=== PATIENT | female | born 1980 | race Two or more races ===

== ENCOUNTER 2020-07-24 13:30 | Outpatient (REF) | payer OTHER, SELFPAY ==
--- NOTE | 2020-07-24 | MM_ITS ---
EXAMINATION: MM DIAGNOSTIC DIGITAL BREAST TOMOSYNTHESIS, BILATERAL CLINICAL INFORMATION: Due for yearly exam. Probable benign calcifications mid upper outer left breast and mid 9:00 right breast, initially noted at baseline screening. The lifetime risk of breast cancer based on the Tyrer-Cuzick Model is 8%. COMPARISON: Mammography: 06/22/2019, 12/29/2018, 06/30/2018, 06/16/2018 (BI-RADS 0, baseline); targeted bilateral breast ultrasound 06/30/2018 and 12/29/2018. TECHNIQUE: Digital breast tomosynthesis is performed in both the craniocaudal and mediolateral oblique views along with computer-aided detection (CAD). Synthesized 2D images are generated from the tomosynthesis. FINDINGS: There are scattered areas of fibroglandular density (ACR BI-RADS breast composition Category b). Parenchymal pattern is similar to prior studies. There is no developing density or interval mass or architectural abnormality. Circumscribed benign-appearing nodules medial left breast on CC view are stable. Heavily calcified degenerating fibroadenoma mid 3:00 left breast again seen. There are scattered bilateral benign round and coarse calcifications. Calcifications for follow-up left breast mid upper outer quadrant and right breast mid 9:00 position show no suspicious changes since initial diagnostic mammography 2018 and are now considered benign, likely additional areas of degenerating fibroadenoma. Results are provided to the patient at time of visit by the technologist. MM/MM tomosynthesis diagnostic BI IMPRESSION: No significant changes from prior exams. The bilateral outer quadrant calcifications for follow-up are now considered benign. ASSESSMENT: BI-RADS 2: Benign RECOMMENDATION: Routine annual mammography screening. This patient's information was entered into a reminder system with a target due date for their next mammogram.
== END 2020-07-24 13:31 | disposition home or self-care (01) ==
LOC: HO.MAMMO 13:30
PROVIDERS: Visit Provider Internal Medicine
DX: R92.1 Mammographic calcification found on diagnostic imaging of breast (principal)
CPT/HCPCS: 77062; 77066

== ENCOUNTER → 2020-09-25 10:18 | Outpatient (BNVA) | payer OTHER, SELFPAY | PROVIDERS: PCP Internal Medicine; Visit Provider Nurse Practitioner | DX: K52.9 Noninfective gastroenteritis and colitis, unspecified (principal); K21.9 Gastro-esophageal reflux disease without esophagitis; K55.9 Vascular disorder of intestine, unspecified | CPT/HCPCS: Q3014 ==

== ENCOUNTER → 2020-10-17 10:19 | Outpatient (BNVA) | payer OTHER, SELFPAY | PROVIDERS: PCP Internal Medicine; Visit Provider Nurse Practitioner | CPT/HCPCS: Q3014 ==

== ENCOUNTER 2020-10-19 13:15 | Outpatient (REF) | payer OTHER, SELFPAY ==
[2020-10-19 14:14] LABS: Basophils Percent Auto 0.2 % (0-2); Eosinophils Absolute Auto 0.2 X10*3/uL (0.0-0.4); Eosinophils Percent Auto 1.2 % (0-4); Hematocrit 34.3 % (37-47); Hemoglobin 11.8 g/dl (12.0-16.0); Imm Gran Abs Auto 0.12 X10*3/uL (0.00-0.03); Imm Gran Pct Auto 0.7 % (0.0-0.4); Lymphocytes Absolute Auto 5.8 X10*3/uL (1.2-4.9); Lymphocytes Percent Auto 33.8 % (20-40); MANUAL DIFF FLAG SCAN; Mean Corpuscular HGB Conc 34.4 g/dl (31.0-35.0); Mean Corpuscular Hemoglobin 29.2 pg (27.0-33.0); Mean Corpuscular Volume 84.9 fL (80-98); Mean Platelet Volume 10.1 fL (9.4-12.3); Monocytes Absolute Auto 1.3 X10*3/uL (0.1-1.2); Monocytes Percent Auto 7.7 % (2-11); Neutrophils Absolute Auto 9.7 X10*3/uL (2.0-8.3); Neutrophils Percent Auto 56.4 % (45-73); Platelet Count 308 X10*3/uL (160-400); Red Blood Count 4.04 X10*6/uL (4.20-5.50); SCAN SMEAR FLAG 1; White Blood Count 17.2 X10*3/uL (4.8-10.8)
[2020-10-19 14:34] LABS: SLIDE REVIEW VERIFIED
[2020-10-19 14:54] LABS: Alanine Aminotransferase 19 U/L (0-31); Albumin Level 4.3 g/dL (3.5-5.0); Alkaline Phosphatase 68 U/L (39-117); Amylase 49 U/L (28-100); Anion Gap 13 (12-20); Aspartate Amino Transferase 9 U/L (5-31); Bilirubin Total 0.3 mg/dL (0.0-1.0); Blood Urea Nitrogen 12 mg/dL (9-16); C Reactive Protein 0.39 mg/dL (< or = 0.50); Calcium 8.5 mg/dL (8.4-10.2); Carbon Dioxide 22 mmol/L (22-29); Chloride 111 mmol/L (96-108); Estimated Glomerular Filt Rate > 60; Glucose Random 97 mg/dL (60-115); Lipase 25 U/L (8-78); Potassium 3.6 mmol/L (3.3-5.1); Sodium 142 mmol/L (135-145); Total Protein 6.9 g/dL (6.5-8.0)
[2020-10-19 15:19] LABS: TSH reflex Free T4 1.22 uIU/mL (0.32-4.0)
[2020-10-23 00:13] LABS: Gliadin Deamidated IgA Ab 2 Units; Gliadin Deamidated IgG Ab 1 Units; Transglutaminase Ab IgG 1 U/mL; Transglutaminase IgA 1 U/mL
== END 2020-10-19 13:16 | disposition home or self-care (01) ==
LOC: HO.LAB 13:15
PROVIDERS: PCP Internal Medicine; Visit Provider Nurse Practitioner
DX: K52.9 Noninfective gastroenteritis and colitis, unspecified (principal); K55.9 Vascular disorder of intestine, unspecified; K21.9 Gastro-esophageal reflux disease without esophagitis
CPT/HCPCS: 36415; 80053; 82150; 83516; 83690; 84443; 85025; 86140

== ENCOUNTER 2020-10-20 18:48 | Outpatient (REF) | payer OTHER, SELFPAY | END 2020-10-20 18:49 | disposition home or self-care (01) | LOC: HO.LNP 18:48 | PROVIDERS: Visit Provider Nurse Practitioner | DX: K52.9 Noninfective gastroenteritis and colitis, unspecified (principal) | CPT/HCPCS: 87045; 87046; 87338 ==

== ENCOUNTER 2020-10-22 12:04 | Outpatient (REF) | payer OTHER, SELFPAY | END 2020-10-22 12:05 | disposition home or self-care (01) | LOC: HO.LNP 12:04 | PROVIDERS: Visit Provider Nurse Practitioner | DX: K52.9 Noninfective gastroenteritis and colitis, unspecified (principal); K21.9 Gastro-esophageal reflux disease without esophagitis; K55.9 Vascular disorder of intestine, unspecified | CPT/HCPCS: 87046 ==

== ENCOUNTER → 2020-11-08 09:57 | Outpatient (BNVA) | payer OTHER, SELFPAY | PROVIDERS: PCP Internal Medicine; Visit Provider Nurse Practitioner | DX: Z13.89 Encounter for screening for other disorder (principal) | CPT/HCPCS: Q3014 ==

== ENCOUNTER → 2020-11-20 10:36 | Outpatient (BNVA) | payer OTHER, SELFPAY | PROVIDERS: PCP Internal Medicine; Visit Provider Urology | DX: N32.81 Overactive bladder (principal); N39.0 Urinary tract infection, site not specified | CPT/HCPCS: 51798; 81002; 99202 ==

== ENCOUNTER 2021-01-15 13:51 | Outpatient (REF) | payer OTHER, SELFPAY ==
--- NOTE | ~2021-01-15 | XR_ITS ---
EXAMINATION: XR BILATERAL HIPS WITH AP PELVIS CLINICAL INFORMATION: Osteonecrosis bilateral femur COMPARISON: Lumbar radiographs 04/08/2019 TECHNIQUE: AP view pelvis is performed. Each hip is imaged in AP and frog-lateral projections. There are a total of 5 views. FINDINGS: The bony pelvis is normal in density and shows no fracture or destructive process. The SI joints and pubis are unremarkable. There are scattered calcified phleboliths again seen left and right pelvis. Bowel gas unremarkable. Right hip shows no fracture or dislocation or destructive process. There is borderline narrowing superior medial hip joint without erosive change or chondrocalcinosis. Subtle increased attenuation is present subchondral superior medial femoral head. The trochanters and soft tissue planes are unremarkable. Left hip shows no fracture or dislocation or destructive process. No definite joint narrowing and no erosive change or chondrocalcinosis. Subtle increased attenuation is present subchondral superomedial femoral head. The trochanters and soft tissue planes are unremarkable. There is biopsy granuloma overlying the left greater trochanter on AP view and not associated with the hip on the frog lateral projection. XR/XR hip BI w PEL1V IMPRESSION: 1. Bilateral subchondral sclerosis superior medial femoral heads. Recommend bilateral hip MRI for further assessment for avascular necrosis. 2. Borderline narrowing right superior medial hip joint. No erosive change or chondrocalcinosis.
== END 2021-01-15 13:52 | disposition home or self-care (01) ==
LOC: HO.CT 13:51
PROVIDERS: Absent Provider Physical Medicine & Rehabilitation; PCP Internal Medicine; Visit Provider Nurse Practitioner
DX: M87.852 Other osteonecrosis, left femur (principal); M87.851 Other osteonecrosis, right femur; R10.32 Left lower quadrant pain
CPT/HCPCS: 73521

== ENCOUNTER 2021-03-27 14:01 | Outpatient (REF) | payer OTHER, SELFPAY ==
--- NOTE | ~2021-03-27 | CT_ITS ---
EXAMINATION: CT ABDOMEN AND PELVIS WITH CONTRAST CLINICAL INFORMATION: Left lower quadrant pain COMPARISON: None TECHNIQUE: Multidetector volumetric images were obtained from the superior aspect of the liver through the pubic symphysis following administration 85 mL of Omnipaque 350 intravenous contrast. Sagittal and coronal reformatted images were obtained on the technologist's workstation. Oral contrast: Yes This CT examination was performed using dose optimization techniques as appropriate, variously including the following: *Automated exposure control *Adjustment of mA and/or kV according to patient size (this includes techniques or standardized protocols for targeted exams where dose is matched to indication/reason for exam; i.e. extremities or head) *Use of iterative reconstruction technique DLP: 854 mGy-cm FINDINGS: LUNG BASES: The visualized lung bases are unremarkable. LIVER, GALLBLADDER, AND BILIARY TREE: The liver is slightly low in attenuation suggestive of mild fatty infiltration. The liver is slightly enlarged, right lobe measuring 20 cm in length. The liver is normal in contour. No focal liver lesion is seen. The gallbladder is normal. There is no biliary duct dilatation. PANCREAS: Unremarkable. SPLEEN: Unremarkable. ADRENAL GLANDS: Unremarkable. KIDNEYS AND URETERS: There is a 1 cm cyst in the lower pole of the right kidney. The kidneys are otherwise unremarkable. BLADDER: Unremarkable. GASTROINTESTINAL TRACT: There is mild diverticulosis of the colon. No evidence of diverticulitis is seen. There is stool throughout the colon questionable for constipation. Small and large bowel is otherwise unremarkable. The appendix is unremarkable. There is a small esophageal hernia. ABDOMINAL WALL: There is a small umbilical hernia containing fat.. LYMPH NODES: Normal. VASCULAR: Unremarkable. PELVIC VISCERA: Uterus appears to have been removed. No pelvic mass is seen. OSSEOUS STRUCTURES: There is increased subchondral sclerosis in both femoral heads questionable for early AVN. CT/CT abdomen pelvis w con IMPRESSION: Mild diverticulosis of the colon. No evidence of diverticulitis. Mild constipation. Esophageal hernia. Enlarged fatty liver. Small right renal cyst. 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
[2021-03-27] MEDS: Barium Sulfate Oral (Vanilla) 450 ML ORAL.SUSP 900 ML PO (16:26)
[2021-03-27] MEDS: iohexoL 350 MG/ML 100 ML INFUS..BTL IV (16:27)
== END 2021-03-27 14:02 | disposition home or self-care (01) ==
LOC: HO.CT 14:01
PROVIDERS: PCP Internal Medicine; Visit Provider Nurse Practitioner
DX: R10.32 Left lower quadrant pain (principal)
CPT/HCPCS: 74177; Q9967

== ENCOUNTER → 2021-04-05 15:26 | Outpatient (BNVA) | payer OTHER, SELFPAY | PROVIDERS: PCP Internal Medicine; Visit Provider Nurse Practitioner | DX: K22.10 Ulcer of esophagus without bleeding (principal); K21.9 Gastro-esophageal reflux disease without esophagitis; K52.9 Noninfective gastroenteritis and colitis, unspecified; R10.32 Left lower quadrant pain; R10.9 Unspecified abdominal pain | CPT/HCPCS: Q3014 ==

== ENCOUNTER → 2021-05-16 16:20 | Outpatient (BNVA) | payer OTHER, SELFPAY | PROVIDERS: PCP Internal Medicine; Visit Provider Nurse Practitioner | CPT/HCPCS: Q3014 ==

== ENCOUNTER 2021-10-01 15:09 | Outpatient (REF) | payer OTHER, SELFPAY ==
--- NOTE | ~2021-10-01 | MM_ITS ---
EXAMINATION: MM SCREENING DIGITAL BREAST TOMOSYNTHESIS, BILATERAL CLINICAL INFORMATION: Screening. Asymptomatic. The lifetime risk of breast cancer based on the Tyrer-Cuzick Model is 6%. COMPARISON: Mammography: 07/24/2020, 06/22/2019, 01/08/2019, 06/30/2018, 06/16/2018 (baseline) TECHNIQUE: Digital breast tomosynthesis is performed in both the craniocaudal and mediolateral oblique views along with computer-aided detection (CAD). Synthesized 2D images are generated from the tomosynthesis. FINDINGS: There are scattered areas of fibroglandular density (ACR BI-RADS breast composition Category b). There are no significant masses, abnormal calcifications, or other abnormalities. Parenchymal pattern is similar to prior studies. There is no developing density or architectural abnormality. There are scattered bilateral coarse calcifications again seen including heavily calcified nodules bilateral outer breasts. The axilla and skin contours are unremarkable. No significant changes. MM/MM tomosynthesis screening BI IMPRESSION: No mammographic evidence of malignancy. ASSESSMENT: BI-RADS 2: Benign RECOMMENDATION: Routine annual mammography screening. This patient's information was entered into a reminder system with a target due date for their next mammogram.
== END 2021-10-01 15:10 | disposition home or self-care (01) ==
LOC: HO.MAMMO 15:09
PROVIDERS: Visit Provider Internal Medicine
DX: Z12.31 Encounter for screening mammogram for malignant neoplasm of breast (principal)
CPT/HCPCS: 77063; 77067

== ENCOUNTER → 2021-10-08 09:59 | Outpatient (BNVA) | payer OTHER, SELFPAY | PROVIDERS: PCP Internal Medicine; Referring Provider Internal Medicine; Visit Provider Nurse Practitioner | DX: K58.2 Mixed irritable bowel syndrome (principal); K22.10 Ulcer of esophagus without bleeding; K21.9 Gastro-esophageal reflux disease without esophagitis; Z79.899 Other long term (current) drug therapy | CPT/HCPCS: 99212 ==

== ENCOUNTER 2023-03-25 15:09 | Outpatient (REF) | payer OTHER, SELFPAY | END 2023-03-25 15:10 | disposition home or self-care (01) | LOC: HO.LAB 15:09 | PROVIDERS: PCP Internal Medicine; Visit Provider Nurse Practitioner Family | DX: J45.909 Unspecified asthma, uncomplicated (principal); Z91.09 Other allergy status, other than to drugs and biological substances | CPT/HCPCS: 36415; 82785; 86003; 99202 ==

== ENCOUNTER 2023-03-25 15:09 | Outpatient (AMB) | payer OTHER, SELFPAY ==
--- NOTE | 2023-03-25 15:12 | MHC.OFFVIS ---
Intake Vital Signs 03/25/23 15:15 Height 5 ft 5 in BP 112/68 Blood Pressure Location Lt brachial Position Sitting Pulse 73 Pulse Source Pulse Oximeter Pulse Oximetry (%) 100 Intake Visit Reasons: Asthma Door To Door Lead Generation Required: No Tax Collector: Tax Collector offered & declined Accompanied by: Self / Same As Patient Allergies No Known Allergies [No Known Allergies*] Allergy (Verified 03/25/23 15:19) Medication List - Last Reconciled 03/25/23 by Bessie Power LPN albuterol sulfate 90 mcg/actuation (Ventolin HFA) 2 puffs inhalation QID alosetron (Lotronex) 0.5 mg PO DAILY 30 days aikimrrbgi-bxagwweitq-bay-cod 01-037-23-30 mg 1 cap PO ONCE PRN fluoxetine 20 mg PO DAILY fluticasone propion-salmeterol 250-50 mcg/dose 1 ea inhalation BID fluticasone propionate 50 mcg/actuation (Flonase Allergy Relief) 1 spray intranasal DAILY hydroxyzine pamoate 0 mg PO zukgil-ncysgmed-kkgvlqd 24,000-76,000 -120,000 unit (Creon) 1 cap PO TID losartan 100 mg PO DAILY neomycin-polymyxin B-dexameth 3.5 mg/g-10,000 unit/g-0.1 % ophthalmic (eye) olanzapine 10 mg PO BEDTIME olanzapine 7.5 mg PO BEDTIME ondansetron HCl (Zofran) 4 mg PO Q8H PRN oxybutynin chloride ER 10 mg PO DAILY pantoprazole 40 mg PO BID riboflavin (vitamin B2) 0 mg PO sennosides (senna) 17.2 mg (2 x 8.6 mg) PO BEDTIME 30 days sucralfate 1 g PO QIDACHS topiramate 200 mg PO BID topiramate 200 mg PO BID tramadol 50 mg PO Q6H PRN valsartan 160 mg PO DAILY HPI Asthma HPI Details Veronica is a very pleasant 42 year old female, former smoker, with underlying history of asthma. She was referred by her PCP for pulmonary evaluation. She reports previously being under the care of [facility] pulmonary for asthma but would like to transfer care here. She has been using Wixela and albuterol nebulizer PRN with suboptimal control. She has been having increased cough and nasal congestion. She was seen at [facility] ED in January and treated for an asthma exacerbation with resolution of symptoms after prednisone. Today she reports increased productive cough with green sputum and feeling feverish with chills since Thursday. She has been using her nebulizer q 6- 8 hours with good relief. She denies any family history of lung conditions other than an aunt with asthma. She denies any childhood asthma, reports symptoms started about 6 years ago. She denies any recent spirometry. She also reports allergic symptoms and has not had recent allergy testing. [facility] Medical History Chronic diarrhea Surgical History History of esophagogastroduodenoscopy (EGD) Hx of adenoidectomy Hx of section Hx of colonoscopy Hx of hysterectomy Hx of laparoscopy Hx of tonsillectomy Family History Mother HTN (hypertension) Diabetes Family history of cancer Father HTN (hypertension) Diabetes Family history of cancer Prostate cancer Social History (Updated 03/25/23 @ 15:27 by Bessie Power LPN) Household Members: Family and Children Alcohol intake: never Patient Tobacco Use Status: Former Tobacco user Tobacco use type: Cigarette Cigarettes Per Day: 1 Years Smoked: quit 3 yrs ago Current occupational status: disabled Review of Systems Const Reports chills, Denies excessive sweating, Denies fever(s), Denies headache(s) and Denies night sweats Eyes Denies dry eyes and Denies irritation ENT Reports Normal hearing present, Denies headache(s), Reports nasal congestion, Denies nasal discharge, Denies post nasal drip and Denies sore throat Card Denies chest pain, Denies chest pain at rest, Denies chest pain with activity, Denies claudication, Denies leg edema, Reports dyspnea on exertion, Denies orthopnea and Denies paroxysmal nocturnal dyspnea Resp Reports change in phlegm color, Reports chest congestion, Reports cough, Denies hemoptysis, Denies excessive phlegm production, Denies pain on inspiration, Denies pain with cough, Reports dyspnea on exertion, Denies stridor and Denies wheezing Musc Denies myalgias Neuro Reports Normal hearing present and Denies headache(s) Endo Denies excessive sweating Ash/Lymph Denies lymphadenopathy Aller/Immun Denies seasonal rhinorrhea and Denies wheezing Physical Exam Vital Signs: Last Vital Signs Pulse 73 03/25/23 15:15 BP 112/68 03/25/23 15:15 Pulse Ox 100 03/25/23 15:15 Const General: cooperative, healthy appearing, comfortable, no acute distress, well developed and alert Nutritional Appearance: obese Orientation/consciousness: patient oriented x3 Limitations: no limitations HEENT Head: Yes normal to inspection, Yes normocephalic and Yes atraumatic Ears: hearing grossly normal bilaterally and external ears normal Eyes General: appearance normal, both eyes and all related structures Eyelids: Yes eyelids normal Sclerae: sclerae normal EOM: EOMs intact bilaterally Neck Neck: Yes normal visual inspection and Yes no lymphadenopathy Lymphatic: no lymphadenopathy noted Chest Chest palpation & inspection: normal inspection of the chest Resp Effort & Inspection: normal respiratory effort, able to speak in complete sentences, no audible wheezes, no stridor, not tachypneic, no tripod positioning and no use of accessory muscles Auscultation: no crackles, no rhonchi, no wheezes and diminished lung sounds Cardio Jugular venous distension: no JVD Rate: regular rate Rhythm: regular rhythm Skin Other: warm, dry General skin exam: no rashes or lesions noted Neuro General: patient oriented x3 Cranial nerves: Yes Normal hearing present Cognition (Neuro): normal cognition Gait exam (Neuro): Normal gait present Extrem General: Yes normal to inspection, Yes capillary refill normal, Yes no clubbing, cyanosis or edema and Yes no pedal edema Psych Appearance: grossly normal and well kempt Speech and movement: Normal speech and movement present and Clear speech present Affect: normal affect Attitude: cooperative Thought process: Normal thought process present Thought content: Normal thought content present Insight: Good insight present (Psych) Judgement: Good judgement present (Psych) Assessment & Plan Assessment & Plan (1) Asthma: Code(s): J45.909 - Unspecified asthma, uncomplicated (2) Environmental allergies: Code(s): Z91.09 - Other allergy status, other than to drugs and biological substances (3) Bronchitis: Code(s): J40 - Bronchitis, not specified as acute or chronic Plan Veronica presents for pulmonary evaluation of asthma with likely underlying allergic component. Will send for PFT and lab work. She currently has bronchitic symptoms, will treat with zpak. She report suboptimal use with Wixela 250 mcg, will increase to 500 mcg and trial ipratropium nasal spray. All questions were answered and patient is in agreement of plan. Will follow up to review results or sooner if no improvement with antibiotics. Orders: Orders Rast Allergen 03/25/23 Z91.09 - Other allergy status, other than to drugs and biological substances Complete Blood Count Auto Diff 03/25/23 J40 - Bronchitis, not specified as acute or chronic Immunoglobulin E 03/25/23 Z91.09 - Other allergy status, other than to drugs and biological substances PFT pulmonary function test 03/25/23 J45.909 - Unspecified asthma, uncomplicated Medications: New azithromycin For 250 mg dose pack: take 500 mg today (day 1), then 250 mg for 4 days (days 2-5) PO 6 tabs 0RF ipratropium bromide administer into each nostril 2 sprays intranasal BID 30 mL 3RF fluticasone propion-salmeterol 500-50 mcg/dose (Wixela Inhub) 1 inh inhalation Q12H 60 ea 2RF Coding Level of Care Code New Pt Level 4 (55905) Diagnoses Asthma J45.909 Environmental allergies Z91.09 Bronchitis J40
[2023-03-25 15:15] VITALS: BP 112/68; PULSE 73; O2SAT 100
== END 2023-03-25 15:51 | disposition home or self-care (01) ==
PROVIDERS: PCP Internal Medicine; Referring Provider Internal Medicine; Visit Provider Nurse Practitioner Family
DX: J45.909 Unspecified asthma, uncomplicated (principal); Z91.09 Other allergy status, other than to drugs and biological substances
CPT/HCPCS: 99204

== ENCOUNTER 2023-04-21 09:11 | Outpatient (REF) | payer OTHER, SELFPAY ==
--- NOTE | 2023-04-21 09:55 | PFT_ITS ---
FLOWS: 1. FEV1 79% of predicted at 2.39 L. 2. FVC 69% of predicted at 2.62 L. 3. FEV1 to FVC ratio of 0.91. 4. No bronchodilator response except in wsozi-ed-xanlxu airways. LUNG VOLUMES: 1. Total lung capacity 68% of predicted at 3.56 L. 2. Residual volume 52% of predicted at 0.90 L. 3. Slow vital capacity 76% of predicted at 2.66 L. 4. Expiratory reserve volume 5% of predicted at 0.06 L. 5. Diffusion capacity is normal. IMPRESSION: Moderate restrictive ventilatory defect with no bronchodilator response except in vjrxt-ku-dxrizv airways. Decreased expiratory reserve volume suggests extrathoracic restriction, likely secondary to abdominal obesity. Tank Wilburn MD AP/MODL / [id number]
== END 2023-04-21 09:12 | disposition home or self-care (01) ==
LOC: HO.RESP 09:11
PROVIDERS: PCP Internal Medicine; Visit Provider Nurse Practitioner Family
DX: J45.909 Unspecified asthma, uncomplicated (principal)
CPT/HCPCS: 94010; 94727; 94729

== ENCOUNTER → 2023-04-21 09:55 | Outpatient (BNV) | payer OTHER, SELFPAY | PROVIDERS: PCP Internal Medicine; Visit Provider Internal Medicine Pulmonary Disease | DX: J45.909 Unspecified asthma, uncomplicated (principal) | CPT/HCPCS: 94060; 94727; 94729 ==

== ENCOUNTER 2023-05-15 | Outpatient (REF) | payer OTHER, SELFPAY | END 2023-05-15 00:01 | disposition home or self-care (01) | LOC: CF | PROVIDERS: Visit Provider Nurse Practitioner Family | DX: J40 Bronchitis, not specified as acute or chronic (principal); J01.90 Acute sinusitis, unspecified; Z91.09 Other allergy status, other than to drugs and biological substances | CPT/HCPCS: 94640; 99212 ==

== ENCOUNTER 2023-05-15 10:35 | Outpatient (AMB) | payer OTHER, SELFPAY ==
[2023-05-15 10:40] VITALS: BP 110/68; PULSE 91; O2SAT 100; BMI 40.1
--- NOTE | 2023-05-15 10:40 | A.OFFVIS_ITS ---
Intake Vital Signs 3 05/15/23 10:40 Height 5 ft 5 in Weight 241 lb BMI 40.1 BP 110/68 Blood Pressure Location Rt brachial Position Sitting Pulse 91 Pulse Source Pulse Oximeter Pulse Oximetry (%) 100 Oxygen Delivery Method Room Air Intake Visit Reasons: asthma Director Corporate Sales Required: Yes Director Corporate Sales Name: [employer] #[id number] Commercial Credit Officer: Commercial Credit Officer offered & declined Accompanied by: Self / Same As Patient Allergies No Known Allergies [No Known Allergies*] Allergy (Verified 05/15/23 10:53) Medication List - Last Reconciled 05/15/23 by Bessie Power LPN albuterol sulfate 90 mcg/actuation (Ventolin HFA) 2 puffs inhalation QID alosetron (Lotronex) 0.5 mg PO DAILY 30 days azithromycin For 250 mg dose pack: take 500 mg today (day 1), then 250 mg for 4 days (days 2-5) PO rtaoltexpk-gbyknkysgr-rew-cod [id number] mg 1 cap PO ONCE PRN fluoxetine 20 mg PO DAILY fluticasone propion-salmeterol 250-50 mcg/dose 1 ea inhalation BID fluticasone propion-salmeterol 500-50 mcg/dose (Wixela Inhub) 1 inh inhalation Q12H fluticasone propionate 50 mcg/actuation (Flonase Allergy Relief) 1 spray intranasal DAILY hydroxyzine pamoate 0 mg PO ipratropium bromide 2 sprays intranasal BID hnqaqf-dwyucjry-ucluger 24,000-76,000 -120,000 unit (Creon) 1 cap PO TID losartan 100 mg PO DAILY neomycin-polymyxin B-dexameth 3.5 mg/g-10,000 unit/g-0.1 % ophthalmic (eye) olanzapine 10 mg PO BEDTIME olanzapine 7.5 mg PO BEDTIME ondansetron HCl (Zofran) 4 mg PO Q8H PRN oxybutynin chloride ER 10 mg PO DAILY pantoprazole 40 mg PO BID riboflavin (vitamin B2) 0 mg PO sennosides (senna) 17.2 mg (2 x 8.6 mg) PO BEDTIME 30 days sucralfate 1 g PO QIDACHS topiramate 200 mg PO BID topiramate 200 mg PO BID tramadol 50 mg PO Q6H PRN valsartan 160 mg PO DAILY HPI asthma 2 HPI0 Details Veronica is a very pleasant 42 year old female, former smoker, with underlying history of asthma. She has been using Wixela and albuterol nebulizer PRN with suboptimal control. At the last visit, she was prescribed an increased dose of Wixela but unfortunately when she went to the pharmacy they refilled her prior dose of Wixela. She did start using ipratropium nasal spray with good effect. She continues to report increased cough and over the last three weeks has had worsening sinus pain with tenacious mucus along with congestion and inability to take a deep breath. COVID negative. She also presents to review PFT results. Of note, she is under the care of [facility] for [facility] and has been compliant with CPAP therapy. [facility] Medical History Chronic diarrhea Surgical History History of esophagogastroduodenoscopy (EGD) Hx of adenoidectomy Hx of section Hx of colonoscopy Hx of hysterectomy Hx of laparoscopy Hx of tonsillectomy Family History Mother HTN (hypertension) Diabetes Family history of cancer Father HTN (hypertension) Diabetes Family history of cancer Prostate cancer Social History (Updated 05/15/23 @ 10:51 by Bessie Power LPN) Household Members: Family and Children Alcohol intake: never Patient Tobacco Use Status: Former Tobacco user Tobacco use type: Cigarette Cigarettes Per Day: 1 Years Smoked: quit 3 yrs ago Current occupational status: disabled Review of Systems Const Reports chills, Denies excessive sweating, Denies fever(s), Denies headache(s) and Denies night sweats Eyes Denies dry eyes and Denies irritation ENT Reports Normal hearing present, Denies headache(s), Reports nasal congestion, Denies nasal discharge, Denies post nasal drip and Denies sore throat Card Denies chest pain, Denies chest pain at rest, Denies chest pain with activity, Denies claudication, Denies leg edema, Reports dyspnea on exertion, Denies orthopnea and Denies paroxysmal nocturnal dyspnea Resp Reports change in phlegm color, Reports chest congestion, Reports cough, Denies hemoptysis, Denies excessive phlegm production, Denies pain on inspiration, Denies pain with cough, Reports dyspnea on exertion, Denies stridor and Denies wheezing Musc Denies myalgias Neuro Reports Normal hearing present and Denies headache(s) Endo Denies excessive sweating Ash/Lymph Denies lymphadenopathy Aller/Immun Denies seasonal rhinorrhea and Denies wheezing Physical Exam Vital Signs: Last Vital Signs Pulse 91 05/15/23 10:40 BP 110/68 05/15/23 10:40 Pulse Ox 100 05/15/23 10:40 Oxygen Delivery Method Room Air 05/15/23 10:40 BMI result Body Mass Index 40.1 Const General: cooperative, healthy appearing, comfortable, no acute distress, well developed and alert Nutritional Appearance: obese Orientation/consciousness: patient oriented x3 Limitations: no limitations HEENT Head: Yes normal to inspection, Yes normocephalic and Yes atraumatic Ears: hearing grossly normal bilaterally and external ears normal Eyes General: appearance normal, both eyes and all related structures Eyelids: Yes eyelids normal Sclerae: sclerae normal EOM: EOMs intact bilaterally Neck Neck: Yes normal visual inspection and Yes no lymphadenopathy Lymphatic: no lymphadenopathy noted Chest Chest palpation & inspection: normal inspection of the chest Resp Other: diminished lung sounds, improved after duoneb Effort & Inspection: normal respiratory effort, able to speak in complete sentences, no audible wheezes, no stridor, not tachypneic, no tripod positioning and no use of accessory muscles Auscultation: no crackles, no rhonchi, no wheezes and diminished lung sounds Cardio Jugular venous distension: no JVD Rate: regular rate Rhythm: regular rhythm Skin Other: warm, dry General skin exam: no rashes or lesions noted Neuro General: patient oriented x3 Cranial nerves: Yes Normal hearing present Cognition (Neuro): normal cognition Gait exam (Neuro): Normal gait present Extrem General: Yes normal to inspection, Yes capillary refill normal, Yes no clubbing, cyanosis or edema and Yes no pedal edema Psych Appearance: grossly normal and well kempt Speech and movement: Normal speech and movement present and Clear speech present Affect: normal affect Attitude: cooperative Thought process: Normal thought process present Thought content: Normal thought content present Insight: Good insight present (Psych) Judgement: Good judgement present (Psych) Office Procedures Nebulizer Treatment Nebulizer Treatment [id number]/MDI RX initial, or Nebulizer Subsequent Treatment Office Meds ipratropium 0.5 mg-albuterol 3 mg (2.5 mg base)/3 mL nebulization kike Performing Provider: Marina Melo NP [place] [facility] [place] [facility] Administered by: Bessie Power LPN on 05/15/23 11:32 2 Dose Route Admin Location Dispensed Lot Number Expiration Date [facility] Hardness Tester 3 mL inhalation 3 mL [id number] 10/21/24 9098-6688-66 [employer] Results Reviewed Results Reviewed: Assessment & Plan Assessment & Plan (1) Sinusitis: Code(s): J32.9 - Chronic sinusitis, unspecified Qualifiers: Sinusitis location: unspecified location Chronicity: acute Recurrence: not specified as recurrent Qualified Code(s): J01.90 - Acute sinusitis, unspecified (2) Asthma: Code(s): J45.909 - Unspecified asthma, uncomplicated (3) Environmental allergies: Code(s): Z91.09 - Other allergy status, other than to drugs and biological substances Plan Reviewed PFT results which revealed moderate restrictive ventilatory defect with no bronchodilator response except in jswnm-[id number] airways. Decreased expiratory reserve volume suggests extrathoracic restriction, likely secondary to abdominal obesity. DLCO within normal limits. Veronica's symptoms for the past three weeks are consistent with sinusitis. Will treat with augmentin. Encouraged her to obtain the increased dose of Wixela and will prescribe duoneb for nebulizer. All questions were answered and patient is in agreement of plan. Will follow up to review results or sooner if no improvement with antibiotics. Orders: Orders 2 AMB Nebulizer Treatment 05/15/23 J40 - Bronchitis, not specified as acute or chronic, J45.909 - Unspecified asthma, uncomplicated Medications: New 2 albuterol sulfate 90 mcg/actuation (Ventolin HFA) 2 puffs inhalation QID 1 ea 3RF amoxicillin-pot clavulanate 875-125 mg 1 tab PO Q12H 14 tabs 0RF albuterol sulfate 2.5 mg (3 mL) inhalation Q4-6H PRN 90 mL 3RF shortness of breath or wheezing Refilled 2 fluticasone propion-salmeterol 500-50 mcg/dose (Wixela Inhub) 1 inh inhalation Q12H 60 ea 2RF Coding Level of Care Code Est Pt Level 4 (74619) Diagnoses Acute sinusitis, recurrence not specified, unspecified location J01.90 Sinusitis location: unspecified location Chronicity: acute Recurrence: not specified as recurrent Asthma J45.909 Environmental allergies Z91.09 CPT Codes Nebulizer Treatment - Nebulizer Treatment, initial or subsequent: 83200- Nebulizer/MDI RX initial, or Nebulizer Subsequent Treatment ([id number])
== END 2023-05-15 11:28 | disposition home or self-care (01) ==
LOC: HO.HPSW 10:35
PROVIDERS: PCP Internal Medicine; Visit Provider Nurse Practitioner Family
DX: J45.909 Unspecified asthma, uncomplicated (principal)
CPT/HCPCS: 99212; 99214

== ENCOUNTER 2023-09-22 11:25 | Outpatient (REF) | payer OTHER, SELFPAY ==
[2023-09-22 13:28] LABS: MANUAL DIFF FLAG NO
[2023-09-22 13:36] LABS: Basophils Percent Auto 0.3 % (0-2); Eosinophils Absolute Auto 0.1 X10*3/uL (0.0-0.4); Eosinophils Percent Auto 0.7 % (0-4); Hematocrit 33.6 % (37.0-47.0); Hemoglobin 11.3 g/dl (12.0-16.0); Imm Gran Abs Auto 0.07 X10*3/uL (0.00-0.03); Imm Gran Pct Auto 0.6 % (0.0-0.4); Lymphocytes Absolute Auto 2.4 X10*3/uL (1.2-4.9); Lymphocytes Percent Auto 22.1 % (20-40); Mean Corpuscular HGB Conc 33.6 g/dl (31.0-35.0); Mean Corpuscular Volume 83.4 fL (80.0-98.0); Mean Platelet Volume 9.5 fL (9.4-12.3); Monocytes Absolute Auto 0.7 X10*3/uL (0.1-1.2); Monocytes Percent Auto 6.7 % (2-11); Neutrophils Absolute Auto 7.7 x10*3/uL (2.0-8.3); Neutrophils Percent Auto 69.6 % (45-73); Platelet Count 306 X10*3/uL (160-400); Red Blood Count 4.03 X10*6/uL (4.20-5.50); Red Cell Distribution Width 13.7 % (11.0-16.0); White Blood Count 11.1 X10*3/uL (4.8-10.8)
[2023-09-22 13:49] LABS: Estimated Average Glucose 131 mg/dL; Hemoglobin A1c % 6.2 % (<6.0)
[2023-09-22 13:50] LABS: Alanine Aminotransferase 24 U/L (0-31); Albumin Level 4.3 g/dL (3.5-5.0); Alkaline Phosphatase 78 U/L (39-117); Anion Gap 15 (12-20); Aspartate Amino Transferase 14 U/L (5-31); Bilirubin Direct 0.1 mg/dL (0.0-0.5); Bilirubin Total 0.4 mg/dL (0.0-1.0); Blood Urea Nitrogen 8 mg/dL (9-16); Calcium 9.5 mg/dL (8.4-10.2); Carbon Dioxide 22 mmol/L (22-29); Chloride 109 mmol/L (96-108); Cholesterol 236 mg/dL (<200); Estimated Glomerular Filt Rate > 60; Glucose Random 189 mg/dL (60-115); HDL Cholesterol 50 mg/dL (>40); LDL Cholesterol Calculated 157 mg/dL (<100); Potassium 3.5 mmol/L (3.3-5.1); Sodium 142 mmol/L (135-145); Total Protein 7.4 g/dL (6.5-8.0); Triglycerides 148 mg/dL (<150)
== END 2023-09-22 11:26 | disposition home or self-care (01) ==
LOC: HO.HHCL 11:25
PROVIDERS: Visit Provider Internal Medicine
DX: I10 Essential (primary) hypertension (principal); R73.03 Prediabetes
CPT/HCPCS: 36415; 80048; 80061; 80076; 83036; 85025

== ENCOUNTER 2023-12-08 13:28 | Outpatient (REF) | payer OTHER, SELFPAY ==
--- NOTE | ~2023-12-08 | MM_ITS ---
EXAMINATION: MM SCREENING DIGITAL BREAST TOMOSYNTHESIS, BILATERAL CLINICAL INFORMATION: Screening. Asymptomatic. COMPARISON: Mammography: This study is compared with prior exams dating back to 2018. TECHNIQUE: Digital breast tomosynthesis is performed in both the craniocaudal and mediolateral oblique views along with computer-aided detection (CAD). Synthesized 2D images are generated from the tomosynthesis. FINDINGS: There are scattered areas of fibroglandular density (ACR BI-RADS breast composition Category b). There are no significant masses, abnormal calcifications, or other abnormalities. There are bilateral benign calcifications in each breast. MM/MM tomosynthesis screening BI IMPRESSION: No mammographic evidence of malignancy. ASSESSMENT: BI-RADS BI-RADS 2 - Benign Findings RECOMMENDATION: Routine annual mammography screening. 1 year F/U This examination should not preclude the clinical evaluation of a suspicious palpable abnormality. This patient's information was entered into a reminder system with a target due date for their next mammogram.
== END 2023-12-08 13:29 | disposition home or self-care (01) ==
LOC: HO.MAMMO 13:28
PROVIDERS: PCP Internal Medicine; Visit Provider Internal Medicine
DX: Z12.31 Encounter for screening mammogram for malignant neoplasm of breast (principal)
CPT/HCPCS: 77063; 77067

== ENCOUNTER → 2023-12-08 13:30 | Outpatient (BNV) | payer OTHER, SELFPAY | PROVIDERS: PCP Internal Medicine; Visit Provider Radiology Diagnostic Radiology | DX: Z12.31 Encounter for screening mammogram for malignant neoplasm of breast (principal) | CPT/HCPCS: 77063; 77067 ==

== ENCOUNTER 2024-01-13 13:54 | Outpatient (AMB) | payer OTHER, SELFPAY ==
--- NOTE | 2024-01-13 13:59 | A.OFFVIS_ITS ---
Vital Signs 3 01/13/24 14:00 Height 5 ft 5 in Weight 247 lb 5.738 oz BMI 41.2 BP 103/59 L Blood Pressure Location Rt brachial Position Sitting Pulse 96 Intake Visit Reasons: Colonoscopy Screeniing Intake Note: Patient in office for colonoscopy screening s/p positive cologuard. CC: Patient states that she can constipated for weeks and then she starts having diarrhea. She also c/o abdominal bloating, and abdominal pain. Patient states that her PCP ordered a cologuard test that came back positive. 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 She is still constipated despite stopping the carafate and the Lotronex. She continues on the Creon. She tried Lactulose she had at home, and it worked but she has a LOT of gas and bloating. I explain this is an expected s/e of this medicine which is why I don't use it often. She continues with the Creon, and I will add senna. I explain she may need to buy it OTC. We also discuss fiber therapy as she is now presenting with mixed IBS. I recommend citrucel or benefiber bid. I educate her that the Creon helps her with the gas and bloating which is quite a problem for her but also getting the bowels moving is important because she likely has gas trapping secondary to poor motility right now. She really wants to stop the swings and be normal. I sympathize with her but I tell her that this usually is a very individual process and it will involve compliance with fiber therapy even though it is not pay for by insurance. Return office visit in 3 weeks to evaluate her response to therapy. (2) Erosive esophagitis: Code(s): K22.10 - Ulcer of esophagus without bleeding Plan: She continues on her pantoprazole 40 mg twice a day with good response. (3) GERD (gastroesophageal reflux disease): Code(s): K21.9 - Gastro-esophageal reflux disease without esophagitis Medications: New sennosides (senna) 17.2 mg (2 x 8.6 mg) PO BEDTIME 30 days 60 caps 3RF constipation K58.2 - Mixed irritable bowel syndrome Discontinued metronidazole (Flagyl) Discontinued Reason: Patient Completed Course 500 mg PO TID 10 days 30 tabs 0RF K63.89 - Other specified diseases of intestine On Hold alosetron (Lotronex) Hold Comment: Doctor's Order 0.5 mg PO DAILY 30 days 30 tabs 3RF Patient Instructions: Ya que est? oscilando entre el estre?imiento y la diarrea, quiero que empiece a hebert un suplemento de fibra. Utilice Benefiber o Citrucel (un gen?rico est? perfectamente fawad para ahorrar dinero) y t?mauro dos veces al d?a. [place] trata tanto el estre?imiento navin la diarrea. Adem?s, comience a hebert de 1 a 2 tabletas de sen a la hora de acostarse para hacer que giacomo intestinos se muevan. Envi? dudley receta para esto a silver farmacia, yasmine es posible que no est? cubierto por el seguro y es posible que deba comprarlo sin receta. La fibra no est? cubierta por el seguro. Quiero verlo en 3 semanas para continuar ajustando silver terapia Laboratory Tests 09/22/23 11:28 WBC 11.1 H Hgb 11.3 L Hct 33.6 L MCV 83.4 MCH 28.0 Plt Count 306 Estimated GFR > 60 Total Bilirubin 0.4 Direct Bilirubin 0.1 AST 14 ALT 24 Alkaline Phosphatase 78 TODAY'S VISIT Citizen Of [place] #Aracelis Live She has been lost to follow up since 11/2021, she tells me that her PCP did a cologuard and it was positive. She has been away in [place] caring for her father who had prostate cancer. IT APPEARS SHE IS ALSO DUE FOR HER 1ST SCREENING COLONOSCOPY. She has a history of pulmonary embolism, asthma, RODERICK, and a seizure disorder Her asthma and RODERICK are controlled as is her seizure disorder, and she denies cardiac problems. She has severe CIC not moving her bowels for 2-3 weeks, then 2 days of diarrhea, then back to CIC. She is taking senna but it is not helping much, she has also failed miralax, bisacodyl, colace, fiber and lactulose. I will start her on LInzess 145 mcg in case the diarrhea is reactive and titrate. There are no prior problems with anesthesia or sedation. NO ID problems. Her father had colon polyps and she has an extensive fhx of colon problems including torsion and TICS in mother. We will start her on the Linzess as above and see her in 4 weeks to titrate to affect her side effect. [facility] Medical History Seizure disorder History of pulmonary embolism Hypertension Asthma Bronchitis Environmental allergies RODERICK on CPAP GERD (gastroesophageal reflux disease) Irritable bowel syndrome with both constipation and diarrhea Overactive bladder Surgical History History of lung surgery History of tonsillectomy and adenoidectomy History of 2 sections History of hysterectomy History of laparoscopy History of colonoscopy History of esophagogastroduodenoscopy (EGD) Family History Mother HTN (hypertension) Diabetes Family history of cancer Father HTN (hypertension) Diabetes Family history of cancer Prostate cancer Social History Household Members: Family and Children Alcohol intake: never Patient Tobacco Use Status: Former Tobacco user Tobacco use type: Cigarette Cigarettes Per Day: 1 Years Smoked: quit 3 yrs ago Current occupational status: disabled Review of Systems Const Denies fatigue, Denies fever(s), Denies night sweats, Denies poor appetite and Denies weight loss ENT Reports Normal hearing present, Denies dysphagia, Denies odynophagia, Denies throat swelling and Denies tongue swelling Card Reports no additional complaints Resp Reports no additional complaints GI Details: Denies abdominal pain, Denies melena, Denies bloating, Denies hematochezia, Reports constipation, Denies GI cramping, Denies dysphagia, Denies excessive flatus, Denies early satiety, Reports heartburn, Reports diarrhea, Denies nausea, Denies odynophagia, Denies vomiting and Denies hematemesis Skin/Breast Denies pruritus, Denies lesions, Denies rash and Denies jaundice Neuro Reports Normal hearing present and Denies Abnormal speech present Endo Denies fatigue Aller/Immun Denies throat swelling and Denies tongue swelling Physical Exam Vital Signs: Last Vital Signs Pulse 96 01/13/24 14:00 BP 103/59 L 01/13/24 14:00 BMI result Body Mass Index 41.2 Const General: cooperative, no acute distress, well developed and well groomed Nutritional Appearance: well nourished and obese centrally obese Orientation/consciousness: oriented to person, oriented to place and oriented to time Limitations: No language barrier HEENT Head: Yes normocephalic and Yes atraumatic Eyes General: appearance normal, both eyes and all related structures Pupils: Equal, round and reactive pupils present Neck Neck: Yes normal visual inspection and Yes no lymphadenopathy Thyroid: Thyroid normal Resp Effort & Inspection: normal respiratory effort and able to speak in complete sentences Auscultation: wheezes inspiratory wheezes and scattered wheezes Cardio Rate: regular rate Rhythm: regular rhythm Heart sounds: Normal, physiologic split S2 sound present Peripheral pulses: radial pulses present and posterior tibial pulses present GI Inspection: No distended, Yes Abdominal panniculus present and Yes obesity Palpation (GI): Soft to palpation, nontender, no guarding, not rigid and No hepatosplenomegaly present Percussion: Yes normal to percussion Auscultation: normal bowel sounds Rectal Exam - Female: deferred Abdomen image: 2 1. Surgical scar Skin General skin exam: no rashes or lesions noted, turgor normal, skin not dry, no jaundice, No spider nevi and no striae Rashes: no rashes Nails: normal Neuro General: oriented to person, oriented to place and oriented to time Cranial nerves: Yes Equal, round and reactive pupils present and Yes Normal hearing present Speech: No Abnormal speech present Extrem General: Yes normal to inspection, No clubbing, No cyanosis and No edema Psych Appearance: grossly normal and well kempt Mental Status: mental status grossly normal Speech and movement: Normal speech and movement present Affect: normal affect Attitude: cooperative Thought process: Normal thought process present and not confabulating Thought content: Normal thought content present Insight: Limited insight present (Psych) Judgement: Limited judgement present (Psych) Assessment & Plan Assessment & Plan (1) Chronic idiopathic constipation: Code(s): K59.04 - Chronic idiopathic constipation Category: Medical (2) Pre-op examination: Code(s): Z01.818 - Encounter for other preprocedural examination Category: Medical (3) Positive colorectal cancer screening using Cologuard test: Code(s): R19.5 - Other fecal abnormalities Category: Medical Plan Citizen Of [place] #Aracelis Quezada She has been lost to follow up since 11/2021, she tells me that her PCP did a cologuard and it was positive. She has been away in [place] caring for her father who had prostate cancer. IT APPEARS SHE IS ALSO DUE FOR HER 1ST SCREENING COLONOSCOPY. She has a history of pulmonary embolism, asthma, RODERICK, and a seizure disorder Her asthma and RODERICK are controlled as is her seizure disorder, and she denies cardiac problems. She has severe CIC not moving her bowels for 2-3 weeks, then 2 days of diarrhea, then back to CIC. She is taking senna but it is not helping much, she has also failed miralax, bisacodyl, colace, fiber and lactulose. I will start her on LInzess 145 mcg in case the diarrhea is reactive and titrate. She continues on her Creon and her pantoprazole. There are no prior problems with anesthesia or sedation. NO ID problems. Her father had colon polyps and she has an extensive fhx of colon problems including torsion and TICS in mother. We will start her on the Linzess as above and see her in 4 weeks to titrate to affect or side effect. Orders: Orders 2 Colonoscopy - GI Use Only Today TSH reflex Free T4 Today K59.04 - Chronic idiopathic constipation Medications: New 2 linaclotide (Linzess) Take first thing in the morning with a full glass of water. 145 mcg PO QAM 30 caps 3RF K58.1 - Irritable bowel syndrome with constipation peg 3350-electrolytes 236-22.74-6.74 -5.86 gram (Golytely) until fecal effluent is clear; do not exceed a total volume of 2,000 mL 240 mL PO Q10M 1 day 4,000 mL 0RF Z12.11 - Encounter for screening for malignant neoplasm of colon bisacodyl (Dulcolax (bisacodyl)) 10 mg (2 x 5 mg) PO BEDTIME 2 days 4 tabs 0RF Refilled 2 boptap-pldrixmz-kebnxkn 24,000-76,000 -120,000 unit (Creon) 1 cap PO TID 90 caps 6RF K58.9 - Irritable bowel syndrome without diarrhea pantoprazole 40 mg PO BID 180 tabs 2RF K21.9 - Gastro-esophageal reflux disease without esophagitis Discontinued 2 alosetron (Lotronex) Discontinued Reason: Doctor's Order 0.5 mg PO DAILY 30 days 30 tabs 3RF Coding Level of Care Code Est Pt Level 4 (56386) Diagnoses Chronic idiopathic constipation K59.04 Pre-op examination Z01.818 Positive colorectal cancer screening using Cologuard test R19.5
[2024-01-13 14:00] VITALS: BP 103/59; PULSE 96; BMI 41.2
== END 2024-01-13 14:51 | disposition home or self-care (01) ==
LOC: HO.HGI 13:54
PROVIDERS: PCP Internal Medicine; Visit Provider Nurse Practitioner
DX: K59.04 Chronic idiopathic constipation (principal); Z01.818 Encounter for other preprocedural examination; R19.5 Other fecal abnormalities
CPT/HCPCS: 99214

== ENCOUNTER → 2024-01-13 13:54 | Outpatient (BNVA) | payer OTHER, SELFPAY | LOC: CF 14:57 | PROVIDERS: PCP Internal Medicine; Visit Provider Nurse Practitioner | DX: Z01.818 Encounter for other preprocedural examination (principal); K59.04 Chronic idiopathic constipation; R19.5 Other fecal abnormalities | CPT/HCPCS: 99212 ==

== ENCOUNTER 2024-01-13 14:58 | Outpatient (REF) | payer OTHER, SELFPAY ==
[2024-01-13 19:21] LABS: TSH reflex Free T4 1.16 uIU/mL (0.32-4.0)
== END 2024-01-13 14:59 | disposition home or self-care (01) ==
LOC: HO.LAB 14:58
PROVIDERS: PCP Internal Medicine; Visit Provider Nurse Practitioner
DX: K59.04 Chronic idiopathic constipation (principal)
CPT/HCPCS: 36415; 84443

== ENCOUNTER 2024-02-19 15:43 | Outpatient (AMB) | payer OTHER, SELFPAY ==
--- NOTE | 2024-02-19 15:46 | A.OFFVIS_ITS ---
Vital Signs 02/19/24 16:00 Height 5 ft 5 in Weight 247 lb 5.738 oz BMI 41.2 BP 92/66 Blood Pressure Location Rt brachial Position Sitting Pulse 94 Pulse Source Pulse Oximeter Pulse Oximetry (%) 95 Oxygen Delivery Method Room Air Intake Visit Reasons: 4 weeks CIC Intake Note: Veronica presents in office today for a scheduled 1 mos FUV. CC; Pt reports that they had been doing well on the medication up until the last 3-4 days when they began experiencing previous sx again. Pt reports that she has been experiencing GERD, N/V, abdominal pain B/L UQ. Pt has been taking pepto bismol, eunice seltzer, and omeprazole to attempt to remedy these issues and they have seen slight improvement. Pt reports that she is still taking the other medications as instructed, with the exception of the pantoprazole; pt has not been able to take this medication as they ran out and require a refill. 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 Plant Operator Offered & Declined Information Interpreted: non-clinical & clinical Accompanied by: Family/Other Allergies No Known Allergies [No Known Allergies*] Allergy (Verified 02/19/24 15:47) HPI HPI 4 weeks CIC: Details: Assessment & Plan (1) Chronic idiopathic constipation: Code(s): K59.04 - Chronic idiopathic constipation Category: Medical (2) Pre-op examination: Code(s): Z01.818 - Encounter for other preprocedural examination Category: Medical (3) Positive colorectal cancer screening using Cologuard test: Code(s): R19.5 - Other fecal abnormalities Category: Medical Plan [place] #Aracelis Live She has been lost to follow up since 11/2021, she tells me that her PCP did a cologuard and it was positive. She has been away in [place] caring for her father who had prostate cancer. IT APPEARS SHE IS ALSO DUE FOR HER 1ST SCREENING COLONOSCOPY. She has a history of pulmonary embolism, asthma, RODERICK, and a seizure disorder Her asthma and RODERICK are controlled as is her seizure disorder, and she denies cardiac problems. She has severe CIC not moving her bowels for 2-3 weeks, then 2 days of diarrhea, then back to CIC. She is taking senna but it is not helping much, she has also failed miralax, bisacodyl, colace, fiber and lactulose. I will start her on LInzess 145 mcg in case the diarrhea is reactive and titrate. She continues on her Creon and her pantoprazole. There are no prior problems with anesthesia or sedation. NO ID problems. Her father had colon polyps and she has an extensive fhx of colon problems including torsion and TICS in mother. We will start her on the Linzess as above and see her in 4 weeks to titrate to affect or side effect. Orders: Orders Colonoscopy - GI Use Only Today TSH reflex Free T4 Today K59.04 - Chronic idiopathic constipation Medications: New linaclotide (Linzess) Take first thing in the morning with a full glass of water. 145 mcg PO QAM 30 caps 3RF K58.1 - Irritable bowel syndrome with constipation peg 3350-electrolytes 236-22.74-6.74 -5.86 gram (Golytely) until fecal effluent is clear; do not exceed a total volume of 2,000 mL 240 mL PO Q10M 1 day 4,000 mL 0RF Z12.11 - Encounter for screening for malignant neoplasm of colon bisacodyl (Dulcolax (bisacodyl)) 10 mg (2 x 5 mg) PO BEDTIME 2 days 4 tabs 0RF Refilled undocy-clxosmhs-kakcbsz 24,000-76,000 -120,000 unit (Creon) 1 cap PO TID 90 caps 6RF K58.9 - Irritable bowel syndrome without diarrhea pantoprazole 40 mg PO BID 180 tabs 2RF K21.9 - Gastro-esophageal reflux disease without esophagitis Discontinued alosetron (Lotronex) Discontinued Reason: Doctor's Order 0.5 mg PO DAILY 30 days 30 tabs 3RF LABS: Laboratory Tests 01/13/24 15:06 TSH 1.16 COLONOSCOPY BIOPSY TODAY'S VISIT [place] # daughter translates per patient request She is now having trouble swallowing so we will add an EGD to her colonoscopy. She continues on her pantoprazole twice a day. She is still not moving her bowels well so will increase the Linzess to 290 micro g and she can continue her senna is this is not enough at bedtime. We review her thyroid this does not appear to be a contributing factor to her severe constipation. Return office visit in 6 weeks. [facility] Medical History (Updated 02/19/24 @ 16:08 by DARIA Jacobson) Esophageal hernia Irritable bowel syndrome with both constipation and diarrhea Seizure disorder History of pulmonary embolism Hypertension Asthma Bronchitis Environmental allergies RODERICK on CPAP GERD (gastroesophageal reflux disease) Overactive bladder Surgical History History of lung surgery History of tonsillectomy and adenoidectomy History of 2 sections History of hysterectomy History of laparoscopy History of colonoscopy History of esophagogastroduodenoscopy (EGD) Family History Mother HTN (hypertension) Diabetes Family history of cancer Father HTN (hypertension) Diabetes Family history of cancer Prostate cancer Social History Household Members: Family and Children Alcohol intake: never Patient Tobacco Use Status: Former Tobacco user Tobacco use type: Cigarette Cigarettes Per Day: 1 Years Smoked: quit 3 yrs ago Current occupational status: disabled Review of Systems Const Denies fatigue, Denies fever(s), Denies night sweats, Denies poor appetite and Denies weight loss ENT Reports Normal hearing present, Denies dental pain, Reports dysphagia, Denies hearing loss, Denies mouth pain, Denies odynophagia, Denies throat swelling, Denies tongue swelling and Reports other (Dentition adequate) Card Reports no additional complaints Resp Reports no additional complaints GI Details: Denies abdominal pain, Denies melena, Reports bloating, Denies hematochezia, Reports constipation, Denies GI cramping, Reports dysphagia, Denies excessive flatus, Denies early satiety, Reports heartburn, Denies diarrhea, Denies nausea, Denies odynophagia, Denies vomiting and Denies hematemesis Skin/Breast Denies pruritus, Denies lesions, Denies rash and Denies jaundice Neuro Reports Normal hearing present and Denies Abnormal speech present Endo Denies fatigue Aller/Immun Denies throat swelling and Denies tongue swelling Physical Exam Vital Signs: Last Vital Signs Pulse 94 02/19/24 16:00 BP 92/66 02/19/24 16:00 Pulse Ox 95 02/19/24 16:00 Oxygen Delivery Method Room Air 02/19/24 16:00 BMI result Body Mass Index 41.2 Const General: cooperative, no acute distress, well developed and well groomed Nutritional Appearance: well nourished and obese Orientation/consciousness: oriented to person, oriented to place and oriented to time Limitations: language barrier HEENT Head: Yes normocephalic and Yes atraumatic Eyes General: appearance normal, both eyes and all related structures Pupils: Equal, round and reactive pupils present Neck Neck: Yes normal visual inspection and Yes no lymphadenopathy Thyroid: Thyroid normal Resp Effort & Inspection: normal respiratory effort and able to speak in complete sentences Auscultation: clear to auscultation bilaterally Cardio Rate: regular rate Rhythm: regular rhythm Heart sounds: Normal, physiologic split S2 sound present Peripheral pulses: radial pulses present and posterior tibial pulses present GI Inspection: No distended, No Abdominal panniculus present and Yes obesity Palpation (GI): Soft to palpation, nontender, no guarding, not rigid and No hepatosplenomegaly present Percussion: Yes normal to percussion Auscultation: normal bowel sounds Rectal Exam - Female: deferred Skin General skin exam: no rashes or lesions noted, turgor normal, skin not dry, no jaundice, No spider nevi and no striae Rashes: no rashes Nails: normal Neuro General: oriented to person, oriented to place and oriented to time Cranial nerves: Yes Equal, round and reactive pupils present and Yes Normal hearing present Speech: No Abnormal speech present Extrem General: Yes normal to inspection, No clubbing, No cyanosis and No edema Psych Appearance: grossly normal and well kempt Mental Status: mental status grossly normal Speech and movement: Normal speech and movement present Affect: normal affect Attitude: cooperative Thought process: Normal thought process present and not confabulating Thought content: Normal thought content present Insight: Limited insight present (Psych) Judgement: Limited judgement present (Psych) Assessment & Plan Assessment & Plan (1) Chronic idiopathic constipation: Code(s): K59.04 - Chronic idiopathic constipation Category: Medical (2) GERD (gastroesophageal reflux disease): Code(s): K21.9 - Gastro-esophageal reflux disease without esophagitis Category: Medical (3) LLQ abdominal pain: Code(s): R10.32 - Left lower quadrant pain Category: Medical (4) Erosive esophagitis: Code(s): K22.10 - Ulcer of esophagus without bleeding Category: Medical (5) Ischemic colitis: Code(s): K55.9 - Vascular disorder of intestine, unspecified Category: Medical Plan [place] # daughter translates per patient request She is now having trouble swallowing so we will add an EGD to her colonoscopy. She continues on her pantoprazole twice a day. She is still not moving her bowels well so will increase the Linzess to 290 micro g and she can continue her senna is this is not enough at bedtime. She also continues on her Creon. We review her thyroid this does not appear to be a contributing factor to her severe constipation. Return office visit in 6 weeks. EGD/COLONOSCOPY BIOPSY Orders: Orders [place] barium swallow 02/19/24 K21.9 - Gastro-esophageal reflux disease without esophagitis, K22.10 - Ulcer of esophagus without bleeding EGD/Superior Combo - GI Use Only 02/19/24 K21.9 - Gastro-esophageal reflux disease without esophagitis, K22.10 - Ulcer of esophagus without bleeding Medications: New linaclotide (Linzess) 290 mcg PO QAM 30 caps 6RF 30 days K59.04 - Chronic idiopathic constipation Refilled pantoprazole 40 mg PO BID 180 tabs 2RF K21.9 - Gastro-esophageal reflux disease without esophagitis sennosides (senna) 17.2 mg (2 x 8.6 mg) PO BEDTIME 60 caps 3RF constipation 30 days K58.2 - Mixed irritable bowel syndrome Coding Level of Care Code Est Pt Level 3 (42661) Diagnoses Chronic idiopathic constipation K59.04 GERD (gastroesophageal reflux disease) K21.9 LLQ abdominal pain R10.32 Erosive esophagitis K22.10 Ischemic colitis K55.9
[2024-02-19 16:00] VITALS: BP 92/66; PULSE 94; O2SAT 95; BMI 41.2
== END 2024-02-19 16:28 | disposition home or self-care (01) ==
PROVIDERS: PCP Internal Medicine; Visit Provider Nurse Practitioner
DX: K59.04 Chronic idiopathic constipation (principal); K21.9 Gastro-esophageal reflux disease without esophagitis; R10.32 Left lower quadrant pain; K22.10 Ulcer of esophagus without bleeding; K55.9 Vascular disorder of intestine, unspecified
CPT/HCPCS: 99213

== ENCOUNTER → 2024-02-19 15:43 | Outpatient (BNVA) | payer OTHER, SELFPAY | PROVIDERS: PCP Internal Medicine; Visit Provider Nurse Practitioner | DX: K59.04 Chronic idiopathic constipation (principal); K21.9 Gastro-esophageal reflux disease without esophagitis; K22.10 Ulcer of esophagus without bleeding; K55.9 Vascular disorder of intestine, unspecified; R10.32 Left lower quadrant pain | CPT/HCPCS: 99212 ==

== ENCOUNTER 2024-05-19 09:53 | Day surgery (SDC) | payer OTHER, SELFPAY ==
[2024-05-17 15:12] VITALS: BMI 41.1
--- NOTE | 2024-05-18 11:45 | HO.ANESPROP2 ---
Documented by User: Shelly West NP 05/18/24 11:46 HPI - Anesthesia Eval Consult details Narrative: 43yo F for Upper Endoscopy and Colonoscopy Anesthesia Pre-Procedure Meds Is the patient on any of the following meds?: SGLT2 Inhib PMFSH Active Problems Active Problems: All Active Problems Positive colorectal cancer screening using Cologuard test (Acute) Pre-op examination (Acute) Chronic idiopathic constipation (Acute) Seizure disorder (Acute) Hypertension (Acute) RODERICK on CPAP (Acute) Asthma (Acute) Bronchitis (Acute) Sinusitis (Acute) Environmental allergies (Acute) Overactive bladder (Acute) Recurrent UTI (urinary tract infection) (Acute) GERD (gastroesophageal reflux disease) (Acute) Small intestinal bacterial overgrowth (Acute) LLQ abdominal pain (Acute) Abdominal cramping (Acute) Nausea and vomiting (Acute) Erosive esophagitis (Acute) Ischemic colitis (Acute) Past Medical History Medical History Esophageal hernia Irritable bowel syndrome with both constipation and diarrhea Seizure disorder History of pulmonary embolism Hypertension Asthma Bronchitis Environmental allergies RODERICK on CPAP GERD (gastroesophageal reflux disease) Overactive bladder Family History Family History Mother HTN (hypertension) Diabetes Family history of cancer Father HTN (hypertension) Diabetes Family history of cancer Prostate cancer Surgical History Surgical History History of lung surgery History of tonsillectomy and adenoidectomy History of 2 sections History of hysterectomy History of laparoscopy History of colonoscopy History of esophagogastroduodenoscopy (EGD) Social History Social History Household Members: Family and Children Alcohol intake: never Patient Tobacco Use Status: Former Tobacco user Tobacco use type: Cigarette Cigarettes Per Day: 1 Years Smoked: quit 3 yrs ago Advance Directives: No Advance Directives Information Provided: Yes Current occupational status: disabled Meds Allergies Allergy/AdvReac Type Severity Reaction Status Date / Time No Known Allergies Allergy Verified 02/19/24 15:47 [No Known Allergies*] Home Medications ?Medication ?Instructions ?Recorded ?Confirmed ?Last Taken ?Type ondansetron HCl 4 mg tablet 4 mg PO Q8H PRN Nausea 10/17/20 05/17/24 Unknown History (Zofran) topiramate 200 mg tablet 200 mg PO BID 03/25/23 05/17/24 Unknown History tramadol 50 mg tablet 50 mg PO Q6H PRN Pain 03/25/23 05/17/24 Unknown History amlodipine 10 mg tablet 10 mg PO DAILY 01/13/24 05/17/24 Unknown History escitalopram oxalate 20 mg tablet 20 mg PO DAILY 01/13/24 05/17/24 Unknown History fluticasone propionate 50 1 spray intranasal DAILY PRN sinus 01/13/24 05/17/24 Unknown History mcg/actuation nasal congestion spray,suspension (Flonase Allergy Relief) hydrochlorothiazide 25 mg tablet 25 mg PO DAILY 01/13/24 05/17/24 Unknown History hydroxyzine pamoate 50 mg capsule 50 mg PO TID PRN Anxiety 01/13/24 05/17/24 Unknown History ipratropium bromide 21 mcg (0.03 2 spray intranasal BID PRN 01/13/24 05/17/24 Unknown History %) nasal spray Shortness Of Breath melatonin 3 mg tablet 3 mg PO BEDTIME 01/13/24 05/17/24 Unknown History prazosin 1 mg capsule 1 mg PO BEDTIME 01/13/24 05/17/24 Unknown History topiramate 50 mg capsule,extended 50 mg PO DAILY 01/13/24 05/17/24 Unknown History release 24 hr valsartan 320 mg tablet 320 mg PO DAILY 01/13/24 05/17/24 Unknown History zolpidem 5 mg tablet 5 mg PO BEDTIME PRN Insomnia 01/13/24 05/17/24 Unknown History cyclobenzaprine 10 mg tablet 10 mg PO DAILY 02/19/24 05/17/24 Unknown History doxepin 10 mg capsule 10 mg PO BEDTIME 02/19/24 05/17/24 Unknown History empagliflozin 10 mg tablet 10 mg PO DAILY 02/19/24 05/17/24 Unknown History (Jardiance) metformin 500 mg tablet,extended 500 mg PO DAILY 02/19/24 05/17/24 Unknown History release 24 hr olanzapine 15 mg tablet 15 mg PO BEDTIME 02/19/24 05/17/24 Unknown History Exam Height,Weight and Vital Signs: Height 5 ft 5 in Weight 112.037 kg Pertinent Lab Results Pertinent Lab Results: Laboratory Tests 09/22/23 11:28 WBC 11.1 H Hgb 11.3 L Hct 33.6 L Plt Count 306 Sodium 142 Potassium 3.5 Chloride 109 H Carbon Dioxide 22 BUN 8 L Creatinine 0.84 Assessment and Plan Assessment Anesthesia Assessment: Chart Reviewed Documented by User: Kristin Chaparro MD 05/19/24 10:14 [facility] Past Medical History Medical History Esophageal hernia Irritable bowel syndrome with both constipation and diarrhea Seizure disorder History of pulmonary embolism Hypertension Asthma Bronchitis Environmental allergies RODERICK on CPAP GERD (gastroesophageal reflux disease) Overactive bladder Family History Family History Mother HTN (hypertension) Diabetes Family history of cancer Father HTN (hypertension) Diabetes Family history of cancer Prostate cancer Family history of problems with anesthesia: No Surgical History Surgical History History of lung surgery History of tonsillectomy and adenoidectomy History of 2 sections History of hysterectomy History of laparoscopy History of colonoscopy History of esophagogastroduodenoscopy (EGD) History of Problems with Anesthesia: No Social History Social History Household Members: Family and Children Alcohol intake: never Patient Tobacco Use Status: Former Tobacco user Tobacco use type: Cigarette Cigarettes Per Day: 1 Years Smoked: quit 3 yrs ago Advance Directives: No Advance Directives Information Provided: Yes Current occupational status: disabled Meds Allergies Allergy/AdvReac Type Severity Reaction Status Date / Time No Known Allergies Allergy Verified 02/19/24 15:47 [No Known Allergies*] Home Medications ?Medication ?Instructions ?Recorded ?Confirmed ?Last Taken ?Type ondansetron HCl 4 mg tablet 4 mg PO Q8H PRN Nausea 02/24/21 09/24/24 Unknown History (Zofran) topiramate 200 mg tablet 200 mg PO BID 03/25/23 05/17/24 Unknown History tramadol 50 mg tablet 50 mg PO Q6H PRN Pain 03/25/23 05/17/24 Unknown History amlodipine 10 mg tablet 10 mg PO DAILY 01/13/24 05/17/24 Unknown History escitalopram oxalate 20 mg tablet 20 mg PO DAILY 01/13/24 05/17/24 Unknown History fluticasone propionate 50 1 spray intranasal DAILY PRN sinus 01/13/24 05/17/24 Unknown History mcg/actuation nasal congestion spray,suspension (Flonase Allergy Relief) hydrochlorothiazide 25 mg tablet 25 mg PO DAILY 01/13/24 05/17/24 Unknown History hydroxyzine pamoate 50 mg capsule 50 mg PO TID PRN Anxiety 01/13/24 05/17/24 Unknown History ipratropium bromide 21 mcg (0.03 2 spray intranasal BID PRN 01/13/24 05/17/24 Unknown History %) nasal spray Shortness Of Breath melatonin 3 mg tablet 3 mg PO BEDTIME 01/13/24 05/17/24 Unknown History prazosin 1 mg capsule 1 mg PO BEDTIME 01/13/24 05/17/24 Unknown History topiramate 50 mg capsule,extended 50 mg PO DAILY 01/13/24 05/17/24 Unknown History release 24 hr valsartan 320 mg tablet 320 mg PO DAILY 01/13/24 05/17/24 Unknown History zolpidem 5 mg tablet 5 mg PO BEDTIME PRN Insomnia 01/13/24 05/17/24 Unknown History cyclobenzaprine 10 mg tablet 10 mg PO DAILY 02/19/24 05/17/24 Unknown History doxepin 10 mg capsule 10 mg PO BEDTIME 02/19/24 05/17/24 Unknown History empagliflozin 10 mg tablet 10 mg PO DAILY 02/19/24 05/17/24 Unknown History (Jardiance) metformin 500 mg tablet,extended 500 mg PO DAILY 02/19/24 05/17/24 Unknown History release 24 hr olanzapine 15 mg tablet 15 mg PO BEDTIME 02/19/24 05/17/24 Unknown History Exam Airway Mallampati Class: II TM Dist: >3cm Neck ROM: Full Heart: rrr Lungs: cta Assessment and Plan Assessment Anesthesia Assessment: Anesthesia Plan Discussed Final Anesthetic Review Family History of Problems with Anesthesia: No History of Problems with Anesthesia: No NPO: Yes ASA Class: III Final Preanesthetic Review: No Changes in Pt Med Stat, Meds/Allgs Chart Reviewed, Consent Obtained/Reviewed and Anes Risks/Benef Reviewed Patient Risk: Intermediate Procedure Risk: Low Anesthetic Plan Anesthetic Plan: MAC: Disposition: Standard PACU
[2024-05-19 10:09] VITALS: BP 138/82; PULSE 68; RESP 18; TEMP 36.6; O2SAT 98; BMI 41.9
[2024-05-19] MEDS: Lactated Ringers 1,000 ML 100 ML IVCONT (10:23)
[2024-05-19 10:27] LABS: Glucose, Whole Blood 137 mg/dL (60-115)
--- NOTE | 2024-05-19 11:17 | MHC.SHP ---
Pre-Procedural Eval Section A - 24 Hr Update-Section A only Date of Service: 05/19/24 Section B - Complete if H&P > 30 days Chief Complaint: altered bowel habit and abdominal pain Relevant Family History (Specify if Yes): No Relevant Social History: None Present Medications: see Short Stay Collaborative assessment Medical History: Significant History (Esophageal hernia Irritable bowel syndrome with both constipation and diarrhea Seizure disorder History of pulmonary embolism Hypertension Asthma Bronchitis Environmental allergies RODERICK on CPAP GERD (gastroesophageal reflux disease) Overactive bladder) History of Previous Operations: Relevant previous surgery/procedure and date(s) (History of lung surgery History of tonsillectomy and adenoidectomy History of 2 sections History of hysterectomy History of laparoscopy History of colonoscopy History of esophagogastroduodenoscopy (EGD)) Allergies: Allergies Allergy/AdvReac Type Severity Reaction Status Date / Time No Known Allergies Allergy Verified 02/19/24 15:47 [No Known Allergies*] Review of Systems Sugical H&P ROS: Negative: Constitution, Cardiovascular, Respiratory, Neurological, Psychiatric, Hem-Onc, Allergic/Immunologic, Gastrointestinal, Genitourinary, Musculoskeletal, Integumentary, Endocrine and Eyes/Ears/Nose/Throat Exam Surgical H&P Exam: Normal: HEENT, Normal: Heart, Normal: Lungs, Normal: Extremities, Normal: Abdomen, Normal: Skin and Normal: Neurological Plan Diagnosis/Plan: Unchanged I have reviewed the history and physical and performed a pertinent physical examination on my patient. No changes have occurred unless specified. Time Spent With Patient Time: Total time managing care of this patient today ____ minutes.
--- NOTE | 2024-05-19 11:35 | HO.OPN-COLON ---
Colonoscopy Operative Note Operative Note Date of Service: 05/19/24 Narrative: Operative Information Procedure Description: EGD, Colonoscopy Indication: abdominal pain and altered bowel habits Anesthesia: MAC FLEXIBLE TRANSORAL UPPER GASTROINTESTINAL ENDOSCOPY AND COLONOSCOPY PROCEDURE NOTE UPPER ENDOSCOPY Consent: Indications for the procedure and potential complications of bleeding, perforation, reaction to medications and missed diagnosis were discussed with the patient and informed consent was obtained. Instrument: Olympus GIF H 190 J mid size upper endoscope Monitoring: Vital signs and clinical assessment, continuous EKG monitoring, Pulse oximetry, Carbon Dioxide monitoring and blood pressure monitoring were done throughout the procedure. Procedure: The patient was placed in the left lateral decubitis position and pre-procedure medications were administered and a bite block was placed. The endoscope was inserted into the mouth and advanced under direct vision to the third part of duodenum. A careful inspection was made as the upper endoscope was withdrawn including a retroflexed examination of the proximal stomach; Findings and interventions are described below. Findings: Larynx:normal Esophagus: GE junction at 35 cm, diaphragm hiatus at 37 cm, consistent with 2 cm sliding hiatal hernia, mild esophagitis noted, bx taken from GEJ, and distal esophagus, schatzki ring noted Stomach: Patchy erythema. Biopsies were obtained. Grade 2 flap valve on retroflexed examination of the cardia. Duodenum: Normal bulb and descending duodenum, bx taken Intervention: Biopsies as noted above, COLONOSCOPY Instrument: Olympus variable stiffness pediatric scope 190L Colonoscopy Monitoring: Vital signs and clinical assessment, continuous EKG monitoring, Pulse oximetry, Carbon Dioxide monitoring and blood pressure monitoring were done throughout the procedure. Colon withdrawal time was 8 minutes. Procedure: The patient was placed in the left lateral decubitis position and pre-procedure medications were administered. After a digital rectal examination of the ano-rectum, the video colonoscope was inserted into the rectum and advanced through the colon to the cecum/TI. The colonoscope was slowly withdrawn in a retrograde panoramic fashion and the colon mucosa was carefully examined including a retroflexed view of the rectum. Findings and interventions are described below. Procedure Difficulty:moderate Findings: Terminal Ileum-normal, bx taken There appeared to be reduced colonic motility Random colon bx taken Cecum:normal Ascending Colon: normal Transverse Colon -normal Descending Colon:normal Sigmoid Colon: mild diverticulosis Rectum: Retroflexion with small internal hemorrhoids, grade I Anorectum - normal Colon preparation: [place] Bowel Preparation Scale Right colon; 1-2 Transverse colon: 2 Left colon; 2 (0 = Unprepared colon segment with mucosa not seen due to solid stool that cannot be cleared. 1 = Portion of mucosa of the colon segment seen, but other areas of the colon segment not well seen due to staining, residual stool and/or opaque liquid. 2 = Minor amount of residual staining, small fragments of stool and/or opaque liquid, but mucosa of colon segment seen well. 3 = Entire mucosa of colon segment seen well with no residual staining, small fragments of stool or opaque liquid) Impression and Post Procedure Diagnosis: Endoscopy Findings: schatzki ring hiatal hernia gastritis Colonoscopy Findings: diverticulosis internal hemorrhoids possible colonic dysmotility Plan: Await Pathology results Repeat Colonoscopy in 5 years due to some areas of fair prep or earlier if clinically indicated High fiber diet leaflet avoid straining at stool, epsom salts and sitz bath, anusol supps or cream cont with PPI and make sure taking stool samples also sent consider sitz marker study Above findings were reviewed with the patient and relevant handouts were provided if indicated.
[2024-05-19 12:01] VITALS: BP 104/62; PULSE 59; RESP 16; TEMP 36.1; O2SAT 99
[2024-05-19 12:20] VITALS: BP 125/86; PULSE 61; RESP 18; TEMP 36.1; O2SAT 100
[2024-05-19 13:12] LABS: CDiff Gene PCR NEGATIVE (Negative)
[2024-05-19 15:26] LABS: Adenovirus F 40/41 Not Detected (Not Detect.); Astrovirus Not Detected (Not Detect.); Campylobacter Not Detected (Not Detect.); Cryptosporidium Not Detected (Not Detect.); Cyclospora cayetanensis Not Detected (Not Detect.); E. coli EAEC Not Detected (Not Detect.); E. coli EPEC Not Detected (Not Detect.); E. coli ETEC Not Detected (Not Detect.); E. coli STEC Not Detected (Not Detect.); Entamoeba histolytica Not Detected (Not Detect.); Giardia lamblia Not Detected (Not Detect.); Norovirus GI/GII Not Detected (Not Detect.); Plesiomonas shigelloides Not Detected (Not Detect.); Rotavirus A Not Detected (Not Detect.); Salmonella Not Detected (Not Detect.); Sapovirus Not Detected (Not Detect.); Shigella sp./EIEC Not Detected (Not Detect.); Vibrio Not Detected (Not Detect.); Vibrio Cholerae Not Detected (Not Detect.); Yersinia enterocolitica Not Detected (Not Detect.)
[2024-05-25 14:23] LABS: Lactoferrin, Fecal, Quant. <6.25 mcg/mL (<7.25)
== END 2024-05-19 12:49 | disposition home or self-care (01) ==
PROVIDERS: PCP Internal Medicine; Visit Provider Internal Medicine Gastroenterology
PROC: (CPT 43239; principal; 2024-05-19 12:50)
DX: K22.2 Esophageal obstruction (principal); K29.60 Other gastritis without bleeding; K22.10 Ulcer of esophagus without bleeding; K44.9 Diaphragmatic hernia without obstruction or gangrene; K55.9 Vascular disorder of intestine, unspecified; K21.9 Gastro-esophageal reflux disease without esophagitis; R19.5 Other fecal abnormalities; K57.30 Diverticulosis of large intestine without perforation or abscess without bleeding; K64.0 First degree hemorrhoids; Z83.719 Family history of colon polyps, unspecified; K59.04 Chronic idiopathic constipation; R73.9 Hyperglycemia, unspecified; I10 Essential (primary) hypertension; J45.909 Unspecified asthma, uncomplicated; G40.909 Epilepsy, unspecified, not intractable, without status epilepticus; G47.33 Obstructive sleep apnea (adult) (pediatric); Z99.89 Dependence on other enabling machines and devices; Z87.891 Personal history of nicotine dependence
CPT/HCPCS: 43239; 45380; 82947; 83631; 87493; 87507; 88305; 88313; 88342; J1100; J1596; J2250; J2704

== ENCOUNTER → 2024-05-19 09:53 | Outpatient (BNV) | payer OTHER, SELFPAY | PROVIDERS: PCP Internal Medicine; Visit Provider Internal Medicine Gastroenterology | DX: K21.9 Gastro-esophageal reflux disease without esophagitis (principal); K22.2 Esophageal obstruction; K29.70 Gastritis, unspecified, without bleeding; R19.4 Change in bowel habit; K57.90 Diverticulosis of intestine, part unspecified, without perforation or abscess without bleeding; K64.0 First degree hemorrhoids | CPT/HCPCS: 43239; 45380 ==

== ENCOUNTER 2024-06-02 09:52 | Outpatient (AMB) | payer OTHER, SELFPAY ==
--- NOTE | 2024-06-02 09:56 | A.OFFVIS_ITS ---
Vital Signs 06/02/24 10:09 Height 5 ft 5 in Weight 235 lb BMI 39.1 BP 95/50 L Blood Pressure Location Rt brachial Position Sitting Pulse 85 Intake Visit Reasons: s/p egd/colon Intake Note: Veronica presents to in office follow up s/p EGD and colonoscopy. CC: Patient c/o LLQ abdominal pain after eating, nausea, and diarrhea sometimes. Denies other GI symptoms today. Information Systems Supervisor Required: Yes Allergies No Known Allergies [No Known Allergies*] Allergy (Verified 06/02/24 10:11) HPI HPI s/p egd/colon: Details: Assessment & Plan (1) Chronic idiopathic constipation: Code(s): K59.04 - Chronic idiopathic constipation Category: Medical (2) GERD (gastroesophageal reflux disease): Code(s): K21.9 - Gastro-esophageal reflux disease without esophagitis Category: Medical (3) LLQ abdominal pain: Code(s): R10.32 - Left lower quadrant pain Category: Medical (4) Erosive esophagitis: Code(s): K22.10 - Ulcer of esophagus without bleeding Category: Medical (5) Ischemic colitis: Code(s): K55.9 - Vascular disorder of intestine, unspecified Category: Medical Plan [place] Island[place] # daughter translates per patient request She is now having trouble swallowing so we will add an EGD to her colonoscopy. She continues on her pantoprazole twice a day. She is still not moving her bowels well so will increase the Linzess to 290 micro g and she can continue her senna is this is not enough at bedtime. She also continues on her Creon. We review her thyroid this does not appear to be a contributing factor to her severe constipation. Return office visit in 6 weeks. Orders: Orders [place] barium swallow 02/19/24 K21.9 - Gastro-esophageal reflux disease without esophagitis, K22.10 - Ulcer of esophagus without bleeding EGD/[place] [facility] - GI Use Only 02/19/24 K21.9 - Gastro-esophageal reflux disease without esophagitis, K22.10 - Ulcer of esophagus without bleeding Medications: New linaclotide (Linzess) 290 mcg PO QAM 30 caps 6RF 30 days K59.04 - Chronic idiopathic constipation Refilled pantoprazole 40 mg PO BID 180 tabs 2RF K21.9 - Gastro-esophageal reflux disease without esophagitis sennosides (senna) 17.2 mg (2 x 8.6 mg) PO BEDTIME 60 caps 3RF constipation 30 days K58.2 - Mixed irritable bowel syndrome BARIUM SWALLOW 07/11/2024 Laboratory Tests 05/19/24 11:42 Stool Lactoferrin <6.25 05/19/24-[address]: Michelle Young MD ORDERED: GI Panel Test Result Flag Reference Campylobacter Not Detected Not Detect. P. shigelloides Not Detected Not Detect. Salmonella Not Detected Not Detect. Vibrio Not Detected Not Detect. Vibrio Cholerae Not Detected Not Detect. Y. enterocolit. Not Detected Not Detect. E. coli EAEC Not Detected Not Detect. E. coli EPEC Not Detected Not Detect. E. coli ETEC Not Detected Not Detect. E. coli STEC Not Detected Not Detect. E. coli O157 Not applicable Not Detect. COLONOSCOPY 05/19/24 Findings: Larynx:normal Esophagus: GE junction at 35 cm, diaphragm hiatus at 37 cm, consistent with 2 cm sliding hiatal hernia, mild esophagitis noted, bx taken from GEJ, and distal esophagus, schatzki ring noted Stomach: Patchy erythema. Biopsies were obtained. Grade 2 flap valve on retroflexed examination of the cardia. Duodenum: Normal bulb and descending duodenum, bx taken4 Findings: Terminal Ileum-normal, bx taken There appeared to be reduced colonic motility Random colon bx taken Cecum:normal Ascending Colon: normal Transverse Colon -normal Descending Colon:normal Sigmoid Colon: mild diverticulosis Rectum: Retroflexion with small internal hemorrhoids, grade I Anorectum - normal Impression and Post Procedure Diagnosis: Endoscopy Findings: schatzki ring hiatal hernia gastritis Colonoscopy Findings: diverticulosis internal hemorrhoids possible colonic dysmotility Plan: Await Pathology results Repeat Colonoscopy in 5 years due to some areas of fair prep or earlier if clinically indicated High fiber diet leaflet avoid straining at stool, epsom salts and sitz bath, anusol supps or cream cont with PPI and make sure taking stool samples also sent consider sitz marker study BIOPSY Received: 05/19/24 Diagnosis A. Duodenum, biopsy: Duodenal mucosa within normal limits. B. Stomach, biopsy: Antral-type and oxyntic mucosa with mild chronic inactive inflammation; no Helicobacter organisms seen. C. EG junction, biopsy: - Cardiofundic-type mucosa with mild chronic inactive inflammation; no intestinal metaplasia seen. - Active esophagitis (neutrophils and eosinophils). D. Esophagus, distal, biopsy: Squamous epithelium within normal limits; no inflammation seen. E. Terminal ileum, biopsy: Terminal ileal mucosa within normal limits. F. Colon, random, biopsy: Colonic mucosa within normal limits TODAY'S VISIT [place] #Valerie Quezada The esophageal dilation improved her swallowing ! She is happy with this. She does have intermittent nausea but not as often as prior to our tx. She knows that she has a barium swallow coming up and I would like keep this study to better evaluate the extent of her sliding hiatal hernia in case the dysphagia comes back and becomes problematic. Also on a rule out any other contributing peristalsis contributions. She is agreeable to the 5 year repeat given the fact that she was not completely clear and she had a positive Cologuard. The procedure was well tolerated. The results were explained and the patient is agreeable to the follow-up interval as stated. The bowel pattern has returned to normal. Education was provided to tell any 1st degree relatives about their findings to be sure that they are screened by age 45. Educated that they will be put on a recall list when it is time for their repeat scope but should they move out of state or away from the hospital they will need to remember along with their primary to repeat the procedure in a timely fashion to avoid any adverse complications. She is doing well on the Linzess 290 micro g and she does not feel we need any further adjustment of the dosage. She also continues on her pantoprazole 40 mg twice a day. Return office visit after the barium swallow. [facility] Medical History (Updated 06/02/24 @ 16:38 by DARIA Jacobson) Bronchitis Sinusitis Small intestinal bacterial overgrowth Abdominal cramping Nausea and vomiting Pre-op examination Positive colorectal cancer screening using Cologuard test Esophageal hernia Irritable bowel syndrome with both constipation and diarrhea Seizure disorder History of pulmonary embolism Hypertension Asthma Environmental allergies RODERICK on CPAP GERD (gastroesophageal reflux disease) Overactive bladder Surgical History History of lung surgery History of tonsillectomy and adenoidectomy History of 2 sections History of hysterectomy History of laparoscopy History of colonoscopy History of esophagogastroduodenoscopy (EGD) Family History Mother HTN (hypertension) Diabetes Family history of cancer Father HTN (hypertension) Diabetes Family history of cancer Prostate cancer Social History Household Members: Family and Children Alcohol intake: never Patient Tobacco Use Status: Former Tobacco user Tobacco use type: Cigarette Cigarettes Per Day: 1 Years Smoked: quit 3 yrs ago Current occupational status: disabled Review of Systems Const Denies fatigue, Denies fever(s), Denies night sweats, Denies poor appetite and Denies weight loss ENT Reports Normal hearing present, Denies dental pain, Denies dysphagia, Denies hearing loss, Denies mouth pain, Denies odynophagia, Denies throat swelling, Denies tongue swelling and Reports other (Dentition adequate) Card Reports no additional complaints Resp Reports no additional complaints GI Details: Denies abdominal pain, Denies melena, Denies bloating, Denies hematochezia, Reports constipation, Denies GI cramping, Denies dysphagia, Denies excessive flatus, Denies early satiety, Reports heartburn, Denies diarrhea, Reports nausea, Denies odynophagia, Denies vomiting and Denies hematemesis Skin/Breast Denies pruritus, Denies lesions, Denies rash and Denies jaundice Neuro Reports Normal hearing present and Denies Abnormal speech present Endo Denies fatigue Aller/Immun Denies throat swelling and Denies tongue swelling Physical Exam Vital Signs: Last Vital Signs Pulse 85 06/02/24 10:09 BP 95/50 L 06/02/24 10:09 BMI result Body Mass Index 39.1 Const General: cooperative, no acute distress, well developed and well groomed Nutritional Appearance: well nourished and obese Orientation/consciousness: oriented to person, oriented to place and oriented to time Limitations: language barrier HEENT Head: Yes normocephalic and Yes atraumatic Eyes General: appearance normal, both eyes and all related structures Pupils: Equal, round and reactive pupils present Neck Neck: Yes normal visual inspection and Yes no lymphadenopathy Thyroid: Thyroid normal Resp Effort & Inspection: normal respiratory effort and able to speak in complete sentences Auscultation: clear to auscultation bilaterally Cardio Rate: regular rate Rhythm: regular rhythm Heart sounds: Normal, physiologic split S2 sound present Peripheral pulses: radial pulses present and posterior tibial pulses present GI Inspection: No distended, Yes Abdominal panniculus present and Yes obesity Palpation (GI): Soft to palpation, nontender, no guarding, not rigid and No hepatosplenomegaly present Percussion: Yes normal to percussion Auscultation: normal bowel sounds Rectal Exam - Female: deferred Skin General skin exam: no rashes or lesions noted, turgor normal, skin not dry, no jaundice, No spider nevi and no striae Rashes: no rashes Nails: normal Neuro General: oriented to person, oriented to place and oriented to time Cranial nerves: Yes Equal, round and reactive pupils present and Yes Normal hearing present Speech: No Abnormal speech present Extrem General: Yes normal to inspection, No clubbing, No cyanosis and No edema Psych Appearance: grossly normal and well kempt Mental Status: mental status grossly normal Speech and movement: Normal speech and movement present Affect: normal affect Attitude: cooperative Thought process: Normal thought process present and not confabulating Thought content: Normal thought content present Insight: Limited insight present (Psych) Judgement: Limited judgement present (Psych) Results Reviewed Results Reviewed: Laboratory Tests 05/19/24 11:42 Stool Lactoferrin <6.25 05/19/24-[address]: Michelle Young MD ORDERED: GI Panel Test Result Flag Reference Campylobacter Not Detected Not Detect. P. shigelloides Not Detected Not Detect. Salmonella Not Detected Not Detect. Vibrio Not Detected Not Detect. Vibrio Cholerae Not Detected Not Detect. Y. enterocolit. Not Detected Not Detect. E. coli EAEC Not Detected Not Detect. E. coli EPEC Not Detected Not Detect. E. coli ETEC Not Detected Not Detect. E. coli STEC Not Detected Not Detect. E. coli O157 Not applicable Not Detect. COLONOSCOPY 05/19/24 Findings: Larynx:normal Esophagus: GE junction at 35 cm, diaphragm hiatus at 37 cm, consistent with 2 cm sliding hiatal hernia, mild esophagitis noted, bx taken from GEJ, and distal esophagus, schatzki ring noted Stomach: Patchy erythema. Biopsies were obtained. Grade 2 flap valve on retroflexed examination of the cardia. Duodenum: Normal bulb and descending duodenum, bx taken4 Findings: Terminal Ileum-normal, bx taken There appeared to be reduced colonic motility Random colon bx taken Cecum:normal Ascending Colon: normal Transverse Colon -normal Descending Colon:normal Sigmoid Colon: mild diverticulosis Rectum: Retroflexion with small internal hemorrhoids, grade I Anorectum - normal Impression and Post Procedure Diagnosis: Endoscopy Findings: schatzki ring hiatal hernia gastritis Colonoscopy Findings: diverticulosis internal hemorrhoids possible colonic dysmotility Plan: Await Pathology results Repeat Colonoscopy in 5 years due to some areas of fair prep or earlier if clinically indicated High fiber diet leaflet avoid straining at stool, epsom salts and sitz bath, anusol supps or cream cont with PPI and make sure taking stool samples also sent consider sitz marker study BIOPSY Received: 05/19/24 Diagnosis A. Duodenum, biopsy: Duodenal mucosa within normal limits. B. Stomach, biopsy: Antral-type and oxyntic mucosa with mild chronic inactive inflammation; no Helicobacter organisms seen. C. EG junction, biopsy: - Cardiofundic-type mucosa with mild chronic inactive inflammation; no intestinal metaplasia seen. - Active esophagitis (neutrophils and eosinophils). D. Esophagus, distal, biopsy: Squamous epithelium within normal limits; no inflammation seen. E. Terminal ileum, biopsy: Terminal ileal mucosa within normal limits. F. Colon, random, biopsy: Colonic mucosa within normal limits Assessment & Plan Assessment & Plan (1) Chronic idiopathic constipation: Code(s): K59.04 - Chronic idiopathic constipation Category: Medical (2) Positive colorectal cancer screening using Cologuard test: Code(s): R19.5 - Other fecal abnormalities Category: Medical (3) GERD (gastroesophageal reflux disease): Code(s): K21.9 - Gastro-esophageal reflux disease without esophagitis Category: Medical (4) Erosive esophagitis: Code(s): K22.10 - Ulcer of esophagus without bleeding Category: Medical (5) Dysphagia: Code(s): R13.10 - Dysphagia, unspecified Category: Medical Plan [place] #Valerie Live The esophageal dilation improved her swallowing ! She is happy with this. She does have intermittent nausea but not as often as prior to our tx. She knows that she has a barium swallow coming up and I would like keep this study to better evaluate the extent of her sliding hiatal hernia in case the dysphagia comes back and becomes problematic. Also on a rule out any other contributing peristalsis contributions. She is agreeable to the 5 year repeat given the fact that she was not completely clear and she had a positive Cologuard. The procedure was well tolerated. The results were explained and the patient is agreeable to the follow-up interval as stated. The bowel pattern has returned to normal. Education was provided to tell any 1st degree relatives about their findings to be sure that they are screened by age 45. Educated that they will be put on a recall list when it is time for their repeat scope but should they move out of state or away from the hospital they will need to remember along with their primary to repeat the procedure in a timely fashion to avoid any adverse complications. She is doing well on the Linzess 290 micro g and she does not feel we need any f urther adjustment of the dosage. She also continues on her pantoprazole 40 mg twice a day. Return office visit after the barium swallow. Coding Level of Care Code Est Pt Level 3 (37926) Diagnoses Chronic idiopathic constipation K59.04 Positive colorectal cancer screening using Cologuard test R19.5 GERD (gastroesophageal reflux disease) K21.9 Erosive esophagitis K22.10 Dysphagia R13.10
[2024-06-02 10:09] VITALS: BP 95/50; PULSE 85; BMI 39.1
== END 2024-06-02 10:56 | disposition home or self-care (01) ==
PROVIDERS: PCP Internal Medicine; Visit Provider Nurse Practitioner
DX: K59.04 Chronic idiopathic constipation (principal); R19.5 Other fecal abnormalities; K21.9 Gastro-esophageal reflux disease without esophagitis; K22.10 Ulcer of esophagus without bleeding; R13.10 Dysphagia, unspecified
CPT/HCPCS: 99213

== ENCOUNTER → 2024-06-02 09:52 | Outpatient (BNVA) | payer OTHER, SELFPAY | PROVIDERS: PCP Internal Medicine; Visit Provider Nurse Practitioner | DX: K58.2 Mixed irritable bowel syndrome (principal); K59.04 Chronic idiopathic constipation; K21.9 Gastro-esophageal reflux disease without esophagitis; K22.10 Ulcer of esophagus without bleeding; K44.9 Diaphragmatic hernia without obstruction or gangrene; K22.2 Esophageal obstruction; K29.70 Gastritis, unspecified, without bleeding; R13.10 Dysphagia, unspecified; R19.5 Other fecal abnormalities; R10.32 Left lower quadrant pain | CPT/HCPCS: 99212 ==

== ENCOUNTER 2024-07-19 07:44 | Outpatient (REF) | payer OTHER, SELFPAY ==
--- NOTE | ~2024-07-19 | FL_ITS ---
EXAMINATION: XR FLUOROSCOPY UPPER GI WITH AIR CLINICAL INFORMATION: Reflux. COMPARISON: None TECHNIQUE: Fluoroscopic air contrast upper GI examination was performed utilizing standard techniques with thin and thick barium and effervescent granules. Numerous spot images were obtained. FINDINGS: Lateral cine images of the oropharynx and hypopharynx demonstrate normal swallow mechanism with normal epiglottic inversion and soft palate elevation. No tracheal penetration, glottic or subglottic aspiration identified. No nasopharyngeal reflux present. Hypopharyngeal structures appear normal without evidence of mass or diverticulum. There was no significant cricopharyngeal achalasia. Dual and single contrast images of the esophagus demonstrate a patulous esophagus with a normal contour, and mucosal pattern. No masses or ulcerations are seen. A nonobstructing Schatzki's ring is present. Esophageal peristalsis was normal. A small to moderate-sized type I hiatal hernia is present. No significant gastroesophageal reflux was seen during the course of the examination and on reflux views. Dual contrast and single contrast images of the stomach demonstrated a normal contour. The gastric rugal folds have a thickened appearance, suggestive of gastritis. No masses or ulcerations are seen. Contrast freely passed into the gastric antrum and duodenal bulb without delay. Single and air-contrast images of the duodenal bulb demonstrate no abnormality. The duodenal sweep has a normal appearance, course, and mucosal fold appearance. The imaged proximal jejunum has a normal fold pattern and caliber. FLUOROSCOPY TIME: 4 minutes 10 seconds Number of Spot Images: 10 Number of Cine: 12 DOSE AREA PRODUCT: [id number] uGy-m2 (microgray-meter squared) FL/FL barium swallow IMPRESSION: 1. Small to moderate-sized type I hiatal hernia. 2. Nonobstructing Schatzki's ring. 3. Thickened appearance the gastric rugal folds, suggestive of gastritis. This procedure was performed by Car Hinojosa PA-C, and supervised by Dr. Fields Electronically signed by: Timoteo Fields MD 07/19/2024 04:39 PM [facility]
== END 2024-07-19 07:45 | disposition home or self-care (01) ==
LOC: HO.XRAY 07:44
PROVIDERS: PCP Internal Medicine; Visit Provider Nurse Practitioner
DX: K21.9 Gastro-esophageal reflux disease without esophagitis (principal); K22.10 Ulcer of esophagus without bleeding
CPT/HCPCS: 74220

== ENCOUNTER → 2024-07-19 07:46 | Outpatient (BNV) | payer OTHER, SELFPAY | PROVIDERS: PCP Internal Medicine; Visit Provider Physician Assistant Surgical | DX: K21.9 Gastro-esophageal reflux disease without esophagitis (principal) | CPT/HCPCS: 74246 ==

== ENCOUNTER 2024-08-09 12:40 | Outpatient (REF) | payer OTHER, SELFPAY ==
[2024-08-09 13:54] LABS: TSH reflex Free T4 1.58 uIU/mL (0.32-4.0)
== END 2024-08-09 12:41 | disposition home or self-care (01) ==
LOC: HO.HHCL 12:40
PROVIDERS: Visit Provider Internal Medicine
DX: E11.65 Type 2 diabetes mellitus with hyperglycemia (principal)
CPT/HCPCS: 36415; 84443

== ENCOUNTER 2024-10-04 12:05 | Outpatient (REF) | payer OTHER, SELFPAY ==
--- OUTSIDE RECORDS SUMMARY | 2024-10-04 13:26 | XMS_ITS | Encounter Summary ---
Author Organization [email or web address] Address [address] [facility] [address] [place] [address] Care Team Providers Care River Guide Name Role Phone Michelle Young MD Primary Care Provide r Reason for Visit * Reason Onset Date Comments Med Refill 02/02/2024 Encounter Details Date Type Department Care Team (Late st Contact Info) Description 02/02/2024 Telephone [facility] [address] [place], [place] [phone] Michelle Young MD [address] [place], [place] [phone] Med Refill Social History Tobacco Use Types Packs/Day Years Used Date Smoking Tobacco: Never Passive Smoke Exposure: Never Smokeless Tobacco: Never Depression Answer Date Recorded Patient Health Questionnaire-9 Score 0 02/23/2023 Housing Stability Answer Date Recorded What is your housing situation today? I have pascale jain 06/09/[address] you li ve. Do you have problems with any of the following? None of the above 06/09/2023 Food Insecurity Answer Date Recorded Within the past 12 months, y ou worried that your food would run out before you got money to buy more: Never True 06/09/2023 Within the past 12 months,th e food you bought just didn't last and you didn't have enough money to get more: Never True Transportation Answer Date Recorded In the past 12 months, has l ack of transportation kept you from medical appts, meetings, work or from getting things needed for daily living? No 06/09/2023 Utilities Answer Date Recorded In the past 12 months, has t he electric, gas, oil or water company threatened to shut off services in your home? No 06/09/2023 Depression Answer Date Recorded Patient Health Questionnaire-2 Score 0 02/23/2023 Comments Unknown Sex and Gender Information Value Date Recorded Sex Assigned at Female 06/23/2022 10:34 AM EDT Legal Sex Female 10:34 AM EDT Gender Identity Female 06/23/2022 10:34 AM EDT Sexual Orientation Straight 06/23/2022 10 :34 AM EDT documented as of this encounter Miscellaneous Notes * Telephone Encounter - Libby Cruz LPN - 02/02/2024 10:24 AM EDT Medication pended to PCP. * Telephone Encounter - Autumn Palmer - 02/02/2024 10:16 AM EDT TC from pt requesting medication refill. Medications needing refill : zolpidem (Ambien) 5 MG tablet To be sent to: [id number] - [address] documented in this encounter Plan of Treatment Not on file documented as of this encounter Visit Diagnoses Not on filedocumented in this encounter Additional Health Concerns Assessment Noted Time PHQ-9 Depression Total Score: 0 02/24/20 23 11:15 AM EDT documented as of this encounter Care Teams River Guide Relationship Specialty Start Date End Date Michelle Young MD [address] [place] [address] PCP - General Family Medicine 06/03/18 documented as of this encounter
--- OUTSIDE RECORDS SUMMARY | 2024-10-04 13:27 | XMS_ITS | Encounter Summary ---
Author Organization [employer] Address [address] [place] [address] [address] [place] [address] Care Team Providers Care Crematorium Operator Name Role Phone Michelle Young MD Primary Care Provide r Reason for Visit * Reason Comments Med Refill Encounter Details Date Type Department Care Team (Late st Contact Info) Description 02/18/2023 Refill [facility] [address] [place], [place] [phone] Libby Ramirez DO [address] [place], [place] [phone] Hypertension, unspecified type Social History Tobacco Use Types Packs/Day Years Used Date Smoking Tobacco: Never Passive Smoke Exposure: Never Smokeless Tobacco: Never Comments Unknown Sex and Gender Information Value Date Recorded Sex Assigned at Female 06/23/2022 10:34 AM EDT Legal Sex Female 10:34 AM EDT Gender Identity Female 06/23/2022 10:34 AM EDT Sexual Orientation Straight 06/23/2022 10 :34 AM EDT documented as of this encounter Plan of Treatment Not on file documented as of this encounter Visit Diagnoses Diagnosis Hypertension, unspecified type documented in this encounter Care Teams Crematorium Operator Relationship Specialty Start Date End Date Michelle Young MD [address] [place], [place] [phone] PCP - General Family Medicine 06/03/18 documented as of this encounter
--- OUTSIDE RECORDS SUMMARY | 2024-10-04 13:27 | XMS_ITS | Encounter Summary ---
Author Organization [employer] Address [address] [facility] [address] [place] [address] Care Team Providers Care Oil Pipeline Dispatcher Name Role Phone Michelle Young MD Primary Care Provide r Reason for Visit * Reason Comments Med Refill Encounter Details Date Type Department Care Team ([facility] st Contact Info) Description 09/23/2023 Refill [facility] [address] [place], [place] [phone] Michelle Young MD [address] [place], [place] [phone] Primary insomnia Social History Tobacco Use Types Packs/Day Years Used Date Smoking Tobacco: Never Passive Smoke Exposure: Never Smokeless Tobacco: Never Depression Answer Date Recorded Patient Health Questionnaire-9 Score 0 02/23/2023 Housing Stability Answer Date Recorded What is your housing situation today? I have pascaledafne jain 06/09/[address] you [...] as of this encounter Visit Diagnoses Diagnosis Primary insomnia Persistent disorder of initiating or maintaining sleep documented in this encounter Additional Health Concerns Assessment Noted Time PHQ-9 Depression Total Score: 0 02/24/20 23 11:15 AM EDT documented as of this encounter Care Teams Oil Pipeline Dispatcher Relationship Specialty Start Date End Date Michelle Young MD [address] [place] [id number] PCP - General Family Medicine 06/03/18 documented as of this encounter
--- OUTSIDE RECORDS SUMMARY | 2024-10-04 13:27 | XMS_ITS | Encounter Summary ---
Author Organization [employer] Address [address] [place] [address] [address] [place] [address] Care Team Providers Care Open Hearth Stockyard Supervisor Name Role Phone Michelle Young MD Primary Care Provide r Reason for Visit * Reason Onset Date Comments Med Refill 04/20/2023 Encounter Details Date Type Department Care Team (Late st Contact Info) Description 04/20/2023 Telephone [facility] MEDICINE [address] [place], [place] [phone] Michelle Young MD [address] [place], [place] [phone] Med Refill Social History Tobacco Use Types Packs/Day Years Used Date Smoking Tobacco: Never Passive Smoke Exposure: Never Smokeless Tobacco: Never Depression Answer Date Recorded Patient Health Questionnaire-9 Score 0 02/23/2023 Depression Answer Date Recorded Patient Health Questionnaire-2 Score 0 02/23/2023 Comments Unknown Sex and Gender Information Value Date Recorded Sex Assigned at Female 06/23/2022 10:34 AM EDT Legal Sex Female 10:34 AM EDT Gender Identity Female 06/23/2022 10:34 AM EDT Sexual Orientation Straight 06/23/2022 10 :34 AM EDT documented as of this encounter Miscellaneous Notes * Telephone Encounter - Cheryl Mcclelland - 04/20/2023 1:11 PM EDT Tc from pt requesting med refill for medication tramadol . documented in this encounter Plan of Treatment Not on file documented as of this encounter Visit Diagnoses Not on filedocumented in this encounter Additional Health Concerns Assessment Noted Time PHQ-9 Depression Total Score: 0 02/24/20 23 11:15 AM EDT documented as of this encounter Care Teams Open Hearth Stockyard Supervisor Relationship Specialty Start Date End Date Michelle Young MD [address] [place] [address] PCP - General Family Medicine 06/03/18 documented as of this encounter
--- OUTSIDE RECORDS SUMMARY | 2024-10-04 13:27 | XMS_ITS | Encounter Summary ---
Author Organization [employer] Address [address]t [place] [address] Care Team Providers Care Production Specialist Name Role Phone Michelle Young MD Primary Care Provide r Reason for Visit * Reason Onset Date Comments Med Change Request Durable Medical Equipment 01/04/2024 Blood Pressure Monitor Encounter Details Date Type Department Care Team (Late st Contact Info) Description 01/04/2024 Refill [facility] MEDICINE [address] [place], [place] [phone] Michelle Young MD [address] [place], [place] [phone] Primary hypertension Social History Tobacco Use Types Packs/Day Years [...] t he electric, gas, oil or water [employer] threatened to shut off services in your [...] encounter Miscellaneous Notes * Telephone Encounter - Chela Bearden - 01/05/2024 4:43 PM EDT DME order for BP Monitor was placed on PCP desk for signature. Once signed will fax to [facility] and scaninto chart under media. documented in this encounter Plan of Treatment Not on file documented as of this encounter Visit Diagnoses Diagnosis Primary hypertension Unspecified essential hypertension documented in this encounter Additional Health Concerns Assessment Noted Time PHQ-9 Depression Total Score: 0 02/24/20 23 11:15 AM EDT documented as of this encounter Care Teams Production Specialist Relationship Specialty Start Date End Date Michelle Young MD [address] [place] [id number] PCP - General Family Medicine 06/03/18 documented as of this encounter
--- OUTSIDE RECORDS SUMMARY | 2024-10-04 13:27 | XMS_ITS | Clinical Summary ---
Author Organization [facility] Address [address] [place] [address] Phone Care Team Providers Care Weave Room Supervisor Name Role Phone Michelle Young MD Primary Care Provide r Allergies No known active allergies Medications amLODIPine (NORVASC) 10 mg tablet Take 1 tablet (10 mg total) by mouth 1 (one) time each day. Active Surgical History Surgery Date Site/Laterality Comments SECTION PROCEDURE: [place] DELIVERY ONLY HYSTERECTOMY PROCEDURE: HISTORICAL HYSTERECTOMY TONSILLECTOMY ADENOIDECTOMY, BILATERAL MYRINGOTOMY AND TUBES PROCEDURE: [place] TONSILLECTOMY & ADENOIDECTOMY <AGE 10 Medical History Medical History Date Comments Essential hypertension DX:Essent ial hypertension Anxiety state DX:Anxiety state Depressive disorder DX:Depressiv e disorder Asthma DX:Asthma Hyperlipidemia 03/24/2022 DX:Hyperlipidemi a Social History Tobacco Use Types Packs/Day Years Used Date Smoking Tobacco: Never Smokeless Tobacco: Never Alcohol Use Standard Drinks/Week Comments Never 0 (1 standard drink = 0.6 oz pur e alcohol) Comments Unknown Sex and Gender Information Value Date Recorded Sex Assigned at Not on file Legal Sex Female 5:40 PM EST Gender Identity Not on file Sexual Orientation Not on file Obstetrics History Last Filed Vital Signs Vital Sign Reading Time Taken Comments Blood Pressure 127/86 06/26/2024 10:43 AM EST Pulse 77 06/26/2024 10:43 AM EST Temperature 36.5 ??C (97.7 ??F) 06/26/2024 10:[address] Respiratory Rate 18 06/26/2024 10:43 AM EST Oxygen Saturation 100% 06/26/2024 10:43 AM EST Inhaled Oxygen Concentration - - Weight 108 kg (239 lb) 06/26/2024 7:57 AM EST Height 165.1 cm (5' 5 ) 06/26/2024 7:57 AM EST Body Mass Index 39.77 06/26/2024 7:57 AM EST Plan of Treatment Health Maintenance Due Date Last Done Comments Breast Cancer Screening 1978 Diabetes: Annual Foot Exam 1988 Diabetes: Annual Retina Eye Exam 1988 Hepatitis B Vaccines (1 of 3 - 19+ 3-dose series) 1997 Cervical Cancer Screening: Pap Smear 1999 Pneumococcal Vaccine: Pediatrics (0 to 5 Years) and At-Risk Patients (6 to 64 Years) (2 of 2 - PCV) 12/20/2013 12/20/2012 DTaP,Tdap,and Td Vaccines (3 - Td or Tdap) 01/05/2019 07/08/2018, 04/20/2013 HIV Screening 08/02/2022 Hepatitis C Screening 08/02/2022 Social Influencers of Health Screening 08/02/2022 Depression Screening 02/24/2024 02/23/2023 COVID-19 Vaccine ( season) 2024 06/07/2023, 02/13/2022 Influenza Vaccine (#1) 2024 , 05/22/2022, 07/18/2019, Additional history exists Diabetes: Annual Urine Albumin-Creatinine Ratio (uACR) 06/26/2024 Diabetes: Blood Sugar Control Test (HGBA1C) 07/22/2024 01/20/2024 Diabetes: Annual GFR (Glomerular Filtration Rate) 06/26/2025 06/26/2024 Hypertension/CHF/CAD Annual BMP Blood Test 06/26/2025 06/26/2024 Colorectal Cancer Screening: FIT-DNA (Cologuard) 09/28/2026 09/28/2023 Cholesterol Screening (Lipid Panel) 09/22/2028 09/22/2023 HIB Vaccines Aged Out No longer eligi ble based on patient's age to complete this topic HPV Vaccines Aged Out No longer eligi ble based on patient's age to complete this topic Hepatitis A Vaccines Aged Out No long er eligible based on patient's age to complete this topic IPV Vaccines Aged Out No longer eligi ble based on patient's age to complete this topic MMR Vaccines Aged Out No longer eligi ble based on patient's age to complete this topic Meningococcal ACWY Vaccine Aged Out N o longer eligible based on patient's age to complete this topic Meningococcal B Vacine Aged Out No lo nger eligible based on patient's age to complete this topic RSV Immunization Patients Under 20 months Aged Out No longer eligible based on patient's age to complete this topic Varicella Vaccines Aged Out No longer eligible based on patient's age to complete this topic Procedures Procedure Name Priority Date/Time Associated Diagnosis Comments COMPREHENSIVE METABOLIC PANEL STAT 06/26/2024 7:26 AM EST from Last 3 Months or Most Recently Relevant to Health Maintenance Results * (ABNORMAL) Comprehensive metabolic panel (06/26/2024 7:26 AM EST) Sodium 140 133 - 145 mmol/L LAB CHEMISTRY METHOD 06/26/2024 8:11 AM [facility] Potassium 3.8 3.5 - 5.5 mmol/L LAB CHEMISTRY METHOD 06/26/2024 8:11 AM [facility] Chloride 109 96 - 110 mmol/L LAB CHEMISTRY METHOD 06/26/2024 8:11 AM [facility] CO2 23 21 - 32 mmol/L LAB CHEMISTRY METHOD 06/26/2024 8:11 AM [facility] Anion Gap 8 3 - 11 LAB CHEMISTRY METHOD 06/26/2024 8:11 AM [facility] Glucose 133(H) 70 - 100 mg/dL LAB CHEMISTRY METHOD 06/26/2024 8:11 AM [facility] BUN 8 5 - 25 mg/dL LAB CHEMISTRY METHOD 06/26/2024 8:11 AM [facility] Creatinine 1.06 0.50 - 1.10 mg/dL LAB CHEMISTRY METHOD 06/26/2024 8:11 AM [facility] eGFR 66 >=60 mL/min/1. 73m2 LAB CHEMISTRY METHOD 06/26/2024 8:11 AM [facility] Comment:Calculation based on the??Chronic Kidney Disease Epidemiology Collaboration (CKD-EPI) equation refit??without adjustment for race. BUN/Creatinine Ratio 7.5 LAB CHEMISTRY METHOD 06/26/2024 8:11 AM [facility] Calcium 9.6 8.5 - 10.5 mg/dL LAB CHEMISTRY METHOD 06/26/2024 8:11 AM [facility] AST (SGOT) 18 10 - 42 unit/L LAB CHEMISTRY METHOD 06/26/2024 8:11 AM [facility] ALT (SGPT) 39 10 - 60 unit/L LAB CHEMISTRY METHOD 06/26/2024 8:11 AM [facility] Alkaline Phosphatase 79 42 - 121 unit/L LAB CHEMISTRY METHOD 06/26/2024 8:11 AM [facility] Total Protein 7.2 6.0 - 8.0 g/dL LAB CHEMISTRY METHOD 06/26/2024 8:11 AM [facility] Albumin 4.2 3.2 - 5.0 g/dL LAB CHEMISTRY METHOD 06/26/2024 8:11 AM [facility] Total Bilirubin 0.4 0.0 - 1.4 mg/dL LAB CHEMISTRY METHOD 06/26/2024 8:11 AM [facility] Blood Venous blood specimen / Unknown Venipuncture / Unknown 06/26/2024 7:26 AM EST 06/26/2024 7:27 AM EST us Toby Reynoso MD LAB BLOOD ORDERABLES Final Resu lt [facility] [address] [place] [address], [place] [phone] from Last 3 Months or Most Recently Relevant to Health Maintenance Insurance MEDICAID - [facility] Member Subscriber Plan / Payer (Ef fective 2024-Present) Name:Veronica Wilcox Relation to Subscriber:Self Name:Veronica Wilcox Payer ID:[id number] Group ID:Not on file Type:Not on file Address: [address] [place] [id number] Care Teams Weave Room Supervisor Relationship Specialty Start Date End Date Michelle Young MD [address] [phone] PCP - General Internal Medicine 09/06/19
--- OUTSIDE RECORDS SUMMARY | 2024-10-04 13:27 | XMS_ITS | Encounter Summary ---
Author Organization [employer] Address [address] [facility] 7t [place] [address] Care Team Providers Care Celery Wrapper Name Role Phone Michelle Young MD Primary Care Provide r Reason for Visit * Reason Onset Date Comments Med Refill 02/06/2023 Encounter Details Date Type Department Care Team (Late st Contact Info) Description 02/06/2023 Telephone [facility] MEDICINE [address] [place], [place] [phone] Michelle Young MD [address] [place], [place] [phone] Med Refill Social History Tobacco Use Types [...] Orientation Straight 06/23/2022 10 :34 AM EDT COVID-19 Exposure Response Date Recorded In the last 10 days, have yo u been in contact with someone who was confirmed or suspected to have Coronavirus/COVID-19? No / Unsure 02/23/2023 10:46 AM EDT documented as of this encounter Miscellaneous Notes * Telephone Encounter - Margoth Porter - 02/06/2023 1:31 PM EDT Tc from pt requesting a med refill for tramadol 50 mg documented in this encounter Plan of Treatment Not on file documented as of this encounter Visit Diagnoses Not on filedocumented in this encounter Care Teams Celery Wrapper Relationship Specialty Start Date End Date Michelle Young MD [address] [place] [id number] PCP - General Family Medicine 06/03/18 documented as of this encounter
--- OUTSIDE RECORDS SUMMARY | 2024-10-04 13:27 | XMS_ITS | Encounter Summary ---
Author Organization [employer] Address [address] [facility] 7t [place] [address] Care Team Providers Care Groundskeeping Maintenance Name Role Phone Michelle Young MD Primary Care Provide r Encounter Details Date Type Department Care Team (Latest Contact Info) Description 09/06/2024 Travel Social History Tobacco Use Types Packs/Day Years [...] documented as of this encounter Care Teams Groundskeeping Maintenance Relationship Specialty Start Date End Date Michelle Young MD [address] [place] [id number] PCP - General Family Medicine 06/03/18 documented as of this encounter
--- OUTSIDE RECORDS SUMMARY | 2024-10-04 13:27 | XMS_ITS | Encounter Summary ---
Author Organization [employer] Address [address] [facility] 7t [place] [address] Care Team Providers Care Supervisor Fitting Name Role Phone Michelle Young MD Primary Care Provide r Reason for Visit * Reason Onset Date Comments Med Refill 07/24/2023 Encounter Details Date Type Department Care Team (Late st Contact Info) Description 07/24/2023 Telephone [facility] MEDICINE [address] [place], [place] [phone] Michelle Young MD [address] [place], [place] [phone] Med Refill Social History Tobacco Use Types [...] Telephone Encounter - Libby Cruz LPN - 07/24/2023 2:47 PM EST Medications not pended as they should both have refills. Protonix was sent on 02/23/23 with 11 refills and Fioricet was sent on 06/11/23 with 3 refills. * Telephone Encounter - Jose Rojas - 07/24/2023 2:43 PM EST Tc from patient requesting a medication refill for [id number]-qozslcekqgplb-pkbfrpex (Fioricet) 50-300-40 MG capsule and pantoprazole (Protonix) 40 MG EC tablet. documented in this encounter Plan of Treatment Not on file documented as of this encounter Visit Diagnoses Not on filedocumented in this encounter Additional Health Concerns Assessment Noted Time PHQ-9 Depression Total Score: 0 02/24/20 23 11:15 AM EDT documented as of this encounter Care Teams Supervisor Fitting Relationship Specialty Start Date End Date Michelle Young MD [address] [place] [address] PCP - General Family Medicine 06/03/18 documented as of this encounter
--- OUTSIDE RECORDS SUMMARY | 2024-10-04 13:27 | XMS_ITS | Encounter Summary ---
Author Organization [employer] Address [address] [facility] 7t [place] [address] Care Team Providers Care Sampling Expert Name Role Phone Michelle Young MD Primary Care Provide r Encounter Details Date Type Department Care Team ([facility] Contact Info) Description 09/06/2024 Telephone [facility] [address] [place], [place] [phone] Sandra Diaz, RN [address] [place], [place] [phone] Social History Tobacco Use Types Packs/Day Years [...] encounter Miscellaneous Notes * Telephone Encounter - Sandra Diaz RN - 09/06/2024 1:27 PM EST F/u. Pt here for chronic pain group. Tramadol 50mg pill count not as expected, expected 19, pt has 14 pills remaining. Pt states sometime takes med tid when pain is severe. F/u with you 09/08/24. documented in this encounter Plan of Treatment Not on file documented as of this encounter Visit Diagnoses Not on filedocumented in this encounter Additional Health Concerns Assessment Noted Time PHQ-9 Depression Total Score: 0 02/24/20 23 11:15 AM EDT documented as of this encounter Care Teams Sampling Expert Relationship Specialty Start Date End Date Michelle Young MD [address] [place] [id number] PCP - General Family Medicine 06/03/18 documented as of this encounter
--- OUTSIDE RECORDS SUMMARY | 2024-10-04 13:27 | XMS_ITS | Encounter Summary ---
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 No 06/09/2023 Depression Answer Date Recorded Patient Health Questionnaire-2 Score 0 02/23/2023 Comments Unknown Sex and Gender Information Value Date Recorded Sex Assigned at Female 06/23/2022 10:34 AM EDT Legal Sex Female 10:34 AM EDT Gender Identity Female 06/23/2022 10:34 AM EDT Sexual Orientation Straight 06/23/2022 10 :34 AM EDT documented as of this encounter Progress Notes * Kajal Arora, VESSEL ENGINEER - 09/06/2024 11:00 AM EST Subjective: Veronica Akers is a 44 y.o. female w/ PMH seizure disorder, RODERICK, hypertension, IBS, hip pain, T2DM, migraines, and chronic low back pain, who presents to the office for - Chronic Pain [facility] Group visits. Initial Group visit: 09/06/24 Group Visit Number: 1 Last PCP visit: 10/20/23, Dr. Love Group Confidentiality last signed: 09/06/24 Group Topic: Functional Goal Setting -Lives with her 2 children. Most of her family lives in [place]. She was sick over the holidays, but currently back to baseline. Primary concern is low back pain. She is currently prescribed tramadol 50 mg twice daily, but reports that she has been sometimes taking it 3 times daily. Reviewed only to take medication as prescribed and to follow-up with provider regarding pain control. 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 Related Specialists: Following with [facility]. She is S/P bilateral L4-L5 facet steroid injections on 04/27/2024. Spondylosis without myelopathy or radiculopathy, lumbar region Review of Systems Constitutional: Negative for chills and fever. Respiratory: Negative for wheezing. Cardiovascular: Negative for chest pain and palpitations. Gastrointestinal: Negative for diarrhea and vomiting. Musculoskeletal: Positive for arthralgias and back pain. Physical Exam Constitutional: Appearance: Normal appearance. Pulmonary: Effort: Pulmonary effort is normal. Neurological: Mental Status: She is alert and oriented to person, place, and time. Psychiatric: Mood and Affect: Mood normal. Behavior: Behavior normal. Problem List Items Addressed This Visit Musculoskeletal Spondylosis without myelopathy or radiculopathy - Primary Overview Following with [facility] S/p bilateral L4-L5 facet steroid injections on 04/27/2024 Current Assessment & Plan - Reports acute on chronic pain. Advised of importance of only taking medications as prescribed. Should schedule appointment when pain worsens for further eval and management. Encouraged to further discuss with PCP during upcoming appt on 09/08/2024 -Good engagement and participation with Group Medical Visit model, today was first visit. -Encouraged multifactorial approach to pain control including pharm and non- pharm modalities -Utox as expected, pill count less than expected Other Long-term current use of opiate analgesic Overview Medication: Tramadol 50mg BID Indication: lumbar spondylosis w/o myelopathy or radiculopathy Last TONG SETTER Agreement: 10/29/23, Dr. Love Tier: II (TONG SETTER visits every 3 months) Current Assessment & Plan Timeline: 09/06/24: Group visit - UTOX wnl, pill count 5 off Relevant Orders POCT JOCY-14 Urine Drug Screen (Completed) Follow up: per TONG SETTER recall. Follow up as scheduled with PCP, sooner as needed. * Sandra Diaz RN - 09/06/2024 11:00 AM EST .TONG SETTER security specialist: PDMP reviewed today. Last fill date: 08/19/25 (Tramadol 50mg bid) count was (14), anticipated (19) to be remaining.count NOT as expected. Pt stated sometimes takes med tid when pain is very severe. PCP notified. .UTOX completed. Positive for (TCA, THC), Negative for AMP, BAR, BUP, BZO, DIALLO, FTY, MDMA, MET, MOP, MTD, OXY, PCP. UTOX as expected. documented in this encounter Miscellaneous Notes * Assessment & Plan Note - DONNIE Hillman - 09/06/2024 1:25 PM ESTAssociated Problem(s): Long-term current use of opiate analgesic Timeline: 09/06/24: Group visit - UTOX wnl, pill count 5 off * Assessment & Plan Note - DONNIE Hillman - 09/06/2024 1:19 PM ESTAssociated Problem(s): Spondylosis without myelopathy or radiculopathy - Reports acute on chronic pain. Advised of importance of only taking medications as prescribed. Should schedule appointment when pain worsens for further eval and management. Encouraged to further discuss with PCP during upcoming appt on 09/08/2024 -Good engagement and participation with Group Medical Visit model, today was first visit. -Encouraged multifactorial approach to pain control including pharm and non- pharm modalities -Utox as expected, pill count less than expected documented in this encounter Plan of Treatment Not on file documented as of this encounter Procedures Procedure Name Priority Date/Time Associated Diagnosis Comments POCT JOCY-14 URINE DRUG SCREEN Routine 09/06/2024 1:32 PM EST Long-term current use of opiate analgesic documented in this encounter Results * POCT JOCY-14 Urine Drug Screen (09/06/2024 1:32 PM EST) THC Positive TCA, Urine Positive Urine Urine specimen obtained by clean catch procedure / Unknown 09/06/2024 1:32 PM EST Narrative Sandra Diaz RN - 09/06/2024 1:32 PM EST .UTOX cup Lot#[id number] Exp. 05/18/26 Internal Pass Control Kajal Arora VESSEL ENGINEER POINT OF CARE TEST ENTER/EDIT ORDERABLES Final Result documented in this encounter Visit Diagnoses Diagnosis Spondylosis without myelopathy or radiculopathy- Primary Long-term current use of opiate analgesic Encounter for long-term (current) use of other medications documented in this encounter Additional Health Concerns Assessment Noted Time PHQ-9 Depression Total Score: 0 02/24/20 23 11:15 AM EDT documented as of this encounter Care Teams Slime Plant Operator Relationship Specialty Start Date End Date Michelle Young MD [address] [place] [address] PCP - General Family Medicine 06/03/18 documented as of this encounter
--- OUTSIDE RECORDS SUMMARY | 2024-10-04 13:27 | XMS_ITS | Encounter Summary ---
Author Organization [employer] Address [address] [facility] 7t [place] [address] Care Team Providers Care Indian Blanket Weaver Name Role Phone Michelle Young MD Primary Care Provide r Reason for Visit * Reason Comments Pre-visit Planning SDOH screening negat marta and tobacco screening negative Encounter Details Date Type Department Care Team ([facility] st Contact Info) Description 09/21/2024 Patient Outreach [facility] [address] [place], [place] [phone] Michelle Young MD 230 [place], [place] [phone] Pre-visit Planning (SDOH screening negative and tobacco screening negative) Social History Tobacco Use Types Packs/Day Years Used Date Smoking Tobacco: Never Passive Smoke Exposure: Never Smokeless Tobacco: Never Alcohol Use Standard Drinks/Week Comments Never 0 (1 standard drink = 0.6 oz pur e alcohol) Depression Answer Date Recorded Patient Health Questionnaire-9 [...] Recorded Patient Health Questionnaire-2 Score 0 02/23/2023 Internet Access Answer Date Recorded Internet Access Q1 Yes 09/21/2024 Internet Access Q2 Not on file 09/21/2024 Comments Unknown Sex and Gender Information Value Date Recorded Sex Assigned at Female 06/23/2022 10:34 AM EDT Legal Sex Female 10:34 AM EDT Gender Identity Female 06/23/2022 10:34 AM EDT Sexual Orientation Straight 06/23/2022 10 :34 AM EDT documented as of this encounter Progress Notes * Marline Krystin - 09/21/2024 12:42 PM EST CC Marline placed successful outbound call to patient for pre-visit planning. Patient name and confirmed. Patient confirms appt date and time, and has transportation. Biggest concern for appointment at this time is none Patient advised to bring to appointment a photo id and insurance card. Appropriate screenings completed in anticipation of appointment. documented in this encounter Plan of Treatment Not on file documented as of this encounter Visit Diagnoses Not on filedocumented in this encounter Additional Health Concerns Assessment Noted Time PHQ-9 Depression Total Score: 0 02/24/20 23 11:15 AM EDT documented as of this encounter Care Teams Indian Blanket Weaver Relationship Specialty Start Date End Date Michelle Young MD [address] [place] [id number] PCP - General Family Medicine 06/03/18 documented as of this encounter
--- OUTSIDE RECORDS SUMMARY | 2024-10-04 13:27 | XMS_ITS | Encounter Summary ---
Author Organization [employer] Address [address] [facility] 7[address] [place] [address] Care Team Providers Care Prick Stitcher Name Role Phone Michelle Young MD Primary Care Provide r Encounter Details Date Type Department Care Team ([facility] st Contact Info) Description 02/18/2023 Orders Only [facility] [address] [place], [place] [phone] Libby Cruz LPN Social History Tobacco Use Types Packs/Day Years [...] on filedocumented in this encounter Care Teams Prick Stitcher Relationship Specialty Start Date End Date Michelle Young MD [address] [place] [phone] PCP - General Family Medicine 06/03/18 documented as of this encounter
--- OUTSIDE RECORDS SUMMARY | 2024-10-04 13:27 | XMS_ITS | Encounter Summary ---
Author Organization [employer] Address [address] [facility] 7t [place] [address] Care Team Providers Care Geospatial Imagery Intelligence Analyst Name Role Phone Michelle Young MD Primary Care Provide r Reason for Visit * Reason Comments Med Change Request Encounter Details Date Type Department Care Team ([facility] st Contact Info) Description 10/01/2024 Refill [facility] 230 [place], [place] [phone] Michelle Young MD 230 [place], [place] [phone] Seizure disorder (CMS/HCC) Social History Tobacco Use Types Packs/Day Years [...] as of this encounter Visit Diagnoses Diagnosis Seizure disorder (CMS/HCC) Unspecified epilepsy without mention of intractable epilepsy documented in this encounter Additional Health Concerns Assessment Noted Time PHQ-9 Depression Total Score: 0 02/24/20 23 11:15 AM EDT documented as of this encounter Care Teams Geospatial Imagery Intelligence Analyst Relationship Specialty Start Date End Date Michelle Young MD [address] [place] [phone] PCP - General Family Medicine 06/03/18 documented as of this encounter
--- OUTSIDE RECORDS SUMMARY | 2024-10-04 13:27 | XMS_ITS | Encounter Summary ---
Author Organization [employer] Address [address] [facility] 7t [place] [address] Care Team Providers Care Lab Asst Name Role Phone Michelle Young MD Primary Care Provide r Encounter Details Date Type Department Care Team (Latest Contact Info) Description 10/03/2024 Travel Social History Tobacco Use Types Packs/Day [...] documented as of this encounter Care Teams Lab Asst Relationship Specialty Start Date End Date Michelle Young MD [address] [place] [phone] PCP - General Family Medicine 06/03/18 documented as of this encounter
--- OUTSIDE RECORDS SUMMARY | 2024-10-04 13:27 | XMS_ITS | Encounter Summary ---
Author Organization [employer] Address [address] [facility] 7t [place] [address] Care Team Providers Care Site Acquisition Specialist Name Role Phone Michelle Young MD Primary Care Provide r Reason for Visit * Reason Comments Med Refill Encounter Details Date Type Department Care Team ([facility] st Contact Info) Description 06/04/2024 Refill [facility] 230 [place], [place] [phone] Michelle Young MD 230 [place], [place] [phone] Hypertension, unspecified type; Chronic rhinitis; Severe episode of recurrent major depressive disorder, without psychotic features (CMS/HCC) Social History Tobacco Use Types Packs/Day [...] encounter Visit Diagnoses Diagnosis Hypertension, unspecified type Chronic rhinitis Severe episode of recurrent major depressive disorder, without psychotic features (CMS/HCC) documented in this encounter Additional Health Concerns Assessment Noted Time PHQ-9 Depression Total Score: 0 02/24/20 23 11:15 AM EDT documented as of this encounter Care Teams Site Acquisition Specialist Relationship Specialty Start Date End Date Michelle Young MD [address] [place] [phone] PCP - General Family Medicine 06/03/18 documented as of this encounter
--- OUTSIDE RECORDS SUMMARY | 2024-10-04 13:27 | XMS_ITS | Encounter Summary ---
Author Organization [employer] Address [address] [place] [address] 7t [place] [address] Care Team Providers Care Casino Surveillance Officer Name Role Phone Michelle Young MD Primary Care Provide r Reason for Visit * Reason Comments Med Refill Encounter Details Date Type Department Care Team ([facility] st Contact Info) Description 05/08/2023 Refill [facility] 230 [place], [place] [phone] Michelle Young MD 230 [place], [place] [phone] Gastritis, presence of bleeding unspecified, unspecified chronicity, unspecified gastritis type Social History Tobacco Use Types Packs/Day [...] as of this encounter Visit Diagnoses Diagnosis Gastritis, presence of bleeding unspecified, unspecified chronicity, unspecified gastritis type documented in this encounter Additional Health Concerns Assessment Noted Time PHQ-9 Depression Total Score: 0 02/24/20 23 11:15 AM EDT documented as of this encounter Care Teams Casino Surveillance Officer Relationship Specialty Start Date End Date Michelle Young MD 230 [place] [address] PCP - General Family Medicine 06/03/18 documented as of this encounter
--- OUTSIDE RECORDS SUMMARY | 2024-10-04 13:27 | XMS_ITS | Encounter Summary ---
Author Organization [employer] Address [address] [facility] 7t [place] [address] Care Team Providers Care Fixed Income Analyst Name Role Phone Michelle Young MD Primary Care Provide r Reason for Visit * Reason Onset Date Comments Med Refill 09/26/2024 Encounter Details Date Type Department Care Team (Late st Contact Info) Description 09/26/2024 Refill [facility] 230 [place], [place] [phone] Michelle Young MD 230 [place], [place] [phone] Migraine without aura and without status migrainosus, not intractable; Primary insomnia Social History Tobacco Use Types [...] encounter Miscellaneous Notes * Telephone Encounter - Gabriela Torres - 09/26/2024 1:36 PM EST TC from pt requesting medication refill. Medications needing refill : [id number] (Fioricet) 50-300-40 MG capsule zolpidem (Ambien) 5 MG tablet To be sent to: [id number] - [address] documented in this encounter Plan of Treatment Not on file documented as of this encounter Visit Diagnoses Diagnosis Migraine without aura and without status migrainosus, not intractable Primary insomnia Persistent disorder of initiating or maintaining sleep documented in this encounter Additional Health Concerns Assessment Noted Time PHQ-9 Depression Total Score: 0 02/24/20 23 11:15 AM EDT documented as of this encounter Care Teams Fixed Income Analyst Relationship Specialty Start Date End Date Michelle Young MD [address] [place] [phone] PCP - General Family Medicine 06/03/18 documented as of this encounter
--- OUTSIDE RECORDS SUMMARY | 2024-10-04 13:27 | XMS_ITS | Encounter Summary ---
Author Organization [employer] Address [address] [facility] 7t [place] [address] Care Team Providers Care Butadiene Converter Operator Name Role Phone Michelle Young MD Primary Care Provide r Reason for Visit * Reason Onset Date Comments GIULIANA SMITH 09/15/2024 Encounter Details Date Type Department Care Team (Late st Contact Info) Description 09/15/2024 Telephone [facility] 230 [place], [place] [phone] Nimo Rao, SHARLENE [address] [place], [place] [phone] GIULIANA SMITH Social History Tobacco Use Types Packs/Day Years [...] encounter Miscellaneous Notes * Telephone Encounter - Nimo Rao RN - 09/22/2024 3:52 PM EST CGM PA approved. Patient will receive teaching at 09/30/24 appointment with Carter (RN confirmed withCarter). * Telephone Encounter - Nimo Rao RN - 09/15/2024 11:22 AM EST Continuous Glucose Monitor Prior Authorization Documentation: CGM PA initiated for: Freestyle Sonny 2 reader, sensor and eliane test strips Insurance: CCA PA form completed and faxed to [phone]. Patient's preferred pharmacy: [id number] - [place], [place] - [address] [place] [id number] CGM PA should be approved by: 09/29/2024 Veronica Akers will be scheduled with red team nurses for CGM placement/teaching once PA is approved. documented in this encounter Plan of Treatment Not on file documented as of this encounter Visit Diagnoses Diagnosis Type 2 diabetes mellitus with hyperglycemia, without long-term current use of insulin ([facility]) documented in this encounter Additional Health Concerns Assessment Noted Time PHQ-9 Depression Total Score: 0 02/24/20 23 11:15 AM EDT documented as of this encounter Care Teams Butadiene Converter Operator Relationship Specialty Start Date End Date Michelle Young MD [address] [place] [address] PCP - General Family Medicine 06/03/18 documented as of this encounter
--- OUTSIDE RECORDS SUMMARY | 2024-10-04 13:27 | XMS_ITS | Encounter Summary ---
Author Organization [employer] Address [address] [facility] 7t [place] [address] Care Team Providers Care Waste Water Operator Name Role Phone Michelle Young MD Primary Care Provide r Reason for Visit * Reason Onset Date Comments Med Refill 09/26/2024 Encounter Details Date Type Department Care Team (Late st Contact Info) Description 09/26/2024 Refill [facility] 230 [place], [place] [phone] Michelle Young MD [address] [place], [place] [phone] Chronic bilateral low back pain, unspecified whether sciatica present Social History Tobacco Use Types Packs/Day Years [...] Telephone Encounter - Gabriela Torres - 09/26/2024 1:37 PM EST TC from pt requesting medication refill. Medications needing refill : traMADol (Ultram) 50 MG tablet [facility] to: [id number] - [address] documented in this encounter Plan of Treatment Not on file documented as of this encounter Visit Diagnoses Diagnosis Chronic bilateral low back pain, unspecified whether sciatica present documented in this encounter Additional Health Concerns Assessment Noted Time PHQ-9 Depression Total Score: 0 02/24/20 23 11:15 AM EDT documented as of this encounter Care Teams Waste Water Operator Relationship Specialty Start Date End Date Michelle Young MD [address] [place] [address] PCP - General Family Medicine 06/03/18 documented as of this encounter
--- OUTSIDE RECORDS SUMMARY | 2024-10-04 13:27 | XMS_ITS | Encounter Summary ---
Author Organization [employer] Address [address] [place] [address] Care Team Providers Care Elementary Math Tutor Name Role Phone Michelle Young MD Primary Care Provide r Encounter Details Date Type Department Care Team (Late st Contact Info) Description 10/03/2024 9:45 AM EST Office Visit [facility] [address] [place], [place] [phone] Michelle Young MD [address] [place], [place] [phone] Moderate persistent asthma, unspecified whether complicated (Primary Dx); Type 2 diabetes mellitus with hyperglycemia, without long-term current use of insulin (CMS/HCC); Chronic maxillary sinusitis; Bipolar affective disorder, current episode depressed, current episode severity unspecified (CMS/HCC); Vaginal itching Social History Tobacco Use Types Packs/Day Years [...] AM EDT documented as of this encounter Last Filed Vital Signs Vital Sign Reading Time Taken Comments Blood Pressure 126/85 10/03/2024 10:08 AM EST Pulse 100 10/03/2024 9:58 AM EST Temperature 36 ??C (96.8 ??F) 10/03/2024 9:58 AM EST Respiratory Rate 18 10/03/2024 9:58 AM EST Oxygen Saturation - - Inhaled Oxygen Concentration - - Weight 112 kg (247 lb 12.8 oz) 10/03/2024 9:58 A M EST Height 165.1 cm (5' 5 ) 10/03/2024 9:58 AM EST Body Mass Index 41.24 10/03/2024 9:58 AM EST documented in this encounter Progress Notes * Michelle Neumann MD - 10/03/2024 9:45 AM EST SUBJECTIVE: Veronica Akers is a 44 y.o. year old female who presents for Chronic Disease Management . Acute Concerns: Patient reports she has been having high glucose readings every day at home, she explains to me shedamaged accidentally her Trulicity pen 2 times she has only received 2 doses in total, she continues to use her insulin as prescribed as well as her other diabetes medications Patient also complains about her asthma not being completely under control, reports albuterol does help when she she does have cough or shortness of breath Patient also complains about chronic sinusitis symptoms congestion mainly Patient also complains of vaginal itching Social History Social History Narrative Not on file Patient Active Problem List Diagnosis Obstructive sleep apnea Asthma Spondylosis without myelopathy or radiculopathy Herniation of intervertebral disc Hypertension Migraine without aura Colitis Carpal tunnel syndrome Hip pain Mood disorder (CMS/HCC) Seizure disorder ([facility]/HCC) Irritable bowel syndrome with both constipation and diarrhea Primary insomnia Colon cancer screening Prediabetes Type 2 diabetes mellitus with hyperglycemia, without long-term current use of insulin ([facility]/HCC) Muscle spasm Long-term current use of opiate analgesic Bipolar affective disorder, current episode depressed, current episode severity unspecified (CMS/HCC) Ischemic colitis (CMS/HCC) Severe obesity ([facility]) Chronic maxillary sinusitis Vaginal itching No family history on file. Review of Systems Constitutional: Negative. HENT: Negative. Respiratory: Positive for cough and shortness of breath. Negative for apnea, choking, chest tightness, wheezing and stridor. Cardiovascular: Negative. Endocrine: Positive for polydipsia, polyphagia and polyuria. Negative for cold intolerance and heatintolerance. Genitourinary: Vaginal itching OBJECTIVE: Vitals: 10/03/24 0958 10/03/24 1008 BP: (!) 139/90 126/85 BP Location: Left arm Left arm Patient Position: Sitting Sitting BP Cuff Size: Large adult Large adult Pulse: 100 Resp: 18 Temp: 96.8 ??F (36 ??C) TempSrc: Oral Weight: 247 lb 12.8 oz (112 kg) Height: 5' 5 (1.651 m) Physical Exam Constitutional: Appearance: Normal appearance. Cardiovascular: Rate and Rhythm: Normal rate and regular rhythm. Pulmonary: Effort: Pulmonary effort is normal. Breath sounds: Normal breath sounds. Abdominal: General: Abdomen is flat. Palpations: Abdomen is soft. Musculoskeletal: Right lower leg: No edema. Left lower leg: No edema. Neurological: Mental Status: She is alert. Follow Up: No follow-ups on file. Current Outpatient Medications on File Prior to Visit Medication Sig Dispense Refill Acetaminophen 500 MG capsule Take one to two tablets as needed for fever or pain every 6 hours 30 capsule 0 albuterol (Ventolin HFA) 108 (90 Base) MCG/ACT inhaler TOME DOS INHALACIONES POR V A ORAL CADA CUATRO A SEIS HORAS CUANDO SEA NECESARIO 18 g 1 Alcohol Swabs 70 % pads Use 1 pad tid as directed 300 each 3 amLODIPine (Norvasc) 10 MG tablet TAKE 1 TABLET BY MOUTH EVERY DAY 90 tablet 1 atorvastatin (Lipitor) 10 MG tablet Take 1 tablet (10 mg) by mouth Once per day. 30 tablet 11 [] Blood Glucose Monitoring Suppl (FreeStyle Lite) w/Device kit 1 each in the morning. 1 kit0 Blood Glucose Monitoring Suppl (PublicVineuch Verio) w/Device kit 1 each 2 times daily. TEST BLOOD SUGARONCE DAILY 1 kit 0 Blood Pressure Monitor kit Use to monitor blood pressure at home 1 kit 0 xogrqohwpc-efoiwosecyiwa-fictvpqx (Fioricet) 50-300-40 MG capsule TAKE 1 CAPSULE FOR MIGRAINE, REPEAT IF NOT IMPROVED IN 4-6 HOURS (MAX 2 PER DAY AND 16 PER MONTH) 16 capsule 3 clonazePAM (KlonoPIN) 0.5 MG tablet TOME 1 TABLETA POR V A ORAL TODOS LOS D CUANDO SEA NECESARIOPARA LA ANSIEDAD Continuous Glucose Protective Signal Operator (FreeStyle Sonny 2 [place]) device Scan sensor every 8 hours 1 each 1 Continuous Glucose Sensor (FreeStyle Sonny 2 Sensor) [facility] Apply 1 sensor every 14 days 2 each 1 cyclobenzaprine (Flexeril) 10 MG tablet Take 1 tablet (10 mg) by mouth if needed in the morning, atnoon, and at bedtime for muscle spasms for up to 27 days. 40 tablet 1 Dulaglutide (Trulicity) 0.75 MG/0.5ML solution auto-injector Inject 0.75 mg under the skin 1 (one) time per week. 2 mL 0 empagliflozin (Jardiance) 10 MG Take 1 tablet (10 mg) by mouth Once per day. 30 tablet 11 fluticasone (Flonase) 50 MCG/ACT nasal spray INSTILL 1 TO 2 SPRAYS INTO EACH NOSTRIL EVERY MORNING 48 mL 0 Fluticasone-Salmeterol (Wixela Inhub) 250-50 MCG/ACT aerosol powder Inhale 1 Inhalation 2 times daily. INHALE 1 INHALATION 2 TIMES DAILY. TAKE 1 INHALATION BY MOUTH EVERY 12 HOURS IN THE MORNING AND NIGHT 60 each 3 [] FreeStyle lancets 1 each by Other route in the morning. 50 each 11 [] FREESTYLE LITE test strip Check fingerstick 1x/d 50 each 11 glucose blood (FreeStyle Precision Jame Test) test strip Use to test blood sugar 3 times daily 100 each 12 [] glucose blood (OneTouch Verio) test strip TEST BLOOD SUGAR ONCE DAILY 100 each 11 hydroCHLOROthiazide (HYDRODiuril) 25 MG tablet Take 1 tablet (25 mg) by mouth Once per day. 30 tablet 11 insulin lispro (HumaLOG KWIKPEN) 100 UNIT/ML injection Use tid ac meals according to sliding scale:150-200= 2u/ 201-250= 4U/ 251-300=6u/ 301-350=8u/ 351-400= 10u/ Above 400= 12u and call PCP 1 each 3 insulin pen needle (BD ULTRA-FINE PEN NEEDLES) 29G x 12.7mm misc Use 1 pen needle three times a daywith Humalog administration 100 each 12 ipratropium (Atrovent) 0.03 % nasal spray USE 2 SPRAYS INTRANASALLY 2 TIMES A DAY Lancets ([employer] Delica Plus [id number]) misc TEST BLOOD SUGAR ONCE DAILY 100 each 11 Linzess 290 MCG capsule Take by mouth in the morning. lurasidone (Latuda) 20 MG tablet TAKE 1 TABLET BY MOUTH EVERY EVENING CON COMIDA lurasidone (Latuda) 40 MG tablet TAKE 1 TABLET BY MOUTH EVERY EVENING CON COMIDA metFORMIN XR (Glucophage-XR) 500 MG 24 hr tablet TAKE 1 TABLET BY MOUTH WITH EVENING MEAL. DO NOT CRUSH, CHEW, OR SPLIT 90 tablet 1 naloxone (Narcan) 4 mg/0.1 mL nasal spray Administer 1 spray (4 mg) into affected nostril(s) if needed for opioid reversal. May repeat every 2-3 minutes if needed, alternating nostrils, until medicalassistance becomes available. 2 each 3 nystatin (Mycostatin) 722303 UNIT/GM powder Apply topically 2 times daily. 240 g 3 pantoprazole (ProtoNix) 40 MG EC tablet TAKE 1 TABLET (40 MG) BY MOUTH BEFORE BREAKFAST. DO NOT CRUSH, CHEW, OR SPLIT. 90 tablet 3 propranolol (Inderal) 20 MG tablet TAKE 1 TABLET BY MOUTH TWICE A DAY NEEDED POR ANSIEDAD QUEtiapine XR (SEROquel XR) 300 MG 24 hr tablet TOME IVY TABLETA POR V A ORAL EVERY NOCHE AL ACOSTARSE FOR INSOMNIA Senna-Time 8.6 MG tablet TOME DOS TABLETAS POR V A ORAL TODOS LOS D AL ACOSTARSE FOR CONSTIPATION sucralfate (Carafate) 1 g tablet TAKE 1 TABLET BY MOUTH BEFORE BREAKFAST, BEFORE LUNCH, BEFORE EVENING MEAL, AND AT BEDTIME. 360 tablet 1 topiramate (Topamax) 200 MG tablet TAKE 1 TABLET (200 MG) BY MOUTH ONCE PER DAY. 90 tablet 0 topiramate 50 MG tablet TAKE 1 TABLET (50 MG) BY MOUTH ONCE PER DAY. 90 tablet 0 traMADol (Ultram) 50 MG tablet Take 1 tablet (50 mg) by mouth every 12 (twelve) hours if needed forsevere pain for up to 28 days. 56 tablet 0 valsartan (Diovan) 320 MG tablet Take 1 tablet (320 mg) by mouth Once per day. 30 tablet 11 zolpidem (Ambien) 5 MG tablet TAKE 1 TABLET BY MOUTH AT BEDTIME NEEDED FOR SLEEP 28 tablet 0 [DISCONTINUED] Dulaglutide (Trulicity) 0.75 MG/0.5ML solution auto-injector Inject 0.75 mg under the skin 1 (one) time per week. 2 mL 0 [DISCONTINUED] escitalopram (Lexapro) 20 MG tablet TOME 1 TABLETA POR V A ORAL TODOS LOS D EN LAMA MARISOL [DISCONTINUED] hydrOXYzine HCl (Atarax) 25 MG tablet TOME DOS TABLETAS POR V A ORAL FITO VECES AL DA [DISCONTINUED] hydrOXYzine pamoate (Vistaril) 50 MG capsule take 1 capsule by oral route every 6 hours as needed for anxiety or sleep [DISCONTINUED] Linzess 145 MCG capsule TOME 1 C PSULA POR V A ORAL CADA MA MARISOL . TAKE FIRST THING IN THE MORNING WITH A FULL GLASS OF WATER [DISCONTINUED] mirtazapine (Remeron) 15 MG tablet TOME 1 TABLETA POR V A ORAL TODOS LOS D AL ACOSTARSE [DISCONTINUED] OLANZapine (ZyPREXA) 15 MG tablet TAKE 1 TABLET BY MOUTH AT BEDTIME 90 tablet 1 [DISCONTINUED] prazosin (Minipress) 1 MG capsule TAKE 1 CAPSULE BY MOUTH THREE TIMES A DAY NEEDED FOR SLEEP/ANXIETY [DISCONTINUED] topiramate (Topamax) 200 MG tablet Take 1 tablet (200 mg) by mouth Once per day. 30 tablet 1 [DISCONTINUED] topiramate (Topamax) 50 MG tablet Take 1 tablet (50 mg) by mouth Once per day. 30 tablet 1 No current facility-administered medications on file prior to visit. Problem List Items Addressed This Visit Type 2 diabetes mellitus with hyperglycemia, without long-term current use of insulin (CMS/HCC) No changes on her meds were done today, I advised to package pick up her Trulicity and inject as prescribedonce a week Continue with her insulin as prescribed Continue with metformin Follow-up with [facility] pharmacy Relevant Orders POCT Glucose (Completed) Lipid Panel, Standard Hemoglobin A1c Asthma - Primary Extensive counseling about avoiding triggers done today Continue with albuterol as needed continue with Wixela twice a day I will start her on montelukast 10 mg daily Relevant Medications montelukast (Singulair) 10 MG tablet Chronic maxillary sinusitis Relevant Medications fluticasone (Flonase) 50 MCG/ACT nasal spray Bipolar affective disorder, current episode depressed, current episode severity unspecified (CMS/HCC) Continue to follow-up with specialist Vaginal itching Relevant Medications fluconazole (Diflucan) 150 MG tablet documented in this encounter Miscellaneous Notes * Assessment & Plan Note - Michelle Neumann MD - 10/03/2024 4:23 PM EST Associated Problem(s): Bipolar affective disorder, current episode depressed, current episode severity unspecified ([facility]/HCC) Continue to follow-up with specialist * Assessment & Plan Note - Michelle Neumann MD - 10/03/2024 4:23 PM EST Associated Problem(s): Type 2 diabetes mellitus with hyperglycemia, without long-term current use of insulin (CMS/HCC) No changes on her meds were done today, I advised to package pick up her Trulicity and inject as prescribedonce a week Continue with her insulin as prescribed Continue with metformin Follow-up with [facility] pharmacy * Assessment & Plan Note - Michelle Neumann MD - 10/03/2024 4:21 PM EST Associated Problem(s): Asthma Extensive counseling about avoiding triggers done today Continue with albuterol as needed continue with Wixela twice a day I will start her on montelukast 10 mg daily documented in this encounter Plan of Treatment Scheduled Orders Name Type Priority Associated Diagnoses Orde r Schedule Lipid Panel, Standard Lab Routine Type 2 diabetes mellitus with hyperglycemia, without long-term current use of insulin ([facility]) Expected: 10/03/2024 (Approximate), Expires: 10/03/2025 Hemoglobin A1c Lab Routine Type 2 diabetes mellitus with hyperglycemia, without long-term current use of insulin ([facility]) Expected: 10/03/2024 (Approximate), Expires: 10/03/2025 documented as of this encounter Procedures Procedure Name Priority Date/Time Associated Diagnosis Comments POCT GLUCOSE Routine 10/03/2024 9:59 AM EST Type 2 diabetes mellitus with hyperglycemia, without long-term current use of insulin ([facility]) documented in this encounter Results * (ABNORMAL) POCT Glucose (10/03/2024 9:59 AM EST) [facility] Glucose Blood, POC 256(A) 60 - 200 mg/dL QC Media Lot # [id number] Lot# Expiration Date Blood Capillary blood specimen / Unknown 10/03/2024 9:59 AM EST us Michelle Neumann MD POINT OF CARE TEST EN TER/EDIT ORDERABLES Final Result documented in this encounter Visit Diagnoses Diagnosis Moderate persistent asthma, unspecified whether complicated- Primary Type 2 diabetes mellitus with hyperglycemia, without long-term current use of insulin ([facility]) Chronic maxillary sinusitis Bipolar affective disorder, current episode depressed, current episode severity unspecified ([facility]) Vaginal itching Pruritus of genital organs documented in this encounter Additional Health Concerns Assessment Noted Time PHQ-9 Depression Total Score: 0 02/24/20 23 11:15 AM EDT documented as of this encounter Care Teams Elementary Math Tutor Relationship Specialty Start Date End Date Michelle Young MD [address] [place] [address] PCP - General Family Medicine 06/03/18 documented as of this encounter
--- OUTSIDE RECORDS SUMMARY | 2024-10-04 13:27 | XMS_ITS | Encounter Summary ---
Author Organization [employer] Address [address] [place] [address] Care Team Providers Care Veneer Jointer Offbearer Name Role Phone Michelle Young MD Primary Care Provide r Reason for Visit * Reason Comments Med Refill Encounter Details Date Type Department Care Team ([facility] st Contact Info) Description 10/27/2023 Refill [facility] [address] [place], [place] [phone] Michelle Young MD [address] [place], [place] [phone] Social History Tobacco Use Types Packs/Day Years [...] documented as of this encounter Care Teams Veneer Jointer Offbearer Relationship Specialty Start Date End Date Michelle Young MD [address] [place] [address] PCP - General Family Medicine 06/03/18 documented as of this encounter
--- OUTSIDE RECORDS SUMMARY | 2024-10-04 13:27 | XMS_ITS | Encounter Summary ---
Author Organization [employer] Address [address] [facility] 7t [place] [address] Care Team Providers Care Automotive Fuel Systems Converter Name Role Phone Michelle Young MD Primary Care Provide r Reason for Referral * Consultation (Routine) - Authorized Specialty Diagnoses / Procedures Referred By Tung ravi Referred To Contact Pharmacy Diagnoses Type 2 diabetes mellitus with hyperglycemia, without long-term current use of insulin (CMS/HCC) Michelle Young MD [address] [place] [phone] Phone: tel: fax: Referral ID Status Reason Start Date Expiration Date Visits Requested Visits Authorized [id number] Authorized Consult and Treat 09/08/2024 09/08/2025 6 6 Encounter Details Date Type Department Care Team (Late st Contact Info) Description 09/08/2024 11:15 AM EST Office Visit [facility] [address] [place] [address] [phone] Michelle Young MD [address] [place] [address] [phone] Primary hypertension (Primary Dx); Type 2 diabetes mellitus with hyperglycemia, without long-term current use of insulin (CMS/HCC); Spondylosis without myelopathy or radiculopathy; Bipolar affective disorder, current episode depressed, current episode severity unspecified (CMS/HCC); Severe obesity (CMS/HCC); Mood disorder (CMS/HCC); Seizure disorder (CMS/HCC) Social History Tobacco Use [...] Sign Reading Time Taken Comments Blood Pressure 140/90 09/08/2024 11:24 AM EST Pulse 93 09/08/2024 11:24 AM EST Temperature 35.6 ??C (96.1 ??F) 09/08/2024 11:[address] Respiratory Rate 18 09/08/2024 11:24 AM EST Oxygen Saturation - - Inhaled Oxygen Concentration - - Weight 116 kg (255 lb) 09/08/2024 11:24 AM EST Height 165.1 cm (5' 5 ) 09/08/2024 11:24 AM EST Body Mass Index 42.43 09/08/2024 11:24 AM EST documented in this encounter Progress Notes * Michelle Neumann MD - 09/08/2024 11:15 AM EST SUBJECTIVE: Veronica Akers is a 44 y.o. year old female who presents for Follow up . Acute Concerns: Patient reports she continues to have episodes of hyperglycemia, she is currently using insulin to control it, reports when her glucose is high she has headaches Patient reports her pain has being really bad, she reports she sometimes take tramadol 3 times a day instead of Q 12 hrs, medication does help her a lot, she also has an appointment for discussion about spinal stimulator for her chronic pain Social History Social History Narrative Not on file Patient Active Problem List Diagnosis Obstructive sleep apnea Asthma Spondylosis without myelopathy or radiculopathy Herniation of intervertebral disc Hypertension Migraine without aura Colitis Carpal tunnel syndrome Hip pain Mood disorder (CMS/HCC) Seizure disorder (CMS/HCC) Irritable bowel syndrome with both constipation and diarrhea Primary insomnia Colon cancer screening Prediabetes Type 2 diabetes mellitus with hyperglycemia, without long-term current use of insulin (CMS/HCC) Muscle spasm Long-term current use of opiate analgesic Bipolar affective disorder, current episode depressed, current episode severity unspecified (CMS/HCC) Ischemic colitis (CMS/HCC) Severe obesity (CMS/HCC) No family history on file. Review of Systems Constitutional: Negative. HENT: Negative. Respiratory: Negative. Cardiovascular: Negative. Musculoskeletal: Positive for arthralgias, back pain and myalgias. OBJECTIVE: Vitals: 09/08/24 1124 BP: 140/90 BP Location: Left arm Patient Position: Sitting BP Cuff Size: Large adult Pulse: 93 Resp: 18 Temp: 96.1 ??F (35.6 ??C) TempSrc: Oral Weight: 255 lb (116 kg) Height: 5' 5 (1.651 m) Physical Exam Constitutional: Appearance: Normal appearance. Cardiovascular: Rate and Rhythm: Normal rate and regular rhythm. Pulmonary: Effort: Pulmonary effort is normal. Breath sounds: Normal breath sounds. Abdominal: General: Abdomen is flat. Palpations: Abdomen is soft. Musculoskeletal: General: Tenderness present. Right lower leg: No edema. Left lower leg: No edema. Neurological: Mental Status: She is alert. Follow Up: Follow up in about 3 months (around 12/07/2024) for chronic conditions . Current Outpatient Medications on File Prior to [...] mouth Once per day. 30 tablet 11 Blood Glucose Monitoring Suppl (FreeStyle Lite) w/Device kit 1 each in the morning. 1 kit 0 Blood Glucose Monitoring Suppl (OneTouch Verio) w/Device kit 1 each 2 times daily. TEST BLOOD SUGARONCE DAILY 1 kit 0 Blood Pressure Monitor kit Use to monitor blood pressure at home 1 kit 0 seutskordm-eqjsdwsgghlry-njpoyzdd (Fioricet) 50-300-40 MG capsule TAKE 1 CAPSULE FOR MIGRAINE, REPEAT IF NOT IMPROVED IN 4-6 HOURS (MAX 2 PER DAY AND 16 PER MONTH) 16 capsule 3 cyclobenzaprine (Flexeril) 10 MG tablet Take 1 tablet (10 mg) by mouth if needed in the morning, atnoon, and at bedtime for muscle spasms for up to 27 days. 40 tablet 1 empagliflozin (Jardiance) 10 MG Take 1 tablet (10 mg) by mouth Once per day. 30 tablet 11 escitalopram (Lexapro) 20 MG tablet TOME 1 TABLETA POR V A ORAL TODOS LOS D EN LA MA MARISOL fluticasone (Flonase) 50 MCG/ACT nasal spray INSTILL 1 TO 2 SPRAYS INTO EACH NOSTRIL EVERY MORNING 48 mL 0 Fluticasone-Salmeterol (Wixela Inhub) 250-50 MCG/ACT aerosol powder Inhale 1 Inhalation 2 times daily. INHALE 1 INHALATION 2 TIMES DAILY. TAKE 1 INHALATION BY MOUTH EVERY 12 HOURS IN THE MORNING AND NIGHT 60 each 3 FreeStyle lancets 1 each by Other route in the morning. 50 each 11 FREESTYLE LITE test strip Check fingerstick 1x/d 50 each 11 glucose blood (OneTouch Verio) test strip TEST BLOOD SUGAR ONCE DAILY 100 each 11 hydroCHLOROthiazide (HYDRODiuril) 25 MG tablet Take 1 tablet (25 mg) by mouth Once per day. 30 tablet 11 hydrOXYzine HCl (Atarax) 25 MG tablet TOME DOS TABLETAS POR V A ORAL FITO VECES AL D A hydrOXYzine pamoate (Vistaril) 50 MG capsule take 1 capsule by oral route every 6 hours as needed for anxiety or sleep insulin lispro (HumaLOG KWIKPEN) 100 UNIT/ML injection Use tid ac meals according to sliding scale:150-200= 2u/ 201-250= 4U/ 251-300=6u/ 301-350=8u/ 351-400= 10u/ Above 400= 12u and call PCP 1 each 3 insulin pen needle (BD ULTRA-FINE PEN NEEDLES) 29G x 12.7mm misc Use 1 pen needle three times a daywith Humalog administration 100 each 12 Lancets (CardiocoreTouch Delica Plus [id number]) misc TEST BLOOD SUGAR ONCE DAILY 100 each 11 Linzess 145 MCG capsule TOME 1 C PSULA POR V A ORAL CADA MA MARISOL . TAKE FIRST THING IN THE MORNING WITH A FULL GLASS OF WATER metFORMIN XR (Glucophage-XR) 500 MG 24 hr tablet TAKE 1 TABLET BY MOUTH WITH EVENING MEAL. DO NOT CRUSH, CHEW, OR SPLIT 90 tablet 1 mirtazapine (Remeron) 15 MG tablet TOME 1 TABLETA POR V A ORAL TODOS LOS D AL ACOSTARSE naloxone (Narcan) 4 mg/0.1 mL nasal spray Administer 1 spray (4 mg) into affected nostril(s) if needed for opioid reversal. May repeat every 2-3 minutes if needed, alternating nostrils, until medicalassistance becomes available. 2 each 3 nystatin (Mycostatin) 999884 UNIT/GM powder Apply topically 2 times daily. 240 g 3 OLANZapine (ZyPREXA) 15 MG tablet TAKE 1 TABLET BY MOUTH AT BEDTIME 90 tablet 1 pantoprazole (ProtoNix) 40 MG EC tablet TAKE 1 TABLET (40 MG) BY MOUTH BEFORE BREAKFAST. DO NOT CRUSH, CHEW, OR SPLIT. 90 tablet 3 prazosin (Minipress) 1 MG capsule TAKE 1 CAPSULE BY MOUTH THREE TIMES A DAY NEEDED FOR SLEEP/ANXIETY sucralfate (Carafate) 1 g tablet TAKE 1 TABLET BY MOUTH BEFORE BREAKFAST, BEFORE LUNCH, BEFORE EVENING MEAL, AND AT BEDTIME. 360 tablet 1 traMADol (Ultram) 50 MG tablet Take 1 tablet (50 mg) by mouth every 12 (twelve) hours if needed forsevere pain for up to 28 days. Do not start before August 22, 2024. 56 tablet 0 valsartan (Diovan) 320 MG tablet Take 1 tablet (320 mg) by mouth Once per day. 30 tablet 11 zolpidem (Ambien) 5 MG tablet TAKE 1 TABLET BY MOUTH AT BEDTIME NEEDED FOR SLEEP 28 tablet 0 No current facility-administered medications on file prior to visit. Problem List Items Addressed This Visit Type 2 diabetes mellitus with hyperglycemia, without long-term current use of insulin ([facility]) - Lab Results Component Value Date HGBA1C 6.9 (A) 08/08/2024 HGBA1C 7.1 (A) 01/20/2024 HGBA1C 6.2 (H) 09/22/2023 - Lab Results Component Value Date CREATININE 0.84 09/22/2023 -Changes: I will start patient on trulicity, in light of erratic glucose levels I will prescribe also CGM for her and refer her to CDTM - Diabetic eye exam:pending - Diabetic foot exam:pending - Continue lifestyle modifications - Follow up: 3 months Relevant Medications Dulaglutide (Trulicity) 0.75 MG/0.5ML solution auto-injector Continuous Glucose Medicaid Nurse (FreeStyle Sonny 2 [place]) device Continuous Glucose Sensor (FreeStyle Sonny 2 Sensor) misc glucose blood (FreeStyle Precision Jame Test) test strip Other Relevant Orders POCT Glucose (Completed) Referral to Pharmacy CDTM Hypertension - Primary I advised: - Aerobic exercise to reduce BP. Initial goal of 30 min walk 3-5x/week. Increase as tolerated. - low-sodium diet (goal: <2g/day) and heart healthy diet such as DASH to reduce BP and prevent ASCVD. - Home BP monitoring 1-2 x day with goal of <140/90. - Seek immediate medical attention for chest pain, palpitations, SOB, syncope, or sudden changes inmental status. - Do not change or discontinue current prescriptions without first consulting health care provider Spondylosis without myelopathy or radiculopathy Tramadol will be increase to 50mg Q 8hrs instead of Q 12hrs F/u with pain specialist Bipolar affective disorder, current episode depressed, current episode severity unspecified ([facility]/HCC) Continue to follow with psychiatrist and therapist Severe obesity ([facility]) Today extensive discussion was done about life style modifications I advise healthy diet (low calorie) and cardiovascular exercise Mood disorder ([facility]/HCC) F/u with specialist Seizure disorder ([facility]) Has not had a seizure in 5-6 months, reports she run out of her medication and has not f/u with neurology, I will refill her medications, she will call for f/u appointment Relevant Medications topiramate (Topamax) 200 MG tablet topiramate (Topamax) 50 MG tablet documented in this encounter Miscellaneous Notes * Assessment & Plan Note - Michelle Neumann MD - 09/08/2024 1:21 PM EST Associated Problem(s): Mood disorder ([facility]) F/u with specialist * Assessment & Plan Note - Michelle Neumann MD - 09/08/2024 1:21 PM EST Associated Problem(s): Bipolar affective disorder, current episode depressed, current episode severity unspecified ([facility]/HCC) Continue to follow with psychiatrist and therapist * Assessment & Plan Note - Michelle Neumann MD - 09/08/2024 1:20 PM EST Associated Problem(s): Type 2 diabetes mellitus with hyperglycemia, without long-term current use of insulin ([facility]) - Lab Results Component Value Date HGBA1C 6.9 (A) 08/08/2024 HGBA1C 7.1 (A) 01/20/2024 HGBA1C 6.2 (H) 09/22/2023 - Lab Results Component Value Date CREATININE 0.84 09/22/2023 -Changes: I will start patient on trulicity, in light of erratic glucose levels I will prescribe also CGM for her and refer her to [facility] - Diabetic eye exam:pending - Diabetic foot exam:pending - Continue lifestyle modifications - Follow up: 3 months * Assessment & Plan Note - Michelle Neumann MD - 09/08/2024 1:18 PM EST Associated Problem(s): Severe obesity (CMS/HCC) Today extensive discussion was done about life style modifications I advise healthy diet (low calorie) and cardiovascular exercise * Assessment & Plan Note - Michelle Neumann MD - 09/08/2024 1:18 PM EST Associated Problem(s): Spondylosis without myelopathy or radiculopathy Tramadol will be increase to 50mg Q 8hrs instead of Q 12hrs F/u with pain specialist * Assessment & Plan Note - Michelle Neumann MD - 09/08/2024 1:17 PM EST Associated Problem(s): Hypertension I advised: - Aerobic exercise to reduce BP. Initial goal of 30 min walk 3-5x/week. Increase as tolerated. - low-sodium diet (goal: <2g/day) and heart healthy diet such as DASH to reduce BP and prevent ASCVD. - Home BP monitoring 1-2 x day with goal of <140/90. - Seek immediate medical attention for chest pain, palpitations, SOB, syncope, or sudden changes inmental status. - Do not change or discontinue current prescriptions without first consulting health care provider * Assessment & Plan Note - Michelle Neumann MD - 09/08/2024 1:16 PM EST Associated Problem(s): Seizure disorder (CMS/HCC) Has not had a seizure in 5-6 months, reports she run out of her medication and has not f/u with neurology, I will refill her medications, she will call for f/u appointment documented in this encounter Plan of Treatment Scheduled Referrals Name Type Priority Associated Diagnoses Orde r Schedule Referral to Pharmacy CD Outpatient Referral Routine Type 2 diabetes mellitus with hyperglycemia, without long-term current use of insulin (CMS/HCC) Ordered: 09/08/2024 documented as of this encounter Procedures Procedure Name Priority Date/Time Associated Diagnosis Comments POCT GLUCOSE Routine 09/08/2024 11:25 AM EST Type 2 diabetes mellitus with hyperglycemia, without long-term current use of insulin (CMS/[facility]) documented in this encounter Results * POCT Glucose (09/08/2024 11:25 AM EST) [facility] Signature Glucose Blood, POC 195 60 - 200 mg/dL QC Media Lot # [id number] Lot# Expiration Date Blood Capillary blood specimen / Unknown 09/08/2024 11:25 AM EST us Michelle Neumann MD POINT OF CARE TEST EN TER/EDIT ORDERABLES Final Result documented in this encounter Visit Diagnoses Diagnosis Primary hypertension- Primary Unspecified essential hypertension Type 2 diabetes mellitus with hyperglycemia, without long-term current use of insulin (CMS/[facility]) Spondylosis without myelopathy or radiculopathy Bipolar affective disorder, current episode depressed, current episode severity unspecified (CMS/HCC) Severe obesity (CMS/HCC) Morbid obesity Mood disorder (CMS/HCC) Unspecified episodic mood disorder Seizure disorder (CMS/HCC) Unspecified epilepsy without mention of intractable epilepsy documented in this encounter Additional Health Concerns Assessment Noted Time PHQ-9 Depression Total Score: 0 02/24/20 23 11:15 AM EDT documented as of this encounter Care Teams Automotive Fuel Systems Converter Relationship Specialty Start Date End Date Michelle Young MD [address] [place] [address] [phone] PCP - General Family Medicine 06/03/18 documented as of this encounter
--- OUTSIDE RECORDS SUMMARY | 2024-10-04 13:27 | XMS_ITS | Encounter Summary ---
Author Organization [employer] Address [address] [facility] 7t [place] [address] Care Team Providers Care School Health Assistant Name Role Phone Michelle Young MD Primary Care Provide r Reason for Visit * Reason Comments Med Refill Encounter Details Date Type Department Care Team ([facility] st Contact Info) Description 09/10/2024 Refill [facility] [address] [place], [place] [phone] Michelle Young MD [address] [place], [place] [phone] Type 2 diabetes mellitus with hyperglycemia, without long-term current use of insulin ([facility]) Social History Tobacco Use Types Packs/Day Years [...] hyperglycemia, without long-term current use of insulin ([facility]) documented in this encounter Additional Health Concerns Assessment Noted Time PHQ-9 Depression Total Score: 0 02/24/20 23 11:15 AM EDT documented as of this encounter Care Teams School Health Assistant Relationship Specialty Start Date End Date Michelle Young MD [address] [place] [phone] PCP - General Family Medicine 06/03/18 documented as of this encounter
--- OUTSIDE RECORDS SUMMARY | 2024-10-04 13:27 | XMS_ITS | Encounter Summary ---
Author Organization [employer] Address [address] [facility] [address]t [place] [address] Care Team Providers Care Mechanical Assembly Technician Name Role Phone Michelle Young MD Primary Care Provide r Reason for Visit * Reason Onset Date Comments Med Refill 09/22/2024 Encounter Details Date Type Department Care Team (Late st Contact Info) Description 09/22/2024 Telephone [facility] [address] [place], [place] [phone] Michelle Young MD [address] [place], [place] [phone] Med Refill Social History Tobacco Use Types [...] Encounter - Nimo Rao RN - 09/22/2024 3:48 PM EST TC placed to patient [phone] in regards to below message. Patient advised unfortunately she cannot receive an early refill on the Trulicity medication or replacements for the 2 wasted injections. Patient confirms she still has 2 injections at home. RN advised patient to bring Trulicity to the 09/30/24 appointment with Carter and he will teach the patient how to administer. Patient verbalized understanding. RN also notified patient her CGM PA was approved and patient should also p/u CGM supplies at [facility] pharmacy on 09/30/24 before her appointment as Carter will complete CGM teaching at appointment as well. Patient verbalized understanding. TC placed to [facility] pharmacy to inform them of CGM teaching appointment on 09/30/24 for CGM supplies to be ready for p/u. RN did confirm with Carter that Trulicity and CGM teaching can be completed at appointment. * Telephone Encounter - Gabriela Torres - 09/22/2024 3:21 PM EST TC from pt requesting medication refill. Medications needing refill : Dulaglutide (Trulicity) 0.75 MG/0.5ML solution auto-injector To be sent to: [facility] pharmacy Tc from pt stating pharmacy didn't explain how to use medication as pt was trying to use medicationand when heard the first click took it out and medication was everywhere. Pt then try for second time and had issues as didn't inject the correct way. Pt will like med refill and will like someone toassist her on how to use it documented in this encounter Plan of Treatment Not on file documented as of this encounter Visit Diagnoses Not on filedocumented in this encounter Additional Health Concerns Assessment Noted Time PHQ-9 Depression Total Score: 0 02/24/20 23 11:15 AM EDT documented as of this encounter Care Teams Mechanical Assembly Technician Relationship Specialty Start Date End Date Michelle Young MD [address] [place] [phone] PCP - General Family Medicine 06/03/18 documented as of this encounter
--- OUTSIDE RECORDS SUMMARY | 2024-10-04 13:27 | XMS_ITS | Encounter Summary ---
Author Organization [employer] Address [address] [facility] [address]t [place] [address] Care Team Providers Care Adjunct Lecturer Name Role Phone Michelle Young MD Primary Care Provide r Encounter Details Date Type Department Care Team (Latest Contact Info) Description 09/08/2024 Travel Social History Tobacco Use Types Packs/Day [...] documented as of this encounter Care Teams Adjunct Lecturer Relationship Specialty Start Date End Date Michelle Young MD [address] [place] [phone] PCP - General Family Medicine 06/03/18 documented as of this encounter
--- OUTSIDE RECORDS SUMMARY | 2024-10-04 13:27 | XMS_ITS | Encounter Summary ---
Author Organization [employer] Address [address] [place] [address] [address] [place] [address] Care Team Providers Care Conservation Science Officer Name Role Phone Michelle Young MD Primary Care Provide r Encounter Details Date Type Department Care Team (Late st Contact Info) Description 02/10/2023 Orders Only [facility] [address] [place] [address] Diandra Siddiqui LPN Social History Tobacco Use Types Packs/Day [...] on filedocumented in this encounter Care Teams Conservation Science Officer Relationship Specialty Start Date End Date Michelle Young MD [address] [place] [address] PCP - General Family Medicine 06/03/18 documented as of this encounter
--- OUTSIDE RECORDS SUMMARY | 2024-10-04 13:27 | XMS_ITS | Encounter Summary ---
Author Organization [employer] Address [address] [facility] [address]t [place] [address] Care Team Providers Care Internal Controls Analyst Name Role Phone Michelle Young MD Primary Care Provide r Encounter Details Date Type Department Care Team (Latest Contact Info) Description 10/04/2024 Travel Social History Tobacco Use Types Packs/Day [...] documented as of this encounter Care Teams Internal Controls Analyst Relationship Specialty Start Date End Date Michelle Young MD [address] [place] [phone] PCP - General Family Medicine 06/03/18 documented as of this encounter
--- OUTSIDE RECORDS SUMMARY | 2024-10-04 13:27 | XMS_ITS | Encounter Summary ---
Author Organization [employer] Address [address] [facility] [address]t [place] [address] Care Team Providers Care Vice President Lending Name Role Phone Michelle Young MD Primary Care Provide r Encounter Details Date Type Department Care Team (Latest Contact Info) Description 09/30/2024 Travel Social History Tobacco Use Types Packs/Day [...] documented as of this encounter Care Teams Vice President Lending Relationship Specialty Start Date End Date Michelle Young MD [address] [place] [phone] PCP - General Family Medicine 06/03/18 documented as of this encounter
--- OUTSIDE RECORDS SUMMARY | 2024-10-04 13:27 | XMS_ITS | Continuity of Care Document ---
Author Organization [facility] Address [address] [place] [address] Phone Care Team Providers Care Network Security Administrator Name Role Phone Papito REYES, JAY, JAE, Fish Unavailable U navailable Allergies, [...] E&M Established 15 Mins- [place] & [place] [facility], [address] [place] [address] Dr Allen 1000[address]Jayme [place], [id number], [place] tel:[phone] CVR - [place] Venous insufficiency (chronic) (peripheral)Es sential (primary) hypertension 4 Papito REYES RVT, RPVI Robert. [address] [place] [address], [place], [place], [id number], [place]. tel:[phone] Referring Provider: Michelle Harris, [address] [place] [address], [address]. tel:[phone] [place] [facility], [address] [place] [address] Dr Allen [address]Jayme [place], [id number], [place] tel:[phone] CV - [facility] Varicose veins of bilateral lower extremities with pain 4 Papito REYES RVT, JAE Whitten. [address] [place] [address], [place], [place], [id number], [place]. tel:[phone] Referring Provider: Michelle Harris, [address] [place] [address], [address]. tel:[phone] [place] [facility], [address] [place] [address] Dr Allen 1000[address] 1000Jayme [place], [id number], [place] tel:[phone] CVR - [place] Encounter for follow-up examination after completed treatment for conditions other than malignant neChronic venous hypertension (idiopathic) with other complications of left lower extremity 4 Papito REYES RVT, RPVI Robert. [address] [place] [address], [place] [address], [place], [place], [id number], [place]. tel:[phone] Referring Provider: Fish Cobos MD, RVT, JAE, [address] [place] [address] [address], [place], [address] . tel:[phone] [facility], [address] [place] [address] [address]Suite Jayme Banegas [place], [id number], [place] tel:[phone] CVR - [place] Chronic venous hypertension (idiopathic) with inflammation of left lower extremity Oct- 4 Carol Mahmood. [address] [place] [address], [address], [place], [id number], [place]. tel:[phone] Referring Provider: Timoteo SMITH, [address] [place] [address] Suite [facility], [place], [address] . tel:[phone] [facility], [address] [place] [address] Dr Allen 1000Suite Jayme Banegas [place], [id number], [place] tel:[phone] CVR - [facility] Encounter for follow-up examination after completed treatment for conditions other than malignant ne Oct- 4 Papito REYES RVT, JAE Whitten. [facility], [place] [address], [place], [id number], [place]. tel:[phone] Referring Provider: Michelle Neumann MD A, [address] [place] [address], [address]. tel:[phone] [facility], [address] [place] [address] [address]Suite Jayme Banegas [place], [id number], [place] tel:[phone] [facility] Varicose veins of left lower extremity with other complications Oct- 0 4 Papito REYES RVT, JAE Whitten. [address] [place] [address], [address], [place], [id number], [place]. tel:[phone] [facility], [address] [place] [address] Dr Allen 1000Suite Jayme Banegas [place], [id number], [place] tel:[phone] CVR - [facility] Chronic venous hypertension (idiopathic) with inflammation of left lower extremity 4 Papito REYES RVT, JAE Whitten. [address] [place] [address], [place], [id number], [place]. tel:[phone] Referring Provider: Michelle Harris, [address] [place], [address]. tel:[phone] [facility], [address] [place] [address] [address] 1000Jayme [place], [id number], [place] tel:[phone] CVR - [place] Encounter for follow-up examination after completed treatment for conditions other than malignant neChronic venous hypertension (idiopathic) with other complications of right lower extremity Oct-0 4 Papito REYES RVT, JAE Whitten. [address] [place] [address], [place], [id number], [place]. tel:[phone] Referring Provider: Fish Cobos MD, RVT, JAE, [address] [place] [address], [place], [address] . tel:[phone] [facility], [address] [place] [address] [address] 1000Jayme [place], [id number], [place] tel:[phone] CVR [place] Varicose veins of right lower extremity with other complications 4 Carol Mahmood. [address] [place] [address], [address], [place], [id number], [place]. tel:[phone] Referring Provider: Timoteo SMITH, [address] [place] [address] 302, [place], [address] . tel:[phone] [facility], [address] [place] [address] [facility] 1000Suite 1000Jayme [place], [id number], [place] tel:[phone] CVR - [place] Encounter for follow-up examination after completed treatment for conditions other than malignant neVaricose veins of right lower extremity with pain Sep- 4 Papito REYES RVT, JAE Whitten. [address] [place] [address], [place], [id number], [place]. tel:[phone] Referring Provider: Fish Cobos MD, RVT, JAE, [address] [place] [address] Suite [facility], [place], [address] . tel:[phone] [facility] [place], [address] [place] [address] Dr Allen 1000SuJayme mckeon MD, [id number], [place] tel:[phone] CVR - [place] Chronic venous hypertension (idiopathic) with inflammation of right lower extremity 4 Papito REYES RVT, RPVI Robert. [address] [place] [address], [place] [address], [place], [id number], [place]. tel:[phone] [place] [facility], [address] [place] [address] Dr Allen 1000[facility] Jayme Banegas [place], [id number], [place] tel:[phone] [place] Varicose veins of right lower extremity with other complications 4 Papito REYES RVT, RPVI Robert. [address] [place] [address], [place], [id number], [place]. tel:[phone] Referring Provider: Fish Cobos MD, RVT, JAE, [address] [place] [address], [place], [address] . tel:[phone] Office/Outpt E&M Established 25 Mins [facility], [address] [place] [address] Dr Allen 1000Suite Jayme Banegas MD, [id number], [place] tel:[phone] [place] - [place] Cramp and spasmChronic venous hypertension (idiopathic) with other complications of bilateral lower extremityLocal ized edemaPain in right legPain in left legRestless legs syndromeEssent ial (primary) hypertensionVe nous insufficiency (chronic) (peripheral) 4 Papito REYES RVT, RPVI Robert. [address] [place] [address], [address], [place], [id number], [place]. tel:[phone] [facility] [place], [address] [place] [address] Dr Allen 1000Suite Jayme Banegas MD, [id number], [place] tel:[phone] CVR - [place] Chronic venous hypertension (idiopathic) with other complications of bilateral lower extremity 4 Papito REYES, RVT, RPVI Fish. [address] [place] [address], [place], [place], [id number], [place]. tel:[phone] Office/Outpt E&M Established 15 Mins [facility] MD [place], [address] [place] [address] [facility] 1000[facility] 1000Jayme [place], [id number], [place] tel:[phone] CVR [place] Chronic venous hypertension w/o comp of bilateral low extrm May-2 1 Jovanna La. [address] [place] [address], [id number], . tel:[phone] Referring Provider: Bessie Nugent, [address] [place] [address], [address] . tel:[phone] [facility], [address] [place] [address] [facility] [address] [address], [place], [id number], [place] tel:[phone] CVR - [facility] Chronic venous htn w oth comp of bilateral low extrm May- 1 Jovanna La. [address] [place] [address], [id number], [place]. tel:[phone] Referring Provider: Bessie Nugent, [address] [place] [address], [place], [address] . tel:[phone] [facility], [address] [place] [address] [facility] [address] [address] [place], [id number], [place] tel:[phone] CVR - [place] Chronic venous hypertension w oth comp of l low extrem 1 Jovanna La. [address] [place] [address], [id number], [place]. tel:[phone] Referring Provider: Bessie Nugent, [address] [place] [address], [place], [address] . tel:[phone] [facility] MD [place], [address] [place] [address] Dr Allen 1000[facility] Jayme Banegas MD, [id number], [place] tel:[phone] CVR - [place] Varicose veins of left lower extremities w oth complications 1 Jovanna La. [address] [place] [address], [address], [id number], . tel:[phone] Referring Provider: Bessie Nugent, [address] [place] [address], [address] . tel:[phone] [facility] [place], [address] [place] [address] Dr Allen 1000[facility] Jayme Banegas MD, [id number], [place] tel:[phone] CVR - [place] Chronic venous hypertension w oth comp of r low extrem 1 Jovanna La. [address] [place] [address], [id number], . tel:[phone] Referring Provider: Bessie Nugent, [address] [place] [address], [place], [address] . tel:[phone] [facility] MD [place], [address] [place] [address] Dr Allen 1000[facility] Jayme Banegas MD, [id number], tel:[phone] CVR - [place] Varicose veins of right low extrm w oth complications 1 Jovanna La. [address] [place] [address], [id number], [place]. tel:[phone] Referring Provider: Bessie Nugent, [address] [place] [address], [place], [address] . tel:[phone] [facility] MD [place], [address] [place] [address] Dr Allen 1000[facility] Jayme Banegas MD, [id number], [place] tel:[phone] CVR - [place] Chronic venous hypertension w oth comp of l low extrem 1 Jovanna La. [address] [place] [address], [id number], [place]. tel:[phone] Referring Provider: Bessie Nugent, [address] [place] [address], [address] . tel:[phone] [facility] [place], [address] [place] [address] Dr Allen [address] [address]Jay[address] [place], [id number], tel:[phone] CVR - [place] Varicose veins of left lower extremities w oth complications Jan- 1 Jovanna La. [address] [place] [address], [id number], [place]. tel:[phone] Referring Provider: Bessie Nugent, [address] [place] [address], [address] . tel:[phone] Office/Oupt E&M New Pt 45 Mins [facility] [place], [address] [place] [address] Dr Allen 1000[place] [address] [place], [id number], tel:[phone] CVR - [place] Body mass index (BMI) 36.0-36.9, adultChronic venous htn w oth comp of bilateral low extrm 1 Jovnana La. [address] [place] [address], [id number], . tel:[phone] Referring Provider: Bessie Nugent, [address] [place] [address], [address] . tel:[phone] [facility] [place], [address] [place] [address] [facility] [address] [address] [place], [id number], [place] tel:[phone] CVR - [place] Chronic venous htn w oth comp of bilateral low extrm 1 Jovanna La. [address] [place] [address], [id number], . tel:[phone] Referring Provider: Bessie Nugent, [address] [place] [address], [place], [address] . tel:[phone] Family History Family Member Type Diagnosis Age At Onset No Information Payers Payer name Insurance type Covered alliance party ID Shayla mccormick(s) [facility] [id number] Medical Assistance [facility] [id number] Social History Type Description Quantity Date Captured [...]
--- OUTSIDE RECORDS SUMMARY | 2024-10-04 13:27 | XMS_ITS | Continuity of Care Document ---
Author Organization [email or web address] [facility] Address [address] [place] [address] Phone Care Team Providers Care Regular Senior Care Provider Name Role Phone Mahnaz Larios APN Unavailable [...] Diagnoses Date Provider Office/outpa tient visit,est, mod [facility], [address] [place] [address], [address], tel:[phone] [facility] Old left arm pain for a few weeks (chief complaint) Carpal tunnel syndrome on leftBody mass index (BMI) 36.0-36.9, adult Ambrocio-201 8 Ric Joya. [address] [place] [address]. tel:[phone] [facility], [address] [place], [place], [facility], tel:[phone] [facility] No Information 8 [facility]. [address] [place], [place], [facility], . tel:[phone] [facility], [address] [place], [place], [facility], tel:[phone] [facility] discharge (chief complaint) Other pulmonary embolism without acute cor pulmonale, unspecified chronicityEsophagitisEssen tial (primary) hypertensionOverweightIntr actable migraine without status migrainosus, unspecified migraine typeCoughMultiple joint painBody mass index (BMI) 34.0-34.9, adult 8 [facility]. [address] [place], [place], [facility], . tel:[phone] Family History Family Member Type Diagnosis Age [...] mellitus Payers Payer name Insurance type Covered alliance party ID Authoriza tikathleen(s) Medicare [place] [id number] [id number] Social History Type Description Quantity Date Captured [...] Treatment Date Type Action Status Referral Ordered: [facility] -Orthopedic Surgery (related to Carpal tunnel syndrome on left) ordered Referral Ordered: [facility] -Occupational Therapy (related to Carpal tunnel syndrome on left) ordered Referral Referred To: [facility] [address] [place], [phone] Ordered: Referrals: Orthopedic Surgery. [facility] Appointment date/timeframe: 6 Months ordered Referral Referred To: [facility] [address] [place], [address] [phone] Ordered: Referrals: Occupational Therapy. [facility] Appointment date/timeframe: 6 Months ordered Referral Ordered: [facility] -Physical Medicine and Rehabilitation (related to Multiple joint pain) ordered Referral Ordered: [facility] Leodan Johnson MD -Gastroenterology (related to Esophagitis) ordered Referral Ordered: Chandrakant Crews MD -Neurology (related to Intractable migraine without status migrainosus, unspecified migraine type) ordered Referral Referred To: [facility] Ordered: Referrals: Physical Medicine and Rehabilitation. [facility]. Evaluate and treat Appointment date/timeframe: 6 Months ordered Referral Referred To: [facility] Leodan Johnson MD [address] [place], [phone] Ordered: Referrals: Gastroenterology. [facility] Leodan Johnson MD. Evaluate and treat Appointment date/timeframe: 6 Months ordered Referral Referred To: Chandrakant Crews MD [address], [phone] Ordered: Referrals: Neurology. Chandrakant Crews MD. Evaluate [...] Mental Status Date Cognitive Assessment Orientation - Everett ed to time, place, person, situation.
--- OUTSIDE RECORDS SUMMARY | 2024-10-04 13:27 | XMS_ITS | Encounter Summary ---
Author Organization [employer] Address [address] [facility] [address] [place] [address] Care Team Providers Care Hose Handler Name Role Phone Michelle Young MD Primary Care Provide r Reason for Visit * Reason Onset Date Comments Chart Prep 09/28/2024 Encounter Details Date Type Department Care Team (Late st Contact Info) Description 09/28/2024 Telephone [facility] [address] [place], [place] [phone] Chris Cerda MA Chart Prep Social History Tobacco Use Types Packs/Day Years [...] encounter Miscellaneous Notes * Telephone Encounter - Chris Cerda MA - 09/28/2024 3:53 PM EST Chart Prep Labs: done Images: done Vaccines due: yes Referrals: [facility] ask patient if Screenings: pap smear , Foot Exam Overdue care gaps: Glucose, Sbirt, PHQ-9, JEROMY-7 documented in this encounter Plan of Treatment Not on file documented as of this encounter Visit Diagnoses Not on filedocumented in this encounter Additional Health Concerns Assessment Noted Time PHQ-9 Depression Total Score: 0 02/24/20 23 11:15 AM EDT documented as of this encounter Care Teams Hose Handler Relationship Specialty Start Date End Date Michelle Young MD [address] [place] [address] PCP - General Family Medicine 06/03/18 documented as of this encounter
--- OUTSIDE RECORDS SUMMARY | 2024-10-04 13:27 | XMS_ITS | Clinical Summary ---
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 Acetaminophen 500 MG capsule Take one to two tablets as needed for fever or pain every 6 hours 30 capsule 023 Active albuterol (Ventolin HFA) 108 (90 Base) MCG/ACT inhaler TOME DOS INHALACIONES POR V A ORAL CADA CUATRO A SEIS HORAS CUANDO SEA NECESARIO 18 g 1 023 Active Blood Glucose Monitoring Suppl ([employer]) w/Device kit 1 each 2 times daily. TEST BLOOD SUGAR ONCE DAILY 1 kit 024 Active sucralfate (Carafate) 1 g tabletIndicatio ns:Gastritis, presence of bleeding unspecified, unspecified chronicity, unspecified gastritis type TAKE 1 TABLET BY MOUTH BEFORE BREAKFAST, BEFORE LUNCH, BEFORE EVENING MEAL, AND AT BEDTIME. 360 tablet 1 024 Active naloxone (Narcan) 4 mg/0.1 mL nasal sprayIndication s:Chronic bilateral low back pain, unspecified whether sciatica present Administer 1 spray (4 mg) into affected nostril(s) if needed for opioid reversal. May repeat every 2-3 minutes if needed, alternating nostrils, until medical assistance becomes available. 2 each 3 024 2024 Active Lancets (PixateTouch Delica Plus [id number]) [facility] TEST BLOOD SUGAR ONCE DAILY 100 each 11 04/16/2 024 Active pantoprazole (ProtoNix) 40 MG EC tabletIndicatio ns:Irritable bowel syndrome with both constipation and diarrhea TAKE 1 TABLET (40 MG) BY MOUTH BEFORE BREAKFAST. DO NOT CRUSH, CHEW, OR SPLIT. 90 tablet 2024 Active hydroCHLOROthia zide (HYDRODiuril) 25 MG tabletIndicatio ns:Hypertension , unspecified type Take 1 tablet (25 mg) by mouth Once per day. 30 tablet 024 2024 Active valsartan (Diovan) 320 MG tabletIndicatio ns:Hypertension , unspecified type Take 1 tablet (320 mg) by mouth Once per day. 30 tablet 2024 Active Blood Pressure Monitor kitIndications: Primary hypertension Use to monitor blood pressure at home 1 kit Active empagliflozin (Jardiance) 10 MGIndications:T ype 2 diabetes mellitus with hyperglycemia, without long-term current use of insulin (CMS/[facility]) Take 1 tablet (10 mg) by mouth Once per day. 30 tablet 2024 Active nystatin (Mycostatin) 688619 UNIT/GM powder Apply topically 2 times daily. 240 g 2024 Active atorvastatin (Lipitor) 10 MG tabletIndicatio ns:Type 2 diabetes mellitus with hyperglycemia, without long-term current use of insulin (CMS/HCC) Take 1 tablet (10 mg) by mouth Once per day. 30 tablet 024 2024 Active fluticasone (Flonase) 50 MCG/ACT nasal sprayIndication s:Chronic rhinitis INSTILL 1 TO 2 SPRAYS INTO EACH NOSTRIL EVERY MORNING 48 mL Active Fluticasone-Jason meterol (Wixela Inhub) 250-50 MCG/ACT aerosol powderIndicatio ns:Uncomplicate d asthma, unspecified asthma severity, unspecified whether persistent Inhale 1 Inhalation 2 times daily. INHALE 1 INHALATION 2 TIMES DAILY. TAKE 1 INHALATION BY MOUTH EVERY 12 HOURS IN THE MORNING AND NIGHT 60 each 3 Active cyclobenzaprine (Flexeril) 10 MG tabletIndicatio ns:Muscle spasm Take 1 tablet (10 mg) by mouth if needed in the morning, at noon, and at bedtime for muscle spasms for up to 27 days. 40 tablet 1 024 Active amLODIPine (Norvasc) 10 MG tabletIndicatio ns:Hypertension , unspecified type TAKE 1 TABLET BY MOUTH EVERY DAY 90 tablet 1 024 Active insulin lispro (HumaLOG KWIKPEN) 100 UNIT/ML injection Use tid ac meals according to sliding scale: 150-200= 2u/ 201-250= 4U/ 251-300=6u/ 301-350=8u/ 351-400= 10u/ Above 400= 12u and call PCP 1 each 3 024 Active Alcohol Swabs 70 % pads Use 1 pad tid as directed 300 each 3 024 Active insulin pen needle (BD ULTRA-FINE PEN NEEDLES) 29G x 12.7mm misc Use 1 pen needle three times a day with Humalog administration 100 each 12 024 2024 Active metFORMIN XR (Glucophage-XR) 500 MG 24 hr tabletIndicatio ns:Type 2 diabetes mellitus with hyperglycemia, without long-term current use of insulin (CMS/HCC) TAKE 1 TABLET BY MOUTH WITH EVENING MEAL. DO NOT CRUSH, CHEW, OR SPLIT 90 tablet 1 025 Active Continuous Glucose Electronic Publications Specialist (FreeStyle Sonny 2 [place]) deviceIndicatio ns:Type 2 diabetes mellitus with hyperglycemia, without long-term current use of insulin (CMS/HCC) Scan sensor every 8 hours 1 each 025 Active Continuous Glucose Sensor (FreeStyle Sonny 2 Sensor) miscIndications :Type 2 diabetes mellitus with hyperglycemia, without long-term current use of insulin (CMS/HCC) Apply 1 sensor every 14 days 2 each 025 Active glucose blood (FreeStyle Precision Jame Test) test stripIndication s:Type 2 diabetes mellitus with hyperglycemia, without long-term current use of insulin (CMS/HCC) Use to test blood sugar 3 times daily 100 each 12 025 2025 Active butalbital-acet aminophen-caffe ine (Fioricet) 50-300-40 MG capsuleIndicati ons:Migraine without aura and without status migrainosus, not intractable TAKE 1 CAPSULE FOR MIGRAINE, REPEAT IF NOT IMPROVED IN 4-6 HOURS (MAX 2 PER DAY AND 16 PER MONTH) 16 capsule 3 025 Active zolpidem (Ambien) 5 MG tabletIndicatio ns:Primary insomnia TAKE 1 TABLET BY MOUTH AT BEDTIME NEEDED FOR SLEEP 28 tablet 025 Active traMADol (Ultram) 50 MG tabletIndicatio ns:Chronic bilateral low back pain, unspecified whether sciatica present Take 1 tablet (50 mg) by mouth every 12 (twelve) hours if needed for severe pain for up to 28 days. 56 tablet 025 2024 Active lurasidone (Latuda) 20 MG tablet TAKE 1 TABLET BY MOUTH EVERY EVENING CON COMIDA 025 Active lurasidone (Latuda) 40 MG tablet TAKE 1 TABLET BY MOUTH EVERY EVENING CON COMIDA 025 Active QUEtiapine XR (SEROquel XR) 300 MG 24 hr tablet TOME IVY TABLETA POR V A ORAL EVERY NOCHE AL ACOSTARSE FOR INSOMNIA 024 Active clonazePAM (KlonoPIN) 0.5 MG tablet TOME 1 TABLETA POR V A ORAL TODOS LOS D CUANDO SEA NECESARIO PARA LA ANSIEDAD 025 Active Linzess 290 MCG capsule Take by mouth in the morning. 024 Active ipratropium (Atrovent) 0.03 % nasal spray USE 2 SPRAYS INTRANASALLY 2 TIMES A DAY 024 Active Senna-Time 8.6 MG tablet TOME DOS TABLETAS POR V A ORAL TODOS LOS D AL ACOSTARSE FOR CONSTIPATION 025 Active propranolol (Inderal) 20 MG tablet TAKE 1 TABLET BY MOUTH TWICE A DAY NEEDED POR ANSIEDAD 024 Active Dulaglutide (Trulicity) 0.75 MG/0.5ML solution auto-injectorIn dications:Type 2 diabetes mellitus with hyperglycemia, without long-term current use of insulin (CMS/HCC) Inject 0.75 mg under the skin 1 (one) time per week. 2 mL 025 Active topiramate (Topamax) 200 MG tabletIndicatio ns:Seizure disorder (CMS/HCC) TAKE 1 TABLET (200 MG) BY MOUTH ONCE PER DAY. 90 tablet 025 2025 Active topiramate 50 MG tabletIndicatio ns:Seizure disorder (CMS/HCC) TAKE 1 TABLET (50 MG) BY MOUTH ONCE PER DAY. 90 tablet Active montelukast (Singulair) 10 MG tabletIndicatio ns:Moderate persistent asthma, unspecified whether complicated Take 1 tablet (10 mg) by mouth Once per day. 30 tablet 11 025 2025 Active fluticasone (Flonase) 50 MCG/ACT nasal sprayIndication s:Chronic maxillary sinusitis Administer 1-2 sprays into each nostril Once per day. Shake gently. Before first use, prime pump. After use, clean tip and replace cap. 16 g 2 025 2025 Active fluconazole (Diflucan) 150 MG tabletIndicatio ns:Vaginal itching Take one tablet then after 72 hours take another tablet 2 tablet Active hydrOXYzine pamoate (Vistaril) 50 MG capsule take 1 capsule by oral route every 6 hours as needed for anxiety or sleep 021 2024 Discontinued(M ed list cleanup (will not trigger notification to Pharmacy)) Blood Glucose Monitoring Suppl (FreeStyle Lite) w/Device kitIndications: Type 2 diabetes mellitus with hyperglycemia, without long-term current use of insulin ([facility]) 1 each in the morning. 1 kit 024 2024 FREESTYLE LITE test stripIndication s:Type 2 diabetes mellitus with hyperglycemia, without long-term current use of insulin ([facility]) Check fingerstick 1x/d 50 each 11 024 2024 FreeStyle lancetsIndicati ons:Type 2 diabetes mellitus with hyperglycemia, without long-term current use of insulin ([facility]) 1 each by Other route in the morning. 50 each 11 024 2024 glucose blood (OneTouch Verio) test strip TEST BLOOD SUGAR ONCE DAILY 100 each 024 02/08/ 2025 OLANZapine (ZyPREXA) 15 MG tabletIndicatio ns:Severe episode of recurrent major depressive disorder, without psychotic features (CMS/HCC) TAKE 1 TABLET BY MOUTH AT BEDTIME 90 tablet 1 024 2024 Discontinued(M ed list cleanup (will not trigger notification to Pharmacy)) butalbital-acet aminophen-caffe ine (Fioricet) 50-300-40 MG capsuleIndicati ons:Migraine without aura and without status migrainosus, not intractable TAKE 1 CAPSULE FOR MIGRAINE, REPEAT IF NOT IMPROVED IN 4-6 HOURS (MAX 2 PER DAY AND 16 PER MONTH) 16 capsule 3 024 2024 Discontinued(R eorder (will not trigger notification to Pharmacy)) metFORMIN XR (Glucophage-XR) 500 MG 24 hr tabletIndicatio ns:Type 2 diabetes mellitus with hyperglycemia, without long-term current use of insulin (CMS/HCC) TAKE 1 TABLET BY MOUTH WITH EVENING MEAL. DO NOT CRUSH, CHEW, OR SPLIT 90 tablet 1 024 2024 Discontinued escitalopram (Lexapro) 20 MG tablet TOME 1 TABLETA POR V A ORAL TODOS LOS D EN LA MA MARISOL 2024 Discontinued(M ed list cleanup (will not trigger notification to Pharmacy)) hydrOXYzine HCl (Atarax) 25 MG tablet TOME DOS TABLETAS POR V A ORAL FITO VECES AL D A 024 2024 Discontinued(M ed list cleanup (will not trigger notification to Pharmacy)) Linzess 145 MCG capsule TOME 1 C PSULA POR V A ORAL CADA MA MARISOL . TAKE FIRST THING IN THE MORNING WITH A FULL GLASS OF WATER 2024 Discontinued(M ed list cleanup (will not trigger notification to Pharmacy)) mirtazapine (Remeron) 15 MG tablet TOME 1 TABLETA POR V A ORAL TODOS LOS D AL ACOSTARSE 024 2024 Discontinued(M ed list cleanup (will not trigger notification to Pharmacy)) prazosin (Minipress) 1 MG capsule TAKE 1 CAPSULE BY MOUTH THREE TIMES A DAY NEEDED FOR SLEEP/ANXIETY 024 2024 Discontinued(M ed list cleanup (will not trigger notification to Pharmacy)) zolpidem (Ambien) 5 MG tabletIndicatio ns:Primary insomnia TAKE 1 TABLET BY MOUTH AT BEDTIME NEEDED FOR SLEEP 28 tablet 024 2024 Discontinued(R eorder (will not trigger notification to Pharmacy)) traMADol (Ultram) 50 MG tabletIndicatio ns:Chronic bilateral low back pain, unspecified whether sciatica present Take 1 tablet (50 mg) by mouth every 12 (twelve) hours if needed for severe pain for up to 28 days. Do not start before August 22, 2024. 56 tablet 024 2024 Discontinued(R eorder (will not trigger notification to Pharmacy)) Dulaglutide (Trulicity) 0.75 MG/0.5ML solution auto-injectorIn dications:Type 2 diabetes mellitus with hyperglycemia, without long-term current use of insulin ([facility]) Inject 0.75 mg under the skin 1 (one) time per week. 2 mL 025 2024 Discontinued(R eorder (will not trigger notification to Pharmacy)) Continuous Glucose Electronic Publications Specialist (FreeStyle Sonny 2 [place]) deviceIndicatio ns:Type 2 diabetes mellitus with hyperglycemia, without long-term current use of insulin ([facility]) Scan sensor every 8 hours 1 each 1 025 2024 Discontinued(R eorder (will not trigger notification to Pharmacy)) Continuous Glucose Sensor (FreeStyle Sonny 2 Sensor) miscIndications :Type 2 diabetes mellitus with hyperglycemia, without long-term current use of insulin ([facility]) Apply 1 sensor every 14 days 2 each 1 025 2024 Discontinued(R eorder (will not trigger notification to Pharmacy)) glucose blood (FreeStyle Precision Jame Test) test stripIndication s:Type 2 diabetes mellitus with hyperglycemia, without long-term current use of insulin ([facility]) Use to test blood sugar 3 times daily 100 each 12 025 2024 Discontinued(R eorder (will not trigger notification to Pharmacy)) topiramate (Topamax) 200 MG tabletIndicatio ns:Seizure disorder (CMS/HCC) Take 1 tablet (200 mg) by mouth Once per day. 30 tablet 1 025 2024 Discontinued topiramate (Topamax) 50 MG tabletIndicatio ns:Seizure disorder (CMS/HCC) Take 1 tablet (50 mg) by mouth Once per day. 30 tablet 1 025 2024 Discontinued Active Problems Problem Noted Date Diagnosed Date Chronic maxillary sinusitis 10/03/2024 Vaginal itching 10/03/2024 Bipolar affective disorder, current episode depressed, current episode severity unspecified 09/08/2024 Assessment & Plan (10/03/2024 4:23 PM EST): Continue to follow-up with specialist Assessment & Plan (09/08/2024 1:21 PM EST): Continue to follow with psychiatrist and therapist Ischemic colitis 09/08/2024 Severe obesity 09/08/2024 Assessment & Plan (09/08/2024 1:18 PM EST): Today extensive discussion was done about life style modifications I advise healthy diet (low calorie) and cardiovascular exercise Long-term current use of opiate analgesic 2024 Overview (09/06/2024): Medication: Tramadol 50mg BID Indication: 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 Love Tier: II (INSURANCE PREMIUM AUDITOR visits every 3 months) Assessment & Plan (09/06/2024 6:26 PM EST): Timeline: 09/06/24: Group visit - UTOX wnl, pill count 5 off Muscle spasm 01/20/2024 Type 2 diabetes mellitus wit h hyperglycemia, without long-term current use of insulin 09/29/2023 Assessment & Plan (10/03/2024 4:23 PM EST): No changes on her meds were done today, I advised to cotton picker operator her Trulicity and inject as prescribed once a week Continue with her insulin as prescribed Continue with metformin Follow-up with [facility] pharmacy Assessment & Plan (09/08/2024 1:20 PM EST): - Lab Results Component Value Date HGBA1C 6.9 (A) 08/08/2024 HGBA1C 7.1 (A) 01/20/2024 HGBA1C 6.2 (H) 09/22/2023 - Lab Results Component Value Date CREATININE 0.84 09/22/2023 -Changes: I will start patient on trulicity, in light of erratic glucose levels I will prescribe also CGM for her and refer her to [facility] - Diabetic eye exam:pending - Diabetic foot exam:pending - Continue lifestyle modifications - Follow up: 3 months Assessment & Plan (08/08/2024 7:50 PM EST): Controlled. A1c is at goal. However she's having hyperglycemia x 2w likely related to increased dose of Abilify, Seroquel and recent steroid injection, all of which was previously tolerated. Also, patient has gained some weight. Continue on metformin + Jardiance same dose. I'll add Humalog ac meals for short term solution, hopefully It is a temporary problem. She will fu with PCP to decide if she needs med adjustment. Counseled re more frequent low calorie/carb meals, increase water intake Check fgstk 2x daily Encouraged physical activity as tolerated. Assessment & Plan (01/20/2024 4:39 PM EDT): Diabetes is: almost at goal - Lab Results Component Value Date HGBA1C 7.1 (A) 01/20/2024 HGBA1C 6.2 (H) 09/22/2023 HGBA1C 5.9 (H) 02/23/2023 - Lab Results Component Value Date CREATININE 0.84 09/22/2023 -Changes: in light glucose is going up I started her on jardiance today - Follow up: 3 months Assessment & Plan (10/20/2023 11:00 AM EST): Diabetes is: controlled - Lab Results Component Value Date HGBA1C 6.2 (H) 09/22/2023 HGBA1C 5.9 (H) 02/23/2023 - Lab Results Component Value Date CREATININE 0.84 09/22/2023 -Changes: none - Diabetic eye exam:referral done - Diabetic foot exam:pending -Microalbumin ordered - Continue lifestyle modifications - Continue current medications - Follow up: 3 months Assessment & Plan (09/29/2023 4:54 PM EST): Controlled according to last A1c level. Given her recent BS Levels >200s and that patient is symptomatic, I will start Metformin XR 500mg/d. I d/w her re potential side effects including diarrhea, abd bloating, decreased appetite and need to monitor labs and close fu w PCP Referred to Aircraft Avionics Technician and I gave her info re DM diet. Counseled re more frequent low calorie/carb meals. Check fgstk 1x daily Encouraged physical activity as tolerated. FU w PCP as scheduled. Primary insomnia 09/22/2023 Assessment & Plan (10/20/2023 10:59 AM EST): Patient reports zolpidem is helping her I will continue prescription of 5mg at bed time Assessment & Plan (09/23/2023 10:26 AM EST): Patient educated about sleep hygiene (avoid caffeine beverages, avoid screen time before bed, avoid eating to late and to heavy at night, avoid to much of fluids at bed time) I will start her on zolpidem 5mg at bed time Colon cancer screening 09/22/2023 Prediabetes 09/22/2023 Assessment & Plan (09/29/2023 4:52 PM EST): Given recent BS levels above 200s at all times, she most likely moved on to T2DM. Assessment & Plan (09/23/2023 10:27 AM EST): Today extensive discussion was done about life style modifications I advise healthy diet (low calorie) and cardiovascular exercise A1c will be order today Carpal tunnel syndrome 02/23/2023 Hip pain 02/23/2023 Mood disorder 02/23/2023 Assessment & Plan (09/08/2024 1:21 PM EST): F/u with specialist Assessment & Plan (10/20/2023 11:01 AM EST): Continue to follow with psychiatrist and therapist Assessment & Plan (09/23/2023 10:28 AM EST): C/w therapist For now continue same medications until she has new psych provider Irritable bowel syndrome wit h both constipation and diarrhea 02/23/2023 Colitis 01/02/2023 Assessment & Plan (01/02/2023 3:55 PM EDT): Drink plenty of fluids, Pedialyte and rest Stool studies ordered Antibiotics orders zofran for nausea and imodium for diarrhea Ifs ymptoms persist or worse seek immediate medical attention Asthma 12/17/2022 Assessment & Plan (10/03/2024 4:21 PM EST): Extensive counseling about avoiding triggers done today Continue with albuterol as needed continue with Wixela twice a day I will start her on montelukast 10 mg daily Assessment & Plan (02/23/2023 12:37 PM EDT): I will prescribe for patient a nebulizer machine, she will benefit to avoid ED visits Continue with current medications Patient will be refer to dental office assistant Spondylosis without myelopathy or radiculopathy 12/17/2022 Overview (09/06/2024): Following with [facility] S/p bilateral L4-L5 facet steroid injections on 04/27/2024 Assessment & Plan (09/08/2024 1:18 PM EST): Tramadol will be increase to 50mg Q 8hrs instead of Q 12hrs F/u with pain specialist Assessment & Plan (09/06/2024 1:22 PM EST): - Reports acute on chronic pain. Advised [...] as expected, pill count less than expected Herniation of intervertebral disc 12/17/2022 Hypertension 12/17/2022 Assessment & Plan (09/08/2024 1:17 PM EST): I advised: - Aerobic exercise to reduce BP. Initial goal of 30 min walk 3-5x/week. Increase as tolerated. - low-sodium diet (goal: <2g/day) and heart healthy diet such as DASH to reduce BP and prevent ASCVD. - Home BP monitoring 1-2 x day with goal of <140/90. - Seek immediate medical attention for chest pain, palpitations, SOB, syncope, or sudden changes in mental status. - Do not change or discontinue current prescriptions without first consulting health care provider Assessment & Plan (01/20/2024 3:12 PM EDT): - Aerobic exercise to reduce BP. Initial goal of 30 min walk 3-5x/week. Increase as tolerated. - low-sodium diet (goal: <2g/day) and heart healthy diet such as DASH to reduce BP and prevent ASCVD. - Home BP monitoring 1-2 x day with goal of <140/90. - Seek immediate medical attention for chest pain, palpitations, SOB, syncope, or sudden changes in mental status. - Do not change or discontinue current prescriptions without first consulting health care provider Assessment & Plan (09/29/2023 4:58 PM EST): Continue Valsartan, hydrochlorothiazide and amlodipine Stressed the improtance of DM control in order to improve HTN Counseled re low salt diet/increase moderate physical activity. Check home BP BIW and prn CP/WHITTAKER/CHARLES Non smoking patient. FU w PCP Assessment & Plan (09/23/2023 10:27 AM EST): -I advise to take her medication every day without missing any dose - Aerobic exercise to reduce BP. Initial goal of 30 min walk 3-5x/week. Increase as tolerated. - low-sodium diet (goal: <2g/day) and heart healthy diet such as DASH to reduce BP and prevent ASCVD. - Home BP monitoring 1-2 x day with goal of <140/90. - Seek immediate medical attention for chest pain, palpitations, SOB, syncope, or sudden changes in mental status. - Do not change or discontinue current prescriptions without first consulting health care provider Obstructive sleep apnea 08/13/2022 Migraine without aura 06/07/2018 Assessment & Plan (10/20/2023 11:00 AM EST): I advise to avoid migraine triggers like red wine, chocolate, cheese, strong perfumes Seizure disorder 06/07/2018 Assessment & Plan (09/08/2024 1:16 PM EST): Has not had a seizure in 5-6 months, reports she run out of her medication and has not f/u with neurology, I will refill her medications, she will call for f/u appointment Encounters Date Type Department Care Team Description 10/04/2024 Travel 10/03/2024 9:45 AM EST Office Visit [facility] [address] [place] [address] Michelle Young MD Moderate persistent asthma, unspecified whether complicated (Primary Dx); Type 2 diabetes mellitus with hyperglycemia, without long-term current use of insulin ([facility]); Chronic maxillary sinusitis; Bipolar affective disorder, current episode depressed, current episode severity unspecified ([facility]); Vaginal itching 10/03/2024 Travel 10/01/2024 Refill [facility] [address] [place] [address] Michelle Young MD Seizure disorder ([facility]/HCC) 09/30/2024 Travel 09/28/2024 Telephone [facility] [address] [place], [place] [phone] Chris Cerda MA Chart Prep 09/26/2024 Refill [facility] [address] [place] [address] Michelle Young MD Chronic bilateral low back pain, unspecified whether sciatica present 09/26/2024 Refill [facility] [address] [place] [address] Michelle Young MD Migraine without aura and without status migrainosus, not intractable; Primary insomnia 09/22/[address] [address] Michelle Young MD Med Refill 09/21/2024 Patient Outreach [address] [address] Michelle Young MD Pre-visit Planning (SDOH screening negative and tobacco screening negative) 09/15/[address] [address] Nimo Rao, SHARLENE CGM PA 09/10/2024 Refill [facility] [address] [place] [phone] Michelle Young MD Type 2 diabetes mellitus with hyperglycemia, without long-term current use of insulin (CMS/HCC) 09/08/2024 11:15 AM EST Office Visit [address] [address] Michelle Young MD Primary hypertension (Primary Dx); Type 2 diabetes mellitus with hyperglycemia, without long-term current use of insulin (CMS/HCC); Spondylosis without myelopathy or radiculopathy; Bipolar affective disorder, current episode depressed, current episode severity unspecified (CMS/HCC); Severe obesity (CMS/HCC); Mood disorder (CMS/HCC); Seizure disorder (CMS/HCC) 09/08/2024 Travel 09/06/2024 11:00 AM EST Office Visit [address] [address] Kajal Arora FNP Spondylosis without myelopathy or radiculopathy (Primary Dx); Long-term current use of opiate analgesic 09/06/2024 Telephone [facility] [address] [place] [address] Sandra Diaz RN 09/06/2024 Travel 08/31/2024 2:00 PM EST Clinical Support [address] [phone] Deena Araujo, rn lpn cna bilateral low back pain, unspecified whether sciatica present (Primary Dx) 08/31/2024 Travel 08/31/2024 Telephone [facility] [address] [place] [address] Deena Araujo, RN Recommend INSURANCE PREMIUM AUDITOR Tier 2 08/15/2024 [facility]ill [facility] [facility] [address] [place] [address] Michelle Young MD Chronic bilateral low back pain, unspecified whether sciatica present 08/15/2024 Refill [facility] [address] [place] [address] Michelle Young MD Primary insomnia 08/09/2024 Telephone [facility] [address] [place] [address] Michelle Young MD callback requested 08/09/2024 Refill [facility] [address] [place] [address] Nimo Rao RN 08/08/2024 5:40 PM EST Office Visit [facility] [address] [place] [address] Marisol Rizo MD Type 2 diabetes mellitus with hyperglycemia, without long-term current use of insulin ([facility]) 08/08/2024 Refill [facility] [address] [place] [address] Marisol Rizo MD 08/08/2024 Travel 07/31/2024 Refill [facility] [address] [place] [address] Michelle Young MD Hypertension, unspecified type 07/25/2024 Refill [facility] [address] [place] [address] Michelle Young MD Muscle spasm 07/20/2024 Refill [facility] [address] [place] [address] Michelle Young MD Chronic bilateral low back pain, unspecified whether sciatica present; Primary insomnia 07/19/2024 Orders Only [facility] External Provider, [facility] 07/17/2024 Refill [facility] [address] [place] [address] Michelle Young MD Uncomplicated asthma, unspecified asthma severity, unspecified whether persistent from Last 3 Months Immunizations Name Administration Dates Next Due Influenza injectable quadriv alent preservative free 06/07/2023,05/22/2022,07/18/2019,10/07 Influenza, IIV3, injectable 08/25/2014 Pneumococcal Polysaccharide PPSV23 12/20/2012 Tdap 07/08/2018,04/20/2013 Social History Tobacco Use Types Packs/Day Years Used Date Smoking Tobacco: Never Passive Smoke Exposure: Never Smokeless Tobacco: Never Tobacco Cessation:Counseling Given: Not Answered Alcohol Use Standard Drinks/Week Comments Never 0 [...] Orientation Straight 06/23/2022 10 :34 AM EDT Last Filed Vital Signs Vital Sign Reading Time Taken Comments Blood Pressure 126/85 10/03/2024 10:08 AM EST Pulse 100 10/03/2024 9:58 AM EST Temperature 36 ??C (96.8 ??F) 10/03/2024 9:58 AM EST Respiratory Rate 18 10/03/2024 9:58 AM EST Oxygen Saturation 99% 08/08/2024 5:07 PM EST Inhaled Oxygen Concentration - - Weight 112 kg (247 lb 12.8 oz) 10/03/2024 9:58 A M EST Height 165.1 cm (5' 5 ) 10/03/2024 9:58 AM EST Body Mass Index 41.24 10/03/2024 9:58 AM EST Plan of Treatment Health Maintenance Due Date Last Done Comments CT Colonography 1978 FIT 1978 FOBT 1978 HIV Screening 1978 Sigmoidoscopy 1978 Diabetes: Foot Exam 1988 Eye Exam 1988 Alcohol/Substance Use Screening 1990 Family Planning (PISQ) 1993 Hepatitis C Screening 1996 Diabetes: Urine Protein Screening 1997 Hepatitis B Vaccines (1 of 3 - 19+ 3-dose series) 1997 Pap Smear 1999 Cervical Cancer Screening 2008 HPV/Cotest 2008 Pneumococcal Vaccine: Pediatrics (0 to 5 Years) and At-Risk Patients (6 to 49) Years) (2 of 2 - PCV) 12/20/2013 12/20/2012 Depression Screening 02/24/2024 02/23/2023, 02/24/20 COVID-19 Vaccine (3 - 2023- season) 2024 06/07/2023, 02/13/2022 Influenza Vaccine (#1) 2024 , 05/22/2022, 07/18/2019, Additional history exists Lipid Panel 09/22/2024 09/22/2023, 02/23/2023 Mammogram 12/07/2024 12/08/2023, 02/0 03/2022, 07/24/2020, Additional history exists Diabetes: Hemoglobin A1C 02/06/2025 024, 01/20/2024, 09/22/2023, Additional history exists SDOH Screening 09/21/2025 09/21/2024 Tobacco Screening 10/03/2025 10/03/2024 FIT DNA/Cologuard 09/28/2026 09/28/2023 Zoster Vaccines (1 of 2) 2028 DTaP/Tdap/Td Vaccines (3 - Td or Tdap) 07/08/2028 07/08/2018, 04/20/2013 Colonoscopy 05/19/2029 05/19/2024 Colorectal Cancer Screening 05/19/2029 RSV Patients and Patients Aged 60 years or older (1 - 1-dose 75+ series) 2053 HIB Vaccines Aged Out No longer eligi [...] patient's age to complete this topic Meningococcal Vaccine Aged Out No norman bradford eligible based on patient's age to complete this topic RSV under 20 months Aged Out No longe r eligible based on patient's age to complete this topic Rotavirus Vaccines Aged Out No longer eligible based on patient's age to complete this topic Procedures Procedure Name Priority Date/Time Associated Diagnosis Comments POCT GLUCOSE Routine 10/03/2024 9:59 AM EST Type 2 diabetes mellitus with hyperglycemia, without long-term current use of insulin ([facility]) POCT GLUCOSE Routine 09/08/2024 11:25 AM EST Type 2 diabetes mellitus with hyperglycemia, without long-term current use of insulin ([facility]) POCT JOCY-14 URINE DRUG SCREEN Routine 09/06/2024 1:32 PM EST Long-term current use of opiate analgesic POCT JOCY-14 URINE DRUG SCREEN Routine 08/31/2024 2:09 PM EST Chronic bilateral low back pain, unspecified whether sciatica present TSH W/REFLEX TO FT4 Routine 08/09/2024 1 2:42 PM EST Type 2 diabetes mellitus with hyperglycemia, without long-term current use of insulin ([facility]) POCT URINALYSIS DIPSTICK Routine 08/08/2024 5:56 PM EST Type 2 diabetes mellitus with hyperglycemia, without long-term current use of insulin ([facility]) POCT GLYCOSYLATED HEMOGLOBIN (HGB A1C) Routine 08/08/2024 5:14 PM EST Type 2 diabetes mellitus with hyperglycemia, without long-term current use of insulin ([facility]) POCT GLUCOSE Routine 08/08/2024 5:14 PM EST Type 2 diabetes mellitus with hyperglycemia, without long-term current use of insulin ([facility]) FL ESOPHAGUS BARIUM SWALLOW Routine 07/19/2024 7:50 AM EST HM COLONOSCOPY Routine 05/19/2024 BI MAMMOGRAM SCREENING TOMOSYNTHESIS BILATERAL Routine 12/08/2023 1:50 PM EDT LAB COLOGUARD?? COLON CANCER SCREEN Routine 09/28/2023 11:20 AM EST Colon cancer screening LIPID PANEL, STANDARD Routine 09/22/2023 11:28 AM EST Primary hypertension from Last 3 Months or Most Recently Relevant to Health Maintenance Results * (ABNORMAL) POCT Glucose (10/03/2024 9:59 AM EST) Only the most recent of3 resultswithin the time period is included. Glucose Blood, POC 256(A) 60 - 200 mg/dL QC Media Lot # [id number] Lot# Expiration Date 295 Blood Capillary blood specimen / Unknown 10/03/2024 9:59 AM EST us Michelle Neumann MD POINT OF CARE TEST EN TER/EDIT ORDERABLES Final Result * POCT JOCY-14 Urine Drug Screen (09/06/2024 1:32 PM EST) Only the most recent of2 resultswithin the time period is included. THC Positive TCA, Urine Positive Urine Urine specimen obtained by clean catch procedure / Unknown 09/06/2024 1:32 PM EST Narrative Sandra Diaz RN - 09/06/2024 1:32 PM EST .UTOX cup Lot#[id number] Exp. 05/18/26 Internal Pass Control Kajal FIELDS POINT OF CARE TEST ENTER/EDIT ORDERABLES Final Result * TSH with Reflex to Free T4 (08/09/2024 12:42 PM EST) TSH reflex Free T4 1.58 0.32 - 4.0 uIU/mL [facility] Blood 08/09/2024 12:4 2 PM EST 08/09/2024 1:00 PM EST Marisol Rizo MD LAB BLOOD ORDERABLES [facility] al Result [facility] [address] [place] [phone] * POCT urinalysis dipstick manually resulted (08/08/2024 5:56 PM EST) Color, UA Brown Clarity, UA Clear Glucose, UA 3+ 500+++ Bilirubin, UA Negative Ketones, UA Negative Spec Grav, UA 1.015 Blood, UA Negative Negative, None Detected pH, UA 6.0 Protein, UA Negative Urobilinogen, UA 0.2 Leukocytes, UA Negative Negative, Rare, Trace Nitrite, UA Negative Negative, None Detected Appearance, UA clear QC Media Lot # [id number] Lot# Expiration Date Urine 08/08/2024 5:56 PM EST us Marisol Rizo MD POINT OF CARE TEST ENTER /EDIT ORDERABLES Final Result * (ABNORMAL) POCT glycosylated hemoglobin (Hgb A1c) (08/08/2024 5:14 PM EST) Hemoglobin A1C 6.9(A) 4.0 - 6.0 % QC Media Lot # [id number] Lot# Expiration Date Blood Capillary blood specimen / Unknown 08/08/2024 5:14 PM EST Marisol Rizo MD POINT OF CARE TEST ENTER /EDIT ORDERABLES Final Result * FL Esophagus Barium Swallow (07/19/2024 7:50 AM EST) Anatomical Region Laterality Modality Head, Neck Radiographic Kaila ging 07/19/2024 7:50 AM EST Narrative 07/19/2024 4:42 PM EST ? [facility] ?[address] ?[place] [address] ? Fluoroscopy Report ? Signed ? Patient: Veronica Wilcox ?MR#: M ?? [id number] ? : 1980 ?Acct:[id number] ? Age/Sex: 44 / F ?ADM Date: 07/19/24 ? Loc: HO.XRAY ? Attending Dr: Erica MACIAS-Abby ? Ordering Physician: Erica Morrow ?? Date of Service: 07/19/24 ?? Procedure(s): FL barium swallow ?? Accession Number(s): [id number] ? cc: Michelle Young MD; Erica Morrow-C ? EXAMINATION: ?? XR FLUOROSCOPY UPPER GI WITH AIR ? CLINICAL INFORMATION: ?? Reflux. ? COMPARISON: ?? None ? TECHNIQUE: ?? Fluoroscopic air contrast upper GI examination was performed utilizing ?? standard techniques with thin and thick barium and effervescent ?? granules. Numerous spot images were obtained. ? FINDINGS: ?? Lateral cine images of the oropharynx and hypopharynx demonstrate ?? normal swallow mechanism with normal epiglottic inversion and soft ?? palate elevation. No tracheal penetration, glottic or subglottic ?? aspiration identified. No nasopharyngeal reflux present. Hypopharyngeal ?? structures appear normal without evidence of mass or diverticulum. ?? There was no significant cricopharyngeal achalasia. ? Dual and single contrast images of the esophagus demonstrate a patulous ?? esophagus with a normal contour, and mucosal pattern. No masses or ?? ulcerations are seen. A nonobstructing Schatzki's ring is present. ?? Esophageal peristalsis was normal. ? A small to moderate-sized type I hiatal hernia is present. No ?? significant gastroesophageal reflux was seen during the course of the ?? examination and on reflux views. ? Dual contrast and single contrast images of the stomach demonstrated a ?? normal contour. The gastric rugal folds have a thickened appearance, ?? suggestive of gastritis. No masses or ulcerations are seen. Contrast ?? freely passed into the gastric antrum and duodenal bulb without delay. ? Single and air-contrast images of the duodenal bulb demonstrate no ?? abnormality. The duodenal sweep has a normal appearance, course, and ?? mucosal fold appearance. The imaged proximal jejunum has a normal fold ?? pattern and caliber. ? FLUOROSCOPY TIME: ?? 4 minutes 10 seconds ? Number of Spot Images: 10 ?? Number of Cine: 12 ? DOSE AREA PRODUCT: ?? 3441 uGy-m2 (microgray-meter squared) ? FL/FL barium swallow ?? IMPRESSION: ?? 1. Small to moderate-sized type I hiatal hernia. ?? 2. Nonobstructing Schatzki's ring. ?? 3. Thickened appearance the gastric rugal folds, suggestive of ?? gastritis. ? This procedure was performed by Car Hinojosa PA-C, and supervised by ?? Dr. Fields ? Electronically signed by: ??Timoteo Fields MD ??07/19/2024 04:39 PM EST RP ? Dictated By: ?Car Hinojosa ? Signed By: ?<Electronically signed by Car Hinojosa in OV> ? 07/19/24 1639 ?<Electronically signed by Timoteo Fields MD in OV> ? 07/19/24 1642 ? DD/ 0750 ? TD/TT: 07/19/24 0815 ? Glass Blower Helper: ? Procedure Note Donotuseinterpreter, Image - 07/19/[address] [address] Fluoroscopy Report Signed Patient: Veronica Wilcox#: M [id number] : 1980Acct:[id number] Age/Sex: 44 / FADM Date: 07/19/24 Loc: HO.XRAY Attending Dr: Erica HUFF Ordering Physician: Erica Morrow Date of Service: 07/19/24 Procedure(s): FL barium swallow Accession Number(s): [id number] cc: Michelle Young MD; Erica Morrow EXAMINATION: XR FLUOROSCOPY UPPER GI WITH AIR CLINICAL INFORMATION: Reflux. COMPARISON: None TECHNIQUE: Fluoroscopic air contrast upper GI examination was performed utilizing standard techniques with thin and thick barium and effervescent granules. Numerous spot images were obtained. FINDINGS: Lateral cine images of the oropharynx and hypopharynx demonstrate normal swallow mechanism with normal epiglottic inversion and soft palate elevation. No tracheal penetration, glottic or subglottic aspiration identified. No nasopharyngeal reflux present. Hypopharyngeal structures appear normal without evidence of mass or diverticulum. There was no significant cricopharyngeal achalasia. Dual and single contrast images of the esophagus demonstrate a patulous esophagus with a normal contour, and mucosal pattern. No masses or ulcerations are seen. A nonobstructing Schatzki's ring is present. Esophageal peristalsis was normal. A small to moderate-sized type I hiatal hernia is present. No significant gastroesophageal reflux was seen during the course of the examination and on reflux views. Dual contrast and single contrast images of the stomach demonstrated a normal contour. The gastric rugal folds have a thickened appearance, suggestive of gastritis. No masses or ulcerations are seen. Contrast freely passed into the gastric antrum and duodenal bulb without delay. Single and air-contrast images of the duodenal bulb demonstrate no abnormality. The duodenal sweep has a normal appearance, course, and mucosal fold appearance. The imaged proximal jejunum has a normal fold pattern and caliber. FLUOROSCOPY TIME: 4 minutes 10 seconds Number of Spot Images: 10 Number of Cine: 12 DOSE AREA PRODUCT: 3441 uGy-m2 (microgray-meter squared) FL/FL barium swallow IMPRESSION: 1. Small to moderate-sized type I hiatal hernia. 2. Nonobstructing Schatzki's ring. 3. Thickened appearance the gastric rugal folds, suggestive of gastritis. This procedure was performed by Car Hinojosa PA-C, and supervised by Dr. Fields Electronically signed by: Timoteo Fields MD 07/19/2024 04:39 PM EST Dictated By: Car Hinojosa Signed By: <Electronically signed by Car Hinojosa in OV> 07/19/24 1639 <Electronically signed by Timoteo Fields MD in OV> 07/19/24 1642 DD/ 0750 TD/TT: 07/19/24 0815 Glass Blower Helper: [facility] External Provider IMG FLU OROSCOPY PROCEDURES Final Result * Colonoscopy (05/19/2024) [facility] Colonoscopy Normal Normal Historical Provider HEALTH MAINTENANCE Final Result * BI Mammogram Screening Tomosynthesis Bilateral (12/08/2023 1:50 PM EDT) Anatomical Region Laterality Modality Breast Bilateral Mammography 12/08/2023 1:50 PM EDT Narrative 12/14/2023 8:07 PM EDT ? [facility] [address] ? [address] [facility] ?[place] [address] ? Mammography Report ? Signed ? Patient: Anirudh Akers,Veronica ?MR#: M ?? [id number] ? : 1980 ?Acct:[id number] ? Age/Sex: 43 / F ?ADM Date: 04/16/24 ? Loc: HO.MAMMO ? Attending : Michelle Neumann MD ? Ordering Physician: Michelle Young MD ?Results: ?? 2Benign Findings ? Date of Service: 12/08/23 ?Follow Up: 1 Year From Orig ?? inal Mammogram ? Procedure(s): MM tomosynthesis screening BI ?? Accession Number(s): [id number] ? cc: Michelle Young MD ? EXAMINATION: ?? MM SCREENING DIGITAL BREAST TOMOSYNTHESIS, BILATERAL ? CLINICAL INFORMATION: ? Screening. Asymptomatic. ? COMPARISON: ?? Mammography: This study is compared with prior exams dating back to ?? 2017. ? TECHNIQUE: ?? Digital breast tomosynthesis is performed in both the craniocaudal and ?? mediolateral oblique views along with computer-aided detection (CAD). ?? Synthesized 2D images are generated from the tomosynthesis. ? FINDINGS: ?? There are scattered areas of fibroglandular density (ACR BI-RADS breast ?? composition Category b). ? There are no significant masses, abnormal calcifications, or other ?? abnormalities. ? There are bilateral benign calcifications in each breast. ? MM/MM tomosynthesis screening BI ?? IMPRESSION: ?? No mammographic evidence of malignancy. ? ASSESSMENT: ? BI-RADS BI-RADS 2 - Benign Findings ? RECOMMENDATION: ?? Routine annual mammography screening. ? 1 year F/U ? This examination should not preclude the clinical evaluation of a ?? suspicious palpable abnormality. ? This patient's information was entered into a reminder system with a ?? target due date for their next mammogram. ? Dictated By: ?Maxine Conteh MD ? Signed By: ?<Electronically signed by Maxine Conteh MD in OV> ? 12/14/232002 ? DD/ ? TD/TT: ? Glass Blower Helper: ? Procedure Note Donotuseinterpreter, Image - 12/14/2023 [place] [facility] [address] [place] [address] Mammography Report Signed Patient: Veronica WilcoxMR#: M [id number] : 1980Acct:[id number] Age/Sex: 43 / FADM Date: 12/08/23 Loc: HO.MAMMO Attending Dr: Michelle Neumann MD Ordering Physician: Michelle Young MDResults: 2Benign Findings Date of Service: 12/08/23Follow Up: 1 Year From Orig inal Mammogram Procedure(s): MM tomosynthesis screening BI Accession Number(s): [id number] cc: Michelle Young MD EXAMINATION: MM SCREENING DIGITAL BREAST TOMOSYNTHESIS, BILATERAL CLINICAL INFORMATION: Screening. Asymptomatic. COMPARISON: Mammography: This study is compared with prior exams dating back to 2018. TECHNIQUE: Digital breast tomosynthesis is performed in both the craniocaudal and mediolateral oblique views along with computer-aided detection (CAD). Synthesized 2D images are generated from the tomosynthesis. FINDINGS: There are scattered areas of fibroglandular density (ACR BI-RADS breast composition Category b). There are no significant masses, abnormal calcifications, or other abnormalities. There are bilateral benign calcifications in each breast. MM/MM tomosynthesis screening BI IMPRESSION: No mammographic evidence of malignancy. ASSESSMENT: BI-RADS BI-RADS 2 - Benign Findings RECOMMENDATION: Routine annual mammography screening. 1 year F/U This examination should not preclude the clinical evaluation of a suspicious palpable abnormality. This patient's information was entered into a reminder system with a target due date for their next mammogram. Dictated By: Maxine Conteh MD Signed By: <Electronically signed by Maxine Conteh MD in OV> 12/14/232002 DD/ 1350 TD/TT: Glass Blower Helper: Sarah Kate Neumann MD IMG BI PROCEDURES Bassem lilliam Result - Final * (ABNORMAL) Cologuard?? colon cancer screening (09/28/2023 11:20 AM EST) Cologuard Result Positive( A) Negative 10/08/2023 1:10 AM EST [facility] (CLIA #:[id number]) Comment: POSITIVE TEST RESULT. A positive Cologuard result should be followed with a colonoscopy or visual examination of the colon. The normal value (reference range) for this assay is negative. TEST DESCRIPTION: Composite algorithmic analysis of stool DNA-biomarkers with hemoglobin immunoassay. ?? Quantitative values of individual biomarkers are not reportable and are not associated with individual biomarker result reference ranges. Cologuard is intended for colorectal cancer screening of adults of either sex, 45 years or older, who are at average-risk for colorectal cancer (CRC). Cologuard has been approved for use by the U.S. FDA. The performance of Cologuard was established in a cross sectional study of average-risk adults aged 50-84. Cologuard performance in patients ages 45 to 49 years was estimated by sub-group analysis of near-age groups. Colonoscopies performed for a positive result may find as the most clinically significant lesion: colorectal cancer [4.0%], advanced adenoma (including sessile serrated polyps greater than or equal to 1cm diameter) [20%] or non- advanced adenoma [31%]; or no colorectal neoplasia [45%]. These estimates are derived from a prospective cross-sectional screening study of 10,000 individuals at average risk for colorectal cancer who were screened with both Cologuard and colonoscopy. (Nino Diego al, N Engl J Med 2014;370(14):8974-7532.) Cologuard may produce a false negative or false positive result (no colorectal cancer or precancerous polyp present at colonoscopy follow up). A negative Cologuard test result does not guarantee the absence of CRC or advanced adenoma (pre-cancer). The current Cologuard screening interval is every 3 years. ([place] [employer] and U.S. Multi-Society Task Force). Cologuard performance data in a 10,000 patient pivotal study using colonoscopy as the reference method can be accessed at the following location: [email or web address]/results. Additional description of the Cologuard test process, warnings and precautions can be found at www.[employer].com. Stool specimen (specimen) 09/28/2023 11:20 AM EST 09/29/2023 10:49 AM EST Michelle Neumann MD LAB MOLECULAR DIAGNOS TICS ORDERABLES Final Result [facility] (CLIA #:[id number]) [place] [address], * (ABNORMAL) Lipid Panel, Standard (09/22/2023 11:28 AM EST) Triglycerides 148 <150 mg/dL [facility] Comment:Desirable Triglyceri de: less than 150 mg/dLBorderline High Triglyceride 150-199 mg/dLHigh Triglyceride: 200-499 mg/dLVery High Triglyceride: greater than or equal to 5OO mg/dL Cholesterol 236(H) <200 mg/dL [facility] Comment:Desirable Cholestero l: less than 200 mg/dLBorderline High Cholesterol: 200-239 mg/dLHigh Cholesterol: greater than 239 mg/dL LDL Cholesterol Calculated 157(H) <100 mg/dL [facility] Comment:Desirable LDL: less than 100 mg/dLNear Optimal/Above Optimal LDL: 110- 129 mg/dLBorderline High LDL: 130-159 mg/dLHigh LDL: 160-189 mg/dLVery High LDL: greater than or equal to 190 mg/dL HDL Cholesterol 50 >40 mg/dL [facility] Comment:Desirable HDL: great er than 40 mg/dL Note: This HDL assay may give artificially low results in patients with liver disease. Blood Venous blood specimen / Unknown 09/22/2023 11:28 AM EST 09/22/2023 1:24 PM EST us Michelle Neumann MD LAB BLOOD ORDERABLES Final Result [facility] [address] [place] [address] [phone] from Last 3 Months or Most Recently Relevant to Health Maintenance [place] [address] [place] [address] - [employer] Care Teams Gear Machine Operator General Relationship Specialty Start Date End Date Michelle Young MD [address] [place] [phone] PCP - General Family Medicine 06/03/18
--- OUTSIDE RECORDS SUMMARY | 2024-10-04 13:27 | XMS_ITS | Encounter Summary ---
Author Organization [employer] Address [address] [facility] [address] [place] [address] Care Team Providers Care Licsw Name Role Phone Michelle Young MD Primary Care Provide r Reason for Visit * Reason Onset Date Comments Med Refill 04/20/2023 Encounter Details Date Type Department Care Team (Late st Contact Info) Description 04/20/2023 Telephone [facility] [address] [place], [place] [phone] Michelle Young MD [address] [place], [place] [phone] Med Refill Social History Tobacco Use Types [...] Telephone Encounter - Libby Cruz LPN - 04/20/2023 1:25 PM EDT Medication was sent to [id number] on 03/19/23 with 3 refills. * Telephone Encounter - Cheryl Mcclelland - 04/20/2023 1:09 PM EDT Tc from pt requesting med refill for medication styzptclmz-quzycepkjbjbi-prkawysb (Fioricet) 50-300-40 MG capsule. documented in this encounter Plan of Treatment Not on file documented as of this encounter Visit Diagnoses Not on filedocumented in this encounter Additional Health Concerns Assessment Noted Time PHQ-9 Depression Total Score: 0 02/24/20 11:15 AM EDT documented as of this encounter Care Teams Licsw Relationship Specialty Start Date End Date Michelle Young MD [address] [place] [address] PCP - General Family Medicine 06/03/18 documented as of this encounter
--- OUTSIDE RECORDS SUMMARY | 2024-10-04 13:27 | XMS_ITS | Encounter Summary ---
Author Organization [employer] Address [address] [facility] [address] [place] [address] Care Team Providers Care Worm Grower Name Role Phone Michelle Young MD Primary Care Provide r Reason for Visit * Reason Onset Date Comments Med Refill 01/01/2023 Encounter Details Date Type Department Care Team (Late st Contact Info) Description 01/01/2023 Telephone [facility] [address] [place], [place] [phone] Michelle Young MD [address] [place], [place] [phone] Med Refill Social History Tobacco Use Types Packs/Day Years Used Date Smoking Tobacco: Never Smokeless Tobacco: Never Comments Unknown Sex [...] suspected to have Coronavirus/COVID-19? No / Unsure 01/02/2023 3:13 PM EDT documented as of this encounter Miscellaneous Notes * Telephone Encounter - Cheryl Mcclelland - 01/01/2023 1:22 PM EDT Tc from pt requesting med refill form medication traMADol (Ultram) 50 MG tablet. documented in this encounter Plan of Treatment Not on file documented as of this encounter Visit Diagnoses Not on filedocumented in this encounter Care Teams Worm Grower Relationship Specialty Start Date End Date Michelle Young MD [address] [place] [address] PCP - General Family Medicine 06/03/18 documented as of this encounter
--- OUTSIDE RECORDS SUMMARY | 2024-10-04 13:28 | XMS_ITS | Data Portability ---
Author Organization [employer] [place] [facility] [employer] Address [address] [place] [phone] Care Team Providers Care Social Insurance Specialist Name Role Phone [facility] Referring Provider Assessment No assessment recorded. Plan of Treatment Reminders Order Date Submit Date Provider Last Modified By Organization Details Last Modified Time Details Appointments None recorded. Lab None recorded. Referral None recorded. Procedures None recorded. Surgeries None recorded. Imaging None recorded. Medication Orders Zithromax Z-Freddie 250 mg tablet 2022 023 [facility][id number], [address] [place], [address], 3 11:31:31 Patient TargetsNo targets recorded. Patient InstructionsNo instructions recorded. Reason for Referral None Reported. Medical Equipment None Reported. Medications Name Sig Start Date Stop Date Status Note LastModified by Organization Details LastModified Time methocarbamo l 500 mg tablet TAKE 1 TABLETS BY MOUTH TWO OR THREE TIMES A DAY NEEDED FOR PAIN AND OR SPASM active Not Available Not Available No t Available loperamide 2 mg capsule PLEASE SEE ATTACHED FOR DETAILED DIRECTIONS active Not Available Not Available N ot Available trazodone 50 mg tablet TAKE 1 TABLET BY MOUTH AT BEDTIME LEIDA IVY TABLETA TODAS LAS NOCHES PARA DORMIR active Not Available Not Available No t Available azithromycin 250 mg tablet TOME 2 TABLETAS POR V A ORAL HOY, [place] TOME 1 TABLETA POR D A CARMELA 4 D active Not Available Not Available No t Available ibuprofen 800 mg tablet TOME IVY TABLETA DOS VECES AL D A DESPU S DE LAS COMIDAS active Not Available Not Available No t Available sucralfate 1 gram tablet TAKE 1 TABLET BY MOUTH BEFORE BREAKFAST, BEFORE LUNCH, BEFORE EVENING MEAL, AND AT BEDTIME. active Not Available Not Available Not Available ondansetron HCl 4 mg tablet PLEASE SEE ATTACHED FOR DETAILED DIRECTIONS active Not Available Not Available N ot Available prednisone 20 mg tablet TAKE 2 TABLETS BY ORAL ROUTE ONCE EVERY DAY active Not Available Not Available No t Available quetiapine 200 mg tablet TAKE 2 TABLET BY MOUTH AT BEDTIME CAN USE ONE ADDITIONAL NEEDED, FOR TOTAL OF 600MG active Not Available Not Available No t Available clonazepam 1 mg tablet TOME IVY TABLETA DOS VECES AL D A CUANDO SEA NECESARIO active Not Available Not Available No t Available hydroxyzine pamoate 50 mg capsule TOME IVY C PSULA FITO VECES AL D A CUANDO SEA NECESARIO active Not Available Not Available No t Available metronidazol e 500 mg tablet TOME IVY TABLETA POR V A ORAL 3 TIMES DAILY FOR 10 DAYS active Not Available Not Available Not Available melatonin 3 mg tablet TOME IVY TABLETA POR V A ORAL AL ACOSTARSE CUANDO SEA NECESARIO FOR SLEEP active Not Available Not Available No t Available ciprofloxaci n 500 mg tablet TOME IVY TABLETA POR V A ORAL 2 TIMES DAILY FOR 7 DAYS active Not Available Not Available N ot Available tramadol 50 mg tablet TOME IVY TABLETA (50 MG) POR V A ORAL CADA SEIS HORAS PARA DOLOR DANIEL CUANDO SEA NECESARIO active Not Available Not Available No t Available acetaminophe n 500 mg tablet TAKE 1 TABLET BY MOUTH 3 TIMES A DAY FOR PAIN active Not Available Not Available No t Available butalbital-a cetaminophen -caffeine 50 mg-325 mg-40 mg tablet TOME IVY TABLETA CADA CUATRO HORAS CUANDO SEA NECESARIO PARA EL DOLOR DE ANNA FOR UP TO 10 DAYS active Not Available Not Available No t Available alprazolam 0.5 mg tablet TAKE ONE TABLET BY MOUTH ONE HOUR BEFORE THE PROCEDURE. active Not Available Not Available N ot Available Mapap (acetaminoph en) 500 mg capsule TAKE ONE TO TWO TABLETS NEEDED FOR FEVER OR PAIN EVERY 6 HOURS active Not Available Not Available No t Available amlodipine 10 mg tablet TOME IVY TABLETA TODOS LOS D active Not Available Not Available No t Available pantoprazole 40 mg tablet,delay ed release TOME IVY TABLETA POR V A ORAL DOS VECES AL D A active Not Available Not Available No t Available mirtazapine 30 mg tablet TOME IVY TABLETA TODOS LOS D AL ACOSTARSE active Not Available Not Available No t Available ibuprofen 400 mg tablet TAKE 1 TABLET BY ORAL ROUTE EVERY 6 HOURS NEEDED NEEDED FOR PAIN AND/OR FEVER active Not Available Not Available No t Available gabapentin 300 mg capsule TAKE ONE CAPSULE BY MOUTH AT BEDTIME FOR 3 DAYS, THEN TWICE A DAY. active Not Available Not Available No t Available olanzapine 15 mg tablet TOME IVY TABLETA TODOS LOS D AL ACOSTARSE active Not Available Not Available No t Available topiramate 200 mg tablet TOME IVY TABLETA DOS VECES AL D A active Not Available Not Available No t Available ibuprofen 600 mg tablet TAKE 1 TABLET BY MOUTH 3 TIMES A DAY WITH MEAL FOR ANTI-INFLAM MATORY MAX 2400 MG/DAY active Not Available Not Available Not Available methylpredni solone 4 mg tablets in a dose pack TOME 6 TABLETAS EL PRIMER D A SEG N LO INDICA EL PAQUETE, Y REDUZCA 1 TABLETA CADA D A POR 6 D active Not Available Not Available N ot Available fluticasone propionate 50 mcg/actuatio n nasal spray,suspen dasia SPRAY 1-2 SPRAYS INTO EACH NOSTRIL IN THE MORNING. active Not Available Not Available No t Available naproxen 500 mg tablet PLEASE SEE ATTACHED FOR DETAILED DIRECTIONS active Not Available Not Available N ot Available amoxicillin 875 mg-potassium clavulanate 125 mg tablet TOME IVY TABLETA DOS VECES AL D A POR 7 D active Not Available Not Available No t Available Ventolin HFA 90 mcg/actuatio n aerosol inhaler TOME DOS INHALACIONE S POR V A ORAL CADA CUATRO A SEIS HORAS CUANDO SEA NECESARIO active Not Available Not Available No t Available oxycodone 5 mg tablet TOME IVY TABLETA CADA SEIS HORAS CUANDO SEA NECESARIO PARA EL DOLOR FOR UP TO 6 DAYS active Not Available Not Available No t Available valsartan 160 mg tablet TOME IVY TABLETA TODOS LOS D active Not Available Not Available No t Available escitalopram 10 mg tablet TOME IVY TABLETA TODOS LOS D EN LA MA MARISOL active Not Available Not Available No t Available topiramate 50 mg tablet TOME IVY TABLETA TODOS LOS D active Not Available Not Available No t Available chlorhexidin e gluconate 0.12 % mouthwash RINSE MOUTH WITH 15MLS DOS VECES AL D A active Not Available Not Available No t Available hydrochlorot hiazide 12.5 mg tablet TOME IVY TABLETA TODOS LOS D active Not Available Not Available No t Available Creon 24,000-76,00 0-120,000 unit capsule,luther yed release TAKE 1 CAPSULE BY MOUTH 3 TIMES A DAY WITH FOOD OR SNACK active Not Available Not Available No t Available blood pressure test kit-large cuff USE DIRECTED EVERY DAY active Not Available Not Available No t Available butalbital-a cetaminophen -caffeine 50 mg-300 mg-40 mg capsule TAKE 1 CAPSULE FOR MIGRAINE, REPEAT IF NOT IMPROVED IN 4-6 HOURS (MAX 2 PER DAY AND 16 PER MONTH) active Not Available Not Available N ot Available Wixela Inhub 250 mcg-50 mcg/dose powder for inhalation PLEASE SEE ATTACHED FOR DETAILED DIRECTIONS active Not Available Not Available N ot Available Flowflex COVID-19 Antigen Home Test kit USE DIRECTED active Not Available Not Available No t Available Vitals Date Recorded Respiratory rate Body weight Oxygen saturation Oxygen saturation in Arterial blood by Pulse oximetry Body temperature Heart rate Systolic blood pressure Diastolic blood pressure Provider Name and Address Organization Details Last Updated DateTime 3 16 /min 80658.4 8 g 96 % 96 % 98 [degF] 98 /min 154 mm[Hg] 99 mm[Hg] Not Available [facility] - production 3 11:25:25 Social History None recorded. Functional Status None recorded. Mental Status None recorded. Family History Nothing Reported. Medical History No medical history recorded. Gynecological HistoryNo gynecological history recorded. Obstetrics History GPAL:G 0 P 0 0 0 0 Past Encounters Encounter ID Performer Location Encounter Start Date Encounter Closed Date Diagnosis/Indication Diagnosis SNOMED-CT Code Diagnosis ICD10 Code Diagnosis Note [id number] Luigi Gill MD [facility] [address] [place] [phone] 01/23/2023 11:25:23 01/23/2023 12:10:26 Acute bronchitis 92868287 J20.9 This 42-year-ol d female has has a productive cough and low grade fever for several days. I suspect she has bronchitis and I ordered a DuoNeb and Z-Freddie. She will follow-up with her PCP. The patient agreed with this plan. Health Concerns Section Related Observation LastModified by Organization Detai ls LastModified Time None Recorded Concern Status LastModified by Organization Details LastModified Time None Recorded Advance Directives Directive None Recorded Payers Encounter Date Sequence Insurance Name Policy Number Policy Aguilera Covered Member ID Aguilera Member ID Guarantor Name 01/23/[address] [facility] - DOS ON OR AFTER 2022 - DUAL ELIGIBLE - SKILLED NURSING OPTIONS AND ONE CARE (MEDICARE REPLACEMENT/ADV ANTAGE - HMO) Veronica Oleary [id number] Veronica Oleary Notes Date Note Type Note Provider Name and Address Organization Details Recorded Time 01/23/2023 text/html HPI: Member calling in with c/o constant non-productive cough, rib pain, low grade fever. States she is worried she could have pneumonia as she has had it in the past. Denies any shortness of breath. [facility] .................. .................. .................. .................. .................. .................. .................. ............... CRC Nursing Assessment: Comments: CRC RN did not require any additional information to process this visit. Luigi Gill MD [address] [facility],[address], [place], [phone], [facility] - [employer] 01/23/2023 11:31:57 OBGyn Episode No OBEpisode recorded.
[2024-10-04 13:37] LABS: Estimated Average Glucose 160 mg/dL; Hemoglobin A1C 174.4132 umol/L; Hemoglobin A1c % 7.2 % (<6.0); Total Hemoglobin (HGBA1C) 3161.0981 umol/L
[2024-10-04 14:14] LABS: Albumin Level 4.6 g/dL (3.5-5.0); Alkaline Phosphatase 71 U/L (39-117); Anion Gap 12 (12-20); Aspartate Amino Transferase 29 U/L (5-31); Bilirubin Direct 0.1 mg/dL (0.0-0.5); Bilirubin Total 0.4 mg/dL (0.0-1.0); Blood Urea Nitrogen 12 mg/dL (9-16); Calcium 9.6 mg/dL (8.4-10.2); Carbon Dioxide 21 mmol/L (22-29); Chloride 109 mmol/L (96-108); Cholesterol 200 mg/dL (<200); Estimated Glomerular Filt Rate 51; Glucose Random 103 mg/dL (60-115); HDL Cholesterol 44 mg/dL (>40); LDL Cholesterol Calculated 107 mg/dL (<100); Potassium 3.2 mmol/L (3.3-5.1); Sodium 139 mmol/L (135-145); Total Protein 8.1 g/dL (6.5-8.0); Triglycerides 249 mg/dL (<150)
[2024-10-04 14:40] LABS: Alanine Aminotransferase 42 U/L (0-31)
== END 2024-10-04 12:06 | disposition home or self-care (01) ==
LOC: HO.HHCL 12:05
PROVIDERS: Visit Provider Internal Medicine
DX: E11.65 Type 2 diabetes mellitus with hyperglycemia (principal); I10 Essential (primary) hypertension
CPT/HCPCS: 36415; 80048; 80061; 80076; 83036

== ENCOUNTER 2024-10-11 19:25 | Emergency (ER) | payer OTHER, SELFPAY ==
--- NOTE | ~2024-10-11 | XR_ITS ---
CLINICAL HISTORY: pain 3 view left foot Comparison: None Findings: No displaced fracture. No dislocation. Variant fusion of the distal interphalangeal joint of the 5th digit. Soft tissue swelling is nonspecific including laterally in forefoot. Mild osteoarthritis including partially imaged midfoot. No radiopaque retained foreign body. IMPRESSION: 1. No acute fracture or dislocation. 2. Mild osteoarthritis. This document has been electronically signed by: Jeremy Mancilla MD on 10/12/2024 00:04:20
[2024-10-11 20:26] VITALS: BP 135/82; PULSE 94; RESP 18; TEMP 36.7; O2SAT 99; BMI 40.2
--- NOTE | 2024-10-11 20:55 | ED_ITS ---
HPI - Extremity Injury (Lower) General Chief Complaint: Extremity Injury, Lower Stated Complaint: L foot pain, not sure if injured Time Seen by Provider: 10/12/24 04:43 Source: patient, family ( daughter) and interpreter translator Mode of arrival: ambulatory Limitations: no limitations History of Present Illness ED Provider: DR. Leonard HPI Narrative: 44-year-old female came in for complaint of right groin pain and left foot pain for 3 days after trying to pull a stuck car in the snow. Patient is able to ambulate, no fall, no head injury, no LOC. Related Data Home Medications ?Medication ?Instructions ?Recorded ?Confirmed topiramate 200 mg tablet 200 mg PO BID 03/25/23 05/17/24 tramadol 50 mg tablet 50 mg PO Q6H PRN Pain 03/25/23 05/17/24 amlodipine 10 mg tablet 10 mg PO DAILY 01/13/24 05/17/24 escitalopram oxalate 20 mg tablet 20 mg PO DAILY 01/13/24 05/17/24 fluticasone propionate 50 1 spray intranasal DAILY PRN sinus 01/13/24 05/17/24 mcg/actuation nasal congestion spray,suspension (Flonase Allergy Relief) hydrochlorothiazide 25 mg tablet 25 mg PO DAILY 01/13/24 05/17/24 hydroxyzine pamoate 50 mg capsule 50 mg PO TID PRN Anxiety 01/13/24 05/17/24 topiramate 50 mg capsule,extended 50 mg PO DAILY 01/13/24 05/17/24 release 24 hr valsartan 320 mg tablet 320 mg PO DAILY 01/13/24 05/17/24 zolpidem 5 mg tablet 5 mg PO BEDTIME PRN Insomnia 01/13/24 05/17/24 empagliflozin 10 mg tablet 10 mg PO DAILY 02/19/24 05/17/24 (Jardiance) metformin 500 mg tablet,extended 500 mg PO DAILY 02/19/24 05/17/24 release 24 hr Previous Rx's ?Medication ?Instructions ?Recorded albuterol sulfate 2.5 mg/3 mL 2.5 mg (3 mL) inhalation Q4-6H PRN 05/15/23 (0.083 %) solution for nebulization shortness of breath or wheezing #90 mL albuterol sulfate 90 mcg/actuation 2 puff inhalation QID #1 ea 05/15/23 aerosol inhaler (Ventolin HFA) fluticasone 500 mcg-salmeterol 50 1 inh inhalation Q12H #60 ea 05/15/23 mcg/dose blistr powdr for inhalation (Wixela Inhub) zkxfep-nilmjvlw-szxlrdm 1 cap PO TID #90 caps 01/13/24 24,000-76,000-120,000 unit capsule,delayed rel (Creon) pantoprazole 40 mg tablet,delayed 40 mg PO BID #180 tabs 02/19/24 release linaclotide 290 mcg capsule 290 mcg PO QAM 30 days #30 caps 02/24/24 (Linzess) ipratropium bromide 21 mcg (0.03 2 spray intranasal BID #30 mL 06/07/24 %) nasal spray sennosides 8.6 mg tablet (senna) 17.2 mg (2 x 8.6 mg) PO BEDTIME 07/19/24 for constipation #60 tabs cyclobenzaprine 10 mg tablet 10 mg PO TID PRN muscle spasm #10 10/12/24 tabs ibuprofen 800 mg tablet 800 mg PO Q8H PRN pain #14 tabs 10/12/24 Allergies Allergy/AdvReac Type Severity Reaction Status Date / Time No Known Allergies Allergy Verified 10/11/24 20:29 [No Known Allergies*] Review of Systems Review of Systems: All other systems are reviewed and are negative Constitutional: Reports as per HPI and Reports no additional constitutional complaints Eyes: Reports as per HPI and Reports no additional eye complaints Reports system reviewed and no additional complaints, except as documented Cardiovascular: Reports as per HPI and Reports no additional cardiovascular complaints Respiratory: Reports as per HPI and Reports no additional respiratory complaints Gastrointestinal: Reports as per HPI and Reports no additional gastrointestinal complaints Genitourinary: Reports no additional female genitourinary complaints Musculoskeletal: Reports no additional musculoskeletal complaints Skin/Breast: Reports system reviewed and no additional complaints, except as doc u Psychiatric: Reports no additional psychiatric complaints Endocrine: Reports no additional endocrine complaints Hematologic/Lymphatic: Reports no additional hematologic/lymphatic complaints Allergic/Immunologic: Reports no additional allergic/immunologic complaints Reports system reviewed and no additional complaints, except as documented and Reports Abnormal speech present [facility] Past Medical History Medical History (Updated 10/12/24 @ 06:10 by Rosi Leonard MD) Bronchitis Sinusitis Small intestinal bacterial overgrowth Abdominal cramping Nausea and vomiting Pre-op examination Positive colorectal cancer screening using Cologuard test Esophageal hernia Irritable bowel syndrome with both constipation and diarrhea Seizure disorder History of pulmonary embolism Hypertension Asthma Environmental allergies RODERICK on CPAP GERD (gastroesophageal reflux disease) Overactive bladder Surgical History History of lung surgery History of tonsillectomy and adenoidectomy History of 2 sections History of hysterectomy History of laparoscopy History of colonoscopy History of esophagogastroduodenoscopy (EGD) Family History Family History Mother HTN (hypertension) Diabetes Family history of cancer Father HTN (hypertension) Diabetes Family history of cancer Prostate cancer Social History Social History Household Members: Family and Children Alcohol intake: never Patient Tobacco Use Status: Former Tobacco user Tobacco use type: Cigarette Cigarettes Per Day: 1 Years Smoked: quit 3 yrs ago Advance Directives: No Advance Directives Information Provided: Yes Current occupational status: disabled Physical Exam Vital Signs: Vital Signs: Last Vital Signs Temp 97.5 F 10/12/24 04:39 Pulse 82 10/12/24 04:39 Resp 16 10/12/24 04:39 BP 107/66 10/12/24 04:39 Pulse Ox 99 10/12/24 04:39 O2 Del Method Room Air 10/12/24 04:39 BMI result Body Mass Index 40.2 Vital signs have been reviewed and appear to be correct. Blood pressure elevated. Heart rate normal. Respiratory rate normal. Temperature normal. Oxygen saturation normal. Appearance: Alert. Oriented X3. No acute distress. Head: Normal external exam. Normocephalic. Atraumatic. No Candelaria signs noted. No raccoon eyes noted Eyes: PERRLA. EOMI. Conjunctiva and sclera normal. Eyelids normal. ENT: TM's Normal. Pharynx normal. Uvula midline. Moist mucous membranes. No trismus noted. No drooling noted. No muffled voice noted. Neck: Normal inspection. Neck supple. FROM. No adenopathy. Thyroid Normal. No meningeal signs. No neck mass noted. CVS: Normal heart rate and rhythm. Heart sound normal. No murmurs noted. Pulses normal throughout. Respiratory: No respiratory distress. Painless inspiration. Breath sounds normal. No wheezes/rales/rhonchi noted. Chest nontender. No accessory muscle usage noted or decreased air movement noted. Abdomen: Soft and nontender. Bowel sounds normal in all 4 quadrants. No distention noted. No organomegaly noted. No visible injury noted. Back: No CVA tenderness. Full range of motion noted. Skin: Skin warm and dry. Normal skin color. Normal skin turgor. No rashes/lesions/lacerations noted. Extremities: right groin area: A strong right femoral pulse, no muscular step- off, no deformity, no hematoma, full range of motion of the right hip area. Left foot exam: Tenderness over the lateral aspect of the left foot in particular over 4th and 5th metatarsal bone, a strong DP/ PT, neuro intact. Neuro: Oriented X 3. Cranial nerve exam: II-XII are grossly intact No motor deficit. No sensory deficit. Reflexes normal. Course Course Course Narrative: This is an RME: Additional HPI, ROS, PE not included below will be deferred to primary provider. RME assessment and note performed by: Mahnaz Lima PA-C This is a 44-year-old female who presents emergency department with complaints of left foot pain while trying to pull a car in the snow. Nontender malleoli. Will obtain x-rays of the left foot. Strong DP pulse. Reevaluation(s) Reevaluation #1: Pulled groin muscle, left foot contusion after trying to pull car in this no. Patient feels better after was given Dilaudid and Toradol in the ED will discharge with muscle relaxant and NSAIDs Time: 06:22 Medications Administered Discontinued Medications Generic Name Dose Route Start Last Admin Trade Name Freq PRN Reason Stop Dose Admin Acetaminophen 650 mg 10/11/24 22:52 10/11/24 23:07 Acetaminophen 325 Mg Tablet PO 10/11/24 22:53 650 mg ONCE STA Administration Hydromorphone HCl 1 mg 10/12/24 04:43 10/12/24 05:02 Hydromorphone Hcl 1 Mg/Ml Syringe IM 10/12/24 04:44 1 mg ONCE ONE Administration Protocol Ketorolac Tromethamine 15 mg 10/12/24 04:43 10/12/24 05:00 Ketorolac Tromethamine 15 Mg/Ml Vial IM 10/12/24 04:44 15 mg ONCE ONE Administration Medical Decision Making Differential Diagnosis Differential Diagnoses: The differential diagnosis associated with the presentation includes ( left foot fracture, left foot contusion, groin muscle sprain.) Admission/Observation Consideration of admission/observation: Escalation of care including admission/observation considered Independent Interpretation I performed an independent interpretation of an: Plain X-Ray ( Left foot x- ray:No displaced fracture. No dislocation. Variant fusion of the distal interphalangeal joint of the 5th digit. Soft tissue swelling is nonspecific including laterally in forefoot. Mild osteoarthritis including partially imaged midfoot. No radiopaque retained foreign body.) Radiology Impression Discussion of test interpretation with radiology: I have reviewed the radiologist's reading. Discharge Plan Discharge Clinical Impression: Sprain of groin, Contusion of foot, left Patient Disposition: Home, Self-Care Instructions: Muscle Strain (ED) Prescriptions: New cyclobenzaprine 10 mg tablet 10 mg PO TID PRN (Reason: muscle spasm) Qty: 10 0RF ibuprofen 800 mg tablet 800 mg PO Q8H PRN (Reason: pain) Qty: 14 0RF No Action Linzess 290 mcg capsule 290 mcg PO QAM 30 Days Qty: 30 6RF ipratropium bromide 21 mcg (0.03 %) spray,non-aerosol 2 spray intranasal BID Qty: 30 1RF sennosides [senna] 8.6 mg tablet 17.2 mg PO BEDTIME Qty: 60 3RF hydroxyzine pamoate 50 mg capsule 50 mg PO TID PRN (Reason: Anxiety) albuterol sulfate [Ventolin HFA] 90 mcg/actuation HFA aerosol inhaler 2 puff inhalation QID Qty: 1 3RF albuterol sulfate 2.5 mg /3 mL (0.083 %) solution for nebulization 2.5 mg inhalation Q4-6H PRN (Reason: shortness of breath or wheezing) Qty: 90 3RF fluticasone propion-salmeterol [Wixela Inhub] 500-50 mcg/dose blister with device 1 inh inhalation Q12H Qty: 60 2RF valsartan 320 mg tablet 320 mg PO DAILY topiramate 50 mg capsule,extended release 24hr 50 mg PO DAILY zolpidem 5 mg tablet 5 mg PO BEDTIME PRN (Reason: Insomnia) hydrochlorothiazide 25 mg tablet 25 mg PO DAILY escitalopram oxalate 20 mg tablet 20 mg PO DAILY amlodipine 10 mg tablet 10 mg PO DAILY Creon 24,000-76,000 -120,000 unit capsule,delayed release(DR/EC) 1 cap PO TID Qty: 90 6RF topiramate 200 mg tablet 200 mg PO BID tramadol 50 mg tablet 50 mg PO Q6H PRN (Reason: Pain) fluticasone propionate [Flonase Allergy Relief] 50 mcg/actuation spray,suspension 1 spray intranasal DAILY PRN (Reason: sinus congestion) Rx Instructions: administer into each nostril Jardiance 10 mg tablet 10 mg PO DAILY metformin 500 mg tablet extended release 24 hr 500 mg PO DAILY pantoprazole 40 mg tablet,delayed release (DR/EC) 40 mg PO BID Qty: 180 2RF Print Language: Malian
[2024-10-11] MEDS: Acetaminophen 325 MG TABLET 650 MG PO (23:07)
[2024-10-12 04:39] VITALS: BP 107/66; PULSE 82; RESP 16; TEMP 36.4; O2SAT 99
--- OUTSIDE RECORDS SUMMARY | 2024-10-12 04:59 | XMS_ITS | Encounter Summary ---
Author Organization [employer] Address [address] [facility] [address] [place] [address] Care Team Providers Care Pump Stitcher Name Role Phone Michelle Young MD [...] as of this encounter Plan of Treatment Upcoming Encounters Date Type Department Care Team (Late st Contact Info) Description 10/24/2024 11:00 AM EST Medication Management [facility] [address] [place] [id number] Carter Wilson, PharmD [address] [place] [address] 11/01/2024 11:00 AM EDT Office Visit [facility] [address] [place] [phone] documented as of this encounter Visit Diagnoses Not on filedocumented in this encounter Additional Health Concerns Assessment Noted Time PHQ-9 Depression Total Score: 0 02/24/20 23 11:15 AM EDT documented as of this encounter Care Teams Pump Stitcher Relationship Specialty Start Date End Date Michelle Young MD [address] [place] [id number] PCP - General Family Medicine 06/03/18 documented as of this encounter
--- OUTSIDE RECORDS SUMMARY | 2024-10-12 04:59 | XMS_ITS | Encounter Summary ---
Author Organization [employer] Address [address] [facility] [address] [place] [address] Care Team Providers Care Cook [employer] Name Role Phone Michelle Young MD Primary Care Provide r Reason for Visit * Reason Onset Date Comments Chart Prep 09/28/2024 Encounter Details Date Type Department Care Team (Late st Contact Info) Description 09/28/2024 Telephone [facility] [address] [place], [place] [phone] Chris Cerda MA Chart Prep Social History [...] done Images: done Vaccines due: yes Referrals: [facility] ask patient if Screenings: pap smear , Foot Exam Overdue care gaps: Glucose, Sbirt, PHQ-9, JEROMY-7 documented in this encounter Plan of Treatment Upcoming Encounters Date Type Department Care Team (Late st Contact Info) Description 10/24/2024 11:00 AM EST Medication Management [address] [address] Carter Wilson, PharmD [address] [place] [phone] 11/01/2024 11:00 AM EDT Office Visit [facility] [address] [place] [phone] documented as of this encounter Visit Diagnoses Not on filedocumented in this encounter Additional Health Concerns Assessment Noted Time PHQ-9 Depression Total Score: 0 02/24/20 23 11:15 AM EDT documented as of this encounter Care Teams Cook [employer] Relationship Specialty Start Date End Date Michelle Young MD [address] [place] [phone] PCP - General Family Medicine 06/03/18 documented as of this encounter
--- OUTSIDE RECORDS SUMMARY | 2024-10-12 04:59 | XMS_ITS | Clinical Summary ---
Author Organization [email or web address] Address [address] [facility] [address] [place] [address] Care Team Providers Care Lead Custodian Name Role Phone Michelle Young MD Primary [...] 1 023 Active Blood Glucose Monitoring Suppl (Zenprise) w/Device kit 1 each 2 times daily. [...] 2 each 3 024 2024 Active Lancets (Metabolic Solutions DevelopmentTouch Delica Plus [id number]) [facility] TEST BLOOD SUGAR ONCE DAILY 100 each 11 04/16/2 024 Active pantoprazole (ProtoNix) 40 MG EC tabletIndicatio ns:Irritable bowel syndrome with both constipation and diarrhea TAKE 1 TABLET (40 MG) BY MOUTH BEFORE BREAKFAST. DO NOT CRUSH, CHEW, OR SPLIT. 90 tablet 3 024 2024 Active valsartan (Diovan) 320 MG tabletIndicatio ns:Hypertension , unspecified type Take 1 tablet (320 mg) by mouth Once per day. 30 tablet 11 024 2024 Active Blood Pressure Monitor kitIndications: Primary hypertension Use to monitor blood pressure at home 1 kit Active empagliflozin (Jardiance) 10 MGIndications:T ype 2 diabetes mellitus with hyperglycemia, without long-term current use of insulin (CMS/[facility]) Take 1 tablet (10 mg) by mouth Once per day. 30 tablet 024 2024 Active nystatin (Mycostatin) 600600 UNIT/GM powder Apply topically 2 times daily. 240 g 024 2024 Active atorvastatin (Lipitor) 10 MG tabletIndicatio ns:Type 2 diabetes mellitus with hyperglycemia, without long-term current use of insulin (CMS/[facility]) Take 1 tablet (10 mg) by mouth Once per day. 30 tablet 11 024 2024 Active fluticasone (Flonase) 50 MCG/ACT [...] up to 27 days. 40 tablet 1 Active amLODIPine (Norvasc) 10 MG tabletIndicatio ns:Hypertension [...] 90 tablet 1 025 Active Continuous Glucose Flanging Machine Operator (FreeStyle Sonny 2 [place]) deviceIndicatio ns:Type 2 diabetes mellitus with hyperglycemia, [...] hours take another tablet 2 tablet Active hydroCHLOROthia zide 12.5 MG tabletIndicatio ns:Primary hypertension Take 1 tablet (12.5 mg) by mouth Once per day. 30 tablet 025 2025 Active hydrOXYzine pamoate (Vistaril) 50 MG capsule take 1 capsule by oral route every 6 hours as needed for anxiety or sleep 021 2024 Discontinued(M ed list cleanup (will not trigger notification to Pharmacy)) Blood Glucose Monitoring Suppl (FreeStyle Lite) w/Device kitIndications: Type 2 diabetes mellitus with hyperglycemia, without long-term current use of insulin ([facility]) 1 each in the morning. 1 kit 024 2024 FREESTYLE LITE test stripIndication s:Type 2 diabetes mellitus with hyperglycemia, without long-term current use of insulin ([facility]) Check fingerstick 1x/d 50 each 11 024 2024 FreeStyle lancetsIndicati ons:Type 2 diabetes mellitus with hyperglycemia, without long-term current use of insulin ([facility]) 1 each by Other route in the morning. 50 each 11 024 2024 glucose blood (OneTouch Verio) test strip TEST BLOOD SUGAR ONCE DAILY 100 each 024 2024 hydroCHLOROthia zide (HYDRODiuril) 25 MG tabletIndicatio ns:Hypertension , unspecified type Take 1 tablet (25 mg) by mouth Once per day. 30 tablet 11 024 2024 Discontinued(T herapy completed) OLANZapine (ZyPREXA) 15 MG tabletIndicatio ns:Severe episode [...] A ORAL TODOS LOS D EN LA JERRY [place] 2024 Discontinued(M ed list cleanup (will not [...] MORNING WITH A FULL GLASS OF WATER 024 2024 Discontinued(M ed list cleanup (will [...] hyperglycemia, without long-term current use of insulin ([facility]) Inject 0.75 mg under the skin 1 (one) time per week. 2 mL 025 2024 Discontinued(R eorder (will not trigger notification to Pharmacy)) Continuous Glucose Flanging Machine Operator (FreeStyle Sonny 2 [place]) deviceIndicatio ns:Type 2 diabetes mellitus with hyperglycemia, without long-term current use of insulin ([facility]) Scan sensor every 8 hours 1 each 1 025 2024 Discontinued(R eorder (will not trigger notification to Pharmacy)) Continuous Glucose Sensor (FreeStyle Sonny 2 Sensor) miscIndications :Type 2 diabetes mellitus with hyperglycemia, without long-term current use of insulin ([facility]) Apply 1 sensor every 14 days 2 each 1 025 2024 Discontinued(R eorder (will not trigger notification to Pharmacy)) glucose blood (FreeStyle Precision Jame Test) test stripIndication s:Type 2 diabetes mellitus with hyperglycemia, without long-term current use of insulin ([facility]) Use to test blood sugar 3 [...] day. 30 tablet 1 025 2024 Discontinued potassium chloride CR (Klor-Con M20) 20 MEQ ER tabletIndicatio ns:Primary hypertension,Hy pokalemia Take 1 tablet (20 mEq) by mouth 2 times daily for 5 days. Do not crush or chew. 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 Love Tier: II (CHEMISTRY RESEARCH ASSISTANT visits every 3 months) Assessment & Plan (10/06/2024 7:42 PM EST): Timeline: 09/06/24: Group visit - UTOX wnl, pill count 5 off 09/08/24 - Tramadol increase from BID to TID 10/04/24: Group visit - Utox/pill count as expected Assessment & Plan (09/06/2024 6:26 PM EST): Timeline: 09/06/24: Group visit - UTOX wnl, pill count 5 off Muscle spasm 01/20/2024 Type 2 diabetes mellitus wit h hyperglycemia, without long-term current use of insulin 09/29/2023 Assessment & Plan (10/03/2024 4:23 PM EST): No changes on her meds were done today, I advised to medicinal plant picker her Trulicity and inject as prescribed once a week Continue with her insulin as prescribed Continue with metformin Follow-up with [facility] pharmacy Assessment & Plan (09/08/2024 1:20 PM EST): - Lab Results Component Value Date HGBA1C 6.9 (A) 08/08/2024 HGBA1C 7.1 (A) 01/20/2024 HGBA1C 6.2 (H) 09/22/2023 - Lab Results Component Value Date CREATININE 0.84 09/22/2023 -Changes: I will start patient on trulicity, in light of erratic glucose levels I will prescribe also CGM for her and refer her to [facility] - Diabetic eye exam:pending - Diabetic foot [...] and close fu w PCP Referred to [facility] and I gave her info re DM [...] current medications Patient will be refer to counselor marriage and family Spondylosis without myelopathy or radiculopathy 12/17/2022 Overview (09/06/2024): Following with [facility] S/p bilateral L4-L5 facet [...] Encounters Date Type Department Care Team Description 10/11/2024 Orders Only [facility] External Provider, [facility] 10/06/2024 Orders Only [facility] MED & PEDS [address] [place] [address] Boyd Mares MD Primary hypertension (Primary Dx); Hypokalemia 10/04/2024 11:00 AM EST Office Visit [facility] MEDICINE [address] [place] [address] Kajal Arora, SHANK BONER Spondylosis without myelopathy or radiculopathy (Primary Dx); Long-term current use of opiate analgesic 10/04/[address] [facility] MEDICINE [address] [place] [address] Deena Araujo RN CHEMISTRY RESEARCH ASSISTANT Agreement signed today 10/04/2024 Orders Only [facility] MEDICINE [address] [place] [address] Michelle Young MD 10/04/2024 Travel 10/03/2024 9:45 AM EST Office Visit [facility] [place] [address] Michelle Young MD Moderate persistent asthma, unspecified whether complicated (Primary Dx); Type 2 diabetes mellitus with hyperglycemia, without long-term current use of insulin ([facility]); Chronic maxillary sinusitis; Bipolar affective disorder, current episode depressed, current episode severity unspecified ([facility]); Vaginal itching 10/03/2024 Travel 10/01/[address] [facility] MEDICINE [address] [place] [address] Michelle Young MD Seizure disorder ([facility]) 09/30/2024 Travel 09/28/[address] [facility] MEDICINE [address] [place] [address] Chris Cerda MA Chart Prep 09/26/[address] [facility] MEDICINE [address] [place] [address] Michelle Young MD Chronic bilateral low back pain, unspecified whether sciatica present 09/26/[address] [facility] MEDICINE [address] [place] [address] Michelle Young MD Migraine without aura and without status migrainosus, not intractable; Primary insomnia 09/22/[address] [facility] MEDICINE [address] [place] [address] Michelle Young MD Med Refill 09/21/2024 Patient Outreach [address] [address] Michelle Young MD Pre-visit Planning (SDOH screening negative and tobacco screening negative) 09/15/[address] [address] Nimo Rao, SHARLENE CGM PA 09/10/[address] [facility] WALK-IN CENTER [address] [place] [phone] Michelle Young MD Type 2 diabetes mellitus with hyperglycemia, without long-term current use of insulin ([facility]/HCC) 09/08/2024 11:15 AM EST Office Visit [address] [address] Michelle Young MD Primary hypertension (Primary Dx); Type 2 diabetes mellitus with hyperglycemia, without long-term current use of insulin ([facility]/HCC); Spondylosis without myelopathy or radiculopathy; Bipolar affective disorder, current episode depressed, current episode severity unspecified (CMS/HCC); Severe obesity ([facility]); Mood disorder ([facility]/HCC); Seizure disorder ([facility]/HCC) 09/08/2024 Travel 09/06/2024 11:00 AM EST Office Visit [address] [address] Kajal Arora FNP Spondylosis without myelopathy or radiculopathy (Primary Dx); Long-term current use of opiate analgesic 09/06/2024 Telephone [facility] MED & PEDS [address] [place], [place] [phone] Sandra Diaz RN 09/06/2024 Travel 08/31/2024 2:00 PM EST Clinical Support [address] [address] Deena Araujo, ramp jockey bilateral low back pain, unspecified whether sciatica present (Primary Dx) 08/31/2024 Travel 08/31/[address] [address] Deena Araujo, SHARLENE Recommend CHEMISTRY RESEARCH ASSISTANT Tier 2 08/15/2024 Refill [address] [place] [address] Michelle Young MD Chronic bilateral low back pain, unspecified whether sciatica present 08/15/[address] [facility] MEDICINE [address] [place] [address] Michelle Young MD Primary insomnia 08/09/[address] [facility] MEDICINE [address] [place] [address] Michelle Young MD callback requested 08/09/[address] [facility] MEDICINE [address] [place] [address] Nimo Rao RN 08/08/2024 5:40 PM EST Office Visit [facility] WALK-IN CENTER [address] [place] [address] Marisol Rizo MD Type 2 diabetes mellitus with hyperglycemia, without long-term current use of insulin ([facility]) 08/08/[address] [facility] WALK-IN CENTER [address] [place] [address] Marisol Rizo MD 08/08/2024 Travel 07/31/[address] [facility] MEDICINE [address] [place] [address] Michelle Young MD Hypertension, unspecified type 07/25/[address] [facility] MEDICINE [address] [place] [address] Michelle Young MD Muscle spasm 07/20/[address] [facility] MEDICINE [address] [place] [address] Michelle Young MD Chronic bilateral low back pain, unspecified whether sciatica present; Primary insomnia 07/19/2024 Orders Only [facility] External Provider, [facility] 07/17/[address] [facility] MEDICINE [address] [place] [address] Michelle Young MD Uncomplicated asthma, unspecified asthma [...] 10/03/2024 9:58 AM EST Plan of Treatment Upcoming Encounters Date Type Department Care Team (Late st Contact Info) Description 10/24/2024 11:00 AM EST Medication Management [facility] MEDICINE [address] [place] [phone] Carter Wilson, PharmD [address] [place] [address] 11/01/2024 11:00 AM EDT Office Visit [facility] MEDICINE [address] [place] [phone] Health Maintenance Due Date Last Done Comments [...] 12/20/2013 12/20/2012 Depression Screening 02/24/2024 02/23/2023, 02/24/20 23 COVID-19 Vaccine (3 - season) 2024 06/07/2023, 02/13/2022 Influenza Vaccine (#1) 2024 , 05/22/2022, 07/18/2019, Additional history exists Mammogram 12/07/2024 12/08/2023, 02/0 03/2022, 07/24/2020, Additional history exists Diabetes: Hemoglobin A1C 01/01/2025 025, 08/08/2024, 01/20/2024, Additional history exists SDOH Screening 09/21/2025 09/21/2024 Tobacco Screening 10/03/2025 10/03/2024 Lipid Panel 10/04/2025 10/04/2024, 08/26, 02/23/2023 FIT DNA/Cologuard 09/28/2026 09/28/2023 Zoster Vaccines (1 [...] Procedure Name Priority Date/Time Associated Diagnosis Comments XR FOOT 3+ VIEWS LEFT Routine 10/12/2024 12:04 AM EST POCT JOCY-14 URINE DRUG SCREEN Routine 10/04/2024 2:16 PM EST Long-term current use of opiate analgesic Spondylosis without myelopathy or radiculopathy HEPATIC FUNCTION PANEL Routine 10/04/2024 12:07 PM EST HEMOGLOBIN A1C Routine 10/04/2024 12:07 PM EST Type 2 diabetes mellitus with hyperglycemia, without long-term current use of insulin (CMS/HCC) LIPID PANEL, STANDARD Routine 10/04/2024 12:07 PM EST Type 2 diabetes mellitus with hyperglycemia, without long-term current use of insulin (CMS/HCC) BASIC METABOLIC PANEL Routine 10/04/2024 12:07 PM EST Hypertension, unspecified type POCT GLUCOSE Routine 10/03/2024 9:59 AM EST Type 2 diabetes mellitus with hyperglycemia, without long-term current use of insulin (CMS/HCC) POCT GLUCOSE Routine 09/08/2024 11:25 AM EST Type 2 diabetes mellitus with hyperglycemia, without long-term current use of insulin (CMS/HCC) POCT JOCY-14 URINE DRUG SCREEN Routine 09/06/2024 1:32 PM EST Long-term current use of opiate analgesic POCT JOCY-14 URINE DRUG SCREEN Routine 08/31/2024 2:09 PM EST Chronic bilateral low back pain, unspecified whether sciatica present TSH W/REFLEX TO FT4 Routine 08/09/2024 1 2:42 PM EST Type 2 diabetes mellitus with hyperglycemia, without long-term current use of insulin (CMS/HCC) POCT URINALYSIS DIPSTICK Routine 08/08/2024 5:56 PM EST Type 2 diabetes mellitus with hyperglycemia, without long-term current use of insulin (CMS/HCC) POCT GLYCOSYLATED HEMOGLOBIN (HGB A1C) Routine 08/08/2024 5:14 PM EST Type 2 diabetes mellitus with hyperglycemia, without long-term current use of insulin (CMS/HCC) POCT GLUCOSE Routine 08/08/2024 5:14 PM EST Type 2 diabetes mellitus with hyperglycemia, without long-term current use of insulin (CMS/HCC) FL ESOPHAGUS BARIUM SWALLOW Routine 07/19/2024 7:50 AM EST HM COLONOSCOPY Routine 05/19/2024 BI MAMMOGRAM SCREENING TOMOSYNTHESIS BILATERAL Routine 12/08/2023 1:50 PM EDT LAB COLOGUARD?? COLON CANCER SCREEN Routine 09/28/2023 11:20 AM EST Colon cancer screening from Last 3 Months or Most Recently Relevant to Health Maintenance Results * XR Foot 3+ Views Left (10/12/2024 12:04 AM EST) Anatomical Region Laterality Modality Lower Extremities, Foot Left Radiogra phic Imaging 10/12/2024 12:0 4 AM EST Narrative 10/12/2024 12:06 AM EST ? [facility] ?[address] ?[place] [address] ?XRay Report ? Signed ? Patient: Veronica Wilcox ?MR#: [id number] ?? [id number] ? : 1980 ?Acct:[id number] ? Age/Sex: 44 / F ?ADM Date: 10/11/24 ? Loc: HO.ED ? Attending Dr: ? Ordering Physician: Mahnaz Lima ?? Date of Service: 10/11/24 ?? Procedure(s): XR foot LT min 3V ?? Accession Number(s): [id number] ? cc: Michelle Young MD; Mahnaz Lima ? CLINICAL HISTORY: pain ? 3 view left foot ? Comparison: None ? Findings: ?? No displaced fracture. No dislocation. Variant fusion of the distal ?? interphalangeal joint of the 5th digit. Soft tissue swelling is ?? nonspecific including laterally in forefoot. Mild osteoarthritis including ?? partially imaged midfoot. ?? No radiopaque retained foreign body. ? IMPRESSION: ?? 1. No acute fracture or dislocation. ? 2. Mild osteoarthritis. ? This document has been electronically signed by: Jeremy Mancilla MD on ?? 10/12/2024 00:04:20 ? Dictated By: ?Jeremy Mancilla MD ? Signed By: ?<Electronically signed by Jeremy Mancilla MD in OV> ? 10/12/24 0005 ? DD/ 0004 ? TD/TT: 10/12/24 0004 ? Last Scourer: ? Procedure Note Donotuseinterpreter, Image - 10/12/[address] [address] XRay Report Signed Patient: Veronica WilcoxMR#: [id number] : 1980Acct:[id number] Age/Sex: 44 / FADM Date: 10/11/24 Loc: HO.ED Attending Dr: Ordering Physician: Mahnaz Lima Date of Service: 10/11/24 Procedure(s): XR foot LT min 3V Accession Number(s): [id number] cc: Michelle Young MD; Mahnaz Lima CLINICAL HISTORY: pain 3 view left foot Comparison: None Findings: No displaced fracture. No dislocation. Variant fusion of the distal interphalangeal joint of the 5th digit. Soft tissue swelling is nonspecific including laterally in forefoot. Mild osteoarthritis including partially imaged midfoot. No radiopaque retained foreign body. IMPRESSION: 1. No acute fracture or dislocation. 2. Mild osteoarthritis. This document has been electronically signed by: Jeremy Mancilla MD on 10/12/2024 00:04:20 Dictated By: Jeremy Mancilla MD Signed By: <Electronically signed by Jeremy Mancilla MD in OV> 10/12/24 0005 DD/ 0004 TD/TT: 10/12/24 0004 Last Scourer: [facility] External Provider IMG XR PROCEDURES Edited Result - Final * POCT JOCY-14 Urine Drug Screen (10/04/2024 2:16 PM EST) Only the most recent of3 resultswithin the time period is included. THC Positive TCA, Urine Positive Urine Urine specimen obtained by clean catch procedure / Unknown 10/04/2024 2:16 PM EST Deena Blackmon RN - 10/04/2024 2:16 PM EST UTOX cup Lot#[id number] Exp. 05/18/26 Internal Pass Control us Kajal Arora SHANK BONER POINT OF CARE TEST ENTER/EDIT ORDERABLES Final Result * (ABNORMAL) Hemoglobin A1c (10/04/2024 12:07 PM EST) Hemoglobin A1c 7.2(H) <6.0 % [facility] Comment:Hemoglobin A1C Refer ence Range Adults: 4.8 - 6.0 % Non diabetic: < 6.0 % Goal: < 7.0 %Additional Action Suggested: > 8.0 %Note: Hemoglobin A1c results are invalid for patients with abnormal amounts of HbF. Blood transfusions may impact the HbA1c concentration in the patient sample. Estimated Average Glucose 160 mg/dL [facility] Comment:eAG = Estimated ave rage glucose which is %A1C expressed asaverage glucose, using the formula of the [id number] Glucose study (ADAG), Diabetes Care, Vol.31,#8,Mar. 2007 Blood Venous blood specimen / Unknown 10/04/2024 12:07 PM EST 10/04/2024 1:12 PM EST us Michelle Neumann MD LAB BLOOD ORDERABLES Final Result Performing Organization Address City/State/[facility] Co de Phone Number [facility] [address] [place] [phone] * (ABNORMAL) Hepatic Function Panel (10/04/2024 12:07 PM EST) Bilirubin, Total 0.4 0.0 - 1.0 mg/dL [facility] Bilirubin, Direct 0.1 0.0 - 0.5 mg/dL [facility] Aspartate Amino Transferase 29 5 - 31 U/L [facility] Alanine Aminotransferase 42(H) 0 - 31 U/L [facility] Total Protein 8.1(H) 6.5 - 8.0 g/dL [facility] Albumin Level 4.6 3.5 - 5.0 g/dL [facility] Alkaline Phosphatase 71 39 - 117 U/L [facility] 10/04/2024 12:0 7 PM EST 10/04/2024 1:12 PM EST us Michelle Neumann MD LAB BLOOD ORDERABLES Final Result Performing Organization Address [facility] Co de Phone Number [facility] [address] [place] [phone] * (ABNORMAL) Lipid Panel, Standard (10/04/2024 12:07 PM EST) Triglycerides 249(H) <150 mg/dL [facility] Comment:Desirable Triglyceri de: less than 150 mg/dLBorderline High Triglyceride 150-199 mg/dLHigh Triglyceride: 200-499 mg/dLVery High Triglyceride: greater than or equal to 5OO mg/dL Cholesterol 200(H) <200 mg/dL [facility] Comment:Desirable Cholestero l: less than 200 mg/dLBorderline High Cholesterol: 200-239 mg/dLHigh Cholesterol: greater than 239 mg/dL LDL Cholesterol Calculated 107(H) <100 mg/dL [facility] Comment:Desirable LDL: less than 100 mg/dLNear Optimal/Above Optimal LDL: 110- 129 mg/dLBorderline High LDL: 130-159 mg/dLHigh LDL: 160-189 mg/dLVery High LDL: greater than or equal to 190 mg/dL HDL Cholesterol 44 >40 mg/dL [facility] Comment:Desirable HDL: great er than 40 mg/dL Note: This HDL assay may give artificially low results in patients with liver disease. Blood Venous blood specimen / Unknown 10/04/2024 12:07 PM EST 10/04/2024 1:12 PM EST us Michelle Neumann MD LAB BLOOD ORDERABLES Final Result Performing Organization Address City/[facility]/ZIP Co de Phone Number [facility] [address] [place] [phone] * (ABNORMAL) Basic Metabolic Panel (10/04/2024 12:07 PM EST) Pathologist [facility] Sodium 139 135 - 145 mmol/L [facility] Potassium 3.2(L) 3.3 - 5.1 mmol/L [facility] Chloride 109(H) 96 - 108 mmol/L [facility] Carbon Dioxide 21(L) 22 - 29 mmol/L [facility] Anion Gap 12 12 - 20 [facility] Urea Nitrogen (BUN) 12 9 - 16 mg/dL [facility] Creatinine, Serum 1.15 0.5 - 1.4 mg/dL [facility] Estimated Glomerular Filt Rate 51 [facility] Comment:Chronic Kidney Disea se: Estimated GFR < 60 mL/min/[id number] Kidney Disease: Estimated GFR < 15 mL/min/1.73m2 Glucose 103 60 - 115 mg/dL [facility] Calcium 9.6 8.4 - 10.2 mg/dL [facility] Blood Venous blood specimen / Unknown 10/04/2024 12:07 PM EST 10/04/2024 1:12 PM EST us Boyd Mares MD LAB BLOOD ORDERABLES Final Result [facility] [address] [place] [phone] * (ABNORMAL) POCT Glucose (10/03/2024 9:59 AM EST) Only the most recent of3 resultswithin the time period is included. Pathologist [facility] Glucose Blood, POC 256(A) 60 - 200 mg/dL QC Media Lot # [id number] Lot# Expiration Date [id number] Blood Capillary blood specimen / Unknown 10/03/2024 9:59 AM EST us Michelle Neumann MD POINT OF CARE TEST EN TER/EDIT ORDERABLES Final Result * TSH with Reflex to Free T4 (08/09/2024 12:42 PM EST) Pathologist [facility] TSH reflex Free T4 1.58 0.32 - 4.0 uIU/mL [facility] Blood 08/09/2024 12:4 2 PM EST 08/09/2024 1:00 PM EST Marisol Rizo MD LAB BLOOD ORDERABLES Fin al Result [facility] [address] [place] [phone] * POCT urinalysis dipstick manually resulted [...] Media Lot # [id number] Lot# Expiration Date [id number] Urine 08/08/2024 5:56 PM EST Marisol Rizo MD POINT OF CARE TEST ENTER /EDIT ORDERABLES Final Result * (ABNORMAL) POCT glycosylated hemoglobin (Hgb A1c) (08/08/2024 5:14 PM EST) Hemoglobin A1C 6.9(A) 4.0 - 6.0 % QC Media Lot # [id number] Lot# Expiration Date 6,28,605 Blood Capillary blood specimen / Unknown 08/08/2024 5:14 PM EST Marisol Rizo MD POINT OF CARE TEST ENTER /EDIT ORDERABLES Final Result * FL Esophagus Barium Swallow (07/19/2024 7:50 AM EST) Anatomical Region Laterality Modality Head, Neck Radiographic Kaila ging 07/19/2024 7:50 AM EST Narrative 07/19/2024 4:42 PM EST ? [facility] ?[address] ?[place] [address] ? Fluoroscopy Report ? Signed ? Patient: Anirudh Akers,Veronica ?MR#: M ?? [id number] ? : 1980 ?Acct:[id number] ? Age/Sex: 44 / F ?ADM Date: 07/19/24 ? Loc: HO.XRAY ? Attending Dr: Erica HUFF ? Ordering Physician: Erica Morrow ?? Date of Service: 07/19/24 ?? Procedure(s): FL barium swallow ?? Accession Number(s): [id number] ? cc: Michelle Young MD; Erica Morrow ? EXAMINATION: ?? XR FLUOROSCOPY UPPER GI [...] Fields MD ??07/19/2024 04:39 PM EST RP ?? Workstation: [id number] ? Dictated By: ?Car Hinojosa ? Signed By: ?<Electronically signed by Car Hinojosa in OV> ? 07/19/24 1639 ?<Electronically signed by Timoteo Fields MD in OV> ? 07/19/24 1642 ? DD/ 0750 ? TD/TT: 07/19/24 0815 ? Last Scourer: ? Procedure Note Amy, Image - 07/19/2024 [place] [address] Fluoroscopy Report Signed Patient: Veronica Wilcox#: M [id number] : 1980Acct:[id number] Age/Sex: 44 / FADM Date: 07/19/24 Loc: HO.XRAY Attending Dr: Erica HUFF Ordering Physician: Erica Morrow Date of Service: 07/19/24 Procedure(s): FL barium swallow Accession Number(s): [id number] cc: Michelle Young MD; Erica Morrow EXAMINATION: [...] by: Timoteo Fields MD 07/19/2024 04:39 PM [facility] Dictated By: Car Hinojosa Signed By: <Electronically signed by Car Hinojosa in OV> 07/19/24 1639 <Electronically signed by Timoteo Fields MD in OV> 07/19/24 1642 DD/ 0750 TD/TT: 07/19/24 0815 Last Scourer: [facility] External Provider IMG FLU OROSCOPY PROCEDURES Final Result * Hm Colonoscopy (05/19/2024) Colonoscopy Normal Normal us Historical Provider MD HEALTH MAINTENANCE Final Result * BI Mammogram Screening Tomosynthesis Bilateral (12/08/2023 1:50 PM EDT) Anatomical Region Laterality Modality Breast Bilateral Mammography 12/08/2023 1:50 PM EDT Narrative 12/14/2023 8:07 PM EDT ? [facility] ? [address] ?[place] [address] ? Mammography Report ? Signed ? Patient: Veronica Wilcox ?MR#: M ?? [id number] ? : 1980 ?Acct:[id number] ? Age/Sex: 43 / F ?ADM Date: 12/08/23 ? Loc: HO.MAMMO ? Attending Dr: Michelle Neumann MD ? Ordering Physician: Michelle Young MD ?Results: ?? 2Benign Findings ? Date of Service: 12/08/23 ?Follow Up: 1 Year From Orig ?? inal Mammogram ? Procedure(s): MM tomosynthesis screening BI ?? Accession Number(s): [id number] ? cc: Michelle Young MD ? EXAMINATION: ?? MM SCREENING DIGITAL BREAST TOMOSYNTHESIS, BILATERAL ? CLINICAL INFORMATION: ? Screening. Asymptomatic. ? COMPARISON: ?? Mammography: This study is compared with prior exams dating back to ?? 2018. ? TECHNIQUE: ?? Digital breast tomosynthesis is [...] by Maxine Conteh MD in OV> ? 12/14/23 2003 ? DD/ 1350 ? TD/TT: ? Last Scourer: ? Procedure Note Amy, Image - 12/14/2023 [facility] [address] [place] [address] Mammography Report Signed Patient: Veronica WilcoxMR#: M [id number] : 1980Acct:[id number] Age/Sex: 43 / FADM Date: 12/08/23 Loc: DEVIN Attending Dr: Michelle Neumann MD Ordering Physician: Michelle Youngesults: 2Benign Findings Date of Service: 12/08/23Follow Up: 1 Year From Orig inal Mammogram Procedure(s): MM tomosynthesis screening BI Accession Number(s): [id number] cc: Michelle Young MD EXAMINATION: MM SCREENING [...] MD in OV> 12/14/232002 DD/ 1350 TD/TT: Last Scourer: Michelle Neumann MD IMG BI PROCEDURES Bassem lilliam Result - Final * (ABNORMAL) Cologuard?? colon cancer screening (09/28/2023 11:20 AM EST) Cologuard Result Positive( A) Negative 10/08/2023 1:10 AM EST [facility] (CLIA #:[id number]) Comment: POSITIVE TEST RESULT. A positive Cologuard [...] screened with both Cologuard and colonoscopy. (Nino Mahoney et al, N Engl J Med 2014;370(14):5174-9698.) Cologuard may produce a false negative or false positive result (no colorectal cancer or precancerous polyp present at colonoscopy follow up). A negative Cologuard test result does not guarantee the absence of CRC or advanced adenoma (pre-cancer). The current Cologuard screening interval is every 3 years. ([place] [employer] and U.S. Multi-Society Task Force). Cologuard performance data in a 10,000 patient pivotal study using colonoscopy as the reference method can be accessed at the following location: www.[employer]ricasana/results. Additional description of the Cologuard test process, warnings and precautions can be found at [email or web address] [email or web address]. Stool specimen (specimen) 09/28/2023 11:20 AM EST 09/29/2023 10:49 AM EST us Michelle Neumann MD LAB MOLECULAR DIAGNOS TICS ORDERABLES Final Result [facility] (CLIA #:[id number]) [address] [place] [address], from Last 3 Months or Most Recently Relevant to Health Maintenance Insurance [facility] Care Teams Lead Custodian Relationship Specialty Start Date End Date Michelle Young MD [address] [place] [address] PCP - General Family Medicine 06/03/18
--- OUTSIDE RECORDS SUMMARY | 2024-10-12 04:59 | XMS_ITS | Encounter Summary ---
Author Organization [employer] Address 75 [facility] 7t [place] [address] Care Team Providers Care Topstitcher Zigzag Name Role Phone Michelle Young MD Primary Care Provide r Encounter Details Date Type Department Care Team (Late st Contact Info) Description 10/11/2024 Orders Only [facility] External Provider, [facility] Social History Tobacco Use Types Packs/Day Years [...] Description 10/24/2024 11:00 AM EST Medication Management [facility] MEDICINE [address] [place] [address] Carter Wilson, PharmD [address] [place] [address] 11/01/2024 11:00 AM EDT Office Visit [facility] 230 [facility] [place] [address] documented as of this encounter Procedures Procedure Name Priority Date/Time Associated Diagnosis Comments XR FOOT 3+ VIEWS LEFT Routine 10/12/2024 12:04 AM EST documented in this encounter Results * XR Foot 3+ Views Left (10/12/2024 12:04 AM EST) Anatomical Region Laterality Modality Lower Extremities, Foot Left Radiogra phic Imaging 10/12/2024 12:0 4 AM EST Narrative 10/12/2024 12:06 AM EST ? [facility] ?[address] ?[place] [address] ?XRay Report ? Signed ? Patient: Anirudh Akers,Veronica ?MR#: M ?? [id number] ? : 1980 ?Acct:[id number] ? Age/Sex: 44 / F ?ADM Date: 02/18/25 ? Loc: HO.ED ? Attending Dr: ? Ordering Physician: Mahnaz Lima ?? Date of Service: 10/11/24 ?? Procedure(s): XR foot LT min 3V ?? Accession Number(s): [id number] ? cc: Michelle Young MD; Mahnaz Lima [...] DD/ 0004 ? TD/TT: 10/12/24 0004 ? Paving Machine Operator: ? Procedure Note Donbenedictoterrenceter, Image - 10/12/2024 [place] [address] XRay Report Signed Patient: Veronica WilcoxMR#: M [id number] : 1980Acct:[id number] Age/Sex: 44 / FADM Date: 10/11/24 Loc: HO.ED Attending Dr: Ordering Physician: Mahnaz Lima Date of Service: 10/11/24 Procedure(s): XR foot LT min 3V Accession Number(s): [id number] cc: Michelle Young MD; Manhaz Lima CLINICAL HISTORY: pain 3 view left [...] 10/12/24 0005 DD/ 0004 TD/TT: 10/12/24 0004 Paving Machine Operator: [facility] External Provider IMG XR PROCEDURES Edited Result - Final documented in this encounter Visit Diagnoses Not on filedocumented in this encounter Additional Health Concerns Assessment Noted Time PHQ-9 Depression Total Score: 0 02/24/20 23 11:15 AM EDT documented as of this encounter Care Teams Topstitcher Zigzag Relationship Specialty Start Date End Date Michelle Young MD [address] [place] [address] PCP - General Family Medicine 06/03/18 documented as of this encounter
--- OUTSIDE RECORDS SUMMARY | 2024-10-12 04:59 | XMS_ITS | Encounter Summary ---
Author Organization [employer] Address 75 [facility] 7t [place] [address] Care Team Providers Care Spectrographic Analyst Name Role Phone Michelle Young MD Primary Care Provide r Reason for Visit * Reason Onset Date Comments AUTO TRAVEL COUNSELOR Agreement signed today 10/04/2024 Encounter Details Date Type Department Care Team (Late st Contact Info) Description 10/04/[address] [facility] [address] [place], [place] [phone] Deena Araujo RN AUTO TRAVEL COUNSELOR Agreement signed today Social History Tobacco Use Types Packs/Day Years [...] encounter Miscellaneous Notes * Telephone Encounter - Deena Araujo RN - 10/04/2024 2:19 PM EST Pt attended chronic pain group today AUTO TRAVEL COUNSELOR Agreement reviewed and signed BPI updated today. Pain severity score of 5.8, activity interference score of 9. Previous BPI completed 06/23/24 with pain severity score of 7, activity interference score of 8.6. Will update PCP with BPI scoring. documented in this encounter Plan of Treatment Upcoming Encounters Date Type Department Care Team (Late st Contact Info) Description 10/24/2024 11:00 AM EST Medication Management [facility] [address] [place] [phone] Carter Wilson, PharmD [address] [place] [address] 11/01/2024 11:00 AM EDT Office Visit [facility] [address] [place] [address] documented as of this encounter Visit Diagnoses Not on filedocumented in this encounter Additional Health Concerns Assessment Noted Time PHQ-9 Depression Total Score: 0 02/24/20 23 11:15 AM EDT documented as of this encounter Care Teams Spectrographic Analyst Relationship Specialty Start Date End Date Michelle Young MD [address] [place] [address] PCP - General Family Medicine 06/03/18 documented as of this encounter
--- OUTSIDE RECORDS SUMMARY | 2024-10-12 04:59 | XMS_ITS | Encounter Summary ---
Author Organization [employer] Address 75 [facility] 7t [place] [address] Care Team Providers Care Lens Molder Name Role Phone Michelle Young MD Primary Care Provide r Reason for Visit * Reason Comments Med Change Request Encounter Details Date Type Department Care Team ([facility] st Contact Info) Description 10/01/2024 Refill [facility] 230 [place], [place] [phone] Michelle Young MD 230 [place], [place] [phone] Seizure disorder (CMS/HCC) Social History Tobacco Use [...] Description 10/24/2024 11:00 AM EST Medication Management [address] [address] Carter Wilson, PharmD [address] [place] [address] 11/01/2024 11:00 AM EDT Office Visit [address] [address] documented as of this encounter Visit Diagnoses Diagnosis Seizure disorder (CMS/[facility]) Unspecified epilepsy without mention of intractable epilepsy documented in this encounter Additional Health Concerns Assessment Noted Time PHQ-9 Depression Total Score: 0 02/24/20 23 11:15 AM EDT documented as of this encounter Care Teams Lens Molder Relationship Specialty Start Date End Date Michelle Young MD [address] [place] [phone] PCP - General Family Medicine 06/03/18 documented as of this encounter
--- OUTSIDE RECORDS SUMMARY | 2024-10-12 04:59 | XMS_ITS | Encounter Summary ---
Author Organization [employer] Address 75 [facility] 7t [place] [address] Care Team Providers Care Hip Hop Performers Name Role Phone Michelle Young MD Primary [...] Description 10/24/2024 11:00 AM EST Medication Management [facility] [address] [place] [phone] Carter Wilson, PharmD [address] [place] [address] 11/01/2024 11:00 AM EDT Office Visit [facility] [address] [place] [address] documented as of this encounter Visit Diagnoses Not on filedocumented in this encounter Additional Health Concerns Assessment Noted Time PHQ-9 Depression Total Score: 0 02/24/20 23 11:15 AM EDT documented as of this encounter Care Teams Hip Hop Performers Relationship Specialty Start Date End Date Michelle Young MD [address] [place] [address] PCP - General Family Medicine 06/03/18 documented as of this encounter
--- OUTSIDE RECORDS SUMMARY | 2024-10-12 04:59 | XMS_ITS | Encounter Summary ---
Author Organization [employer] Address 75 [facility] 7t [place] [address] Care Team Providers Care Corporate Paralegal Name Role Phone Michelle Young MD Primary Care Provide r Reason for Visit * Reason Comments Med Refill Encounter Details Date Type Department Care Team ([facility] st Contact Info) Description 09/10/2024 Refill [facility] 230 [place], [place] [phone] Mihcelle Young MD 230 [place], [place] [phone] Type 2 diabetes mellitus with hyperglycemia, without long-term current use of insulin ([facility]) [...] Description 10/24/2024 11:00 AM EST Medication Management [facility] [address] [place] [address] Carter Wilson, PharmD [address] [place] [address] 11/01/2024 11:00 AM EDT Office Visit [address] [address] documented as of this encounter Visit Diagnoses Diagnosis Type 2 diabetes mellitus with hyperglycemia, without long-term current use of insulin ([facility]) documented in this encounter Additional Health Concerns Assessment Noted Time PHQ-9 Depression Total Score: 0 02/24/20 23 11:15 AM EDT documented as of this encounter Care Teams Corporate Paralegal Relationship Specialty Start Date End Date Michelle Young MD [address] [place] [address] PCP - General Family Medicine 06/03/18 documented as of this encounter
--- OUTSIDE RECORDS SUMMARY | 2024-10-12 04:59 | XMS_ITS | Encounter Summary ---
Author Organization [employer] Address 75 [facility] 7t [place] [address] Care Team Providers Care Pouncer Name Role Phone Michelle Young MD Primary Care Provide r Reason for Visit * Reason Comments Med Refill Encounter Details Date Type Department Care Team ([facility] st Contact Info) Description 06/04/2024 Refill [facility] 230 [place], [place] [phone] Michelle Young MD [address] [place], [place] [phone] Hypertension, unspecified type; Chronic rhinitis; Severe episode [...] Description 10/24/2024 11:00 AM EST Medication Management [facility] [address] [place] [phone] Carter Wilson, PharmD [address] [place] [address] 11/01/2024 11:00 AM EDT Office Visit [facility] [address] [place] [phone] documented as of this encounter Visit Diagnoses Diagnosis Hypertension, unspecified type Chronic rhinitis Severe episode of recurrent major depressive disorder, without psychotic features (CMS/HCC) documented in this encounter Additional Health Concerns Assessment Noted Time PHQ-9 Depression Total Score: 0 02/24/20 23 11:15 AM EDT documented as of this encounter Care Teams Pouncer Relationship Specialty Start Date End Date Michelle Young MD [address] [place] [phone] PCP - General Family Medicine 06/03/18 documented as of this encounter
--- OUTSIDE RECORDS SUMMARY | 2024-10-12 04:59 | XMS_ITS | Encounter Summary ---
Author Organization [employer] Address 75 [facility] 7t [place] [address] Care Team Providers Care Arc Trimmer Name Role Phone Michelle Young MD Primary Care Provide r Reason for Visit * Reason Comments Med Refill Encounter Details Date Type Department Care Team (Late st Contact Info) Description 02/18/2023 Refill [facility] [address] [place], [place] [phone] Libby Ramierz DO [address] [place], [place] [phone] Hypertension, unspecified type Social History Tobacco Use [...] Description 10/24/2024 11:00 AM EST Medication Management [facility] MEDICINE [address] [place] [phone] Carter Wilson, PharmD [address] [place] [address] 11/01/2024 11:00 AM EDT Office Visit [facility] MEDICINE [address] [place] [phone] documented as of this encounter Visit Diagnoses Diagnosis Hypertension, unspecified type documented in this encounter Care Teams Arc Trimmer Relationship Specialty Start Date End Date Michelle Young MD [address] [place] [address] PCP - General Family Medicine 06/03/18 documented as of this encounter
--- OUTSIDE RECORDS SUMMARY | 2024-10-12 04:59 | XMS_ITS | Encounter Summary ---
Author Organization [employer] Address [address] [place] [address] 7t [place] [address] Care Team Providers Care Coach Tour Driver Name Role Phone Michelle Young MD Primary Care Provide r Encounter Details Date Type Department Care Team (Late st Contact Info) Description 02/10/2023 Orders Only [facility] MED[facility]INE [address] [place] [address] Diandra Siddiqui LPN Social History Tobacco Use [...] Description 10/24/2024 11:00 AM EST Medication Management [facility] [address] [place] [address] Carter Wilson, PharmD [address] [place] [address] 11/01/2024 11:00 AM EDT Office Visit [facility] [address] [place] [address] documented as of this encounter Visit Diagnoses Not on filedocumented in this encounter Care Teams Coach Tour Driver Relationship Specialty Start Date End Date Michelle Young MD [address] [place] [address] PCP - General Family Medicine 06/03/18 documented as of this encounter
--- OUTSIDE RECORDS SUMMARY | 2024-10-12 04:59 | XMS_ITS | Encounter Summary ---
Author Organization [employer] Address 75 [facility] 7t [place] [address] Care Team Providers Care Electroencephalograph Technologist Name Role Phone Michelle Young MD Primary Care Provide r Reason for Visit * Reason Onset Date Comments Med Refill 01/01/2023 Encounter Details Date Type Department Care Team (Late st Contact Info) Description 01/01/2023 Telephone [facility]ICINE 230 [place], [place] [phone] Michelle Young MD [address] [place], [place] [phone] Med Refill Social History Tobacco Use Types [...] Description 10/24/2024 11:00 AM EST Medication Management [facility] [address] [place] [phone] Carter Wilson, PharmD [address] [place] [address] 11/01/2024 11:00 AM EDT Office Visit [address] [address] documented as of this encounter Visit Diagnoses Not on filedocumented in this encounter Care Teams Electroencephalograph Technologist Relationship Specialty Start Date End Date Michelle Young MD [address] [place] [phone] PCP - General Family Medicine 06/03/18 documented as of this encounter
--- OUTSIDE RECORDS SUMMARY | 2024-10-12 04:59 | XMS_ITS | Encounter Summary ---
Author Organization [employer] Address 75 [facility] 7t [place] [address] Care Team Providers Care Shellfish Processing Machine Tender Name Role Phone Michelle Young MD Primary Care Provide r Encounter Details Date Type Department Care Team (Late st Contact Info) Description 02/18/2023 Orders Only [facility] MED & PEDS [address] [place], [place] [phone] Libby Cruz LPN Social History Tobacco Use [...] Description 10/24/2024 11:00 AM EST Medication Management [facility] [address] [place] [address] Carter Wilson, PharmD [address] [place] [address] 11/01/2024 11:00 AM EDT Office Visit [address] [address] documented as of this encounter Visit Diagnoses Not on filedocumented in this encounter Care Teams Shellfish Processing Machine Tender Relationship Specialty Start Date End Date Michelle Young MD [address] [place] [address] PCP - General Family Medicine 06/03/18 documented as of this encounter
--- OUTSIDE RECORDS SUMMARY | 2024-10-12 04:59 | XMS_ITS | Encounter Summary ---
Author Organization [employer] Address 75 [facility] 7t [place] [address] Care Team Providers Care Transonic Engineer Name Role Phone Michelle Young MD Primary Care Provide r Reason for Visit * Reason Onset Date Comments Med Refill 07/24/2023 Encounter Details Date Type Department Care Team (Late st Contact Info) Description 07/24/2023 Telephone [facility] MEDICINE [address] [place], [place] [phone] Michelle Young MD [address] [place], [place] [phone] Med Refill Social History Tobacco Use Types [...] from patient requesting a medication refill for tfnyczigun-omomojqlidsjt-sacvzhky (Fioricet) 50-300-40 MG capsule and pantoprazole (Protonix) 40 MG EC tablet. documented in this encounter Plan of Treatment Upcoming Encounters Date Type Department Care Team (Late st Contact Info) Description 10/24/2024 11:00 AM EST Medication Management [facility]INE [address] [place] [phone] Carter Wilson, PharmD [address] [place] [address] 11/01/2024 11:00 AM EDT Office Visit [facility] [address] [place] [address] documented as of this encounter Visit Diagnoses Not on filedocumented in this encounter Additional Health Concerns Assessment Noted Time PHQ-9 Depression Total Score: 0 02/24/20 23 11:15 AM EDT documented as of this encounter Care Teams Transonic Engineer Relationship Specialty Start Date End Date Michelle Young MD [address] [place] [address] PCP - General Family Medicine 06/03/18 documented as of this encounter
--- OUTSIDE RECORDS SUMMARY | 2024-10-12 04:59 | XMS_ITS | Encounter Summary ---
Author Organization [employer] Address 75 [facility] 7t [place] [address] Care Team Providers Care Staffing Operations Manager Name Role Phone Michelle Young MD Primary Care Provide r Encounter Details Date Type Department Care Team (Latest Contact Info) Description 10/04/2024 11:00 AM EST Office Visit [facility] [address] [place] [address] Kajal Arora FNP [address] [place], [place] [phone] Spondylosis without myelopathy or radiculopathy (Primary Dx); [...] this encounter Progress Notes * Kajal Arora, CODING ADVISOR - 10/04/2024 11:00 AM EST Subjective: Veronica Akers is a 44 y.o. female w/ PMH seizure disorder, RODERICK, hypertension, IBS, hip pain, T2DM, migraines, and chronic low back pain, who presents to the office for - [facility] visits. Initial Group visit: 09/06/24 Group Visit Number: 2 Last PCP visit: 10/03/24, Dr. Love Group Confidentiality last signed: 09/06/24 Group Topic: Hiren Huang Chronic Pain History: Associated Diagnosis: chronic low back pain, chronic hip pain Relevant Imaging: None available Current pharm tx: Tramadol 50mg TID (increased from BID to TID on 09/08/24) Related Specialists: Following with [facility]. She is S/P bilateral L4-L5 facet steroid injections on 04/27/2024. Spondylosis without myelopathy or radiculopathy, lumbar region Possible discussion of spinal stimulator with specialist Review of Systems Constitutional: Negative for chills [...] or radiculopathy - Primary Overview Following with [facility] S/p bilateral L4-L5 facet steroid injections on 04/27/2024 Relevant Orders POCT JOCY-14 Urine Drug Screen (Completed) Other Long-term current use of opiate analgesic Overview Medication: Tramadol 50mg TID Indication: lumbar spondylosis w/o myelopathy or radiculopathy Last ENGRAVER WOOD Agreement: 10/04/24, Dr. Love Tier: II (ENGRAVER WOOD visits every 3 months) Current Assessment & Plan Timeline: 09/06/24: Group visit - UTOX wnl, pill count 5 off 09/08/24 - Tramadol increase from BID to TID 10/04/24: Group visit - Utox/pill count as expected Relevant Orders POCT JOCY-14 Urine Drug Screen (Completed) Follow up: 1-3 months for ENGRAVER WOOD visit. Follow up as scheduled with PCP, sooner as needed. * Deena Araujo RN - 10/04/2024 11:00 AM EST ENGRAVER WOOD phthalic acid purifier: PDMP reviewed today. Last fill date: 09/26/24 Tramadol 50mg count was 42, anticipated 39 to be remaining. UTOX completed. Positive for TCA & THC, Negative for AMP, BAR, BUP, BZO, DIALLO, FTY, MDMA, MET, MOP, MTD, OXY, PCP. UTOX as expected. ENGRAVER WOOD Agreement reviewed and signed BPI updated today. Pain severity score of 5.8, activity interference score of 9. Previous BPI completed 06/23/24 with pain severity score of 7, activity interference score of 8.6. Will update PCP with BPI scoring. documented in this encounter Miscellaneous Notes * Assessment & Plan Note - DONNIE Hillman - 10/06/2024 7:38 PM ESTAssociated Problem(s): Long-term current use of opiate analgesic Timeline: 09/06/24: Group visit - UTOX wnl, pill count 5 off 09/08/24 - Tramadol increase from BID to TID 10/04/24: Group visit - Utox/pill count as expected documented in this encounter Plan of Treatment Upcoming Encounters Date Type Department Care Team (Late st Contact Info) Description 10/24/2024 11:00 AM EST Medication Management [facility] [address] [place] [phone] Carter Wilson, PharmD [address] [place] [address] 11/01/2024 11:00 AM EDT Office Visit [address] [phone] documented as of this encounter Procedures Procedure Name Priority Date/Time Associated Diagnosis Comments POCT JOCY-14 URINE DRUG SCREEN Routine 10/04/2024 2:16 PM EST Long-term current use of opiate analgesic Spondylosis without myelopathy or radiculopathy documented in this encounter Results * POCT JOCY-14 Urine Drug Screen (10/04/2024 2:16 PM EST) THC Positive TCA, Urine Positive Urine Urine specimen obtained by clean catch procedure / Unknown 10/04/2024 2:16 PM EST Deena Blackmon RN - 10/04/2024 2:16 PM EST UTOX cup Lot#[id number] Exp. 05/18/26 Internal Pass Control Kajal FIELDS [...] documented as of this encounter Care Teams Staffing Operations Manager Relationship Specialty Start Date End Date Michelle Young MD [address] [place] [address] PCP - General Family Medicine 06/03/18 documented as of this encounter
--- OUTSIDE RECORDS SUMMARY | 2024-10-12 04:59 | XMS_ITS | Encounter Summary ---
Author Organization [employer] Address 75 [facility] 7t [place] [address] Care Team Providers Care Wood Window And Door Craftsman Name Role Phone Michelle Young MD Primary Care Provide r Reason for Visit * Reason Onset Date Comments Med Refill 09/26/2024 Encounter Details Date Type Department Care Team (Late st Contact Info) Description 09/26/2024 Refill [facility] [address] [place], [place] [phone] Michelle Young MD [address] [place], [place] [phone] Migraine without aura and without status migrainosus, [...] requesting medication refill. Medications needing refill : dkekfdpduv-fvqyqmvlsuoal-pqkosgkj (Fioricet) 50-300-40 MG capsule zolpidem (Ambien) 5 MG tablet To be sent to: [id number] documented in this encounter Plan of Treatment Upcoming Encounters Date Type Department Care Team (Late st Contact Info) Description 10/24/2024 11:00 AM EST Medication Management [facility] [address] [place] [address] Carter Wilson, PharmD [address] [place] [phone] 11/01/2024 11:00 AM EDT Office Visit [facility] [address] [place] [phone] documented as of this encounter Visit Diagnoses Diagnosis Migraine without aura and without status migrainosus, not intractable Primary insomnia Persistent disorder of initiating or maintaining sleep documented in this encounter Additional Health Concerns Assessment Noted Time PHQ-9 Depression Total Score: 0 02/24/20 23 11:15 AM EDT documented as of this encounter Care Teams Wood Window And Door Craftsman Relationship Specialty Start Date End Date Michelle Young MD [address] [place] [address] PCP - General Family Medicine 06/03/18 documented as of this encounter
--- OUTSIDE RECORDS SUMMARY | 2024-10-12 04:59 | XMS_ITS | Encounter Summary ---
Author Organization [employer] Address 75 [facility] 7t [place] [address] Care Team Providers Care Lining Printer Name Role Phone Michelle Young MD Primary Care Provide r Encounter Details Date Type Department Care Team ([facility] st Contact Info) Description 10/04/2024 Orders Only [facility] [address] [place], [place] [phone] Michelle Young MD [address] [place], [place] [phone] Social History Tobacco Use Types Packs/Day Years [...] Description 10/24/2024 11:00 AM EST Medication Management [address] [address] Carter Wilson, PharmD [address] [place] [phone] 11/01/2024 11:00 AM EDT Office Visit [address] [address] documented as of this encounter Procedures Procedure Name Priority Date/Time Associated Diagnosis Comments HEPATIC FUNCTION PANEL Routine 10/04/2024 12:07 PM EST documented in this encounter Results * (ABNORMAL) Hepatic Function Panel (10/04/2024 12:07 PM EST) Bilirubin, Total 0.4 0.0 - 1.0 mg/dL [facility] Bilirubin, Direct 0.1 0.0 - 0.5 mg/dL [facility] Aspartate Amino Transferase 29 5 - 31 U/L [facility] Alanine Aminotransferase 42(H) 0 - 31 U/L [facility] Total Protein 8.1(H) 6.5 - 8.0 g/dL [facility] Albumin Level 4.6 3.5 - 5.0 g/dL [facility] Alkaline Phosphatase 71 39 - 117 U/L [facility] 10/04/2024 12:0 7 PM EST 10/04/2024 1:12 PM EST us Michelle Neumann MD LAB BLOOD ORDERABLES Final Result [facility] [address] [place] [phone] [phone] documented in this encounter Visit Diagnoses Not on filedocumented in this encounter Additional Health Concerns Assessment Noted Time PHQ-9 Depression Total Score: 0 02/24/20 23 11:15 AM EDT documented as of this encounter Care Teams Lining Printer Relationship Specialty Start Date End Date Michelle Young MD [address] [place] [phone] PCP - General Family Medicine 06/03/18 documented as of this encounter
--- OUTSIDE RECORDS SUMMARY | 2024-10-12 04:59 | XMS_ITS | Encounter Summary ---
Author Organization [employer] Address 75 [facility] 7t [place] [address] Care Team Providers Care Oil Field Caser Name Role Phone Michelle Young MD Primary Care Provide r Encounter Details Date Type Department Care Team ([facility] st Contact Info) Description 10/06/2024 Orders Only [facility] [address] [place], [place] [phone] Boyd Mares MD [address] [place], [place] [phone] Primary hypertension (Primary Dx); Hypokalemia Social History Tobacco Use Types Packs/Day Years [...] Description 10/24/2024 11:00 AM EST Medication Management [address] [address] Carter Wilson, PharmD [address] [place] [phone] 11/01/2024 11:00 AM EDT Office Visit [address] [address] Scheduled Orders Name Type Priority Associated Diagnoses Orde r Schedule Basic Metabolic Panel Lab Routine Hypokalemia Expected: 10/06/2024 (Approximate), Expires: 10/06/2025 documented as of this encounter Visit Diagnoses Diagnosis Primary hypertension- Primary Unspecified essential hypertension Hypokalemia Hypopotassemia documented in this encounter Additional Health Concerns Assessment Noted Time PHQ-9 Depression Total Score: 0 02/24/20 23 11:15 AM EDT documented as of this encounter Care Teams Oil Field Caser Relationship Specialty Start Date End Date Michelle Young MD [address] [place] [phone] PCP - General Family Medicine 06/03/18 documented as of this encounter
--- OUTSIDE RECORDS SUMMARY | 2024-10-12 04:59 | XMS_ITS | Encounter Summary ---
Author Organization [employer] Address 75 [facility] 7t [place] [address] Care Team Providers Care Wood Borer Name Role Phone Michelle Young MD Primary Care Provide r Reason for Visit * Reason Onset Date Comments Med Refill 09/26/2024 Encounter Details Date Type Department Care Team (Late st Contact Info) Description 09/26/2024 Refill [facility] [address] [place], [place] [phone] Michelle Young MD [address] [place], [place] [phone] Chronic bilateral low back pain, unspecified whether [...] 50 MG tablet To be sent to: [facility] #[id number] documented in this encounter Plan of Treatment Upcoming Encounters Date Type Department Care Team (Late st Contact Info) Description 10/24/2024 11:00 AM EST Medication Management [facility] [address] [place] [phone] Carter Wilson, PharmD [address] [place] [address] 11/01/2024 11:00 AM EDT Office Visit [facility] [address] [place] [phone] documented as of this encounter Visit Diagnoses Diagnosis Chronic bilateral low back pain, unspecified whether sciatica present documented in this encounter Additional Health Concerns Assessment Noted Time PHQ-9 Depression Total Score: 0 02/24/20 23 11:15 AM EDT documented as of this encounter Care Teams Wood Borer Relationship Specialty Start Date End Date Michelle Young MD [address] [place] [phone] PCP - General Family Medicine 06/03/18 documented as of this encounter
--- OUTSIDE RECORDS SUMMARY | 2024-10-12 04:59 | XMS_ITS | Encounter Summary ---
Author Organization [employer] Address 75 [facility] 7t [place] [address] Care Team Providers Care Gas Welding Machine Operator Name Role Phone Michelle Young MD Primary Care Provide r Reason for Visit * Reason Onset Date Comments Med Refill 02/06/2023 Encounter Details Date Type Department Care Team (Late st Contact Info) Description 02/06/2023 Telephone [facility] [address] [place], [place] [phone] Michelle Young MD [address] [place], [place] [phone] Med Refill Social History Tobacco Use Types [...] 11:00 AM EST Medication Management [facility] [address] [place] [address] Carter Wilson, PharmD [address] [place] [address] 11/01/2024 11:00 AM EDT Office Visit [facility] [address] [place] [phone] documented as of this encounter Visit Diagnoses Not on filedocumented in this encounter Care Teams Gas Welding Machine Operator Relationship Specialty Start Date End Date Michelle Young MD [address] [place] [address] PCP - General Family Medicine 06/03/18 documented as of this encounter
--- OUTSIDE RECORDS SUMMARY | 2024-10-12 04:59 | XMS_ITS | Encounter Summary ---
Author Organization [employer] Address 75 [facility] 7t [place] [address] Care Team Providers Care Dental Office Manager Name Role Phone Michelle Young MD Primary Care Provide r Encounter Details Date Type Department Care Team (Late st Contact Info) Description 10/03/2024 9:45 AM EST Office Visit [facility] [address] [place], [place] [phone] Michelle Young MD [address] [place], [place] [phone] Moderate persistent asthma, unspecified whether complicated (Primary [...] Hip pain Mood disorder (CMS/HCC) Seizure disorder ([facility]/HCC) Irritable bowel syndrome with both constipation and diarrhea Primary insomnia Colon cancer screening Prediabetes Type 2 diabetes mellitus with hyperglycemia, without long-term current use of insulin ([facility]/HCC) Muscle spasm Long-term current use of opiate analgesic Bipolar affective disorder, current episode depressed, current episode severity unspecified (CMS/HCC) Ischemic colitis (CMS/HCC) Severe obesity ([facility]) Chronic maxillary sinusitis Vaginal itching No family [...] morning. 1 kit0 Blood Glucose Monitoring Suppl (ShowKituch Verio) w/Device kit 1 each 2 times daily. TEST BLOOD SUGARONCE DAILY 1 kit 0 Blood Pressure Monitor kit Use to monitor blood pressure at home 1 kit 0 mesuwzdxnr-qmgacvvgxhwpd-oxmeiecz (Fioricet) 50-300-40 MG capsule TAKE 1 CAPSULE FOR MIGRAINE, REPEAT IF NOT IMPROVED IN 4-6 HOURS (MAX 2 PER DAY AND 16 PER MONTH) 16 capsule 3 clonazePAM (KlonoPIN) 0.5 MG tablet TOME 1 TABLETA POR V A ORAL TODOS LOS D CUANDO SEA NECESARIOPARA LA ANSIEDAD Continuous Glucose Bank Guard (FreeStyle Sonny 2 [place]) device Scan sensor every 8 hours 1 each 1 Continuous Glucose Sensor (FreeStyle Sonny 2 Sensor) [facility] Apply 1 sensor every 14 days 2 [...] SPRAYS INTRANASALLY 2 TIMES A DAY Lancets (Seafile Delica Plus [id number]) misc TEST BLOOD SUGAR ONCE DAILY 100 [...] becomes available. 2 each 3 nystatin (Mycostatin) [id number] UNIT/GM powder Apply topically 2 times daily. [...] meds were done today, I advised to fruit picker her Trulicity and inject as prescribedonce a week Continue with her insulin as prescribed Continue with metformin Follow-up with [facility] pharmacy Relevant Orders POCT Glucose (Completed) Lipid [...] current episode depressed, current episode severity unspecified ([facility]/HCC) Continue to follow-up with specialist * Assessment & Plan Note - Michelle Neumann MD - 10/03/2024 4:23 PM EST Associated Problem(s): Type 2 diabetes mellitus with hyperglycemia, without long-term current use of insulin (CMS/HCC) No changes on her meds were done today, I advised to fruit picker her Trulicity and inject as prescribedonce a week Continue with her insulin as prescribed Continue with metformin Follow-up with [facility] pharmacy * Assessment & Plan Note - [...] Description 10/24/2024 11:00 AM EST Medication Management [facility] [address] [place] [phone] Carter Wilson, PharmD [address] [place] [address] 11/01/2024 11:00 AM EDT Office Visit [facility] [address] [place] [phone] documented as of this encounter Procedures Procedure Name Priority Date/Time Associated Diagnosis Comments HEMOGLOBIN A1C Routine 10/04/2024 12:07 PM EST Type 2 diabetes mellitus with hyperglycemia, without long-term current use of insulin ([facility]) LIPID PANEL, STANDARD Routine 10/04/2024 12:07 PM EST Type 2 diabetes mellitus with hyperglycemia, without long-term current use of insulin ([facility]) POCT GLUCOSE Routine 10/03/2024 9:59 AM EST Type 2 diabetes mellitus with hyperglycemia, without long-term current use of insulin ([facility]) documented in this encounter Results * (ABNORMAL) Hemoglobin A1c (10/04/2024 12:07 PM EST) Hemoglobin A1c 7.2(H) <6.0 % [facility] Comment:Hemoglobin A1C Refer ence Range Adults: 4.8 - 6.0 % Non diabetic: < 6.0 % Goal: < 7.0 %Additional Action Suggested: > 8.0 %Note: Hemoglobin A1c results are invalid for patients with abnormal amounts of HbF. Blood transfusions may impact the HbA1c concentration in the patient sample. Estimated Average Glucose 160 mg/dL [facility] Comment:eAG = Estimated ave rage glucose which is %A1C expressed asaverage glucose, using the formula of the Q0J-YwbezvpVhdmsow Glucose study (ADAG), Diabetes Care, Vol.31,#8,Mar. 2007 Blood Venous blood specimen / Unknown 10/04/2024 12:07 PM EST 10/04/2024 1:12 PM EST us Michelle Neumann MD LAB BLOOD ORDERABLES Final Result [facility] [address] [place] [phone] * (ABNORMAL) Lipid Panel, Standard (10/04/2024 12:07 PM EST) Triglycerides 249(H) <150 mg/dL [facility] Comment:Desirable Triglyceri de: less than 150 mg/dLBorderline High Triglyceride 150-199 mg/dLHigh Triglyceride: 200-499 mg/dLVery High Triglyceride: greater than or equal to 5OO mg/dL Cholesterol 200(H) <200 mg/dL [facility] Comment:Desirable Cholestero l: less than 200 mg/dLBorderline High Cholesterol: 200-239 mg/dLHigh Cholesterol: greater than 239 mg/dL LDL Cholesterol Calculated 107(H) <100 mg/dL [facility] Comment:Desirable LDL: less than 100 mg/dLNear Optimal/Above Optimal LDL: 110- 129 mg/dLBorderline High LDL: 130-159 mg/dLHigh LDL: 160-189 mg/dLVery High LDL: greater than or equal to 190 mg/dL HDL Cholesterol 44 >40 mg/dL [facility] Comment:Desirable HDL: great er than 40 mg/dL Note: This HDL assay may give artificially low results in patients with liver disease. Blood Venous blood specimen / Unknown 10/04/2024 12:07 PM EST 10/04/2024 1:12 PM EST us Michelle Neumann MD LAB BLOOD ORDERABLES Final Result [facility] [address] [place] [phone] [phone] * (ABNORMAL) POCT Glucose (10/03/2024 9:59 AM EST) Glucose Blood, POC 256(A) 60 - 200 [...] hyperglycemia, without long-term current use of insulin ([facility]) Chronic maxillary sinusitis Bipolar affective disorder, current episode depressed, current episode severity unspecified ([facility]) Vaginal itching Pruritus of genital organs documented in this encounter Additional Health Concerns Assessment Noted Time PHQ-9 Depression Total Score: 0 02/24/20 23 11:15 AM EDT documented as of this encounter Care Teams Dental Office Manager Relationship Specialty Start Date End Date Michelle Young MD [address] [place] [phone] PCP - General Family Medicine 06/03/18 documented as of this encounter
[2024-10-12] MEDS: Ketorolac Tromethamine 15 MG/ML VIAL IM (05:00)
--- OUTSIDE RECORDS SUMMARY | 2024-10-12 05:00 | XMS_ITS | Encounter Summary ---
Author Organization [employer] Address [address] [facility] 7t [place] [address] Care Team Providers Care Home Performance Consultant Name Role Phone Michelle Young MD Primary Care Provide r Reason for Visit * Reason Comments Hypertension Encounter Details Date Type Department Care Team ([facility] st Contact Info) Description 12/21/2023 1:00 PM EDT Office Visit [facility] [address] [place] [address] Boyd Mares MD [address] [place], [place] [phone] Migraine without aura and without status migrainosus, not intractable (Primary Dx); Hypertension, unspecified type Social History Tobacco Use Types Packs/Day Years Used Date Smoking Tobacco: Never Passive Smoke Exposure: Never Smokeless Tobacco: Never Tobacco Cessation:Counseling Given: Not Answered Depression Answer Date Recorded Patient Health Questionnaire-9 [...] Sign Reading Time Taken Comments Blood Pressure 158/95 12/21/2023 12:55 PM EDT Pulse 107 12/21/2023 12:55 PM EDT Temperature 36.3 ??C (97.4 ??F) 12/21/2023 12:55 PM E DT Respiratory Rate 16 12/21/2023 12:55 PM EDT Oxygen Saturation 100% 12/21/2023 12:55 PM EDT Inhaled Oxygen Concentration - - Weight - - Height - - Body Mass Index - - documented in this encounter Progress Notes * Hillary Reyes RN - 12/21/2023 1:00 PM EDT Patient presents with complaint of HYPERTENSION, pt reports she has taken her BP meds today and Fioricet. Patient states that since yesterday she has had elevated BP readings at home not relieved by medication and head pressure back right side she reports pain 8/10 at this time and pt is tearful. Patientstates that she had ringing in her ears yesterday which has subsided and that she is SOB at times when her BP elevates. She denies CP, left arm pain, vision changes, or nausea. EKG obtained with vital s information given to provider. * Boyd Mares MD - 12/21/2023 1:00 PM EDT Subjective Patient ID: Veronica Akers is a 43 y.o. female who presents for Hypertension. Hypertension This is a chronic problem. The problem is uncontrolled. Associated symptoms include headaches. Pertinent negatives include no anxiety, blurred vision, chest pain, malaise/fatigue, neck pain, orthopnea, palpitations, peripheral edema, PND, shortness of breath or sweats. There are no associated agents to hypertension. Risk factors for coronary artery disease include diabetes mellitus, sedentary lifestyle and obesity. There is no history of angina, kidney disease, CAD/NM, CVA, heart failure or left ventricular hypertrophy. There is no history of chronic renal disease, coarctation of the aorta, hyperaldosteronism, hypercortisolism, hyperparathyroidism, a hypertension causing med, pheochromocytoma, renovascular disease, sleep apnea or a thyroid problem. H/o HTN. Pt is compliant to her medication. Had a cervical headache yesterday and checked her BP which was elevated which prompted her to come to the office for an evaluation. No associated CP, palpitations or blurred vision. Review of Systems Constitutional: Negative for malaise/fatigue. Eyes: Negative for blurred vision. Respiratory: Negative for shortness of breath. Cardiovascular: Negative for chest pain, palpitations, orthopnea and PND. Musculoskeletal: Negative for neck pain. Neurological: Positive for headaches. Objective Physical Exam Constitutional: General: She is not in acute distress. Appearance: Normal appearance. She is obese. She is not ill-appearing, toxic- appearing or diaphoretic. Cardiovascular: Rate and Rhythm: Normal rate and regular rhythm. Heart sounds: No murmur heard. No friction rub. No gallop. Pulmonary: Effort: Pulmonary effort is normal. Skin: General: Skin is warm. Neurological: General: No focal deficit present. Mental Status: She is alert. Psychiatric: Mood and Affect: Mood normal. Assessment/Plan Diagnoses and all orders for this visit: Migraine without aura and without status migrainosus, not intractable Comments: H/o migraine Pt requested a refill on her Fioricet. Orders: - yjblwbnjyv-kbutcnoqvmzme-[id number] (Fioricet) 50-300-40 MG capsule; TAKE 1 CAPSULE FOR MIGRAINE, REPEAT IF NOT IMPROVED IN 4-6 HOURS (MAX 2 PER DAY AND 16 PER MONTH) Hypertension, unspecified type Comments: Uncontrolled Educated on the DASH diet Medication adjusted as follow : hydrochlorothiazide increased to 25 mg daily, Diovan increased to 320 mg daily Pt needs a BMP 2 weeks after the changes. To call the office if the BP is still elevated prior to the next visit. Nurse visit for recheck the BP in 2 weeks. Orders: - ECG 12 lead - hydroCHLOROthiazide (HYDRODiuril) 25 MG tablet; Take 1 tablet (25 mg) by mouth Once per day. - valsartan (Diovan) 320 MG tablet; Take 1 tablet (320 mg) by mouth Once per day. - Basic Metabolic Panel; Future * Richa Grayson RN - 12/21/2023 1:00 PM EDT TC to patient via conference interpreter. Reviewed results and recommendations with patient. All patient questions and concerns were answered. Patient stated understanding and agrees with plan. documented in this encounter Miscellaneous Notes * Result Encounter Note - Boyd Mares MD - 12/21/2023 1:00 PM EDT Please call. Labs reviewed. Patient has hypokalemia. Please advise to stop hydrochlorothiazide 25 mg once a day. The dose will be decreased to 12.5 mg once a day. A supplement of potassium was sent to the pharmacy to take 2 times a day for 5 days. Repeat potassium level next week after completion of the treatment with potassium. Patient is also to increase potassium in her diet. documented in this encounter Plan of Treatment Upcoming Encounters Date Type Department Care Team (Late st Contact Info) Description 10/24/2024 11:00 AM EST Medication Management [facility] [address] [place] [id number] Carter Wilson, PharmD [address] [place] [address] 11/01/2024 11:00 AM EDT Office Visit [facility] [address] [place] [address] Scheduled Orders Name Type Priority Associated Diagnoses Orde r Schedule ECG 12 lead ECG Routine Hypertension, unspecified type Ordered: 12/21/2023 documented as of this encounter Procedures Procedure Name Priority Date/Time Associated Diagnosis Comments BASIC METABOLIC PANEL Routine 10/04/2024 12:07 PM EST Hypertension, unspecified type ECG 12-LEAD Routine 12/21/2023 4:26 PM EDT Hypertension, unspecified type documented in this encounter Results * (ABNORMAL) Basic Metabolic Panel (10/04/2024 12:07 PM EST) Sodium 139 135 - 145 mmol/L [facility] Potassium 3.2(L) 3.3 - 5.1 mmol/L [facility] Chloride 109(H) 96 - 108 mmol/L [facility] Carbon Dioxide 21(L) 22 - 29 mmol/L [facility] Anion Gap 12 12 - 20 [facility] Urea Nitrogen (BUN) 12 9 - 16 mg/dL [facility] Creatinine, Serum 1.15 0.5 - 1.4 mg/dL [facility] Estimated Glomerular Filt Rate 51 [facility] Comment:Chronic Kidney Disea se: Estimated GFR < 60 mL/min/1.97e0Oktnbp Kidney Disease: Estimated GFR < 15 mL/min/1.73m2 Glucose 103 60 - 115 mg/dL [facility] Calcium 9.6 8.4 - 10.2 mg/dL [facility] Blood Venous blood specimen / Unknown 10/04/2024 12:07 PM EST 10/04/2024 1:12 PM EST Boyd Mares MD LAB BLOOD ORDERABLES Final Result [facility] [address] [place] [address] [phone] * ECG 12 lead (12/21/2023 4:26 PM EDT) Narrative Boyd Mares MD - 12/21/2023 4:26 PM EDT Sinus rhythm. RSR' in V1V2, Long AT interval. No acute ST Elevation or depression. us Boyd Mares MD ECG ORDERABLES Final Resul t documented in this encounter Visit Diagnoses Diagnosis Migraine without aura and without status migrainosus, not intractable- Primary Hypertension, unspecified type documented in this encounter Additional Health Concerns Assessment Noted Time PHQ-9 Depression Total Score: 0 02/24/20 23 11:15 AM EDT documented as of this encounter Care Teams Home Performance Consultant Relationship Specialty Start Date End Date Michelle Young MD [address] [place] [address] PCP - General Family Medicine 06/03/18 documented as of this encounter
--- OUTSIDE RECORDS SUMMARY | 2024-10-12 05:00 | XMS_ITS | Encounter Summary ---
Author Organization [facility] [employer] Address [address] [facility] 7t [place] [address] Care Team Providers Care Records Management Analyst Name Role Phone Michelle Young MD Primary Care Provide r Reason for Visit * Reason Comments Pre-visit Planning SDOH screening negat marta and tobacco screening negative Encounter Details Date Type Department Care Team ([facility] st Contact Info) Description 09/21/2024 Patient Outreach [facility] [address] [place], [place] [phone] Michelle Young MD [address] [place], [place] [phone] Pre-visit Planning (SDOH screening negative and tobacco [...] Description 10/24/2024 11:00 AM EST Medication Management [facility] [address] [place] [address] Carter Wilson, PharmD [address] [place] [address] 11/01/2024 11:00 AM EDT Office Visit [facility] [address] [place] [address] documented as of this encounter Visit Diagnoses Not on filedocumented in this encounter Additional Health Concerns Assessment Noted Time PHQ-9 Depression Total Score: 0 02/24/20 23 11:15 AM EDT documented as of this encounter Care Teams Records Management Analyst Relationship Specialty Start Date End Date Michelle Young MD [address] [place] [address] PCP - General Family Medicine 06/03/18 documented as of this encounter
--- OUTSIDE RECORDS SUMMARY | 2024-10-12 05:00 | XMS_ITS | Encounter Summary ---
Author Organization [employer] Address [address] [facility] 7t [place] [address] Care Team Providers Care Chucking And Boring Machine Operator Name Role Phone Michelle Young MD Primary Care Provide r Reason for Visit * Reason Onset Date Comments Med Refill 04/20/2023 Encounter Details Date Type Department Care Team (Late st Contact Info) Description 04/20/2023 Telephone [facility] [address] [place], [place] [phone] Michelle Young MD [address] [place], [place] [phone] Med Refill Social History Tobacco Use Types [...] 1:25 PM EDT Medication was sent to [id number] on 03/19/23 with 3 refills. * Telephone Encounter - Cheryl Mcclelland - 04/20/2023 1:09 PM EDT Tc from pt requesting med refill for medication mebbjsmuer-tyocdmfgwbsxb-mwdqhefa (Fioricet) 50-300-40 MG capsule. documented in this encounter Plan of Treatment Upcoming Encounters Date Type Department Care Team (Late st Contact Info) Description 10/24/2024 11:00 AM EST Medication Management [facility] [address] [place] [phone] Carter Wilson, PharmD [address] [place] [address] 11/01/2024 11:00 AM EDT Office Visit [address] [address] documented as of this encounter Visit Diagnoses Not on filedocumented in this encounter Additional Health Concerns Assessment Noted Time PHQ-9 Depression Total Score: 0 02/24/20 23 11:15 AM EDT documented as of this encounter Care Teams Chucking And Boring Machine Operator Relationship Specialty Start Date End Date Michelle Young MD [address] [place] [address] PCP - General Family Medicine 06/03/18 documented as of this encounter
--- OUTSIDE RECORDS SUMMARY | 2024-10-12 05:00 | XMS_ITS | Encounter Summary ---
Author Organization [employer] Address [address] [place] [address] 7t [place] [address] Care Team Providers Care Brickmason Supervisor Name Role Phone Michelle Young MD Primary Care Provide r Reason for Visit * Reason Onset Date Comments Med Refill 04/20/2023 Encounter Details Date Type Department Care Team (Late st Contact Info) Description 04/20/2023 Telephone [facility] [address] [place], [place] [phone] Michelle Young MD [address] [place], [place] [phone] Med Refill Social History Tobacco Use Types [...] Description 10/24/2024 11:00 AM EST Medication Management [address] [address] Carter Wilson, PharmD [address] [place] [address] 11/01/2024 11:00 AM EDT Office Visit [address] [address] documented as of this encounter Visit Diagnoses Not on filedocumented in this encounter Additional Health Concerns Assessment Noted Time PHQ-9 Depression Total Score: 0 02/24/20 23 11:15 AM EDT documented as of this encounter Care Teams Brickmason Supervisor Relationship Specialty Start Date End Date Michelle Young MD [address] [place] [id number] PCP - General Family Medicine 06/03/18 documented as of this encounter
--- OUTSIDE RECORDS SUMMARY | 2024-10-12 05:00 | XMS_ITS | Encounter Summary ---
Author Organization [employer] Address [address] [facility] 7t [place] [address] Care Team Providers Care Oven Operator Name Role Phone Michelle Young MD Primary Care Provide r Reason for Visit * Reason Comments Med Refill Encounter Details Date Type Department Care Team ([facility] st Contact Info) Description 09/23/2023 Refill [facility] [address] [place], [place] [phone] Michelle Young MD [address] [place], [place] [phone] Primary insomnia Social History Tobacco Use Types [...] Description 10/24/2024 11:00 AM EST Medication Management [address] [address] Carter Wilson, PharmD [address] [place] [address] 11/01/2024 11:00 AM EDT Office Visit [address] [address] documented as of this encounter Visit Diagnoses Diagnosis Primary insomnia Persistent disorder of initiating or maintaining sleep documented in this encounter Additional Health Concerns Assessment Noted Time PHQ-9 Depression Total Score: 0 02/24/20 23 11:15 AM EDT documented as of this encounter Care Teams Oven Operator Relationship Specialty Start Date End Date Michelle Young MD [address] [place] [address] PCP - General Family Medicine 06/03/18 documented as of this encounter
--- OUTSIDE RECORDS SUMMARY | 2024-10-12 05:00 | XMS_ITS | Continuity of Care Document ---
Author Organization [employer] [facility] Address [address] [place] [address] Phone Care Team Providers Care Back Up Machine Operator Name Role Phone Mahnaz Larios APN Unavailable Unavailable Allergies, Adverse Reactions, Alerts Substance Reaction Status Criticality No Known Allergies Active No Inform ation Medications Medication Instructions Dosage Effective Dates (start - stop) Status Comments Norvasc 5 mg tablet take 1 tablet by ora l route every day 5 MG - Active sucralfate 1 gram tablet take 1 tablet by oral route 4 times every day on an empty stomach 1 hour before meals and at bedtime 1 G - Active Protonix 40 mg tablet,delayed release take 1 tablet by oral route every day 40 MG - Active ibuprofen 800 mg tablet take 1 tablet by oral route 3 times every day with food 800 MG - Active oxycodone-acetamino phen 5 mg-325 mg tablet take 1 tablet by oral route every 6 hours as needed 1.00 tablet - Active Topamax 100 mg tablet take 1 Tablet by oral route 2 times every day at 7 am and 8 pm 100 MG - Active Procedures Procedure Date Office/outpatient visit,est, mod 2017 Advance Directives Directive Yes / No Effective Date File Name No Information Encounters Encounter Description Practice Location Reason(s) For Visit Diagnoses Date Provider Office/outpa tient visit,est, mod [facility], [address] [place] [address], [address], tel:[phone] [facility] Old left arm pain for a few weeks (chief complaint) Carpal tunnel syndrome on leftBody mass index (BMI) 36.0-36.9, adult [facility] Ric Joya. [address] [place] [address]. tel:[phone] [facility], [address] [place], [place], [facility], tel:[phone] [facility] No Information 8 [facility]. [address], [place], [facility], . tel:[phone] [facility], [address] [place], [place], [facility], tel:[phone] [facility] discharge (chief complaint) Other pulmonary embolism without acute cor pulmonale, unspecified chronicityEsophagitisEssen tial (primary) hypertensionOverweightIntr actable migraine without status migrainosus, unspecified migraine typeCoughMultiple joint painBody mass index (BMI) 34.0-34.9, adult 8 [facility]. [address] [place], [place], [facility], . tel:[phone] Family History Family Member Type Diagnosis Age [...] mellitus Payers Payer name Insurance type Covered constitution party ID Authoriza tikathleen(s) Medicare [facility] [id number] [id number] Social History Type Description Quantity Date Captured [...] syndrome on left) ordered Referral Referred To: [facility] [address] [place], [address] [phone] Ordered: Referrals: Occupational Therapy. [facility] Appointment date/timeframe: 6 Months ordered Referral Referred To: [facility] [address] [place], [phone] Ordered: Referrals: Orthopedic Surgery. [facility] Appointment date/timeframe: 6 Months ordered Referral Ordered: Chnadrakant Crews MD -Neurology (related to Intractable migraine without status migrainosus, unspecified migraine type) ordered Referral Ordered: [facility] Leodan Johnson MD -Gastroenterology (related to Esophagitis) ordered Referral Ordered: [facility] -Physical Medicine and Rehabilitation (related to Multiple joint pain) ordered Referral Referred To: Chandrakant Crews MD [address], [address] [phone] Ordered: Referrals: Neurology. Chandrakant Crews MD. Evaluate and treat Appointment date/timeframe: 6 Months ordered Referral Referred To: [facility] Leodan Johnson MD [address] [place], [phone] Ordered: Referrals: Gastroenterology. [facility] Leodan Johnson MD. Evaluate and treat Appointment date/timeframe: 6 Months ordered [facility] Ordered: Referrals: Physical Medicine and Rehabilitation. [facility]. Evaluate and treat Appointment date/timeframe: 6 [...] get PT Related to Multiple joint pain repeat CT showed no evidence of PEis not on coumadin Related to Other pulmonary embolism without acute cor pulmonale, unspecified chronicity wants to get roshan hahn Rel ated to Cough BP stable Related to Essen tial (primary) hypertension see neurology Related to Intra ctable migraine without status migrainosus, unspecified migraine type see GI Related to Esoph agitis Assessments Type Assessment Date assessment Carpal tunnel syndrome on left J assessment Body mass index (BMI) 36.0-36.9, adult Mental Status Date Cognitive Assessment Orientation - Bynum ed to time, place, person, situation.
--- OUTSIDE RECORDS SUMMARY | 2024-10-12 05:00 | XMS_ITS | Encounter Summary ---
Author Organization [employer] Address [address] [facility] 7t [place] [address] Care Team Providers Care White Metal Corrosion Proofer Name Role Phone Michelle Young MD Primary [...] 11:00 AM EST Medication Management [facility] [address] [place] [address] Carter Wilson, PharmD [address] [place] [address] 11/01/2024 11:00 AM EDT Office Visit [facility] [address] [place] [address] documented as of this encounter Visit Diagnoses Not on filedocumented in this encounter Additional Health Concerns Assessment Noted Time PHQ-9 Depression Total Score: 0 02/24/20 23 11:15 AM EDT documented as of this encounter Care Teams White Metal Corrosion Proofer Relationship Specialty Start Date End Date Michelle Young MD [address] [place] [address] PCP - General Family Medicine 06/03/18 documented as of this encounter
--- OUTSIDE RECORDS SUMMARY | 2024-10-12 05:00 | XMS_ITS | Encounter Summary ---
Author Organization [employer] Address [address] [facility] 7t [place] [address] Care Team Providers Care Database Marketing Manager Name Role Phone Michelle Young MD Primary Care Provide r Reason for Visit * Reason Onset Date Comments Med Refill 09/22/2024 Encounter Details Date Type Department Care Team (Late st Contact Info) Description 09/22/2024 Telephone [facility] [address] [place], [place] [phone] Michelle Young MD [address] [place], [place] [phone] Med Refill Social History Tobacco Use Types [...] 3:48 PM EST TC placed to patient [phone] in regards to below message. Patient advised [...] MG/0.5ML solution auto-injector To be sent to: [facility] pharmacy Tc from pt stating pharmacy didn't [...] Description 10/24/2024 11:00 AM EST Medication Management [address] [address] Carter Wilson, PharmD [address] [place] [address] 11/01/2024 11:00 AM EDT Office Visit [address] [address] documented as of this encounter Visit Diagnoses Not on filedocumented in this encounter Additional Health Concerns Assessment Noted Time PHQ-9 Depression Total Score: 0 02/24/20 23 11:15 AM EDT documented as of this encounter Care Teams Database Marketing Manager Relationship Specialty Start Date End Date Michelle Young MD [address] [place] [address] PCP - General Family Medicine 06/03/18 documented as of this encounter
--- OUTSIDE RECORDS SUMMARY | 2024-10-12 05:00 | XMS_ITS | Encounter Summary ---
Author Organization [employer] Address [address] [place] [address] 7t [place] [address] Care Team Providers Care Bar Host/Hostess Name Role Phone Michelle Young MD Primary Care Provide r Reason for Visit * Reason Comments Med Refill Encounter Details Date Type Department Care Team (Late st Contact Info) Description 05/08/2023 Refill [facility] [address] [place], [place] [phone] Michelle Young MD [address] [place], [place] [phone] Gastritis, presence of bleeding unspecified, unspecified chronicity, [...] Description 10/24/2024 11:00 AM EST Medication Management [facility] [address] [place] [address] Carter Wilson, PharmD [address] [place], [place] [phone] 11/01/2024 11:00 AM EDT Office Visit [facility] [address] [place] [address] documented as of this encounter Visit Diagnoses Diagnosis Gastritis, presence of bleeding unspecified, unspecified chronicity, unspecified gastritis type documented in this encounter Additional Health Concerns Assessment Noted Time PHQ-9 Depression Total Score: 0 02/24/20 23 11:15 AM EDT documented as of this encounter Care Teams Bar Host/Hostess Relationship Specialty Start Date End Date Michelle Young MD [address] [place] [address] PCP - General Family Medicine 06/03/18 documented as of this encounter
--- OUTSIDE RECORDS SUMMARY | 2024-10-12 05:00 | XMS_ITS | Clinical Summary ---
Author Organization [facility] Address [address] [place] [address] Phone Care Team Providers Care Utility Worker Driver Name Role Phone Michelle Young MD Primary Care Provide r Allergies No known active allergies Medications amLODIPine (NORVASC) 10 mg tablet Take 1 tablet (10 mg total) by mouth 1 (one) time each day. Active Surgical History Surgery Date Site/Laterality Comments SECTION PROCEDURE: [place] DELIVERY ONLY HYSTERECTOMY PROCEDURE: HISTORICAL HYSTERECTOMY TONSILLECTOMY ADENOIDECTOMY, BILATERAL MYRINGOTOMY AND TUBES PROCEDURE: [place] TONSILLECTOMY & ADENOIDECTOMY <AGE 10 Medical History [...] (2 of 2 - PCV) 12/20/2013 12/20/2012 HIV Screening 08/02/2022 Hepatitis C Screening 08/02/2022 [...] Colorectal Cancer Screening: FIT-DNA (Cologuard) 09/28/2026 09/28/2023 DTaP,Tdap,and Td Vaccines (3 - Td or Tdap) 07/08/2028 07/08/2018, 04/20/2013 Cholesterol Screening (Lipid Panel) 09/22/2028 09/22/2023 HIB [...] mmol/L LAB CHEMISTRY METHOD 06/26/2024 8:11 AM [facility] Potassium 3.8 3.5 - 5.5 mmol/L LAB CHEMISTRY METHOD 06/26/2024 8:11 AM [facility] Chloride 109 96 - 110 mmol/L LAB CHEMISTRY METHOD 06/26/2024 8:11 AM [facility] CO2 23 21 - 32 mmol/L LAB CHEMISTRY METHOD 06/26/2024 8:11 AM [facility] Anion Gap 8 3 - 11 LAB CHEMISTRY METHOD 06/26/2024 8:11 AM [facility] Glucose 133(H) 70 - 100 mg/dL LAB CHEMISTRY METHOD 06/26/2024 8:11 AM [facility] BUN 8 5 - 25 mg/dL LAB CHEMISTRY METHOD 06/26/2024 8:11 AM [facility] Creatinine 1.06 0.50 - 1.10 mg/dL LAB CHEMISTRY METHOD 06/26/2024 8:11 AM [facility] eGFR 66 >=60 mL/min/1. 73m2 LAB CHEMISTRY METHOD 06/26/2024 8:11 AM [facility] Comment:Calculation based on the??Chronic Kidney Disease Epidemiology Collaboration (CKD-EPI) equation refit??without adjustment for race. BUN/Creatinine Ratio 7.5 LAB CHEMISTRY METHOD 06/26/2024 8:11 AM [facility] Calcium 9.6 8.5 - 10.5 mg/dL LAB CHEMISTRY METHOD 06/26/2024 8:11 AM [facility] AST (SGOT) 18 10 - 42 unit/L LAB CHEMISTRY METHOD 06/26/2024 8:11 AM [facility] ALT (SGPT) 39 10 - 60 unit/L LAB CHEMISTRY METHOD 06/26/2024 8:11 AM [facility] Alkaline Phosphatase 79 42 - 121 unit/L LAB CHEMISTRY METHOD 06/26/2024 8:11 AM [facility] Total Protein 7.2 6.0 - 8.0 g/dL LAB CHEMISTRY METHOD 06/26/2024 8:11 AM [facility] Albumin 4.2 3.2 - 5.0 g/dL LAB CHEMISTRY METHOD 06/26/2024 8:11 AM [facility] Total Bilirubin 0.4 0.0 - 1.4 mg/dL LAB CHEMISTRY METHOD 06/26/2024 8:11 AM [facility] Blood Venous blood specimen / Unknown Venipuncture / Unknown 06/26/2024 7:26 AM EST 06/26/2024 7:27 AM EST us Toby Reynoso MD LAB BLOOD ORDERABLES Final Resu lt [facility] [address] [place] [address], [place] [phone] from Last 3 Months or Most Recently Relevant to Health Maintenance Insurance MEDICAID - [place] [facility] Member Subscriber Plan / Payer (Ef fective 2024-Present) Name:Veronica Wilcox Relation to Subscriber:Self Name:Veronica Wilcox Payer ID:[id number] Group ID:Not on file Type:Not on file Address: [address] [place] [address] Care Teams Utility Worker Driver Relationship Specialty Start Date End Date Michelle Young MD [address] [id number] PCP - General Internal Medicine 09/06/19
--- OUTSIDE RECORDS SUMMARY | 2024-10-12 05:00 | XMS_ITS | Encounter Summary ---
Author Organization [employer] Address [address] [facility] [address]t [place] [address] Care Team Providers Care Patient'S Librarian Name Role Phone Michelle Young MD Primary Care Provide r Reason for Visit * Reason Onset Date Comments Med Change Request Durable Medical Equipment 01/04/2024 Blood Pressure Monitor Encounter Details Date Type Department Care Team (Late st Contact Info) Description 01/04/2024 Refill [facility] [address] [place], [place] [phone] Michelle Young MD [address] [place], [place] [phone] Primary hypertension Social History Tobacco Use Types [...] t he electric, gas, oil or water [employer] threatened to shut off services in your [...] for signature. Once signed will fax to [facility] and scaninto chart under media. documented in this encounter Plan of Treatment Upcoming Encounters Date Type Department Care Team (Late st Contact Info) Description 10/24/2024 11:00 AM EST Medication Management [address] [address] Carter Wilson, PharmD [address] [place] [address] 11/01/2024 11:00 AM EDT Office Visit [address] [address] documented as of this encounter Visit Diagnoses Diagnosis Primary hypertension Unspecified essential hypertension documented in this encounter Additional Health Concerns Assessment Noted Time PHQ-9 Depression Total Score: 0 02/24/20 23 11:15 AM EDT documented as of this encounter Care Teams Patient'S Librarian Relationship Specialty Start Date End Date Michelle Young MD [address] [place] [address] PCP - General Family Medicine 06/03/18 documented as of this encounter
--- OUTSIDE RECORDS SUMMARY | 2024-10-12 05:00 | XMS_ITS | Encounter Summary ---
Author Organization [employer] Address [address] [facility] 7t [place] [address] Care Team Providers Care Wealth Management Director Name Role Phone Michelle Young MD Primary Care Provide r Reason for Visit * Reason Onset Date Comments GIULIANA SMITH 09/15/2024 Encounter Details Date Type Department Care Team (Late st Contact Info) Description 09/15/2024 Telephone [facility] [address] [place], [place] [phone] Nimo Rao, SHARLENE [address] [place], [place] [phone] GIULIANA SMITH Social History Tobacco Use Types [...] CCA PA form completed and faxed to [phone]. Patient's preferred pharmacy: [facility]/pharmacy #[id number] - [place], [place] - [address] [place] [id number] CGM PA should be approved by: 09/29/2024 Veronica Akers will be scheduled with red team nurses for CGM placement/teaching once PA is approved. documented in this encounter Plan of Treatment Upcoming Encounters Date Type Department Care Team (Late st Contact Info) Description 10/24/2024 11:00 AM EST Medication Management [facility] [address] [place] [address] Carter Wilson, PharmD [address] [place], [place] [phone] 11/01/2024 11:00 AM EDT Office Visit [facility] [address] [place] [address] documented as of this encounter Visit Diagnoses Diagnosis Type 2 diabetes mellitus with hyperglycemia, without long-term current use of insulin ([facility]) documented in this encounter Additional Health Concerns Assessment Noted Time PHQ-9 Depression Total Score: 0 02/24/20 23 11:15 AM EDT documented as of this encounter Care Teams Wealth Management Director Relationship Specialty Start Date End Date Michelle Young MD [address] [place] [address] PCP - General Family Medicine 06/03/18 documented as of this encounter
--- OUTSIDE RECORDS SUMMARY | 2024-10-12 05:00 | XMS_ITS | Data Portability ---
Author Organization [employer] Address [address] [place] [id number] Care Team Providers Care Labeling Machine Operator Name Role Phone [facility] Referring Provider Assessment No assessment recorded. Plan of Treatment Reminders Order Date Submit Date Provider Last Modified By Organization Details Last Modified Time Details Appointments None recorded. Lab None recorded. Referral None recorded. Procedures None recorded. Surgeries None recorded. Imaging None recorded. Medication Orders Zithromax Z-Rfeddie 250 mg tablet 2022 023 [facility]/Pharmacy #[id number], [address] [place], [address], 3 11:31:31 Patient TargetsNo targets recorded. Patient [...] Details Last Updated DateTime 3 16 /min 89103.4 8 g 96 % 96 % 98 [...] SNOMED-CT Code Diagnosis ICD10 Code Diagnosis Note [id number] Luigi Gill MD Main - [facility] [address] [place] [phone] 01/23/2023 11:25:23 01/23/2023 12:10:26 Acute bronchitis 63330498 J20.9 This 42-year-ol d female has has [...] Aguilera Member ID Guarantor Name 01/23/2023 1 [facility] - DOS ON OR AFTER 2022 - DUAL ELIGIBLE - INTERMEDIATE OPTIONS AND ONE CARE (MEDICARE REPLACEMENT/ADV ANTAGE - HMO) Veronica Oleary [id number] Veronica Oleary Notes Date Note Type Note Provider Name and Address Organization Details Recorded Time 01/23/2023 text/html HPI: Member calling in with c/o constant non-productive cough, rib pain, low grade fever. States she is worried she could have pneumonia as she has had it in the past. Denies any shortness of breath. [facility] .................. .................. .................. .................. .................. .................. .................. ............... CRC Nursing Assessment: Comments: CRC RN did not require any additional information to process this visit. Luigi Gill MD [address] [facility],[address], [place], [address], [facility] - [place] 01/23/2023 11:31:57 OBGyn Episode No OBEpisode recorded.
--- OUTSIDE RECORDS SUMMARY | 2024-10-12 05:00 | XMS_ITS | Continuity of Care Document ---
Author Organization [facility] Address [address] [place] [address] Phone Care Team Providers Care Social Work Supervisor Name Role Phone Papito REYES, JAY, JAE, [...] E&M Established 15 Mins- [place] & [place] [facility], [address] [place] [address] Dr Allen [address]Jayme [place], [id number], [place] tel:[phone] CVR - [place] [facility] [place] Venous insufficiency (chronic) (peripheral)Es sential (primary) hypertension 4 Papito REYES RVT, RPVI Robert. [address] [place] [address], [place], [place], [id number], [place]. tel:[phone] Referring Provider: Michelle Harris, [address] [place] [address], [address]. tel:[phone] [facility] [facility], [address] [place] [address] Dr Allen [address]Jayme [place], [id number], [place] tel:[phone] CV - [facility] Varicose veins of bilateral lower extremities with pain 4 Papito REYES RVT, JAE Whitten. [address] [place] [address], [place], [place], [id number], [place]. tel:[phone] Referring Provider: Michelle Harris, [address] [place] [address], [address]. tel:[phone] [place] [facility], [address] [place] [address] Dr Allen [address] 1000Jayme [place], [id number], [place] tel:[phone] [facility] - [place] Encounter for follow-up examination after completed treatment for conditions other than malignant neChronic venous hypertension (idiopathic) with other complications of left lower extremity 4 Papito REYES RVT, RPVI Robert. [address] [place] [address], [place] [address], [place], [place], [id number], [place]. tel:[phone] Referring Provider: Fish Cobos MD, RVT, JAE, [address] [place] [address] [address], [place], [address] . tel:[phone] [facility], [address] [place] [address] [address]Suite [place] Banegas [place], [id number], [place] tel:[phone] CV[place] Chronic venous hypertension (idiopathic) with inflammation of left lower extremity Oct- 4 Carol Mahmood. [address] [place] [address], [address], [place], [id number], [place]. tel:[phone] Referring Provider: Timoteo SMITH, [address] [place] [address] [address], [place], [address] . tel:[phone] [facility], [address] [place] [address] Dr Allen [address]Suite Jayme Banegas [place], [id number], [place] tel:[phone] CVR - [facility] Encounter for follow-up examination after completed treatment for conditions other than malignant ne Oct- 4 Papito REYES RVT, JAE Whitten. [facility], [facility], [place] [address], [place], [id number], [place]. tel:[phone] Referring Provider: Michelle Neumann MD A, [address] [place] [address], [address]. tel:[phone] [facility], [address] [place] [address] [address]Suite Jayme Banegas [place], [id number], [place] tel:[phone] CVR [facility] Varicose veins of left lower extremity with other complications Oct- 0 4 Papito REYES RVT, JAE Whitten. [address] [place] [address], [address], [place], [id number], [place]. tel:[phone] [facility], [address] [place] [address] Dr Allen [address]Suite Jayme Banegas [place], [id number], [place] tel:[phone] CVR - [facility] Chronic venous hypertension (idiopathic) with inflammation of left lower extremity 4 Papito REYES RVT, JAE Whitten. [address] [place] [address], [place], [id number], [place]. tel:[phone] Referring Provider: Michelle Harris, [address] [place], [address]. tel:[phone] [facility], [address] [place] [address] [address]Jayme [place], [id number], [place] tel:[phone] CVR - [place] Encounter for follow-up examination after completed treatment for conditions other than malignant neChronic venous hypertension (idiopathic) with other complications of right lower extremity Oct-0 4 Papito REYES RVT, JAE Whitten. [address] [place] [address], [place], [id number], [place]. tel:[phone] Referring Provider: Fish Cobos MD, RVT, JAE, [address] [place] [address], [place], [address] . tel:[phone] [facility], [address] [place] [address] [address] 1000Jayme [place], [id number], [place] tel:[phone] CVR - [place] Varicose veins of right lower extremity with other complications 4 Carol Mahmood. [address] [place] [address], [address], [place], [id number], [place]. tel:[phone] Referring Provider: Timoteo SMITH, [address] [place] [address] 302, [place], [address] . tel:[phone] [facility], [address] [place] [address] [facility] 1000[address] 1000Jayme [place], [id number], [place] tel:[phone] CVR - [place] Encounter for follow-up examination after completed treatment for conditions other than malignant neVaricose veins of right lower extremity with pain Sep- 4 Papito REYES RVT, JAE Whitten. [address] [place] [address], [place], [id number], [place]. tel:[phone] Referring Provider: Fish Cobos MD, RVT, JAE, [address] [place] [address] [address], [place], [address] . tel:[phone] [facility] [place], [address] [place] [address] Dr Allen 1000SuJayme mckeon [place], [id number], [place] tel:[phone] CVR - [place] Chronic venous hypertension (idiopathic) with inflammation of right lower extremity 4 Papito REYES RVT, RPVI Robert. [address] [place] [address], [place] [address], [place], [id number], [place]. tel:[phone] [facility] [facility], [address] [place] [address] Dr Allen 1000[facility] [place], [id number], [place] tel:[phone] CVR - [place] Varicose veins of right lower extremity with other complications 4 Papito REYES RVT, RPVI Robert. [address] [place] [address], [place], [id number], [place]. tel:[phone] Referring Provider: Fish Cobos MD, RVT, JAE, [address] [place] [address], [place], [address] . tel:[phone] Office/Outpt E&M Established 25 Mins [facility], [address] [place] [address] Dr Allen [address]Suite Jayme Banegas MD, [id number], [place] tel:[phone] [facility] Cramp and spasmChronic venous hypertension (idiopathic) with other complications of bilateral lower extremityLocal ized edemaPain in right legPain in left legRestless legs syndromeEssent ial (primary) hypertensionVe nous insufficiency (chronic) (peripheral) 4 Papito REYES RVT, RPVI Robert. [address] [place] [address], [address], [place], [id number], [place]. tel:[phone] [facility] MD [facility], [address] [place] [address] Dr Allen 1000Suite Jayme Banegas [place], [id number], [place] tel:[phone] CVR - [place] Chronic venous hypertension (idiopathic) with other complications of bilateral lower extremity 4 Papito REYES, RVT, RPVI Fish. [address] [place] [address], [place], [place], [id number], [place]. tel:[phone] Office/Outpt E&M Established 15 Mins [facility] [place], [address] [place] [address] [facility] 1000[facility] 1000Jayme [place], [id number], [place] tel:[phone] CVR - [place] Chronic venous hypertension w/o comp of bilateral low extrm May-2 1 Jovanna La. [address] [place] [address], [id number], . tel:[phone] Referring Provider: Bessie Nugent, [address] [place] [address], [address] . tel:[phone] [facility], [address] [place] [address] [facility] [address] [address], [place], [id number], [place] tel:[phone] CVR - [facility] Chronic venous htn w oth comp of bilateral low extrm May- 1 Jovanna La. [address] [place] [address], [id number], [place]. tel:[phone] Referring Provider: Bessie Nugent, [address] [place] [address], [place], [address] . tel:[phone] [facility], [address] [place] [address] [facility] [address] [address]Jay[address] [place], [id number], [place] tel:[phone] CVR - [place] Chronic venous hypertension w oth comp of l low extrem 1 Jovanna La. [address] [place] [address], [id number], [place]. tel:[phone] Referring Provider: Bessie Nugent, [address] [place] [address], [place], [address] . tel:[phone] [facility] [place], [address] [place] [address] Dr Allen 1000[facility] Jayme Ban[place], [id number], [place] tel:[phone] CVR - [place] Varicose veins of left lower extremities w oth complications 1 Jovanna La. [address] [place] [address], [address], [id number], . tel:[phone] Referring Provider: Bessie Nugent, [address] [place] [address], [address] . tel:[phone] [facility] MD [place], [address] [place] [address] Dr Allen 1000[facility] Jayme Banegas [place], [id number], [place] tel:[phone] CVR - [place] Chronic venous hypertension w oth comp of r low extrem 1 Jovanna La. [address] [place] [address], [id number], . tel:[phone] Referring Provider: Besise Nugent, [address] [place] [address], [place], [address] . tel:[phone] [facility] MD [facility], [address] [place] [address] Dr Allen 1000[facility] Jayme Banegas MD, [id number], tel:[phone] [place]R - [place] Varicose veins of right low extrm w oth complications 1 Jovanna La. [address] [place] [address], [id number], [place]. tel:[phone] Referring Provider: Bessie Nugent, [address] [place] [address], [place], [address] . tel:[phone] [facility] MD [facility], [address] [place] [address] Dr Allen 1000[facility] Jayme Banegas MD, [id number], [place] tel:[phone] CVR - [place] Chronic venous hypertension w oth comp of l low extrem 1 Jovanna La. [address] [place] [address], [id number], [place]. tel:[phone] Referring Provider: Bessie Nugent, [address] [place] [address], [address] . tel:[phone] [facility], [address] [place] [address] Dr Allen [address] [address] [place], [id number], tel:[phone] [facility] - [place] Varicose veins of left lower extremities w oth complications Jan- 1 Jovanna La. [address] [place] [address], [id number], [place]. tel:[phone] Referring Provider: Bessie Nugent, [address] [place] [address], [address] . tel:[phone] Office/Oupt E&M New Pt 45 Mins [facility], [address] [place] [address] Dr Allen [address] [address] [place], [id number], tel:[phone] [facility] - [place] Body mass index (BMI) 36.0-36.9, adultChronic venous htn w oth comp of bilateral low extrm 1 Jovanna La. [address] [place] [address], [id number], . tel:[phone] Referring Provider: Bessie Nugent, [address] [place] [address], [address] . tel:[phone] [facility], [address] [place] [address] [facility] [address] [address]Jay[address] [place], [id number], [place] tel:[phone] CVR - [place] Chronic venous htn w oth comp of bilateral low extrm 1 Jovanna La. [address] [place] [address], [id number], . tel:[phone] Referring Provider: Bessie Nugent, [address] [place] [address], [place], [address] . tel:[phone] Family History Family Member Type Diagnosis Age At Onset No Information Payers Payer name Insurance type Covered republican ID Shayla mccormick(s) [facility] [id number] Medical Assistance [facility] [id number] Social History Type Description Quantity Date Captured [...] No Information Instructions Date Instruction Additional Infor edson Patient education booklet given Related to Venous insufficiency (chronic) (peripheral) Lifestyle education Related to B hank mass index (BMI) 40.0-44.9, adult Giving Encouragement to exercise Related to Body mass index (BMI) 40.0-44.9, adult Diet education Related to Body mass index (BMI) 40.0-44.9, adult Compression stocking usage as conservative measure Related to Venous insufficiency (chronic) (peripheral) Patient education booklet given Related to Chronic venous hypertension (idiopathic) without complications of bilateral lower extremity Lifestyle education Related to B hank mass index (BMI) 40.0-44.9, adult Giving Encouragement to exercise Related to Body mass index (BMI) 40.0-44.9, adult Diet education Related to Body mass index (BMI) 40.0-44.9, adult Pre and post instruc tions reviewed and provided Related to Chronic venous hypertension (idiopathic) with other complications of bilateral lower extremity Patient education booklet given Related to Chronic venous hypertension (idiopathic) with other complications of bilateral lower extremity Pre and post instruc tions reviewed and provided Related to Chronic venous hypertension (idiopathic) without complications of bilateral lower extremity Continue compression stocking us e Related to Chrn Vns Hypertnsn w/o Compl; BILAT Patient education booklet given Related to Chrn Vns Hypertnsn w/o Compl; BILAT Patient education booklet given Related to Chrn Vns Hyprtnsn w/Compl (Pain Edema Swelling); BILAT Pre and post instruc tions reviewed and provided Related to Chrn Vns Hyprtnsn w/Compl (Pain Edema Swelling); BILAT Diet education Related to Body mass index [BMI] 36.0-36.9, adult Giving Encouragement to Exercise Related to Body mass index [BMI] 36.0-36.9, adult Assessments Type Assessment Date No Information Patient Care Teams Name Effective Dates (start - stop) Status Members No Information
--- OUTSIDE RECORDS SUMMARY | 2024-10-12 05:00 | XMS_ITS | Encounter Summary ---
Author Organization [employer] Address [address] [facility] 7t [place] [address] Care Team Providers Care Medical Cash Poster Name Role Phone Michelle Young MD Primary Care Provide r Reason for Visit * Reason Comments Med Refill Encounter Details Date Type Department Care Team ([facility] st Contact Info) Description 10/27/2023 Refill [facility] [address] [place], [place] [phone] Michelle Young MD [address], [place] [phone] Social History Tobacco Use Types Packs/Day Years [...] Description 10/24/2024 11:00 AM EST Medication Management [address] [address] Carter Wilson, PharmD [address] [place] [phone] 11/01/2024 11:00 AM EDT Office Visit [address] [address] documented as of this encounter Visit Diagnoses Not on filedocumented in this encounter Additional Health Concerns Assessment Noted Time PHQ-9 Depression Total Score: 0 02/24/20 23 11:15 AM EDT documented as of this encounter Care Teams Medical Cash Poster Relationship Specialty Start Date End Date Michelle Young MD [address] [place] [phone] PCP - General Family Medicine 06/03/18 documented as of this encounter
[2024-10-12] MEDS: HYDROmorphone HCl 1 MG/ML SYRINGE IM (05:02)
[2024-10-12 06:36] VITALS: BP 118/71; PULSE 89; RESP 16; TEMP 36.6; O2SAT 98
== END 2024-10-12 06:38 | disposition home or self-care (01) ==
PROVIDERS: Emergency Provider Emergency Medicine; PCP Internal Medicine
DX: S39.011A Strain of muscle, fascia and tendon of abdomen, initial encounter (principal); S90.32XA Contusion of left foot, initial encounter; X50.0XXA Overexertion from strenuous movement or load, initial encounter; Y93.89 Activity, other specified; Y92.410 Unspecified street and highway as the place of occurrence of the external cause; Y99.9 Unspecified external cause status
CPT/HCPCS: 73630; 96372; 99284; J1171; J1885

== ENCOUNTER → 2024-10-11 20:44 | Outpatient (BNV) | payer OTHER, SELFPAY | PROVIDERS: PCP Internal Medicine; Visit Provider Radiology Neuroradiology | DX: M79.672 Pain in left foot (principal) | CPT/HCPCS: 73630 ==

== ENCOUNTER 2024-10-20 09:02 | Outpatient (REF) | payer OTHER, SELFPAY ==
--- OUTSIDE RECORDS SUMMARY | 2024-10-20 09:46 | XMS_ITS | Clinical Summary ---
Author Organization [employer] Address [address] [facility] 7t [place] [address] Care Team Providers Care Sack Lifter Name Role Phone Michelle Young MD Primary [...] 1 023 Active Blood Glucose Monitoring Suppl (Hallspot) w/Device kit 1 each 2 times daily. [...] 2 each 3 024 2024 Active Lancets (ActBlueTouch Delica Plus Tijxak32T) [facility] TEST BLOOD SUGAR ONCE DAILY 100 each [...] hyperglycemia, without long-term current use of insulin (CMS/[facility]) Take 1 tablet (10 mg) by mouth Once per day. 30 tablet 024 2024 Active nystatin (Mycostatin) 857731 UNIT/GM powder Apply topically 2 times daily. 240 g 024 2024 Active atorvastatin (Lipitor) 10 MG tabletIndicatio ns:Type 2 diabetes mellitus with hyperglycemia, without long-term current use of insulin (CMS/[facility]ER[facility]) Take 1 tablet (10 mg) [...] 90 tablet 1 025 Active Continuous Glucose Pediatric Cardiologist (FreeStyle Sonny 2 Sula) deviceIndicatio ns:Type 2 diabetes mellitus with hyperglycemia, [...] without long-term current use of insulin ([facility]/FORMERLY [facility]) 1 each in the morning. 1 kit 024 2024 FREESTYLE LITE test stripIndication s:Type 2 diabetes mellitus with hyperglycemia, without long-term current use of insulin ([facility]/FORMERLY [facility]) Check fingerstick 1x/d 50 each 11 024 2024 FreeStyle lancetsIndicati ons:Type 2 diabetes mellitus with hyperglycemia, without long-term current use of insulin ([facility]/FORMERLY [facility]) 1 each by Other route [...] AND 16 PER MONTH) 16 capsule 3 2024 Discontinued(R eorder (will not trigger notification to Pharmacy)) escitalopram (Lexapro) 20 MG tablet TOME 1 [...] lumbar spondylosis w/o myelopathy or radiculopathy Last SENIOR QUANTITY SURVEYOR Agreement: 10/04/24, Dr. Love Tier: II (SENIOR QUANTITY SURVEYOR visits every 3 months) Assessment & Plan [...] meds were done today, I advised to pickling solution maker her Trulicity and inject as prescribed once a week Continue with her insulin as prescribed Continue with metformin Follow-up with [facility] pharmacy Assessment & Plan (09/08/2024 1:20 PM EST): - Lab Results Component Value Date HGBA1C 6.9 (A) 08/08/2024 HGBA1C 7.1 (A) 01/20/2024 HGBA1C 6.2 (H) 09/22/2023 - Lab Results Component Value Date CREATININE 0.84 09/22/2023 -Changes: I will start patient on trulicity, in light of erratic glucose levels I will prescribe also CGM for her and refer her to [facility] - Diabetic eye exam:pending - [...] and close fu w PCP Referred to Director Of Content And Programming and I gave her info re DM [...] current medications 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 PARUL francis PCP Assessment & Plan (09/23/2023 10:27 AM [...] Encounters Date Type Department Care Team Description 10/12/[address] [address] Michelle Young MD Results 10/12/2024 Orders Only [address] [address] Michelle Young MD Elevated LFTs (Primary Dx) 10/11/2024 Orders Only [facility] External Provider, [facility] 10/06/2024 Orders Only [facility] PEDS [address] [place], [place] [phone] Boyd Mares MD Primary hypertension (Primary Dx); Hypokalemia 10/04/2024 11:00 AM EST Office Visit [address] [address] Ulysses, Kajal, CORPORATE DEVELOPMENT OFFICER Spondylosis without myelopathy or radiculopathy (Primary Dx); Long-term current use of opiate analgesic 10/04/[address] [address] Deena Araujo RN SENIOR QUANTITY SURVEYOR Agreement signed today 10/04/2024 Orders Only [address] [phone] Michelle Young MD 10/04/2024 Travel 10/03/2024 9:45 AM EST Office Visit [address] [address] Michelle Young MD Moderate persistent asthma, unspecified whether complicated (Primary Dx); Type 2 diabetes mellitus with hyperglycemia, without long-term current use of insulin ([facility]); Chronic maxillary sinusitis; Bipolar affective disorder, current episode depressed, current episode severity unspecified ([facility]); Vaginal itching 10/03/2024 Travel 10/01/2024 Refill [facility] [address] [place] [address] Michelle Young MD Seizure disorder ([facility]) 09/30/2024 Travel 09/28/2024 Telephone [facility] [address] [place] [address] Chris Cerda MA Chart Prep 09/26/2024 Refill [facility] [address] [place] [address] Michelle Young MD Chronic bilateral low back pain, unspecified whether sciatica present 09/26/2024 Refill [facility] [address] [place] [address] Michelle Young MD Migraine without aura and without status migrainosus, not intractable; Primary insomnia 09/22/2024 Telephone [facility] [address] [place] [address] Michelle Young MD Med Refill 09/21/2024 Patient Outreach [facility] [address] [place] [address] Michelle Young MD Pre-visit Planning (SDOH screening negative and tobacco screening negative) 09/15/2024 Telephone [facility] [address] [place] [address] Nimo Rao, RN CGM PA 09/10/2024 Refill [facility] [address] [place] [address] Michelle Young MD Type 2 diabetes mellitus with hyperglycemia, without long-term current use of insulin ([facility]) 09/08/2024 11:15 AM EST Office Visit [facility] [address] [place] [address] Michelle Young MD Primary hypertension (Primary Dx); Type 2 diabetes mellitus with hyperglycemia, without long-term current use of insulin ([facility]); Spondylosis without myelopathy or radiculopathy; Bipolar affective disorder, current episode depressed, current episode severity unspecified ([facility]/HCC); Severe obesity ([facility]/HCC); Mood disorder ([facility]/HCC); Seizure disorder ([facility]/HCC) 09/08/2024 Travel 09/06/2024 11:00 AM EST Office Visit [address] [address] Kajal Arora, DONNIE Spondylosis without myelopathy or radiculopathy (Primary Dx); Long-term current use of opiate analgesic 09/06/2024 Telephone [facility] [address] [place] [address] Sandra Diaz RN 09/06/2024 Travel 08/31/2024 2:00 PM EST Clinical Support [address] [address] Deena Araujo, autoglazier bilateral low back pain, unspecified whether sciatica present (Primary Dx) 08/31/2024 Travel 08/31/[address] [address] Deena Araujo, SHARLENE Recommend SENIOR QUANTITY SURVEYOR Tier 2 08/15/[address] [address] Michelle Young MD Chronic bilateral low back pain, unspecified whether sciatica present 08/15/2024 Refill [facility] [address] [place] [address] Michelle Young MD Primary insomnia 08/09/[address] [address] Michelle Young MD callback requested 08/09/2024 Refill [facility] [address] [place] [address] Nimo Rao RN 08/08/2024 5:40 PM EST Office Visit [facility] [address] [place] [address] Marisol Rizo MD Type 2 diabetes mellitus with hyperglycemia, without long-term current use of insulin ([facility]) 08/08/2024 Refill [facility] [address] [place], [place] [phone] Marisol Rizo MD 08/08/2024 Travel 07/31/2024 Refill [facility] [address] [place] [address] Michelle Young MD Hypertension, unspecified type 07/25/2024 Refill [facility] [address] [place], [place] [phone] Michelle Young MD Muscle spasm 07/20/2024 Refill [facility] [address] [place], [place] [phone] Michelle Young MD Chronic bilateral low back pain, unspecified whether sciatica present; Primary insomnia from Last 3 Months Immunizations Name Administration [...] AM EST Medication Management [facility] [address] [place] [address] Carter Wilson, PharmD [address] [place] [phone] 11/01/2024 11:00 AM EDT Office Visit [facility] [address] [place] [phone] Health Maintenance Due Date Last Done Comments [...] Depression Screening 02/24/2024 02/23/2023, 02/24/20 COVID-19 Vaccine ( season) 2024 06/07/2023, 02/13/2022 [...] without long-term current use of insulin ([facility]/HCC) LIPID PANEL, STANDARD Routine 10/04/2024 12:07 PM [...] without long-term current use of insulin (CMS/HCC) HM COLONOSCOPY Routine 05/19/2024 BI MAMMOGRAM SCREENING TOMOSYNTHESIS BILATERAL Routine 12/08/2023 1:50 PM EDT LAB COLOGUARD?? COLON CANCER SCREEN Routine 09/28/2023 11:20 AM EST Colon cancer screening from Last 3 Months or Most Recently Relevant to Health Maintenance Results * XR Foot 3+ Views Left (10/12/2024 12:04 AM EST) Anatomical Region Laterality Modality Lower Extremities, Foot Left [facility] 10/12/2024 12:0 4 AM EST Narrative 10/12/2024 12:06 AM EST ? [facility] ?[address] ?[place] [address] ?XRay Report ? Signed ? Patient: Anirudh Akers,Veronica ?MR#: M ?? [id number] ? : 1980 ?Acct:[id number] ? Age/Sex: 44 / F ?ADM Date: 02/18/25 ? Loc: HO.ED ? Attending Dr: ? Ordering Physician: Mahnaz Lima ?? Date of Service: 10/11/24 ?? Procedure(s): XR foot LT min 3V ?? Accession Number(s): [id number] ? cc: Michelle Young MD; Mahnaz Lima [...] DD/ 0004 ? TD/TT: 10/12/24 0004 ? Metal Filer: ? Procedure Note Lilliana Reyes - 10/12/[address] [address] XRay Report Signed Patient: Veronica Wilcox#: M [id number] : 1980Acct:[id number] Age/Sex: 44 / FADM Date: 10/11/24 Loc: HO.ED Attending Dr: Ordering Physician: Mahnaz Lima Date of Service: 10/11/24 Procedure(s): XR foot LT min 3V Accession Number(s): [id number] cc: Michelle Young MD; Mahnaz Lima CLINICAL [...] 10/12/24 0005 DD/ 0004 TD/TT: 10/12/24 0004 Metal Filer: Result [facility] External Provider IMG XR PROCEDURES Edited Result - Final * POCT JOCY-14 Urine Drug Screen (10/04/2024 2:16 PM EST) Only the most recent of3 resultswithin the time period is included. THC Positive TCA, Urine Positive Urine Urine specimen obtained by clean catch procedure / Unknown 10/04/2024 2:16 PM EST Narrative Deena Araujo RN - 10/04/2024 2:16 PM EST UTOX cup Lot#[id number] Exp. 05/18/26 Internal Pass Control Result [facility] Kajal FIELDS POINT OF CARE TEST ENTER/EDIT ORDERABLES Final Result * (ABNORMAL) Hemoglobin A1c (10/04/2024 12:07 PM EST) Hemoglobin A1c 7.2(H) <6.0 % [facility] Comment:Hemoglobin A1C Refer ence Range Adults: 4.8 - 6.0 % Non diabetic: < 6.0 % Goal: < 7.0 %Additional Action Suggested: > 8.0 %Note: Hemoglobin A1c results are invalid for patients with abnormal amounts of HbF. Blood transfusions may impact the HbA1c concentration in the patient sample. Estimated Average Glucose 160 mg/dL [facility] Comment:eAG = Estimated ave rage glucose which is %A1C expressed asaverage glucose, using the formula of the I2M-XxywlsmGdclzml Glucose study (ADAG), Diabetes Care, Vol.31,#8,Mar. 2007 Blood Venous blood specimen / Unknown 10/04/2024 12:07 PM EST 10/04/2024 1:12 PM EST Michelle Neumann MD LAB BLOOD ORDERABLES Final Result [facility] [address] [place] [address] [phone] * (ABNORMAL) Hepatic Function Panel (10/04/2024 12:07 PM EST) Bilirubin, Total 0.4 0.0 - 1.0 mg/dL [facility] Bilirubin, Direct 0.1 0.0 - 0.5 mg/dL [facility] Aspartate Amino Transferase 29 5 - 31 U/L [facility] Alanine Aminotransferase 42(H) 0 - 31 U/L [facility] Total Protein 8.1(H) 6.5 - 8.0 g/dL [facility] Albumin Level 4.6 3.5 - 5.0 g/dL [facility] Alkaline Phosphatase 71 39 - 117 U/L [facility] 10/04/2024 12:0 7 PM EST 10/04/2024 1:12 PM EST us Michelle Neumann MD LAB BLOOD ORDERABLES Final Result [facility] [address] [place] [address] [phone] * (ABNORMAL) Lipid Panel, Standard (10/04/2024 12:07 PM EST) Triglycerides 249(H) <150 mg/dL [facility] Comment:Desirable Triglyceri de: less than 150 mg/dLBorderline High Triglyceride 150-199 mg/dLHigh Triglyceride: 200-499 mg/dLVery High Triglyceride: greater than or equal to 5OO mg/dL Cholesterol 200(H) <200 mg/dL [facility] Comment:Desirable Cholestero l: less than 200 mg/dLBorderline High Cholesterol: 200-239 mg/dLHigh Cholesterol: greater than 239 mg/dL LDL Cholesterol Calculated 107(H) <100 mg/dL [facility] Comment:Desirable LDL: less than 100 mg/dLNear Optimal/Above Optimal LDL: 110- 129 mg/dLBorderline High LDL: 130-159 mg/dLHigh LDL: 160-189 mg/dLVery High LDL: greater than or equal to 190 mg/dL HDL Cholesterol 44 >40 mg/dL [facility] Comment:Desirable HDL: great er than 40 mg/dL Note: This HDL assay may give artificially low results in patients with liver disease. Blood Venous blood specimen / Unknown 10/04/2024 12:07 PM EST 10/04/2024 1:12 PM EST us Michelle Neumann MD LAB BLOOD ORDERABLES Final Result Performing Organization Address [facility] Co de Phone Number [facility] [address] [place] [phone] * (ABNORMAL) Basic Metabolic Panel (10/04/2024 12:07 PM EST) Sodium 139 135 - 145 mmol/L [facility] Potassium 3.2(L) 3.3 - 5.1 mmol/L [facility] Chloride 109(H) 96 - 108 mmol/L [facility] Carbon Dioxide 21(L) 22 - 29 mmol/L [facility] Anion Gap 12 12 - 20 [facility] Urea Nitrogen (BUN) 12 9 - 16 mg/dL [facility] Creatinine, Serum 1.15 0.5 - 1.4 mg/dL [facility] Estimated Glomerular Filt Rate 51 [facility] Comment:Chronic Kidney Disea se: Estimated GFR < 60 mL/min/1.72n7Ulwuik Kidney Disease: Estimated GFR < 15 mL/min/1.73m2 Glucose 103 60 - 115 mg/dL [facility] Calcium 9.6 8.4 - 10.2 mg/dL [facility] Blood Venous blood specimen / Unknown 10/04/2024 12:07 PM EST 10/04/2024 1:12 PM EST us Boyd Mares MD LAB BLOOD ORDERABLES Final Result Performing Organization Address [facility]/ZIP Co de Phone Number [facility] [address] [place] [phone] * (ABNORMAL) POCT Glucose (10/03/2024 9:59 AM EST) Only the most recent of3 resultswithin the time period is included. Glucose Blood, POC 256(A) 60 - 200 mg/dL [employer] Media Lot # [id number] Lot# Expiration Date Blood Capillary blood specimen / Unknown 10/03/2024 9:59 AM EST Michelle Neumann MD POINT OF CARE TEST EN TER/EDIT ORDERABLES Final Result * TSH with Reflex to Free T4 (08/09/2024 12:42 PM EST) TSH reflex Free T4 1.58 0.32 - 4.0 uIU/mL [facility] Blood 08/09/2024 12:4 2 PM EST 08/09/2024 1:00 PM EST Marisol Rizo MD LAB BLOOD ORDERABLES Fin al Result [facility] [address] [place] [address] [phone] * POCT urinalysis dipstick manually resulted (08/08/2024 5:56 PM EST) Pathologist [facility] Color, UA Brown Clarity, UA Clear Glucose, UA 3+ 500+++ Bilirubin, UA Negative Ketones, UA Negative Spec Grav, UA 1.015 Blood, UA Negative Negative, None Detected pH, UA 6.0 Protein, UA Negative Urobilinogen, UA 0.2 Leukocytes, UA Negative Negative, Rare, Trace Nitrite, UA Negative Negative, None Detected Appearance, UA clear QC Media Lot # [id number] Lot# Expiration Date 025 Urine 08/08/2024 5:56 PM EST Marisol Rizo MD POINT OF CARE TEST ENTER /EDIT ORDERABLES Final Result * (ABNORMAL) POCT glycosylated hemoglobin (Hgb A1c) (08/08/2024 5:14 PM EST) Hemoglobin A1C 6.9(A) 4.0 - 6.0 % QC Media Lot # [id number] Lot# Expiration Date [id number] Blood Capillary blood specimen / Unknown 08/08/2024 5:14 PM EST Marisol Rizo MD POINT OF CARE TEST ENTER /EDIT ORDERABLES Final Result * Hm Colonoscopy (05/19/2024) Pathologist [facility] Colonoscopy Normal Normal Historical Provider HEALTH MAINTENANCE Final Result * BI Mammogram Screening Tomosynthesis Bilateral (12/08/2023 1:50 PM EDT) Anatomical Region Laterality Modality Breast Bilateral Mammography 12/08/2023 1:50 PM EDT Narrative 12/14/2023 8:07 PM EDT ? [facility] ? [address] ?[place] [address] ? Mammography Report ? Signed ? Patient: Anirudh AkersVeronica ?MR#: M ?? [id number] ? : 1980 ?Acct:[id number] ? Age/Sex: 43 / F ?ADM Date: 04/16/24 ? Loc: HO.MAMMO ? Attending Dr: Michelle Neumann MD ? Ordering Physician: Michelle Young MD ?Results: ?? 2Benign Findings ? Date of Service: 12/08/23 ?Follow Up: 1 Year From Orig ?? inal Mammogram ? Procedure(s): MM tomosynthesis screening BI ?? Accession Number(s): [id number] ? cc: Michelle Young MD ? EXAMINATION: [...] ? 12/14/232002 ? DD/ ? TD/TT: ? Metal Filer: ? Procedure Note Amy, Lilliana - 12/14/2023 [facility] [address] [place] [address] [place] [address] Mammography Report Signed Patient: Veronica WilcoxMR#: M [id number] : 1980Acct:[id number] Age/Sex: 43 / FADM Date: 12/08/23 Loc: HO.MAMMO Attending Dr: Michelle Neumann MD Ordering Physician: Michelle Young MDResults: 2Benign Findings Date of Service: 12/08/23Follow Up: 1 Year From Orig inal Mammogram Procedure(s): MM tomosynthesis screening BI Accession Number(s): [id number] cc: Michelle Young MD EXAMINATION: MM SCREENING [...] MD in OV> 12/14/232002 DD/ 1350 TD/TT: Metal Filer: Michelle Neumann MD IMG BI PROCEDURES Bassem lilliam Result - Final * (ABNORMAL) Cologuard?? colon cancer screening (09/28/2023 11:20 AM EST) Cologuard Result Positive( A) Negative 10/08/2023 1:10 AM EST [facility] (CLIA #:[id number]) Comment: POSITIVE TEST RESULT. A positive Cologuard [...] (Nino Diego al, N Engl J Med 2014;370(14):6190-9708.) Cologuard may produce a false negative or false positive result (no colorectal cancer or precancerous polyp present at colonoscopy follow up). A negative Cologuard test result does not guarantee the absence of CRC or advanced adenoma (pre-cancer). The current Cologuard screening interval is every 3 years. ([place] [employer] Society and U.S. Multi-Society Task Force). Cologuard performance data in a 10,000 patient pivotal study using colonoscopy as the reference method can be accessed at the following location: www.[employer]/results. Additional description of the Cologuard test process, warnings and precautions can be found at www.[employer].com. Stool specimen (specimen) 09/28/2023 11:20 AM EST 09/29/2023 10:49 AM EST Michelle Neumann MD LAB MOLECULAR DIAGNOS TICS ORDERABLES Final Result [facility] (CLIA #:[id number]) [place] [address], from Last 3 Months or Most Recently Relevant to Health Maintenance Insurance Care Teams Sack Lifter Relationship Specialty Start Date End Date Michelle Young MD [address] [place] [phone] PCP - General Family Medicine 06/03/18
--- OUTSIDE RECORDS SUMMARY | 2024-10-20 09:46 | XMS_ITS | Encounter Summary ---
Author Organization [employer] Address [address] [facility] 7t [place] [address] Care Team Providers Care Butcher'S Assistant Name Role Phone Michelle Young MD Primary Care Provide r Reason for Visit * Reason Onset Date Comments Med Refill 02/02/2024 Encounter Details Date Type Department Care Team (Late st Contact Info) Description 02/02/2024 Telephone [facility] [address] [place], [place] [phone] Michelle Young MD [address] [place], [place] [phone] Med Refill Social History Tobacco Use Types [...] 5 MG tablet To be sent to: [facility]/pharmacy #[id number] - [address] documented in this encounter Plan of Treatment Upcoming Encounters Date Type Department Care Team (Late st Contact Info) Description 10/24/2024 11:00 AM EST Medication Management [facility] [address] [place] [phone] Carter Wilson, PharmD [address] [place] [phone] 11/01/2024 11:00 AM EDT Office Visit [facility] [address] [place] [phone] documented as of this encounter Visit Diagnoses Not on filedocumented in this encounter Additional Health Concerns Assessment Noted Time PHQ-9 Depression Total Score: 0 02/24/20 23 11:15 AM EDT documented as of this encounter Care Teams Butcher'S Assistant Relationship Specialty Start Date End Date Michelle Young MD [address] [place] [phone] PCP - General Family Medicine 06/03/18 documented as of this encounter
--- OUTSIDE RECORDS SUMMARY | 2024-10-20 09:47 | XMS_ITS | Encounter Summary ---
Author Organization [employer] Address [address] [place] [address] 7t [place] [address] Care Team Providers Care Plant Biology Professor Name Role Phone Michelle Young MD Primary Care Provide r Encounter Details Date Type Department Care Team (Late st Contact Info) Description 02/10/2023 Orders Only [facility] [address] [place] [phone] Diandra Siddiqui LPN Social History Tobacco Use [...] Medication Management [facility] [address] [place] [phone] Carter Wilson, PharmD [address] [place] [phone] 11/01/2024 11:00 AM EDT Office Visit [facility] [address] [place] [phone] documented as of this encounter Visit Diagnoses Not on filedocumented in this encounter Care Teams Plant Biology Professor Relationship Specialty Start Date End Date Michelle Young MD [address] [place] [phone] PCP - General Family Medicine 06/03/18 documented as of this encounter
--- OUTSIDE RECORDS SUMMARY | 2024-10-20 09:47 | XMS_ITS | Encounter Summary ---
Author Organization [employer] Address [address] [facility] 7t [place] [address] Care Team Providers Care Customer Logistics Manager Name Role Phone Michelle Young MD Primary Care Provide r Encounter Details Date Type Department Care Team (Latest Contact Info) Description 10/04/2024 11:00 AM EST Office Visit [facility] MEDICINE [address] [place] [address] Kajal Arora FNP [address] [place], [place] [phone] Spondylosis without myelopathy or radiculopathy (Primary Dx); [...] this encounter Progress Notes * Kajal Arora, PATIENT TRANSPORT ORDERLY - 10/04/2024 11:00 AM EST Subjective: Veronica [...] TID on 09/08/24) Related Specialists: Following with [facility]. She is S/P bilateral [...] or radiculopathy - Primary Overview Following with [facility] S/p bilateral L4-L5 facet steroid injections on 04/27/2024 Relevant Orders POCT JOCY-14 Urine Drug Screen (Completed) Other Long-term current use of opiate analgesic Overview Medication: Tramadol 50mg TID Indication: lumbar spondylosis w/o myelopathy or radiculopathy Last CONTROL ROOM SUPERVISOR Agreement: 10/04/24, Dr. Love Tier: II (CONTROL ROOM SUPERVISOR visits every 3 months) Current Assessment & Plan Timeline: 09/06/24: Group visit - UTOX wnl, pill count 5 off 09/08/24 - Tramadol increase from BID to TID 10/04/24: Group visit - Utox/pill count as expected Relevant Orders POCT JOCY-14 Urine Drug Screen (Completed) Follow up: 1-3 months for CONTROL ROOM SUPERVISOR visit. Follow up as scheduled with PCP, sooner as needed. * Deena Araujo RN - 10/04/2024 11:00 AM EST CONTROL ROOM SUPERVISOR hat blocker: PDMP reviewed today. Last fill date: 09/26/24 Tramadol 50mg count was 42, anticipated 39 to be remaining. UTOX completed. Positive for TCA & THC, Negative for AMP, BAR, BUP, BZO, DIALLO, FTY, MDMA, MET, MOP, MTD, OXY, PCP. UTOX as expected. CONTROL ROOM SUPERVISOR Agreement reviewed and signed BPI updated today. [...] Description 10/24/2024 11:00 AM EST Medication Management [facility] MEDICINE [address] [place] [phone] Carter Wilson, PharmD [address] [place] [address] 11/01/2024 11:00 AM EDT Office Visit [address] [address] documented as of this encounter Procedures Procedure [...] - 10/04/2024 2:16 PM EST UTOX cup Lot#[id number] Exp. 05/18/26 Internal Pass Control Kajal FIELDS [...] documented as of this encounter Care Teams Customer Logistics Manager Relationship Specialty Start Date End Date Michelle Young MD [address] [place] [address] PCP - General Family Medicine 06/03/18 documented as of this encounter
--- OUTSIDE RECORDS SUMMARY | 2024-10-20 09:47 | XMS_ITS | Encounter Summary ---
Author Organization [employer] Address [address] [facility] 7t [place] [address] Care Team Providers Care Checkout Operator Name Role Phone Michelle Young MD Primary Care Provide r Encounter Details Date Type Department Care Team (Late st Contact Info) Description 10/03/2024 9:45 AM EST Office Visit [facility] MEDICINE [address] [place], [place] [phone] Michelle Young MD [address] [place], [place] [phone] Moderate persistent asthma, unspecified whether complicated (Primary [...] Hip pain Mood disorder (CMS/HCC) Seizure disorder ([facility]/HCC) Irritable bowel syndrome with both constipation and diarrhea Primary insomnia Colon cancer screening Prediabetes Type 2 diabetes mellitus with hyperglycemia, without long-term current use of insulin ([facility]/HCC) Muscle spasm Long-term current use of opiate analgesic Bipolar affective disorder, current episode depressed, current episode severity unspecified (CMS/HCC) Ischemic colitis (CMS/HCC) Severe obesity ([facility]) Chronic maxillary sinusitis Vaginal itching No family [...] morning. 1 kit0 Blood Glucose Monitoring Suppl (CartMomouch Verio) w/Device kit 1 each 2 times daily. TEST BLOOD SUGARONCE DAILY 1 kit 0 Blood Pressure Monitor kit Use to monitor blood pressure at home 1 kit 0 jmgcenmbxn-lsrbhbnmhlvks-robldebc (Fioricet) 50-300-40 MG capsule TAKE 1 CAPSULE FOR MIGRAINE, REPEAT IF NOT IMPROVED IN 4-6 HOURS (MAX 2 PER DAY AND 16 PER MONTH) 16 capsule 3 clonazePAM (KlonoPIN) 0.5 MG tablet TOME 1 TABLETA POR V A ORAL TODOS LOS D CUANDO SEA NECESARIOPARA LA ANSIEDAD Continuous Glucose Follow Up Clerk (FreeStyle Sonny 2 [place]) device Scan sensor every 8 hours 1 each 1 Continuous Glucose Sensor (FreeStyle Sonny 2 Sensor) [facility] [place] 1 sensor every 14 days 2 [...] SPRAYS INTRANASALLY 2 TIMES A DAY Lancets (Frogdice Delica Plus Tijhxt25C) misc TEST BLOOD SUGAR ONCE DAILY 100 [...] becomes available. 2 each 3 nystatin (Mycostatin) [id number] UNIT/GM powder Apply topically 2 times daily. [...] meds were done today, I advised to burr picker her Trulicity and inject as prescribedonce a week Continue with her insulin as prescribed Continue with metformin Follow-up with [facility] pharmacy Relevant Orders POCT Glucose (Completed) Lipid [...] current episode depressed, current episode severity unspecified ([facility]/HCC) Continue to follow-up with specialist * Assessment & Plan Note - Michelle Neumann MD - 10/03/2024 4:23 PM EST Associated Problem(s): Type 2 diabetes mellitus with hyperglycemia, without long-term current use of insulin (CMS/HCC) No changes on her meds were done today, I advised to burr picker her Trulicity and inject as prescribedonce a week Continue with her insulin as prescribed Continue with metformin Follow-up with [facility] pharmacy * Assessment & Plan Note - [...] Description 10/24/2024 11:00 AM EST Medication Management [facility] MEDICINE [address] [place] [phone] Carter Wilson, PharmD [address] [place] [address] 11/01/2024 11:00 AM EDT Office Visit [facility] MEDICINE [address] [place] [address] documented as of this encounter Procedures Procedure Name Priority Date/Time Associated Diagnosis Comments HEMOGLOBIN A1C Routine 10/04/2024 12:07 PM EST Type 2 diabetes mellitus with hyperglycemia, without long-term current use of insulin ([facility]) LIPID PANEL, STANDARD Routine 10/04/2024 12:07 PM EST Type 2 diabetes mellitus with hyperglycemia, without long-term current use of insulin ([facility]) POCT GLUCOSE Routine 10/03/2024 9:59 AM EST Type 2 diabetes mellitus with hyperglycemia, without long-term current use of insulin ([facility]) documented in this encounter Results * (ABNORMAL) Hemoglobin A1c (10/04/2024 12:07 PM EST) Hemoglobin A1c 7.2(H) <6.0 % [facility] Comment:Hemoglobin A1C Refer ence Range Adults: 4.8 - 6.0 % Non diabetic: < 6.0 % Goal: < 7.0 %Additional Action Suggested: > 8.0 %Note: Hemoglobin A1c results are invalid for patients with abnormal amounts of HbF. Blood transfusions may impact the HbA1c concentration in the patient sample. Estimated Average Glucose 160 mg/dL [facility] Comment:eAG = Estimated ave rage glucose which is %A1C expressed asaverage glucose, using the formula of the Q9P-JcwjrdvKhggspv Glucose study (ADAG), Diabetes Care, Vol.31,#8,Mar. 2007 Blood Venous blood specimen / Unknown 10/04/2024 12:07 PM EST 10/04/2024 1:12 PM EST us Michelle Neumann MD LAB BLOOD ORDERABLES Final Result [facility] [address] [place] [phone] * (ABNORMAL) Lipid Panel, Standard (10/04/2024 12:07 PM EST) Triglycerides 249(H) <150 mg/dL [facility] Comment:Desirable Triglyceri de: less than 150 mg/dLBorderline High Triglyceride 150-199 mg/dLHigh Triglyceride: 200-499 mg/dLVery High Triglyceride: greater than or equal to 5OO mg/dL Cholesterol 200(H) <200 mg/dL [facility] Comment:Desirable Cholestero l: less than 200 mg/dLBorderline High Cholesterol: 200-239 mg/dLHigh Cholesterol: greater than 239 mg/dL LDL Cholesterol Calculated 107(H) <100 mg/dL [facility] Comment:Desirable LDL: less than 100 mg/dLNear Optimal/Above Optimal LDL: 110- 129 mg/dLBorderline High LDL: 130-159 mg/dLHigh LDL: 160-189 mg/dLVery High LDL: greater than or equal to 190 mg/dL HDL Cholesterol 44 >40 mg/dL [facility] Comment:Desirable HDL: great er than 40 mg/dL Note: This HDL assay may give artificially low results in patients with liver disease. Blood Venous blood specimen / Unknown 10/04/2024 12:07 PM EST 10/04/2024 1:12 PM EST us Michelle Neumann MD LAB BLOOD ORDERABLES Final Result [facility] [address] [place] [phone] * (ABNORMAL) POCT Glucose (10/03/2024 9:59 [...] hyperglycemia, without long-term current use of insulin ([facility]) Chronic maxillary sinusitis Bipolar affective disorder, current episode depressed, current episode severity unspecified ([facility]) Vaginal itching Pruritus of genital organs documented in this encounter Additional Health Concerns Assessment Noted Time PHQ-9 Depression Total Score: 0 02/24/20 23 11:15 AM EDT documented as of this encounter Care Teams Checkout Operator Relationship Specialty Start Date End Date Michelle Young MD [address] [place] [phone] PCP - General Family Medicine 06/03/18 documented as of this encounter
--- OUTSIDE RECORDS SUMMARY | 2024-10-20 09:47 | XMS_ITS | Encounter Summary ---
Author Organization [employer] Address [address] [facility] 7t [place] [address] Care Team Providers Care Paper Core Machine Operator Name Role Phone Michelle Young MD Primary Care Provide r Encounter Details Date Type Department Care Team (Late st Contact Info) Description 10/11/2024 Orders Only [facility] External Provider, [facility] Social History Tobacco Use Types Packs/Day Years [...] Description 10/24/2024 11:00 AM EST Medication Management [facility] MEDICINE [address] [place] [address] Carter Wilson, PharmD [address] [place] [address] 11/01/2024 11:00 AM EDT Office Visit [facility] MEDICINE [address] [facility] [place] [address] documented as of this encounter Procedures Procedure Name Priority Date/Time Associated Diagnosis Comments XR FOOT 3+ VIEWS LEFT Routine 10/12/2024 12:04 AM EST documented in this encounter Results * XR Foot 3+ Views Left (10/12/2024 12:04 AM EST) Anatomical Region Laterality Modality Lower Extremities, Foot Left Radiogra phic Imaging 10/12/2024 12:0 4 AM EST Narrative 10/12/2024 12:06 AM EST ? [facility] ?[address] ?[place] [address] ?XRay Report ? Signed ? Patient: Anirudh Akers,Veronica ?MR#: [id number] ?? [id number] ? : 1980 ?Acct:[id number] ? Age/Sex: 44 / F ?ADM Date: 02/18/25 ? Loc: HO.ED ? Attending Dr: ? Ordering Physician: Mahnaz Lima ?? Date of Service: 10/11/24 ?? Procedure(s): XR foot LT min 3V ?? Accession Number(s): [id number] ? cc: Michelle Young MD; Mahnaz Lima [...] DD/ 0004 ? TD/TT: 10/12/24 0004 ? Rounding Machine Tender: ? Procedure Note Donbenedictoterrenceter, Image - 10/12/2024 [place] [address] XRay Report Signed Patient: Veronica WilcoxMR#: [id number] : 1980Acct:[id number] Age/Sex: 44 / FADM Date: 10/11/24 Loc: HO.ED Attending Dr: Ordering Physician: Mahnaz Lima Date of Service: 10/11/24 Procedure(s): XR foot LT min 3V Accession Number(s): [id number] cc: Michelle Young MD; Mahnaz Lima CLINICAL [...] 10/12/24 0005 DD/ 0004 TD/TT: 10/12/24 0004 Rounding Machine Tender: [facility] External Provider IMG XR PROCEDURES Edited Result - Final documented in this encounter Visit Diagnoses Not on filedocumented in this encounter Additional Health Concerns Assessment Noted Time PHQ-9 Depression Total Score: 0 02/24/20 23 11:15 AM EDT documented as of this encounter Care Teams Paper Core Machine Operator Relationship Specialty Start Date End Date Michelle Young MD [address] [place] [address] PCP - General Family Medicine 06/03/18 documented as of this encounter
--- OUTSIDE RECORDS SUMMARY | 2024-10-20 09:47 | XMS_ITS | Encounter Summary ---
Author Organization [employer] Address [address] [facility] 7t [place] [address] Care Team Providers Care Ballet Master/Mistress Name Role Phone Michelle Young MD Primary Care Provide r Reason for Visit * Reason Comments Med Refill Encounter Details Date Type Department Care Team ([facility] st Contact Info) Description 06/04/2024 Refill [facility] MEDICINE [address] [place], [place] [phone] Michelle Young MD [address] [place], [place] [phone] Hypertension, unspecified type; Chronic rhinitis; Severe episode [...] 10/24/2024 11:00 AM EST Medication Management [facility] MEDICINE [address] [place] [phone] Carter Wilson, PharmD [address] [place] [address] 11/01/2024 11:00 AM EDT Office Visit [facility] MEDICINE [address] [place] [address] documented as of this encounter Visit Diagnoses Diagnosis Hypertension, unspecified type Chronic rhinitis Severe episode of recurrent major depressive disorder, without psychotic features (CMS/HCC) documented in this encounter Additional Health Concerns Assessment Noted Time PHQ-9 Depression Total Score: 0 02/24/20 23 11:15 AM EDT documented as of this encounter Care Teams Ballet Master/Mistress Relationship Specialty Start Date End Date Michelle Young MD [address] [place] [phone] PCP - General Family Medicine 06/03/18 documented as of this encounter
--- OUTSIDE RECORDS SUMMARY | 2024-10-20 09:47 | XMS_ITS | Encounter Summary ---
Author Organization [employer] Address [address] [place] [address] 7t [place] [address] Care Team Providers Care Gypsum Calciner Name Role Phone Michelle Young MD Primary Care Provide r Reason for Visit * Reason Comments Med Refill Encounter Details Date Type Department Care Team (Late st Contact Info) Description 02/18/2023 Refill [facility] [address] [place], [place] [phone] Libby Ramirez DO [address] [place], [place] [phone] Hypertension, unspecified type Social History Tobacco Use [...] Description 10/24/2024 11:00 AM EST Medication Management [facility] MEDICINE [address] [place] [phone] Carter Wilson, PharmD [address] [place] [address] 11/01/2024 11:00 AM EDT Office Visit [facility] MEDICINE [address] [place] [address] documented as of this encounter Visit Diagnoses Diagnosis Hypertension, unspecified type documented in this encounter Care Teams Gypsum Calciner Relationship Specialty Start Date End Date Michelle Young MD [address] [place] [address] PCP - General Family Medicine 06/03/18 documented as of this encounter
--- OUTSIDE RECORDS SUMMARY | 2024-10-20 09:47 | XMS_ITS | Encounter Summary ---
Author Organization [employer] Address [address] [facility] 7t [place] [address] Care Team Providers Care Milk Hauler Name Role Phone Michelle Young MD Primary Care Provide r Encounter Details Date Type Department Care Team (Late st Contact Info) Description 02/18/2023 Orders Only [facility]EDS [address] [place], [place] [phone] Libby Cruz LPN Social History Tobacco Use [...] 11:00 AM EST Medication Management [facility] MEDICINE [address] [place] [phone] Carter Wilson, PharmD [address] [place] [address] 11/01/2024 11:00 AM EDT Office Visit [address] [address] documented as of this encounter Visit Diagnoses Not on filedocumented in this encounter Care Teams Milk Hauler Relationship Specialty Start Date End Date Michelle Young MD [address] [place] [phone] PCP - General Family Medicine 06/03/18 documented as of this encounter
--- OUTSIDE RECORDS SUMMARY | 2024-10-20 09:47 | XMS_ITS | Encounter Summary ---
Author Organization [employer] Address [address] [facility] 7t [place] [address] Care Team Providers Care Chromosomal Disorders Counselor Name Role Phone Michelle Young MD Primary Care Provide r Reason for Visit * Reason Onset Date Comments OIL DERRICK OPERATOR Agreement signed today 10/04/2024 Encounter Details Date Type Department Care Team (Late st Contact Info) Description 10/04/2024 Telephone [facility] MEDICINE [address] [place], [place] [phone] Deena Araujo RN OIL DERRICK OPERATOR Agreement signed today Social History Tobacco Use [...] EST Pt attended chronic pain group today OIL DERRICK OPERATOR Agreement reviewed and signed BPI updated today. Pain severity score of 5.8, activity interference score of 9. Previous BPI completed 06/23/24 with pain severity score of 7, activity interference score of 8.6. Will update PCP with BPI scoring. documented in this encounter Plan of Treatment Upcoming Encounters Date Type Department Care Team (Late st Contact Info) Description 10/24/2024 11:00 AM EST Medication Management [facility] MEDICINE [address] [place] [address] Carter Wilson, PharmD [address] [place] [address] 11/01/2024 11:00 AM EDT Office Visit [facility] [address] [place] [address] documented as of this encounter Visit Diagnoses Not on filedocumented in this encounter Additional Health Concerns Assessment Noted Time PHQ-9 Depression Total Score: 0 02/24/20 23 11:15 AM EDT documented as of this encounter Care Teams Chromosomal Disorders Counselor Relationship Specialty Start Date End Date Michelle Young MD [address] [place] [address] PCP - General Family Medicine 06/03/18 documented as of this encounter
--- OUTSIDE RECORDS SUMMARY | 2024-10-20 09:47 | XMS_ITS | Encounter Summary ---
Author Organization [employer] Address [address] [facility] 7t [place] [address] Care Team Providers Care Pathology Laboratory Aide Name Role Phone Michelle Young MD Primary [...] Description 10/24/2024 11:00 AM EST Medication Management [facility] MEDICINE [address] [place] [phone] Carter Wilson, PharmD [address] [place] [address] 11/01/2024 11:00 AM EDT Office Visit [facility] MEDICINE [address] [place] [address] documented as of this encounter Visit Diagnoses Not on filedocumented in this encounter Additional Health Concerns Assessment Noted Time PHQ-9 Depression Total Score: 0 02/24/20 23 11:15 AM EDT documented as of this encounter Care Teams Pathology Laboratory Aide Relationship Specialty Start Date End Date Michelle Young MD [address] [place] [phone] PCP - General Family Medicine 06/03/18 documented as of this encounter
--- OUTSIDE RECORDS SUMMARY | 2024-10-20 09:47 | XMS_ITS | Encounter Summary ---
Author Organization [employer] Address 75 [facility] 7t [place] [address] Care Team Providers Care Spray Gun Repairer Helper Name Role Phone Michelle Young MD Primary Care Provide r Reason for Visit * Reason Onset Date Comments Med Refill 01/01/2023 Encounter Details Date Type Department Care Team (Late st Contact Info) Description 01/01/2023 Telephone [facility] MEDICINE [address] [place], [place] [phone] Michelle Young MD [address] [place], [place] [phone] Med Refill Social History Tobacco Use Types [...] Description 10/24/2024 11:00 AM EST Medication Management [facility] MED[facility]INE [address] [place] [phone] Carter Wilson, PharmD [address] [place] [address] 11/01/2024 11:00 AM EDT Office Visit [address] [address] documented as of this encounter Visit Diagnoses Not on filedocumented in this encounter Care Teams Spray Gun Repairer Helper Relationship Specialty Start Date End Date Michelle Young MD [address] [place] [address] PCP - General Family Medicine 06/03/18 documented as of this encounter
--- OUTSIDE RECORDS SUMMARY | 2024-10-20 09:47 | XMS_ITS | Encounter Summary ---
Author Organization [employer] Address [address] [facility] 7t [place] [address] Care Team Providers Care Ccie Name Role Phone Michelle Young MD Primary Care Provide r Reason for Visit * Reason Comments Med Change Request Encounter Details Date Type Department Care Team ([facility] st Contact Info) Description 10/01/2024 Refill [facility] MEDICINE 230 [place], [place] [phone] Michelle Young MD 230 [place], [place] [phone] Seizure disorder (CMS/HCC) Social History Tobacco Use [...] Description 10/24/2024 11:00 AM EST Medication Management [address] [address] Carter Wilson, PharmD [address] [place] [address] 11/01/2024 11:00 AM EDT Office Visit [address] [address] documented as of this encounter Visit Diagnoses Diagnosis Seizure disorder (CMS/[facility]) Unspecified epilepsy without mention of intractable epilepsy documented in this encounter Additional Health Concerns Assessment Noted Time PHQ-9 Depression Total Score: 0 02/24/20 23 11:15 AM EDT documented as of this encounter Care Teams Ccie Relationship Specialty Start Date End Date Michelle Young MD [address] [place] [phone] PCP - General Family Medicine 06/03/18 documented as of this encounter
--- OUTSIDE RECORDS SUMMARY | 2024-10-20 09:47 | XMS_ITS | Encounter Summary ---
Author Organization [employer] Address [address] [facility] 7t [place] [address] Care Team Providers Care Scale Balancer Name Role Phone Michelle Young MD Primary Care Provide r Reason for Visit * Reason Onset Date Comments Med Refill 07/24/2023 Encounter Details Date Type Department Care Team (Late st Contact Info) Description 07/24/2023 Telephone [facility] MEDICINE 230 [place], [place] [phone] Michelle Young MD [address] [place], [place] [phone] Med Refill Social History Tobacco Use Types [...] from patient requesting a medication refill for bvmnymciay-brqfyiapuvzrc-xnlgdbwo (Fioricet) 50-300-40 MG capsule and pantoprazole (Protonix) 40 MG EC tablet. documented in this encounter Plan of Treatment Upcoming Encounters Date Type Department Care Team (Late st Contact Info) Description 10/24/2024 11:00 AM EST Medication Management [facility] MEDICINE [address] [place] [phone] Carter Wilson, PharmD [address] [place] [address] 11/01/2024 11:00 AM EDT Office Visit [facility] MEDICINE [address] [place] [address] documented as of this encounter Visit Diagnoses Not on filedocumented in this encounter Additional Health Concerns Assessment Noted Time PHQ-9 Depression Total Score: 0 02/24/20 23 11:15 AM EDT documented as of this encounter Care Teams Scale Balancer Relationship Specialty Start Date End Date Michelle Young MD [address] [place] [address] PCP - General Family Medicine 06/03/18 documented as of this encounter
--- OUTSIDE RECORDS SUMMARY | 2024-10-20 09:47 | XMS_ITS | Encounter Summary ---
Author Organization [employer] Address 75 [facility] 7t [place] [address] Care Team Providers Care Software Project Manager Name Role Phone Michelle Young MD [...] Description 10/24/2024 11:00 AM EST Medication Management [facility] MEDICINE [address] [place] [address] Carter Wilson, PharmD [address] [place] [address] 11/01/2024 11:00 AM EDT Office Visit [facility] [address] [place] [address] documented as of this encounter Visit Diagnoses Not on filedocumented in this encounter Additional Health Concerns Assessment Noted Time PHQ-9 Depression Total Score: 0 02/24/20 23 11:15 AM EDT documented as of this encounter Care Teams Software Project Manager Relationship Specialty Start Date End Date Michelle Young MD [address] [place] [address] PCP - General Family Medicine 06/03/18 documented as of this encounter
--- OUTSIDE RECORDS SUMMARY | 2024-10-20 09:47 | XMS_ITS | Encounter Summary ---
Author Organization [employer] Address 75 [facility] 7t [place] [address] Care Team Providers Care Croze Machine Operator Name Role Phone Michelle Young MD Primary Care Provide r Encounter Details Date Type Department Care Team ([facility] st Contact Info) Description 10/06/2024 Orders Only [facility] & PEDS [address] [place], [place] [phone] Boyd Mares MD [address] [place], [place] [phone] Primary hypertension (Primary Dx); Hypokalemia Social History [...] Description 10/24/2024 11:00 AM EST Medication Management [address] [address] Carter Wilson, PharmD [address] [place] [address] 11/01/2024 11:00 AM EDT Office Visit [address] [address] Scheduled Orders Name Type Priority Associated Diagnoses [...] documented as of this encounter Care Teams Croze Machine Operator Relationship Specialty Start Date End Date Micehlle Young MD [address] [place] [address] PCP - General Family Medicine 06/03/18 documented as of this encounter
--- OUTSIDE RECORDS SUMMARY | 2024-10-20 09:47 | XMS_ITS | Encounter Summary ---
Author Organization [employer] Address 75 [facility] 7t [place] [address] Care Team Providers Care Milk Processing Worker Name Role Phone Michelle Young MD Primary Care Provide r Encounter Details Date Type Department Care Team ([facility] st Contact Info) Description 10/04/2024 Orders Only [facility] MEDICINE 230 [place], [place] [phone] Michelle Young MD 230 [place], [place] [phone] Social History Tobacco Use Types Packs/Day Years [...] 10/24/2024 11:00 AM EST Medication Management [address] [address] Carter Wilson, PharmD [address] [place] [address] 11/01/2024 11:00 AM EDT Office Visit [address] [address] documented as of this encounter Procedures Procedure Name Priority Date/Time Associated Diagnosis Comments HEPATIC FUNCTION PANEL Routine 10/04/2024 12:07 PM EST documented in this encounter Results * (ABNORMAL) Hepatic Function Panel (10/04/2024 12:07 PM EST) Bilirubin, Total 0.4 0.0 - 1.0 mg/dL [facility] Bilirubin, Direct 0.1 0.0 - 0.5 mg/dL [facility] Aspartate Amino Transferase 29 5 - 31 U/L [facility] Alanine Aminotransferase 42(H) 0 - 31 U/L [facility] Total Protein 8.1(H) 6.5 - 8.0 g/dL [facility] Albumin Level 4.6 3.5 - 5.0 g/dL [facility] Alkaline Phosphatase 71 39 - 117 U/L [facility] 10/04/2024 12:0 7 PM EST 10/04/2024 1:12 PM EST us Michelle Neumann MD LAB BLOOD ORDERABLES Final Result [facility] [address] [place] [address] [phone] documented in this encounter Visit Diagnoses Not on filedocumented in this encounter Additional Health Concerns Assessment Noted Time PHQ-9 Depression Total Score: 0 02/24/20 23 11:15 AM EDT documented as of this encounter Care Teams Milk Processing Worker Relationship Specialty Start Date End Date Michelle Young MD [address] [place] [phone] PCP - General Family Medicine 06/03/18 documented as of this encounter
--- OUTSIDE RECORDS SUMMARY | 2024-10-20 09:47 | XMS_ITS | Encounter Summary ---
Author Organization [employer] Address 75 [facility] 7t [place] [address] Care Team Providers Care Honing Job Setter Name Role Phone Michelle Young MD Primary Care Provide r Reason for Visit * Reason Onset Date Comments Chart Prep 09/28/2024 Encounter Details Date Type Department Care Team (Late st Contact Info) Description 09/28/2024 Telephone [facility] MEDICINE [address] [place], [place] [phone] Chris Cerda MA Chart Prep Social History [...] done Images: done Vaccines due: yes Referrals: [facility] ask patient if Screenings: pap smear , Foot Exam Overdue care gaps: Glucose, Sbirt, PHQ-9, JEROMY-7 documented in this encounter Plan of Treatment Upcoming Encounters Date Type Department Care Team (Late st Contact Info) Description 10/24/2024 11:00 AM EST Medication Management [address] [address] Carter Wilson, PharmD [address] [place] [address] 11/01/2024 11:00 AM EDT Office Visit [facility] MEDICINE [address] [place] [address] documented as of this encounter Visit Diagnoses Not on filedocumented in this encounter Additional Health Concerns Assessment Noted Time PHQ-9 Depression Total Score: 0 02/24/20 23 11:15 AM EDT documented as of this encounter Care Teams Honing Job Setter Relationship Specialty Start Date End Date Michelle Young MD [address] [place] [phone] PCP - General Family Medicine 06/03/18 documented as of this encounter
--- OUTSIDE RECORDS SUMMARY | 2024-10-20 09:48 | XMS_ITS | Encounter Summary ---
Author Organization [employer] Address 75 [facility] 7t [place] [address] Care Team Providers Care Professor Of Communication Name Role Phone Michelle Young MD Primary [...] Description 10/24/2024 11:00 AM EST Medication Management [facility] MEDICINE [address] [place] [address] Carter Wilson, PharmD 230 [place] [address] 11/01/2024 11:00 AM EDT Office Visit [facility] MEDICINE [address] [place] [phone] documented as of this encounter Visit Diagnoses Not on filedocumented in this encounter Additional Health Concerns Assessment Noted Time PHQ-9 Depression Total Score: 0 02/24/20 23 11:15 AM EDT documented as of this encounter Care Teams Professor Of Communication Relationship Specialty Start Date End Date Michelle Young MD [address] [place] [address] PCP - General Family Medicine 06/03/18 documented as of this encounter
--- OUTSIDE RECORDS SUMMARY | 2024-10-20 09:48 | XMS_ITS | Encounter Summary ---
Author Organization [employer] Address 75 [facility] 7t [place] [address] Care Team Providers Care Dye Can Operator Name Role Phone Michelle Young MD Primary Care Provide r Reason for Visit * Reason Onset Date Comments Med Refill 09/22/2024 Encounter Details Date Type Department Care Team (Late st Contact Info) Description 09/22/[address] [facility] MEDICINE [address] [place], [place] [phone] Michelle Young MD 230 [place], [place] [phone] Med Refill Social History Tobacco Use Types [...] 3:48 PM EST TC placed to patient [phone] in regards to below message. Patient advised [...] patient should also p/u CGM supplies at [facility] pharmacy on 09/30/24 before her appointment as Carter will complete CGM teaching at appointment as well. Patient verbalized understanding. TC placed to [facility] pharmacy to inform them of CGM [...] MG/0.5ML solution auto-injector To be sent to: [facility] pharmacy Tc from pt stating pharmacy [...] Description 10/24/2024 11:00 AM EST Medication Management [address] [address] Carter Wilson, PharmD [address] [place] [address] 11/01/2024 11:00 AM EDT Office Visit [address] [address] documented as of this encounter Visit Diagnoses Not on filedocumented in this encounter Additional Health Concerns Assessment Noted Time PHQ-9 Depression Total Score: 0 02/24/20 23 11:15 AM EDT documented as of this encounter Care Teams Dye Can Operator Relationship Specialty Start Date End Date Michelle Young MD [address] [place] [address] PCP - General Family Medicine 06/03/18 documented as of this encounter
--- OUTSIDE RECORDS SUMMARY | 2024-10-20 09:48 | XMS_ITS | Encounter Summary ---
Author Organization [employer] Address 75 [facility] 7t [place] [address] Care Team Providers Care Icd 9 Coder Name Role Phone Michelle Young MD Primary Care Provide r Reason for Visit * Reason Onset Date Comments Med Change Request Durable Medical Equipment 01/04/2024 Blood Pressure Monitor Encounter Details Date Type Department Care Team (Late st Contact Info) Description 01/04/2024 Refill [facility] MEDICINE 230 [place], [place] [phone] Michelle Young MD [address] [place], [place] [phone] Primary hypertension Social History Tobacco Use Types [...] t he electric, gas, oil or water [employer] threatened to shut off services in your [...] Once signed will fax to [facility] and scaninto chart under media. documented in this encounter Plan of Treatment Upcoming Encounters Date Type Department Care Team (Late st Contact Info) Description 10/24/2024 11:00 AM EST Medication Management [address] [address] Carter Wilson, PharmD [address] [place] [address] 11/01/2024 11:00 AM EDT Office Visit [address] [address] documented as of this encounter Visit Diagnoses Diagnosis Primary hypertension Unspecified essential hypertension documented in this encounter Additional Health Concerns Assessment Noted Time PHQ-9 Depression Total Score: 0 02/24/20 23 11:15 AM EDT documented as of this encounter Care Teams Icd 9 Coder Relationship Specialty Start Date End Date Michelle Young MD [address] [place] [address] PCP - General Family Medicine 06/03/18 documented as of this encounter
--- OUTSIDE RECORDS SUMMARY | 2024-10-20 09:48 | XMS_ITS | Encounter Summary ---
Author Organization [employer] Address 75 [facility] 7t [place] [address] Care Team Providers Care Biomedical Equipment Tech Name Role Phone Michelle Young MD Primary Care Provide r Reason for Visit * Reason Onset Date Comments Med Refill 09/26/2024 Encounter Details Date Type Department Care Team (Late st Contact Info) Description 09/26/2024 Refill [facility] MEDICINE 230 [place], [place] [phone] Michelle Young MD [address] [place], [place] [phone] Migraine without aura and without status migrainosus, [...] requesting medication refill. Medications needing refill : [id number]-[id number] (Fioricet) 50-300-40 MG capsule zolpidem (Ambien) 5 MG tablet To be sent to: [id number] documented in this encounter Plan of Treatment Upcoming Encounters Date Type Department Care Team (Late st Contact Info) Description 10/24/2024 11:00 AM EST Medication Management [facility] MEDICINE [address] [place] [address] Carter Wilson, PharmD [address] [place] [address] 11/01/2024 11:00 AM EDT Office Visit [facility] MEDICINE [address] [place] [address] documented as of this encounter Visit Diagnoses Diagnosis Migraine without aura and without status migrainosus, not intractable Primary insomnia Persistent disorder of initiating or maintaining sleep documented in this encounter Additional Health Concerns Assessment Noted Time PHQ-9 Depression Total Score: 0 02/24/20 23 11:15 AM EDT documented as of this encounter Care Teams Biomedical Equipment Tech Relationship Specialty Start Date End Date Michelle Young MD [address] [place] [address] PCP - General Family Medicine 06/03/18 documented as of this encounter
--- OUTSIDE RECORDS SUMMARY | 2024-10-20 09:48 | XMS_ITS | Data Portability ---
Author Organization [employer] Address [address] [place] [phone] Care Team Providers Care Rigging Up Man Name Role Phone [facility] Referring Provider Assessment No assessment recorded. Plan of Treatment Reminders Order Date Submit Date Provider Last Modified By Organization Details Last Modified Time Details Appointments None recorded. Lab None recorded. Referral None recorded. Procedures None recorded. Surgeries None recorded. Imaging None recorded. Medication Orders Zithromax Z-Freddie 250 mg tablet 2022 023 [id number], [address] [place], [address], 3 11:31:31 Patient TargetsNo targets recorded. Patient [...] Details Last Updated DateTime 3 16 /min 97632.4 8 g 96 % 96 % 98 [...] SNOMED-CT Code Diagnosis ICD10 Code Diagnosis Note [id number] Luigi Gill MD Main - [facility]ED [address] [place] [phone] 01/23/2023 11:25:23 01/23/2023 12:10:26 Acute bronchitis [id number] J20.9 This 42-year-ol d female has has [...] Aguilera Member ID Guarantor Name 01/23/2023 1 [facility] - DOS ON OR AFTER 2022 - DUAL ELIGIBLE - SKILLED NURSING OPTIONS AND ONE CARE (MEDICARE REPLACEMENT/ADV ANTAGE - HMO) Veronica Oleary [id number] Veronica Oleary Notes Date Note Type Note Provider Name and Address Organization Details Recorded Time 01/23/2023 text/html HPI: Member calling in with c/o constant non-productive cough, rib pain, low grade fever. States she is worried she could have pneumonia as she has had it in the past. Denies any shortness of breath. [facility] .................. .................. .................. .................. .................. .................. .................. ............... CRC Nursing Assessment: Comments: CRC RN did not require any additional information to process this visit. Luigi Gill MD [address] [facility],[address], [place], [phone], [facility] - [email or web address] 01/23/2023 11:31:57 OBGyn Episode No OBEpisode recorded.
--- OUTSIDE RECORDS SUMMARY | 2024-10-20 09:48 | XMS_ITS | Encounter Summary ---
Author Organization [employer] Address 75 [facility] 7t [place] [address] Care Team Providers Care Consulting Property Manager Name Role Phone Michelle Young MD Primary Care Provide r Reason for Visit * Reason Comments Hypertension Encounter Details Date Type Department Care Team ([facility] st Contact Info) Description 12/21/2023 1:00 PM EDT Office Visit [facility] 230 [place] [address] Boyd Mares MD [address] [place], [place] [phone] Migraine without aura and without status migrainosus, [...] is no history of angina, kidney disease, CAD/[place], CVA, heart failure or left ventricular hypertrophy. [...] a refill on her Fioricet. Orders: - [id number]-[id number]-wbcoybaw (Fioricet) 50-300-40 MG capsule; TAKE 1 CAPSULE [...] 1:00 PM EDT TC to patient via product analyst. Reviewed results and recommendations with patient. All [...] Description 10/24/2024 11:00 AM EST Medication Management [facility] MEDICINE [address] [place] [phone] Carter Wislon, PharmD [address] [place] [address] 11/01/2024 11:00 AM EDT Office Visit [facility] MEDICINE [address] [place] [address] Scheduled Orders Name Type Priority Associated Diagnoses [...] EST) Sodium 139 135 - 145 mmol/L [facility] Potassium 3.2(L) 3.3 - 5.1 mmol/L [facility] Chloride 109(H) 96 - 108 mmol/L [facility] Carbon Dioxide 21(L) 22 - 29 mmol/L [facility] Anion Gap 12 12 - 20 [facility] Urea Nitrogen (BUN) 12 9 - 16 mg/dL [facility] Creatinine, Serum 1.15 0.5 - 1.4 mg/dL [facility] Estimated Glomerular Filt Rate 51 [facility] Comment:Chronic Kidney Disea se: Estimated GFR < 60 mL/min/1.00o9Ewxwhl Kidney Disease: Estimated GFR < 15 mL/min/1.73m2 Glucose 103 60 - 115 mg/dL [facility] Calcium 9.6 8.4 - 10.2 mg/dL [facility] Blood Venous blood specimen / Unknown 10/04/2024 12:07 PM EST 10/04/2024 1:12 PM EST Boyd Mares MD LAB BLOOD ORDERABLES Final Result [facility] [address] [place] [address] [phone] * ECG 12 lead (12/21/2023 4:26 [...] documented as of this encounter Care Teams Consulting Property Manager Relationship Specialty Start Date End Date Michelle Young MD [address] [place] [address] PCP - General Family Medicine 06/03/18 documented as of this encounter
--- OUTSIDE RECORDS SUMMARY | 2024-10-20 09:48 | XMS_ITS | Encounter Summary ---
Author Organization [email or web address] Address [address] [place] [address] 7t [place] [address] Care Team Providers Care Flitch Hanger Name Role Phone Michelle Young MD Primary Care Provide r Reason for Visit * Reason Comments Med Refill Encounter Details Date Type Department Care Team (Late st Contact Info) Description 05/08/2023 Refill [facility] [address] [place], [place] [phone] Michelle Young MD [address] [place], [place] [phone] Gastritis, presence of bleeding unspecified, unspecified chronicity, [...] Description 10/24/2024 11:00 AM EST Medication Management [facility] MEDICINE [address] [place] [address] Carter Wilson, PharmD [address] [place], [place] [phone] 11/01/2024 11:00 AM EDT Office Visit [facility] MEDICINE [address] [place] [address] documented as of this encounter Visit Diagnoses Diagnosis Gastritis, presence of bleeding unspecified, unspecified chronicity, unspecified gastritis type documented in this encounter Additional Health Concerns Assessment Noted Time PHQ-9 Depression Total Score: 0 02/24/20 23 11:15 AM EDT documented as of this encounter Care Teams Flitch Hanger Relationship Specialty Start Date End Date Michelle Young MD [address] [place] [address] PCP - General Family Medicine 06/03/18 documented as of this encounter
--- OUTSIDE RECORDS SUMMARY | 2024-10-20 09:48 | XMS_ITS | Encounter Summary ---
Author Organization [employer] Address 75 [facility] 7t [place] [address] Care Team Providers Care Marine Firer Name Role Phone Michelle Young MD Primary Care Provide r Reason for Visit * Reason Comments Med Refill Encounter Details Date Type Department Care Team ([facility] st Contact Info) Description 10/27/2023 Refill [facility] PEDS [address] [place], [place] [phone] Michelle Young MD 230 [place], [place] [phone] Social History Tobacco Use Types Packs/Day Years [...] Description 10/24/2024 11:00 AM EST Medication Management [address] [address] Catrer Wilson, PharmD [address] [place] [address] 11/01/2024 11:00 AM EDT Office Visit [address] [address] documented as of this encounter Visit Diagnoses Not on filedocumented in this encounter Additional Health Concerns Assessment Noted Time PHQ-9 Depression Total Score: 0 02/24/20 23 11:15 AM EDT documented as of this encounter Care Teams Marine Firer Relationship Specialty Start Date End Date Michelle Young MD [address] [place] [address] PCP - General Family Medicine 06/03/18 documented as of this encounter
--- OUTSIDE RECORDS SUMMARY | 2024-10-20 09:48 | XMS_ITS | Encounter Summary ---
Author Organization [employer] Address [address] [place] [address] 7t [place] [address] Care Team Providers Care Manager Audit Name Role Phone Michelle Young MD Primary Care Provide r Reason for Visit * Reason Onset Date Comments Med Refill 04/20/2023 Encounter Details Date Type Department Care Team (Late st Contact Info) Description 04/20/2023 Telephone [facility] MEDICINE 230 [place], [place] [phone] Michelle Young MD [address] [place], [place] [phone] Med Refill Social History Tobacco Use Types [...] Description 10/24/2024 11:00 AM EST Medication Management [address] [address] Carter Wilson, PharmD [address] [place] [address] 11/01/2024 11:00 AM EDT Office Visit [address] [address] documented as of this encounter Visit Diagnoses Not on filedocumented in this encounter Additional Health Concerns Assessment Noted Time PHQ-9 Depression Total Score: 0 02/24/20 23 11:15 AM EDT documented as of this encounter Care Teams Manager Audit Relationship Specialty Start Date End Date Michelle Young MD [address] [place] [address] PCP - General Family Medicine 06/03/18 documented as of this encounter
--- OUTSIDE RECORDS SUMMARY | 2024-10-20 09:48 | XMS_ITS | Encounter Summary ---
Author Organization [employer] Address 75 [facility] 7t [place] [address] Care Team Providers Care Medical Aide Name Role Phone Michelle Young MD Primary Care Provide r Encounter Details Date Type Department Care Team (Late st Contact Info) Description 10/12/2024 Orders Only [facility] MEDICINE [address] [place], [place] [phone] Michelle Young MD 230 [place], [place] [phone] Elevated LFTs (Primary Dx) Social History Tobacco Use Types Packs/Day Years [...] Description 10/24/2024 11:00 AM EST Medication Management [address] [address] Carter Wilson, PharmD [address] [place] [address] 11/01/2024 11:00 AM EDT Office Visit [address] [address] Scheduled Orders Name Type Priority Associated Diagnoses Orde r Schedule Hepatitis A,B,C Profile Lab Routine Elevated LFTs Expected: 10/12/2024, Expires: 10/12/2025 documented as of this encounter Visit Diagnoses Diagnosis Elevated LFTs- Primary Other abnormal blood chemistry documented in this encounter Additional Health Concerns Assessment Noted Time PHQ-9 Depression Total Score: 0 02/24/20 23 11:15 AM EDT documented as of this encounter Care Teams Medical Aide Relationship Specialty Start Date End Date Michelle Young MD [address] [place] [address] PCP - General Family Medicine 06/03/18 documented as of this encounter
--- OUTSIDE RECORDS SUMMARY | 2024-10-20 09:48 | XMS_ITS | Encounter Summary ---
Author Organization [employer] Address [address] [facility] 7t [place] [address] Care Team Providers Care Dust Mixer Name Role Phone Michelle Young MD Primary Care Provide r Reason for Visit * Reason Onset Date Comments GIULIANA SMITH 09/15/2024 Encounter Details Date Type Department Care Team (Late st Contact Info) Description 09/15/2024 Telephone [facility] MEDICINE [address] [place], [place] [phone] Nimo Rao, SHARLENE [address] [place], [place] [phone] GIULIANA SMITH Social History Tobacco Use Types [...] CCA PA form completed and faxed to [phone]. Patient's preferred pharmacy: [facility]/pharmacy #[id number] - [place], [place] - [address] [place] [id number] CGM PA should be approved by: 09/29/2024 Veronica Akers will be scheduled with red team nurses for CGM placement/teaching once PA is approved. documented in this encounter Plan of Treatment Upcoming Encounters Date Type Department Care Team (Late st Contact Info) Description 10/24/2024 11:00 AM EST Medication Management [facility] MEDICINE [address] [place] [address] Carter Wilson, PharmD [address] [place], [place] [phone] 11/01/2024 11:00 AM EDT Office Visit [facility] MEDICINE [address] [place] [address] documented as of this encounter Visit Diagnoses Diagnosis Type 2 diabetes mellitus with hyperglycemia, without long-term current use of insulin ([facility]) documented in this encounter Additional Health Concerns Assessment Noted Time PHQ-9 Depression Total Score: 0 02/24/20 23 11:15 AM EDT documented as of this encounter Care Teams Dust Mixer Relationship Specialty Start Date End Date Michelle Young MD [address] [place] [address] PCP - General Family Medicine 06/03/18 documented as of this encounter
--- OUTSIDE RECORDS SUMMARY | 2024-10-20 09:48 | XMS_ITS | Encounter Summary ---
Author Organization [employer] Address 75 [facility] 7t [place] [address] Care Team Providers Care Mobile Home Set Up Person Name Role Phone Michelle Young MD Primary Care Provide r Reason for Visit * Reason Onset Date Comments Med Refill 09/26/2024 Encounter Details Date Type Department Care Team (Late st Contact Info) Description 09/26/2024 Refill [facility] MEDICINE [address] [place], [place] [phone] Michelle Young MD 230 [place], [place] [phone] Chronic bilateral low back pain, unspecified whether [...] 50 MG tablet To be sent to: [facility]/pharmacy #[id number] documented in this encounter Plan of Treatment Upcoming Encounters Date Type Department Care Team (Late st Contact Info) Description 10/24/2024 11:00 AM EST Medication Management [facility] MEDICINE [address] [place] [phone] Carter Wilson, PharmD [address] [place] [address] 11/01/2024 11:00 AM EDT Office Visit [facility] MEDICINE [address] [place] [address] documented as of this encounter Visit Diagnoses Diagnosis Chronic bilateral low back pain, unspecified whether sciatica present documented in this encounter Additional Health Concerns Assessment Noted Time PHQ-9 Depression Total Score: 0 02/24/20 23 11:15 AM EDT documented as of this encounter Care Teams Mobile Home Set Up Person Relationship Specialty Start Date End Date Michelle Young MD [address] [place] [phone] PCP - General Family Medicine 06/03/18 documented as of this encounter
--- OUTSIDE RECORDS SUMMARY | 2024-10-20 09:48 | XMS_ITS | Encounter Summary ---
Author Organization [email or web address] Address 75 [facility] 7t [place] [address] Care Team Providers Care Rustic Fence Builder Name Role Phone Michelle Young MD Primary Care Provide r Reason for Visit * Reason Comments Pre-visit Planning SDOH screening negat marta and tobacco screening negative Encounter Details Date Type Department Care Team ([facility] st Contact Info) Description 09/21/2024 Patient Outreach [facility] MEDICINE [address] [place], [place] [phone] Michelle Young MD [address] [place], [place] [phone] Pre-visit Planning (SDOH screening negative and tobacco [...] 11:00 AM EST Medication Management [facility] MEDICINE [address] [place] [phone] Carter Wilson, PharmD [address] [place] [address] 11/01/2024 11:00 AM EDT Office Visit [facility] MED[facility]INE [address] [place] [phone] documented as of this encounter Visit Diagnoses Not on filedocumented in this encounter Additional Health Concerns Assessment Noted Time PHQ-9 Depression Total Score: 0 02/24/20 23 11:15 AM EDT documented as of this encounter Care Teams Rustic Fence Builder Relationship Specialty Start Date End Date Michelle Young MD [address] [place] [address] PCP - General Family Medicine 06/03/18 documented as of this encounter
--- OUTSIDE RECORDS SUMMARY | 2024-10-20 09:48 | XMS_ITS | Encounter Summary ---
Author Organization [employer] Address [address] [facility] 7t [place] [address] Care Team Providers Care Head Waitress Name Role Phone Michelle Young MD Primary Care Provide r Reason for Visit * Reason Comments Med Refill Encounter Details Date Type Department Care Team ([facility] st Contact Info) Description 09/23/2023 Refill [facility] MEDICINE [address] [place], [place] [phone] Michelle Young MD [address] [place], [place] [phone] Primary insomnia Social History Tobacco Use Types [...] Description 10/24/2024 11:00 AM EST Medication Management [address] [address] Carter Wilson, PharmD [address] [place] [address] 11/01/2024 11:00 AM EDT Office Visit [address] [address] documented as of this encounter Visit Diagnoses Diagnosis Primary insomnia Persistent disorder of initiating or maintaining sleep documented in this encounter Additional Health Concerns Assessment Noted Time PHQ-9 Depression Total Score: 0 02/24/20 23 11:15 AM EDT documented as of this encounter Care Teams Head Waitress Relationship Specialty Start Date End Date Michelle Young MD [address] [place] [phone] PCP - General Family Medicine 06/03/18 documented as of this encounter
--- OUTSIDE RECORDS SUMMARY | 2024-10-20 09:48 | XMS_ITS | Encounter Summary ---
Author Organization [employer] Address 75 [facility] 7t [place] [address] Care Team Providers Care Draw Tender Name Role Phone Michelle Young MD Primary Care Provide r Reason for Visit * Reason Onset Date Comments Med Refill 04/20/2023 Encounter Details Date Type Department Care Team (Late st Contact Info) Description 04/20/2023 Telephone [facility] MEDICINE 230 [place], [place] [phone] Michelle Young MD 230 [place], [place] [phone] Med Refill Social History Tobacco Use Types [...] 1:25 PM EDT Medication was sent to [facility] #[id number] on 03/19/23 with 3 refills. * Telephone Encounter - Cheryl Mcclelland - 04/20/2023 1:09 PM EDT Tc from pt requesting med refill for medication fumyttxjfh-oddfdllchyjqn-lhrnhpfv (Fioricet) 50-300-40 MG capsule. documented in this encounter Plan of Treatment Upcoming Encounters Date Type Department Care Team (Late st Contact Info) Description 10/24/2024 11:00 AM EST Medication Management [facility] MEDICINE [address] [place] [phone] Carter Wilson, PharmD [address] [place] [address] 11/01/2024 11:00 AM EDT Office Visit [address] [address] documented as of this encounter Visit Diagnoses Not on filedocumented in this encounter Additional Health Concerns Assessment Noted Time PHQ-9 Depression Total Score: 0 02/24/20 23 11:15 AM EDT documented as of this encounter Care Teams Draw Tender Relationship Specialty Start Date End Date Michelle Young MD [address] [place] [phone] PCP - General Family Medicine 06/03/18 documented as of this encounter
--- OUTSIDE RECORDS SUMMARY | 2024-10-20 09:48 | XMS_ITS | Encounter Summary ---
Author Organization [employer] Address 75 [facility] 7t [place] [address] Care Team Providers Care Smalltalk Developer Name Role Phone Michelle Young MD Primary Care Provide r Reason for Visit * Reason Onset Date Comments Results 10/12/2024 Encounter Details Date Type Department Care Team ([facility] st Contact Info) Description 10/12/2024 Telephone [facility] MEDICINE 230 [place], [place] [phone] Michelle Young MD [address] [place], [place] [phone] Results Social History Tobacco Use Types Packs/Day Years [...] t he electric, gas, oil or water [employer] threatened to shut off services in your [...] encounter Miscellaneous Notes * Telephone Encounter - Art Mendez RN - 10/12/2024 12:12 PM EST TC placed to patient who was informed of providers message below regarding lab results. Patient informed that her cholesterol and triglycerides are a little high and her LFTs are a little elevated (could be due to fatty liver) PCP ordered a hepatitis panel just to rule it out, RN informed patient to have labs completed at her convenience and advised to follow healthy diet and exercise. Patient reports she was in the ED last night and was discharged this morning and is having pain. Patient reports they gave her medication in the ED. RN advised to take meds as prescribed and that RN will get EDdocuments and return call to book follow up if needed. ED documents printed. RN returned call to patient to inform ED documents from [facility] received and reviewed and RN advised patient to continue taking medications prescribed in the ED and recommendations they made and return call if she does not feel better in a week or so to schedule follow up. Patient verbalized understanding and agrees with plan. ED documents scanned into chart under media. Patient was seen for muscle strain and contusion on foot. * Telephone Encounter - Art Mendez RN - 10/12/2024 12:07 PM EST ----- Message from Michelle Neumann MD sent at 10/12/2024 9:40 AM EST ----- Please let patient know I reviewed her labs, her cholesterol and triglycerides are a little high, also her LFTs are a little elevated it could be due to fatty liver but I will order hepatitis panel just to rule it out, let her know I will continue to monitor, please advise healthy diet and exercise documented in this encounter Plan of Treatment Upcoming Encounters Date Type Department Care Team (Late st Contact Info) Description 10/24/2024 11:00 AM EST Medication Management [facility] MEDICINE [address] [place] [phone] Carter Wilson, PharmD [address] [place] [phone] 11/01/2024 11:00 AM EDT Office Visit [address] [address] documented as of this encounter Visit Diagnoses Not on filedocumented in this encounter Additional Health Concerns Assessment Noted Time PHQ-9 Depression Total Score: 0 02/24/20 23 11:15 AM EDT documented as of this encounter Care Teams Smalltalk Developer Relationship Specialty Start Date End Date Michelle Young MD [address] [place] [phone] PCP - General Family Medicine 06/03/18 documented as of this encounter
--- OUTSIDE RECORDS SUMMARY | 2024-10-20 09:48 | XMS_ITS | Clinical Summary ---
Author Organization [facility] Address [address] [place] [address] Phone Care Team Providers Care System Support Technician Name Role Phone Michelle Young MD Primary Care Provide r Allergies No known active allergies Medications amLODIPine (NORVASC) 10 mg tablet Take 1 tablet (10 mg total) by mouth 1 (one) time each day. Active Surgical History Surgery Date Site/Laterality Comments SECTION PROCEDURE: [place] DELIVERY ONLY HYSTERECTOMY PROCEDURE: HISTORICAL HYSTERECTOMY TONSILLECTOMY ADENOIDECTOMY, BILATERAL MYRINGOTOMY AND TUBES PROCEDURE: [place] TONSILLECTOMY & ADENOIDECTOMY <AGE 10 Medical History [...] HIV Screening 08/02/2022 Hepatitis C Screening 08/02/2022 Medicare Annual Wellness Visit 08/02/2022 Social Influencers of Health Screening 08/02/2022 Depression Screening 02/24/2024 02/23/2023 COVID-19 Vaccine ( - season) 2024 06/07/2023, 02/13/2022 Influenza Vaccine [...] MD LAB BLOOD ORDERABLES Final Resu lt [facility] [address] [place] [address], [place] [phone] from Last 3 Months or Most Recently Relevant to Health Maintenance Insurance [place] - [place] [facility] Member Subscriber Plan / Payer ( fective 2024-Present) Name:Veronica Wilcox Relation to Subscriber:Self Name:Veronica Wilcox Payer ID:[id number] Group ID:Not on file Type:Not on file Address: [address] [place] [address] [employer] MEDICARE Member Subscriber Plan / Payer ( fective 2019-Present) Name:Veronica Wilcox Relation to Subscriber:Self Name:Veronica Wilcox Payer ID:[id number] Group ID:[id number] Type:Not on file Address: [address] [place] [id number] Care Teams System Support Technician Relationship Specialty Start Date End Date Michelle Young MD [address] [place] [phone] PCP - General Internal Medicine 09/06/19
[2024-10-20 12:14] LABS: Anion Gap 13 (12-20); Blood Urea Nitrogen 13 mg/dL (9-16); Calcium 9.4 mg/dL (8.4-10.2); Carbon Dioxide 24 mmol/L (22-29); Chloride 104 mmol/L (96-108); Cholesterol 201 mg/dL (<200); Estimated Glomerular Filt Rate 47; Glucose Random 151 mg/dL (60-115); HDL Cholesterol 45 mg/dL (>40); LDL Cholesterol Calculated 113 mg/dL (<100); Potassium 3.4 mmol/L (3.3-5.1); Sodium 138 mmol/L (135-145); Triglycerides 218 mg/dL (<150)
[2024-10-20 12:39] LABS: HBc Num1 0.07 S/CO (0.00-0.79); Hepatitis A Antibody IgM 0.15 Index (0-0.79); Hepatitis B Core Antibody Nonreactive (Nonreactive); Hepatitis B Surface Antigen Negative (Negative); ~HepC Num1 0.11 S/CO (0.00-0.79); ~Hepatitis A Antibody IgM Nonreactive (Nonreactive); ~Hepatitis B Surface Antibody REACTIVE (Nonreactive); ~Hepatitis C Antibody Nonreactive (Nonreactive)
== END 2024-10-20 09:03 | disposition home or self-care (01) ==
LOC: HO.HHCL 09:02
PROVIDERS: Visit Provider Internal Medicine
DX: R79.89 Other specified abnormal findings of blood chemistry (principal); E11.65 Type 2 diabetes mellitus with hyperglycemia; E87.6 Hypokalemia; Z11.59 Encounter for screening for other viral diseases
CPT/HCPCS: 36415; 80048; 80061; 86704; 86706; 86709; 86803; 87340

== ENCOUNTER 2025-01-12 20:01 | Emergency (ER) | payer OTHER, SELFPAY ==
--- NOTE | ~2025-01-12 | XR_ITS ---
CLINICAL HISTORY: pain 3 views lumbar spine Comparison: None Findings: Normal vertebral body alignment. No acute fractures or dislocation. No significant degenerative change. IMPRESSION: No acute findings. This document has been electronically signed by: Jayjay Sky MD on 01/12/2025 21:45:34
--- NOTE | ~2025-01-12 | XR_ITS ---
CLINICAL HISTORY: pain 3 view, pelvis and bilateral hips Comparison: None Findings: No acute fracture or dislocation. No significant arthritic change. The soft tissues are unremarkable. IMPRESSION: No acute findings. This document has been electronically signed by: Jayjay Sky MD on 01/12/2025 21:49:03
[2025-01-12 20:10] VITALS: BP 130/78; PULSE 92; RESP 22; TEMP 36.4; O2SAT 99; BMI 39.9
--- NOTE | 2025-01-12 20:30 | ED.GENADULT ---
HPI - General Adult General Chief complaint: Back Pain/Injury Stated complaint: back paiin Time Seen by Provider: 01/12/25 20:29 Source: patient Limitations: language barrier History of Present Illness ED Provider: Ashley Meyers PA-C HPI narrative: 44-year-old female with a history of chronic back pain, prior avascular necrosis of bilateral hips, morbid obesity, constipation, seizure disorder, hypertension, asthma who presents with atraumatic low back pain x 3 days. Pain radiates down bilateral lower extremities. Associated paresthesia. Denies weakness of lower extremities, urinary retention or bowel incontinence. Patient denies new activity, heavy lifting or trauma that precipitated her symptoms. Related Data Home Medications ?Medication ?Instructions ?Recorded ?Confirmed topiramate 200 mg tablet 200 mg PO BID 03/25/23 05/17/24 tramadol 50 mg tablet 50 mg PO Q6H PRN Pain 03/25/23 05/17/24 amlodipine 10 mg tablet 10 mg PO DAILY 01/13/24 05/17/24 escitalopram oxalate 20 mg tablet 20 mg PO DAILY 01/13/24 05/17/24 fluticasone propionate 50 1 spray intranasal DAILY PRN sinus 01/13/24 05/17/24 mcg/actuation nasal congestion spray,suspension (Flonase Allergy Relief) hydrochlorothiazide 25 mg tablet 25 mg PO DAILY 01/13/24 05/17/24 hydroxyzine pamoate 50 mg capsule 50 mg PO TID PRN Anxiety 01/13/24 05/17/24 topiramate 50 mg capsule,extended 50 mg PO DAILY 01/13/24 05/17/24 release 24 hr valsartan 320 mg tablet 320 mg PO DAILY 01/13/24 05/17/24 zolpidem 5 mg tablet 5 mg PO BEDTIME PRN Insomnia 01/13/24 05/17/24 empagliflozin 10 mg tablet 10 mg PO DAILY 02/19/24 05/17/24 (Jardiance) metformin 500 mg tablet,extended 500 mg PO DAILY 02/19/24 05/17/24 release 24 hr Previous Rx's ?Medication ?Instructions ?Recorded albuterol sulfate 2.5 mg/3 mL 2.5 mg (3 mL) inhalation Q4-6H PRN 05/15/23 (0.083 %) solution for nebulization shortness of breath or wheezing #90 mL albuterol sulfate 90 mcg/actuation 2 puff inhalation QID #1 ea 05/15/23 aerosol inhaler (Ventolin HFA) fluticasone 500 mcg-salmeterol 50 1 inh inhalation Q12H #60 ea 05/15/23 mcg/dose blistr powdr for inhalation (Wixela Inhub) [id number] 1 cap PO TID #90 caps 01/13/24 24,000-76,000-120,000 unit capsule,delayed rel (Creon) pantoprazole 40 mg tablet,delayed 40 mg PO BID #180 tabs 02/19/24 release linaclotide 290 mcg capsule 290 mcg PO QAM 30 days #30 caps 02/24/24 (Linzess) ipratropium bromide 21 mcg (0.03 2 spray intranasal BID #30 mL 06/07/24 %) nasal spray cyclobenzaprine 10 mg tablet 10 mg PO TID PRN muscle spasm #10 10/12/24 tabs ibuprofen 800 mg tablet 800 mg PO Q8H PRN pain #14 tabs 10/12/24 sennosides 8.6 mg tablet (senna) 17.2 mg (2 x 8.6 mg) PO BEDTIME 11/09/24 for constipation #60 tabs ketorolac 10 mg tablet 10 mg PO Q6H PRN pain #20 tabs 01/12/25 methocarbamol 750 mg tablet 1,500 mg (2 x 750 mg) PO Q8H PRN 01/12/25 pain, moderate #20 tabs methylprednisolone 4 mg tablets in 4 mg PO QAM #21 ea 01/12/25 a dose pack (Medrol (Freddie)) Allergies Allergy/AdvReac Type Severity Reaction Status Date / Time No Known Allergies Allergy Verified 01/12/25 20:14 [No Known Allergies*] Review of Systems Review of Systems: Yes all other systems are reviewed and are negative Constitutional: Constitutional: Denies fatigue and Denies fever(s) Cardiovascular: Cardiovascular: Denies chest pain and Denies dyspnea Respiratory: Respiratory: Denies cough and Denies dyspnea Gastrointestinal: Gastrointestinal: Denies abdominal pain, Denies nausea and Denies vomiting Musculoskeletal: Musculoskeletal: Reports back pain, Denies muscle weakness, Denies numbness, Reports radiating pain into limb and Reports tingling Neurologic: Denies numbness and Reports tingling Endocrine: Endocrine: Denies fatigue [facility] Past Medical History Attestation statement: The following information was validated with the patient. Medical History (Updated 01/12/25 @ 22:28 by SARAH Strickland) Bronchitis Sinusitis Small intestinal bacterial overgrowth Abdominal cramping Nausea and vomiting Pre-op examination Positive colorectal cancer screening using Cologuard test Esophageal hernia Irritable bowel syndrome with both constipation and diarrhea Seizure disorder History of pulmonary embolism Hypertension Asthma Environmental allergies RODERICK on CPAP GERD (gastroesophageal reflux disease) Overactive bladder Surgical History History of lung surgery History of tonsillectomy and adenoidectomy History of 2 sections History of hysterectomy History of laparoscopy History of colonoscopy History of esophagogastroduodenoscopy (EGD) Family History Family History Mother HTN (hypertension) Diabetes Family history of cancer Father HTN (hypertension) Diabetes Family history of cancer Prostate cancer Social History Social History Household Members: Family and Children Alcohol intake: never Patient Tobacco Use Status: Former Tobacco user Tobacco use type: Cigarette Cigarettes Per Day: 1 Years Smoked: quit 3 yrs ago Advance Directives: No Advance Directives Information Provided: Yes Do you have a plan to hurt others: No Plan Current occupational status: disabled Physical Exam ED Vital Signs: Vital Signs - 24 hr 01/12/25 20:10 01/12/25 21:57 Temperature 97.5 F 98.5 F Pulse Rate 92 81 Respiratory Rate 22 H 16 Blood Pressure 130/78 98/50 L Pulse Oximetry 99 97 Oxygen Delivery Method Room Air Room Air BMI result Body Mass Index 39.9 Const Other: Alert Orientation/consciousness: patient oriented x3 Resp Effort & Inspection: normal respiratory effort Cardio Other: Normal peripheral perfusion Skin Other: Warm dry no rash Neuro General: patient oriented x3, gait normal, no focal motor deficits and CN's II-XI intact bilaterally Extrem Other: Strength 5/5 bilateral lower extremities Psych Other: Cooperative Medications Administered Discontinued Medications Generic Name Dose Route Start Last Admin Trade Name Freq PRN Reason Stop Dose Admin Diazepam 5 mg 01/12/25 20:40 01/12/25 21:01 Diazepam 10 Mg/2 Ml Cartridge IVPUSH 01/12/25 20:41 5 mg STAT STA Administration Ketorolac Tromethamine 15 mg 01/12/25 20:40 01/12/25 21:01 Ketorolac Tromethamine 15 Mg/Ml Vial IVPUSH 01/12/25 20:41 15 mg ONCE ONE Administration Medical Decision Making Medical Decision Making [facility] Narrative: 44-year-old female with a history of chronic back pain, prior avascular necrosis of bilateral hips, morbid obesity, constipation, seizure disorder, hypertension, asthma who presents with atraumatic low back pain x 3 days. Pain radiates down bilateral lower extremities. Associated paresthesia. Denies weakness of lower extremities, urinary retention or bowel incontinence. Patient denies new activity, heavy lifting or trauma that precipitated her symptoms. Problem: Chronic back pain, morbid obesity History: Per patient I have considered the following differential diagnoses: Lumbar strain, lumbar radiculopathy, cauda equina, compression fracture, worsening avascular necrosis Plan: We will be ordering x-rays of the lumbar spine and bilateral hips. The patient is having radicular symptoms, without red flag signs symptoms concerning for cord compression. We will treat with Tylenol and a muscle relaxant. Obtaining screening labs and inflammatory markers. I have independently reviewed the following tests: Labs: No leukocytosis, not anemic, ESR 12, CRP minimally elevated at 0.81, not , no electrolyte abnormality X-ray bilateral hip pelvis: Comparison: None Findings: No acute fracture or dislocation. No significant arthritic change. The soft tissues are unremarkable. IMPRESSION: No acute findings. X-ray lumbar spine:Findings: Normal vertebral body alignment. No acute fractures or dislocation. No significant degenerative change. IMPRESSION: No acute findings. Lab Data 01/12/25 21:04 01/12/25 21:04 Labs: Lab Results 01/12/25 Range/Units 21:04 WBC 10.6 (4.8-10.8) X10*3/uL RBC 4.24 (4.20-5.50) X10*6/uL Hgb 11.5 L (12.0-16.0) g/dl Hct 34.4 L (37.0-47.0) % MCV 81.1 (80.0-98.0) fL MCH 27.1 (27.0-33.0) pg MCHC 33.4 (31.0-35.0) g/dl RDW 14.1 (11.0-16.0) % Plt Count 262 (160-400) X10*3/uL MPV 10.1 (9.4-12.3) fL Immature Gran % (Auto) 0.3 (0.0-0.4) % Neut % (Auto) 52.8 (45-73) % Lymph % (Auto) 35.3 (20-40) % Boone % (Auto) 7.0 (2-11) % Eos % (Auto) 4.2 H (0-4) % Baso % (Auto) 0.4 (0-2) % Lymph # (Auto) 3.7 (1.2-4.9) X10*3/uL Boone # (Auto) 0.7 (0.1-1.2) X10*3/uL Eos # (Auto) 0.5 H (0.0-0.4) X10*3/uL Baso # (Auto) 0.0 (0.0-0.2) X10*3/uL Abs Immat Gran (auto) 0.03 (0.00-0.03) X10*3/uL Absolute Neuts (auto) 5.6 (2.0-8.3) x10*3/uL Absolute Nucleated RBC 0.000 (0.0-0.012) X10*3/uL Nucleated RBC % (auto) 0.0 (0.0-0.2) /100WBC ESR 12 (0-20) MM/HR Sodium 140 (135-145) mmol/L Potassium 3.6 (3.3-5.1) mmol/L Chloride 110 H (96-108) mmol/L Carbon Dioxide 21 L (22-29) mmol/L Anion Gap 13 (12-20) BUN 11 (9-16) mg/dL Creatinine 0.98 (0.5-1.4) mg/dL Estim Creat Clear Calc 88.0 Estimated GFR > 60 Random Glucose 117 H (60-115) mg/dL Calcium 9.0 (8.4-10.2) mg/dL Magnesium 1.9 (1.6-2.6) mg/dL Total Bilirubin 0.5 (0.0-1.0) mg/dL AST 21 (5-31) U/L ALT 33 H (0-31) U/L Alkaline Phosphatase 61 (39-117) U/L C-Reactive Protein 0.81 H (< or = 0.50) mg/dL Total Protein 7.0 (6.5-8.0) g/dL Albumin 4.2 (3.5-5.0) g/dL Beta HCG, Quant < 2 mIU/mL Discharge Plan Discharge Clinical Impression: Acute lumbar radiculopathy Patient Disposition: Home, Self-Care Instructions: Lumbar Radiculopathy (ED), Lower Back Exercises (ED) Additional Instructions: There were no acute abnormalities noted on the x-rays of your low back, hips or pelvis. See home care instructions. Take the Medrol Dosepak as directed, this is a steroid taper, take it in the mornings. Take the ketorolac as directed, take it with food, this is an anti-inflammatory as well. Use the methocarbamol as needed for further pain, this is a muscle relaxant. To note this medication will cause drowsiness do not drive or operate machinery while taking the medication. Exercise and weight loss are instrumental in helping to prevent recurrence of your chronic back pain. Keep your upcoming appointment for physical therapy. Prescriptions: New methocarbamol 750 mg tablet 1,500 mg PO Q8H PRN (Reason: pain, moderate) Qty: 20 0RF methylprednisolone [Medrol (Freddie)] 4 mg tablets,dose pack 4 mg PO QAM Qty: 21 0RF Rx Instructions: Take per package instructions ketorolac 10 mg tablet 10 mg PO Q6H PRN (Reason: pain) Qty: 20 0RF Rx Instructions: maximum total duration of 5 days from all oral, intranasal, or parenteral formulations. The patient received an IV dose of Toradol here in the emergency department. No Action Linzess 290 mcg capsule 290 mcg PO QAM 30 Days Qty: 30 6RF ipratropium bromide 21 mcg (0.03 %) spray,non-aerosol 2 spray intranasal BID Qty: 30 1RF sennosides [senna] 8.6 mg tablet 17.2 mg PO BEDTIME Qty: 60 3RF cyclobenzaprine 10 mg tablet 10 mg PO TID PRN (Reason: muscle spasm) Qty: 10 0RF ibuprofen 800 mg tablet 800 mg PO Q8H PRN (Reason: pain) Qty: 14 0RF hydroxyzine pamoate 50 mg capsule 50 mg PO TID PRN (Reason: Anxiety) albuterol sulfate [Ventolin HFA] 90 mcg/actuation HFA aerosol inhaler 2 puff inhalation QID Qty: 1 3RF albuterol sulfate 2.5 mg /3 mL (0.083 %) solution for nebulization 2.5 mg inhalation Q4-6H PRN (Reason: shortness of breath or wheezing) Qty: 90 3RF fluticasone propion-salmeterol [Wixela Inhub] 500-50 mcg/dose blister with device 1 inh inhalation Q12H Qty: 60 2RF valsartan 320 mg tablet 320 mg PO DAILY topiramate 50 mg capsule,extended release 24hr 50 mg PO DAILY zolpidem 5 mg tablet 5 mg PO BEDTIME PRN (Reason: Insomnia) hydrochlorothiazide 25 mg tablet 25 mg PO DAILY escitalopram oxalate 20 mg tablet 20 mg PO DAILY amlodipine 10 mg tablet 10 mg PO DAILY Creon 24,000-76,000 -120,000 unit capsule,delayed release(DR/EC) 1 cap PO TID Qty: 90 6RF topiramate 200 mg tablet 200 mg PO BID tramadol 50 mg tablet 50 mg PO Q6H PRN (Reason: Pain) fluticasone propionate [Flonase Allergy Relief] 50 mcg/actuation spray,suspension 1 spray intranasal DAILY PRN (Reason: sinus congestion) Rx Instructions: administer into each nostril Jardiance 10 mg tablet 10 mg PO DAILY metformin 500 mg tablet extended release 24 hr 500 mg PO DAILY pantoprazole 40 mg tablet,delayed release (DR/EC) 40 mg PO BID Qty: 180 2RF Print Language: Austrian
[2025-01-12] MEDS: Ketorolac Tromethamine 15 MG/ML VIAL IVPUSH (21:01)
[2025-01-12] MEDS: diazePAM 10 MG/2 ML CARTRIDGE 5 MG IVPUSH (21:01)
[2025-01-12 21:10] LABS: MANUAL DIFF FLAG NO
[2025-01-12 21:12] LABS: Basophils Percent Auto 0.4 % (0-2); Eosinophils Absolute Auto 0.5 X10*3/uL (0.0-0.4); Eosinophils Percent Auto 4.2 % (0-4); Hematocrit 34.4 % (37.0-47.0); Hemoglobin 11.5 g/dl (12.0-16.0); Imm Gran Abs Auto 0.03 X10*3/uL (0.00-0.03); Imm Gran Pct Auto 0.3 % (0.0-0.4); Lymphocytes Absolute Auto 3.7 X10*3/uL (1.2-4.9); Lymphocytes Percent Auto 35.3 % (20-40); Mean Corpuscular HGB Conc 33.4 g/dl (31.0-35.0); Mean Corpuscular Hemoglobin 27.1 pg (27.0-33.0); Mean Corpuscular Volume 81.1 fL (80.0-98.0); Mean Platelet Volume 10.1 fL (9.4-12.3); Monocytes Absolute Auto 0.7 X10*3/uL (0.1-1.2); Neutrophils Absolute Auto 5.6 x10*3/uL (2.0-8.3); Neutrophils Percent Auto 52.8 % (45-73); Platelet Count 262 X10*3/uL (160-400); Red Blood Count 4.24 X10*6/uL (4.20-5.50); Red Cell Distribution Width 14.1 % (11.0-16.0); White Blood Count 10.6 X10*3/uL (4.8-10.8)
[2025-01-12 21:26] LABS: Alanine Aminotransferase 33 U/L (0-31); Albumin Level 4.2 g/dL (3.5-5.0); Alkaline Phosphatase 61 U/L (39-117); Anion Gap 13 (12-20); Aspartate Amino Transferase 21 U/L (5-31); Bilirubin Total 0.5 mg/dL (0.0-1.0); Blood Urea Nitrogen 11 mg/dL (9-16); C Reactive Protein 0.81 mg/dL (< or = 0.50); Carbon Dioxide 21 mmol/L (22-29); Chloride 110 mmol/L (96-108); Estimated Glomerular Filt Rate > 60; Glucose Random 117 mg/dL (60-115); Magnesium 1.9 mg/dL (1.6-2.6); Potassium 3.6 mmol/L (3.3-5.1); Sodium 140 mmol/L (135-145)
[2025-01-12 21:34] LABS: HCG Quantitative < 2 mIU/mL
[2025-01-12 21:48] LABS: Erythrocyte Sedimentation Rate 12 MM/HR (0-20)
[2025-01-12 21:57] VITALS: BP 98/50; PULSE 81; RESP 16; TEMP 36.9; O2SAT 97
[2025-01-12 23:19] VITALS: BP 98/50; PULSE 81; RESP 16; TEMP 36.9; O2SAT 97
== END 2025-01-12 23:20 | disposition home or self-care (01) ==
PROVIDERS: Physician Assistant Medical; Emergency Provider Emergency Medicine Emergency Medical Services; PCP Internal Medicine
DX: M54.16 Radiculopathy, lumbar region (principal); M54.50 Low back pain, unspecified; I10 Essential (primary) hypertension; J45.909 Unspecified asthma, uncomplicated; Z86.711 Personal history of pulmonary embolism
CPT/HCPCS: 36415; 72100; 73521; 80053; 83735; 84702; 85025; 85652; 86140; 96374; 96375; 99283; 99284; J1885; J3360

== ENCOUNTER → 2025-01-12 20:31 | Outpatient (BNV) | payer OTHER, SELFPAY | PROVIDERS: Emergency Provider Emergency Medicine Emergency Medical Services; PCP Internal Medicine; Visit Provider Radiology Diagnostic Radiology | DX: M54.50 Low back pain, unspecified (principal); M25.551 Pain in right hip; M25.552 Pain in left hip | CPT/HCPCS: 72100; 73521 ==

== ENCOUNTER 2025-01-17 15:50 | Outpatient (AMB) | payer OTHER, SELFPAY ==
--- OUTSIDE RECORDS SUMMARY | 2025-01-17 15:53 | XMS_ITS | Encounter Summary ---
Author Organization [employer] Address [address] [place] [address] Care Team Providers Care Waste Transportation Technician Name Role Phone Michelle Young MD Primary Care Provide r Carter Wilson PharmD Unavailable [phone] Reason for Visit * Reason Onset Date Comments Med Refill 02/02/2024 Encounter Details Date Type Department Care Team (Late st Contact Info) Description 02/02/2024 Telephone [facility] MEDICINE [address] [place], [place] [phone] Michelle Young MD [address] [place], [place] [phone] Med Refill Social History Tobacco Use Types [...] 5 MG tablet To be sent to: [facility]/pharmacy #[id number] - [address] documented in this encounter Plan of Treatment Upcoming Encounters Date Type Department Care Team (Late st Contact Info) Description 01/31/2025 11:00 AM EDT Office Visit [facility] MEDICINE [address] [place] [address] 05/01/2025 10:00 AM EDT Medication Management [facility] MEDICINE [address] [place] [address] Carter Wilson, PharmD [address] [place] [address] documented as of this encounter Visit Diagnoses Not on filedocumented in this encounter Additional Health Concerns Assessment Noted Time PHQ-9 Depression Total Score: 0 02/24/20 23 11:15 AM EDT documented as of this encounter Care Teams Waste Transportation Technician Relationship Specialty Start Date End Date Michelle Young MD [address] [place] [address] PCP - General Family Medicine 06/03/18 Carter Wilson, OliviaD [address] [place] [address] Pharmacist Internal Medicine 11/22/24 documented as of this encounter
--- NOTE | 2025-01-17 15:54 | MHC.OFFVIS ---
Vital Signs 01/17/25 15:56 Height 5 ft 5 in Weight 240 lb 4.862 oz BMI 40.0 BP 83/50 L Blood Pressure Location Lt brachial Position Sitting Pulse 81 Intake Visit Reasons: Follow up medication Intake Note: Veronica presents in the office as a follow up for her medications. CC: She is just curious to the results of her latest blood work. [employer] Required: No Allergies No Known Allergies [No Known Allergies*] Allergy (Verified 01/17/25 15:57) HPI HPI Follow up medication: Details: Assessment & Plan (1) Chronic idiopathic constipation: Code(s): K59.04 - Chronic idiopathic constipation Category: Medical (2) Positive colorectal cancer screening using Cologuard test: Code(s): R19.5 - Other fecal abnormalities Category: Medical (3) GERD (gastroesophageal reflux disease): Code(s): K21.9 - Gastro-esophageal reflux disease without esophagitis Category: Medical (4) Erosive esophagitis: Code(s): K22.10 - Ulcer of esophagus without bleeding Category: Medical (5) Dysphagia: Code(s): R13.10 - Dysphagia, unspecified Category: Medical Plan Ukrainian #[employer]erie [employer] The esophageal dilation improved her swallowing ! She is happy with this. She does have intermittent nausea but not as often as prior to our tx. She knows that she has a barium swallow coming up and I would like keep this study to better evaluate the extent of her sliding hiatal hernia in case the dysphagia comes back and becomes problematic. Also on a rule out any other contributing peristalsis contributions. She is agreeable to the 5 year repeat given the fact that she was not completely clear and she had a positive Cologuard. The procedure was well tolerated. The results were explained and the patient is agreeable to the follow-up interval as stated. The bowel pattern has returned to normal. Education was provided to tell any 1st degree relatives about their findings to be sure that they are screened by age 45. Educated that they will be put on a recall list when it is time for their repeat scope but should they move out of state or away from the hospital they will need to remember along with their primary to repeat the procedure in a timely fashion to avoid any adverse complications. She is doing well on the Linzess 290 micro g and she does not feel we need any further adjustment of the dosage. She also continues on her pantoprazole 40 mg twice a day. Return office visit after the barium swallow. Orders: Orders [place] barium swallow 02/19/24 K21.9 - Gastro-esophageal reflux disease without esophagitis, K22.10 - Ulcer of esophagus without bleeding EGD/[place] [facility] - GI Use Only 02/19/24 K21.9 - Gastro-esophageal reflux disease without esophagitis, K22.10 - Ulcer of esophagus without bleeding Medications: New linaclotide (Linzess) 290 mcg PO QAM 30 caps 6RF 30 days K59.04 - Chronic idiopathic constipation Refilled pantoprazole 40 mg PO BID 180 tabs 2RF K21.9 - Gastro-esophageal reflux disease without esophagitis sennosides (senna) 17.2 mg (2 x 8.6 mg) PO BEDTIME 60 caps 3RF constipation 30 days K58.2 - Mixed irritable bowel syndrome BARIUM SWALLOW 07/19/24 FINDINGS: Lateral cine images of the oropharynx and hypopharynx demonstrate normal swallow mechanism with normal epiglottic inversion and soft palate elevation. No tracheal penetration, glottic or subglottic aspiration identified. No nasopharyngeal reflux present. Hypopharyngeal structures appear normal without evidence of mass or diverticulum. There was no significant cricopharyngeal achalasia. Dual and single contrast images of the esophagus demonstrate a patulous esophagus with a normal contour, and mucosal pattern. No masses or ulcerations are seen. A nonobstructing Schatzki's ring is present. Esophageal peristalsis was normal. A small to moderate-sized type I hiatal hernia is present. No significant gastroesophageal reflux was seen during the course of the examination and on reflux views. Dual contrast and single contrast images of the stomach demonstrated a normal contour. The gastric rugal folds have a thickened appearance, suggestive of gastritis. No masses or ulcerations are seen. Contrast freely passed into the gastric antrum and duodenal bulb without delay. Single and air-contrast images of the duodenal bulb demonstrate no abnormality. The duodenal sweep has a normal appearance, course, and mucosal fold appearance. The imaged proximal jejunum has a normal fold pattern and caliber. FLUOROSCOPY TIME: 4 minutes 10 seconds Number of Spot Images: 10 Number of Cine: 12 DOSE AREA PRODUCT: 3441 uGy-m2 (microgray-meter squared) FL/FL barium swallow IMPRESSION: 1. Small to moderate-sized type I hiatal hernia. 2. Nonobstructing Schatzki's ring. 3. Thickened appearance the gastric rugal folds, suggestive of gastritis. TODAY'S VISIT Ukrainian #dtr translates per pt request She continues on Linzess 290 micro g, senna for p.r.n. use, Creon and pantoprazole 40 mg twice a day. She continues to do well utilizing these. We will do barium swallow and it does not show any movement disorder or other contributing factors for her dysphagia. Fortunately this resolved well with the esophageal dilation unlikely was due to a possible stricture from under controlled GERD. Return office visit in 6 months [facility] Medical History Bronchitis Sinusitis Small intestinal bacterial overgrowth Abdominal cramping Nausea and vomiting Pre-op examination Positive colorectal cancer screening using Cologuard test Esophageal hernia Irritable bowel syndrome with both constipation and diarrhea Seizure disorder History of pulmonary embolism Hypertension Asthma Environmental allergies RODERICK on CPAP GERD (gastroesophageal reflux disease) Overactive bladder Surgical History History of lung surgery History of tonsillectomy and adenoidectomy History of 2 sections History of hysterectomy History of laparoscopy History of colonoscopy History of esophagogastroduodenoscopy (EGD) Family History Mother HTN (hypertension) Diabetes Family history of cancer Father HTN (hypertension) Diabetes Family history of cancer Prostate cancer Social History Household Members: Family and Children Alcohol intake: never Patient Tobacco Use Status: Former Tobacco user Tobacco use type: Cigarette Cigarettes Per Day: 1 Years Smoked: quit 3 yrs ago Current occupational status: disabled Review of Systems Const Denies fatigue, Denies fever(s), Denies night sweats, Denies poor appetite and Denies weight loss Eyes Details: Glasses Reports requires corrective lenses ENT Reports Normal hearing present, Denies dental pain, Denies dysphagia, Denies hearing loss, Denies mouth pain, Denies odynophagia, Denies throat swelling, Denies tongue swelling and Reports other (Dentition adequate) Card Reports no additional complaints Resp Reports no additional complaints GI Details: Denies abdominal pain, Denies melena, Reports bloating, Denies hematochezia, Reports constipation, Denies GI cramping, Denies dysphagia, Denies excessive flatus, Denies early satiety, Reports heartburn, Denies diarrhea, Denies nausea, Denies odynophagia, Denies vomiting and Denies hematemesis Skin/Breast Denies pruritus, Denies lesions, Denies rash and Denies jaundice Neuro Reports Normal hearing present and Denies Abnormal speech present Endo Denies fatigue Aller/Immun Denies throat swelling and Denies tongue swelling Physical Exam Vital Signs: Last Vital Signs Pulse 81 01/17/25 15:56 BP 83/50 L 01/17/25 15:56 BMI result Body Mass Index 40.0 Const General: cooperative, no acute distress, well developed and well groomed Nutritional Appearance: well nourished and obese morbidly obese Orientation/consciousness: oriented to person, oriented to place and oriented to time Limitations: language barrier HEENT Head: Yes normocephalic and Yes atraumatic Eyes General: appearance normal, both eyes and all related structures Pupils: Equal, round and reactive pupils present Neck Neck: Yes normal visual inspection and Yes no lymphadenopathy Thyroid: Thyroid normal Resp Effort & Inspection: normal respiratory effort and able to speak in complete sentences Auscultation: clear to auscultation bilaterally Cardio Rate: regular rate Rhythm: regular rhythm Heart sounds: Normal, physiologic split S2 sound present Peripheral pulses: radial pulses present and posterior tibial pulses present GI Inspection: No distended, Yes Abdominal panniculus present and Yes obesity Palpation (GI): Soft to palpation, nontender, no guarding, not rigid and No hepatosplenomegaly present Percussion: Yes normal to percussion Auscultation: normal bowel sounds Rectal Exam - Female: deferred Skin General skin exam: no rashes or lesions noted, turgor normal, skin not dry, no jaundice, No spider nevi and no striae Rashes: no rashes Nails: normal Neuro General: oriented to person, oriented to place and oriented to time Cranial nerves: Yes Equal, round and reactive pupils present and Yes Normal hearing present Speech: No Abnormal speech present Extrem General: Yes normal to inspection, No clubbing, No cyanosis and No edema Psych Appearance: grossly normal and well kempt Mental Status: mental status grossly normal Speech and movement: Normal speech and movement present Affect: normal affect Attitude: cooperative Thought process: Normal thought process present and not confabulating Thought content: Normal thought content present Insight: Limited insight present (Psych) Judgement: Limited judgement present (Psych) Results Reviewed Results Reviewed: BARIUM SWALLOW 07/19/24 FINDINGS: Lateral cine images of the oropharynx and hypopharynx demonstrate normal swallow mechanism with normal epiglottic inversion and soft palate elevation. No tracheal penetration, glottic or subglottic aspiration identified. No nasopharyngeal reflux present. Hypopharyngeal structures appear normal without evidence of mass or diverticulum. There was no significant cricopharyngeal achalasia. Dual and single contrast images of the esophagus demonstrate a patulous esophagus with a normal contour, and mucosal pattern. No masses or ulcerations are seen. A nonobstructing Schatzki's ring is present. Esophageal peristalsis was normal. A small to moderate-sized type I hiatal hernia is present. No significant gastroesophageal reflux was seen during the course of the examination and on reflux views. Dual contrast and single contrast images of the stomach demonstrated a normal contour. The gastric rugal folds have a thickened appearance, suggestive of gastritis. No masses or ulcerations are seen. Contrast freely passed into the gastric antrum and duodenal bulb without delay. Single and air-contrast images of the duodenal bulb demonstrate no abnormality. The duodenal sweep has a normal appearance, course, and mucosal fold appearance. The imaged proximal jejunum has a normal fold pattern and caliber. FLUOROSCOPY TIME: 4 minutes 10 seconds Number of Spot Images: 10 Number of Cine: 12 DOSE AREA PRODUCT: 3441 uGy-m2 (microgray-meter squared) FL/FL barium swallow IMPRESSION: 1. Small to moderate-sized type I hiatal hernia. 2. Nonobstructing Schatzki's ring. 3. Thickened appearance the gastric rugal folds, suggestive of gastritis. Assessment & Plan Assessment & Plan (1) GERD (gastroesophageal reflux disease): Code(s): K21.9 - Gastro-esophageal reflux disease without esophagitis Category: Medical (2) Erosive esophagitis: Code(s): K22.10 - Ulcer of esophagus without bleeding Category: Medical (3) Positive colorectal cancer screening using Cologuard test: Code(s): R19.5 - Other fecal abnormalities Category: Medical (4) Dysphagia: Code(s): R13.10 - Dysphagia, unspecified Category: Medical Plan Ukrainian #dtr translates per pt request She continues on Linzess 290 micro g, senna for p.r.n. use, Creon and pantoprazole 40 mg twice a day. She continues to do well utilizing these. We will do barium swallow and it does not show any movement disorder or other contributing factors for her dysphagia. Fortunately this resolved well with the esophageal dilation unlikely was due to a possible stricture from under controlled GERD. Return office visit in 6 months Medications: Refilled [id number] 24,000-76,000 -120,000 unit (Creon) 1 cap PO TID 90 caps 6RF K58.9 - Irritable bowel syndrome, unspecified pantoprazole 40 mg PO BID 180 tabs 2RF K21.9 - Gastro-esophageal reflux disease without esophagitis sennosides (senna) 17.2 mg (2 x 8.6 mg) PO BEDTIME 60 tabs 3RF for constipation K58.2 - Mixed irritable bowel syndrome linaclotide (Linzess) 290 mcg PO QAM 30 days 30 caps 6RF K59.04 - Chronic idiopathic constipation Coding Level of Care Code Est Pt Level 3 (41943) Diagnoses GERD (gastroesophageal reflux disease) K21.9 Erosive esophagitis K22.10 Positive colorectal cancer screening using Cologuard test R19.5 Dysphagia R13.10
[2025-01-17 15:56] VITALS: BP 83/50; PULSE 81; BMI 40.0
== END 2025-01-17 16:17 | disposition home or self-care (01) ==
LOC: HO.HGI 15:51
PROVIDERS: PCP Internal Medicine; Visit Provider Nurse Practitioner
DX: K21.9 Gastro-esophageal reflux disease without esophagitis (principal); K22.10 Ulcer of esophagus without bleeding; R19.5 Other fecal abnormalities; R13.10 Dysphagia, unspecified
CPT/HCPCS: 99213

== ENCOUNTER → 2025-01-17 15:50 | Outpatient (BNVA) | payer OTHER, SELFPAY | PROVIDERS: PCP Internal Medicine; Visit Provider Nurse Practitioner | DX: K59.04 Chronic idiopathic constipation (principal); K21.9 Gastro-esophageal reflux disease without esophagitis; K22.10 Ulcer of esophagus without bleeding; R19.5 Other fecal abnormalities; R13.10 Dysphagia, unspecified; K58.2 Mixed irritable bowel syndrome | CPT/HCPCS: 99212 ==

== ENCOUNTER 2025-01-24 12:58 | Outpatient (REF) | payer OTHER, SELFPAY ==
--- OUTSIDE RECORDS SUMMARY | 2025-01-24 14:22 | XMS_ITS | Encounter Summary ---
Author Organization [facility] Address [address] [place] [address] Care Team Providers Care Building Maintenance Supervisor Name Role Phone Michelle Young MD Primary Care Provide r Carter Wilson PharmD Unavailable [phone] Reason for Visit * Reason Onset Date Comments Med Refill 02/02/2024 Encounter Details Date Type Department Care Team (Late st Contact Info) Description 02/02/2024 Telephone [facility] [address], [place] [phone] Michelle Young MD [address] [place], [place] [phone] Med Refill Social History Tobacco Use Types Packs/Day Years Used Date Smoking Tobacco: Never Passive Smoke Exposure: Never Smokeless Tobacco: Never Depression Answer Date Recorded Patient Health Questionnaire-9 Score 0 02/23/2023 Housing Stability Answer Date Recorded What is your housing situation today? I have pascaleadfne jain 06/09/[address] you [...] 5 MG tablet To be sent to: [facility]/pharmacy #[id number] - [address] documented in this encounter Plan of Treatment Upcoming Encounters Date Type Department Care Team (Late st Contact Info) Description 01/31/2025 11:00 AM EDT Office Visit [facility] [address] [place] [address] 05/01/2025 10:00 AM EDT Medication Management [facility] [address] [place] [address] Carter Wilson, PharmD [address] [place] [address] documented as of this encounter Visit Diagnoses Not on filedocumented in this encounter Additional Health Concerns Assessment Noted Time PHQ-9 Depression Total Score: 0 02/24/20 23 11:15 AM EDT documented as of this encounter Care Teams Building Maintenance Supervisor Relationship Specialty Start Date End Date Michelle Young MD [address] [place] [address] PCP - General Family Medicine 06/03/18 Carter Wilson, OliviaD [address] [place] [address] Pharmacist Internal Medicine 11/22/24 documented as of this encounter
== END 2025-01-24 12:59 | disposition home or self-care (01) ==
LOC: HO.MAMMO 12:58
PROVIDERS: Visit Provider Internal Medicine
DX: Z12.31 Encounter for screening mammogram for malignant neoplasm of breast (principal)
CPT/HCPCS: 77063; 77067

== ENCOUNTER → 2025-01-24 13:30 | Outpatient (BNV) | payer OTHER, SELFPAY | PROVIDERS: Visit Provider Internal Medicine | DX: Z12.31 Encounter for screening mammogram for malignant neoplasm of breast (principal) | CPT/HCPCS: 77063; 77067 ==

== ENCOUNTER 2025-07-11 15:19 | Outpatient (AMB) | payer OTHER, SELFPAY ==
--- NOTE | 2025-07-11 15:32 | A.OFFVIS_ITS ---
Vital Signs 07/11/25 15:33 Height 5 ft 5 in Weight 238 lb BMI 39.6 BP 125/75 Blood Pressure Location Rt brachial Position Sitting Pulse 83 Intake Visit Reasons: 6 month follow up Allergies No Known Allergies (No Known Allergies*) Allergy (Verified 07/11/25 15:36) HPI HPI 6 month follow up: Details: Assessment & Plan (1) GERD (gastroesophageal reflux disease): Code(s): K21.9 - Gastro-esophageal reflux disease without esophagitis Category: Medical (2) Erosive esophagitis: Code(s): K22.10 - Ulcer of esophagus without bleeding Category: Medical (3) Positive colorectal cancer screening using Cologuard test: Code(s): R19.5 - Other fecal abnormalities Category: Medical (4) Dysphagia: Code(s): R13.10 - Dysphagia, unspecified Category: Medical Plan Norwegian #dtr translates per pt request She continues on Linzess 290 micro g, senna for p.r.n. use, Creon and pantoprazole 40 mg twice a day. She continues to do well utilizing these. We will do barium swallow and it does not show any movement disorder or other contributing factors for her dysphagia. Fortunately this resolved well with the esophageal dilation unlikely was due to a possible stricture from under controlled GERD. Return office visit in 6 months Medications: Refilled vzaoeu-yyfnepbw-jdhfggk 24,000-76,000 -120,000 unit (Creon) 1 cap PO TID 90 caps 6RF K58.9 - Irritable bowel syndrome, unspecified pantoprazole 40 mg PO BID 180 tabs 2RF K21.9 - Gastro-esophageal reflux disease without esophagitis sennosides (senna) 17.2 mg (2 x 8.6 mg) PO BEDTIME 60 tabs 3RF for constipation K58.2 - Mixed irritable bowel syndrome linaclotide (Linzess) 290 mcg PO QAM 30 days 30 caps 6RF K59.04 - Chronic idio pathic constipation TODAY'S VISIT Norwegian # PFSH Medical History Bronchitis Sinusitis Small intestinal bacterial overgrowth Abdominal cramping Nausea and vomiting Pre-op examination Positive colorectal cancer screening using Cologuard test Esophageal hernia Irritable bowel syndrome with both constipation and diarrhea Seizure disorder History of pulmonary embolism Hypertension Asthma Environmental allergies RODERICK on CPAP GERD (gastroesophageal reflux disease) Overactive bladder Surgical History History of lung surgery History of tonsillectomy and adenoidectomy History of 2 sections History of hysterectomy History of laparoscopy History of colonoscopy History of esophagogastroduodenoscopy (EGD) Family History Mother HTN (hypertension) Diabetes Family history of cancer Father HTN (hypertension) Diabetes Family history of cancer Prostate cancer Social History Household Members: Family and Children Alcohol intake: never Patient Tobacco Use Status: Former Tobacco user Tobacco use type: Cigarette Cigarettes Per Day: 1 Years Smoked: quit 3 yrs ago Current occupational status: disabled Review of Systems Const Denies fatigue, Denies fever(s), Denies night sweats, Denies poor appetite and Denies weight loss Eyes Details: glasses Reports requires corrective lenses ENT Reports Normal hearing present, Denies dental pain, Denies dysphagia, Denies hearing loss, Denies mouth pain, Denies odynophagia, Denies throat swelling, Denies tongue swelling and Reports other (Dentition adequate) Card Reports no additional complaints Resp Reports no additional complaints GI Details: Reports abdominal pain, Denies melena, Reports bloating, Denies hematochezia, Denies constipation, Denies GI cramping, Denies dysphagia, Denies excessive flatus, Denies early satiety, Reports heartburn, Reports diarrhea, Reports nausea, Denies odynophagia, Denies vomiting and Denies hematemesis Skin/Breast Denies pruritus, Denies lesions, Denies rash and Denies jaundice Neuro Reports Normal hearing present and Denies Abnormal speech present Endo Denies fatigue Aller/Immun Denies throat swelling and Denies tongue swelling Physical Exam Vital Signs: Last Vital Signs Pulse 83 07/11/25 15:33 BP 125/75 07/11/25 15:33 BMI result Body Mass Index 39.6 Const General: cooperative, no acute distress, well developed and well groomed Nutritional Appearance: well nourished and obese Orientation/consciousness: oriented to person, oriented to place and oriented to time Limitations: language barrier HEENT Head: Yes normocephalic and Yes atraumatic Eyes General: appearance normal, both eyes and all related structures Pupils: Equal, round and reactive pupils present Neck Neck: Yes normal visual inspection and Yes no lymphadenopathy Thyroid: Thyroid normal Resp Effort & Inspection: normal respiratory effort and able to speak in complete s entences Auscultation: clear to auscultation bilaterally Cardio Rate: regular rate Rhythm: regular rhythm Heart sounds: Normal, physiologic split S2 sound present Peripheral pulses: radial pulses present and posterior tibial pulses present GI Inspection: No distended, Yes Abdominal panniculus present and Yes obesity Palpation (GI): Soft to palpation, Tenderness to palpation present (GI) in the LLQ and in the LUQ, no guarding, not rigid and No hepatosplenomegaly present Percussion: Yes normal to percussion Auscultation: normal bowel sounds Rectal Exam - Female: deferred Skin General skin exam: no rashes or lesions noted, turgor normal, skin not dry, no j aundice, No spider nevi and no striae Rashes: no rashes Nails: normal Neuro General: oriented to person, oriented to place and oriented to time Cranial nerves: Yes Equal, round and reactive pupils present and Yes Normal hearing present Speech: No Abnormal speech present Extrem General: Yes normal to inspection, No clubbing, No cyanosis and No edema Psych Appearance: grossly normal and well kempt Mental Status: mental status grossly normal Speech and movement: Normal speech and movement present Affect: normal affect Attitude: cooperative Thought process: Normal thought process present and not confabulating Thought content: Normal thought content present Insight: Fair insight present (Psych) Judgement: Fair judgement present (Psych) Assessment & Plan Assessment & Plan (1) GERD (gastroesophageal reflux disease): Code(s): K21.9 - Gastro-esophageal reflux disease without esophagitis Category: Medical (2) Erosive esophagitis: Code(s): K22.10 - Ulcer of esophagus without bleeding Category: Medical (3) Chronic idiopathic constipation: Code(s): K59.04 - Chronic idiopathic constipation Category: Medical (4) Ischemic colitis: Code(s): K55.9 - Vascular disorder of intestine, unspecified Category: Medical (5) Diarrhea: Code(s): R19.7 - Diarrhea, unspecified Category: Medical Plan Norwegian #Debbi christensen Subjective Patient presents with three weeks of postprandial abdominal pain, diarrhea, and nausea that began after returning from approximately three months in [place]. Symptoms occur every time she eats, with stabbing, pulsating pain localized to the left side, followed by diarrhea and nausea. She reports decreased oral intake at times (up to two days without eating due to pain). She denies fever. She had frequent exposure to the hospital/ER while accompanying her ill daughter. She previously used Linzess only when constipated and has held it since onset of diarrhea. She continues Creon and pantoprazole; she also uses sucralfate with meals, sometimes once daily when eating once per day. Relevant past history includes a colonoscopy in April 2024 that was reportedly normal, a documented history of ischemic colitis, and intact gallbladder. Objective Assessment & Plan Acute diarrhea with left-sided abdominal pain and nausea: Subacute onset post- travel with healthcare exposure. Pain is left-sided and postprandial with associated nausea and diarrhea; no fever. Differential includes infectious gastroenteritis/colitis (including C. difficile) versus other colitides; diverticulitis considered less likely to cause diarrhea but remains a consideration given focal left-sided pain. Prior history of ischemic colitis inc reases concern for colitis. - Order blood work today. - Obtain stool studies; patient instructed to provide samples as soon as possible. - Order urgent CT scan (CAT scan); will amalia as urgent and schedule as soon as feasible. - Avoid antidiarrheals until infectious etiologies are ruled out; if no concerning infection identified, will consider targeted therapy (e.g., for diverticulitis) or antidiarrheal agents for symptom control. - Return visit in two weeks; sooner if worsening pain, fever, dehydration, or inability to tolerate oral intake. Medication management: Reviewed current regimen in the context of gastrointestinal symptoms. - Continue pantoprazole; will renew prescription. - Sucralfate counseling: advised to avoid administering within two hours of other medications due to interference with absorption. - Linzess: patient appropriately holding while experiencing diarrhea; continue to hold until evaluation completed. - Confirmed ongoing Creon use without lapses. I was unaware of her use of sucralfate, but I did educate her that this can black the absorption of other medications and since she is taking it multiple times a day she needs to be careful of this. This isn't the best medication to use for someone who generally suffers constipation although I certainly do not object in the context of someone having diarrhea. She has a history of ischemic colitis. Orders: Orders Complete Blood Count Auto Diff Today K55.9 - Vascular disorder of intestine, unspecified, R19.7 - Diarrhea, unspecified GI Panel Today K55.9 - Vascular disorder of intestine, unspecified, R19.7 - Diarrhea, unspecified CT abdomen pelvis w IV con Today K55.9 - Vascular disorder of intestine, unspecified, R19.7 - Diarrhea, unspecified Comprehensive Met. Panel Today K55.9 - Vascular disorder of intestine, u nspecified, R19.7 - Diarrhea, unspecified C Reactive Protein Today K55.9 - Vascular disorder of intestine, unspecified, R19.7 - Diarrhea, unspecified CDiff Gene PCR Today R19.7 - Diarrhea, unspecified Medications: Refilled pantoprazole 40 mg PO BID 180 tabs 2RF K21.9 - Gastro-esophageal reflux disease without esophagitis rtqnfs-mkjmlfrp-yohxtcy (pork) 24,000-76,000 -120,000 unit (Creon) 1 cap PO TID 90 caps 6RF K58.9 - Irritable bowel syndrome, unspecified On Hold linaclotide (Linzess) Hold Comment: Doctor's Order 290 mcg PO QAM 30 days 30 caps 6RF K59.04 - Chronic idiopathic constipation Coding Level of Care Code Est Pt Level 4 (35284) Diagnoses GERD (gastroesophageal reflux disease) K21.9 Erosive esophagitis K22.10 Chronic idiopathic constipation K59.04 Ischemic colitis K55.9 Diarrhea R19.7 Time Spent (min) 37
[2025-07-11 15:33] VITALS: BP 125/75; PULSE 83; BMI 39.6
--- NOTE | 2025-07-11 15:33 | A.OFFVIS_ITS ---
Vital Signs 07/11/25 15:33 Height 5 ft 5 in Weight 238 lb BMI 39.6 BP 125/75 Blood Pressure Location Rt brachial Position Sitting Pulse 83 Intake Visit Reasons: 6 month follow up Intake Note: Veronica presents in office in 6 months follow up. CC: Patient c/o abd pain, N/V, and diarrhea after eating for the last 3 weeks. She states that she is not vomiting all the time but gets nauseaus after eating. Stringing Machine Tender Required: Yes Stringing Machine Tender Language: Niuean Accompanied by: Self / Same As Patient Allergies No Known Allergies (No Known Allergies*) Allergy (Verified 07/11/25 15:36) PFSH Medical History Bronchitis Sinusitis Small intestinal bacterial overgrowth Abdominal cramping Nausea and vomiting Pre-op examination Positive colorectal cancer screening using Cologuard test Esophageal hernia Irritable bowel syndrome with both constipation and diarrhea Seizure disorder History of pulmonary embolism Hypertension Asthma Environmental allergies RODERICK on CPAP GERD (gastroesophageal reflux disease) Overactive bladder Surgical History History of lung surgery History of tonsillectomy and adenoidectomy History of 2 sections History of hysterectomy History of laparoscopy History of colonoscopy History of esophagogastroduodenoscopy (EGD) Family History Mother HTN (hypertension) Diabetes Family history of cancer Father HTN (hypertension) Diabetes Family history of cancer Prostate cancer Social History Household Members: Family and Children Alcohol intake: never Patient Tobacco Use Status: Former Tobacco user Tobacco use type: Cigarette Cigarettes Per Day: 1 Years Smoked: quit 3 yrs ago 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
== END 2025-07-11 16:21 | disposition home or self-care (01) ==
LOC: HO.HGI 15:19
PROVIDERS: Visit Provider Nurse Practitioner
DX: K21.9 Gastro-esophageal reflux disease without esophagitis (principal); K22.10 Ulcer of esophagus without bleeding; K59.04 Chronic idiopathic constipation; K55.9 Vascular disorder of intestine, unspecified; R19.7 Diarrhea, unspecified
CPT/HCPCS: 99214

== ENCOUNTER 2025-07-11 15:19 | Outpatient (REF) | payer OTHER, SELFPAY ==
[2025-07-11 16:38] LABS: MANUAL DIFF FLAG NO
[2025-07-11 17:13] LABS: Hematocrit 34.2 % (37.0-47.0); Hemoglobin 11.7 g/dl (12.0-16.0); Imm Gran Abs Auto 0.05 X10*3/uL (0.00-0.03); Imm Gran Pct Auto 0.4 % (0.0-0.4); Lymphocytes Absolute Auto 4.2 X10*3/uL (1.2-4.9); Mean Corpuscular HGB Conc 34.2 g/dl (31.0-35.0); Mean Corpuscular Hemoglobin 27.9 pg (27.0-33.0); Mean Corpuscular Volume 81.4 fL (80.0-98.0); NRBC Abs Auto 0.000 X10*3/uL (0.0-0.012); NRBC Pct Auto 0.0 /100WBC (0.0-0.2); Platelet Count 327 X10*3/uL (160-400); Red Blood Count 4.20 X10*6/uL (4.20-5.50); White Blood Count 13.2 X10*3/uL (4.8-10.8)
[2025-07-11 17:49] LABS: Alanine Aminotransferase 33 U/L (0-31); Albumin Level 4.7 g/dL (3.5-5.0); Alkaline Phosphatase 66 U/L (39-117); Anion Gap 12 (12-20); Aspartate Amino Transferase 22 U/L (5-31); Blood Urea Nitrogen 8 mg/dL (9-16); Calcium 9.1 mg/dL (8.4-10.2); Carbon Dioxide 22 mmol/L (22-29); Chloride 112 mmol/L (96-108); Estimated Glomerular Filt Rate > 60; Potassium 3.7 mmol/L (3.3-5.1); Sodium 142 mmol/L (135-145); Total Protein 7.1 g/dL (6.5-8.0)
== END 2025-07-11 15:20 | disposition home or self-care (01) ==
LOC: HO.LAB 15:19
PROVIDERS: PCP Internal Medicine; Visit Provider Nurse Practitioner
DX: K22.10 Ulcer of esophagus without bleeding (principal); K59.04 Chronic idiopathic constipation; K21.9 Gastro-esophageal reflux disease without esophagitis; K55.9 Vascular disorder of intestine, unspecified; R19.7 Diarrhea, unspecified; Z79.899 Other long term (current) drug therapy; Z87.891 Personal history of nicotine dependence
CPT/HCPCS: 36415; 80053; 85025; 86140; 99212

== ENCOUNTER 2025-07-16 12:18 | Outpatient (REF) | payer OTHER, SELFPAY ==
--- OUTSIDE RECORDS SUMMARY | 2018-02-16 12:45 | XMS_ITS | Continuity of Care Document ---
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 Name Role Phone Mahnaz Larios APN Unavailable Unavailable Allergies, Adverse Reactions, Alerts Substance Reaction Status Criticality No Known Allergies Active No Inform ation Medications Medication Instructions Dosage Effective Dates (start - stop) Status Comments ibuprofen 800 mg tablet take 1 tablet by oral route 3 times every day with food 800 MG - Active Protonix 40 mg tablet,delayed release take 1 tablet by oral route every day 40 MG - Active sucralfate 1 gram tablet take 1 tablet by oral route 4 times every day on an empty stomach 1 hour before meals and at bedtime 1 G - Active Norvasc 5 mg tablet take 1 tablet by ora l route every day 5 MG - Active Topamax 100 mg tablet take 1 Tablet by oral route 2 times every day at 7 am and 8 pm 100 MG - Active oxycodone-acetamino phen 5 mg-325 mg tablet take 1 tablet by oral route every 6 hours as needed 1.00 tablet - Active Procedures Procedure Date Office/outpatient visit,est, mod 2017 Advance Directives Directive Yes / No Effective Date File Name No Information Encounters Encounter Description Practice Location Reason(s) For Visit Diagnoses Date Provider Office/outpa tient visit,est, mod [facility], [address] [place] [address], [address], tel:[phone] [facility] Old left arm pain for a few weeks (chief complaint) Carpal tunnel syndrome on leftBody mass index (BMI) 36.0-36.9, adult [facility] Ric Joya. [address] [place] [address]. tel:[phone] [facility], [address], [place], [facility], tel:[phone] [facility] No Information 8 [facility]. [address], [place], [facility], . tel:[phone] [facility], [address], [place], [facility], tel:[phone] [facility] discharge (chief complaint) Other pulmonary embolism without acute cor pulmonale, unspecified chronicityEsophagitisEssen tial (primary) hypertensionOverweightIntr actable migraine without status migrainosus, unspecified migraine typeCoughMultiple joint painBody mass index (BMI) 34.0-34.9, adult 8 [facility]. [address] [place], [place], [facility], . tel:[phone] Family History Family Member Type Diagnosis Age At Onset Mother Problem (finding) Diabetes mellitus Father Problem (finding) hypertension Father Problem (finding) prostate cancer Father Problem (finding) Alive and well Mother Problem (finding) Alive and well Maternal uncle Problem (finding) malignant neoplasm of trachea Mother Problem (finding) hypertension Maternal uncle Problem (finding) Cancer, brain Father Problem (finding) Diabetes mellitus Payers Payer name Insurance type Covered democrat ID Authoriza tikathleen(s) Medicare NGS [id number] A [id number] Social History Type Description Quantity Date Captured Comments Alcohol Use Details No Caffeine Use Details soda 16 oz per day Tobacco Use Status Current non-smoker Smoking Status Never smoker Sex Female Sexual Orientation Straight or heterosexual Nov Gender Identity Female Vital Signs Date / Time: Height Weight BMI Pulse Rate Blood Pressure Temperature Respiratory Rate Body Surface Area Head Circumference Head Circ. Percentile Wt./Zurdo. Percentile BMI percentile Pulse Ox Inhaled Ox 5:23 PM 65.00 in 98.883 kg (218.00 lbs) 36.2 8 kg/m eter (2) 81 /min 135/93 mm[Hg] 97.00 F 20 /min 2.13 meter(2) Chief Complaint And Reason For Visit From encounter dated '02/16/2018 17:45'. left arm pain for a few weeks (chief complaint). Description: Left arm pain for a few weeksPain starts in left elbow and radiates to index and thumbDenies injuryHas been dx with carpal tunnel in the pastTakes tylenol with little relief Plan Of Treatment Date Type Action Status Referral Ordered: [facility] -Occupational Therapy (related to Carpal tunnel syndrome on left) ordered Referral Ordered: [facility] -Orthopedic Surgery (related to Carpal tunnel syndrome on left) ordered Referral Referred To: [facility] [address] [place], [address] [phone] Ordered: Referrals: Orthopedic Surgery. [facility] Appointment date/timeframe: 6 Months ordered Referral Referred To: [facility] [address] [place], [address] [phone] Ordered: Referrals: Occupational Therapy. [facility] Appointment date/timeframe: 6 Months ordered Referral Ordered: Chandrakant Crews MD -Neurology (related to Intractable migraine without status migrainosus, unspecified migraine type) ordered Referral Ordered: [facility] Leodan Johnson MD -Gastroenterology (related to Esophagitis) ordered Referral Ordered: [facility] -Physical Medicine and Rehabilitation (related to Multiple joint pain) ordered Referral Referred To: [facility] Ordered: Referrals: Physical Medicine and Rehabilitation. [facility]. Evaluate and treat Appointment date/timeframe: 6 Months ordered Referral Referred To: [facility] Leodan Johnson MD [address] [place], [address] [phone] Ordered: Referrals: Gastroenterology. [facility] Leodan Johnson MD. Evaluate and treat Appointment date/timeframe: 6 Months ordered Referral Referred To: Chandrakant Crews MD [address], [address] [phone] Ordered: Referrals: Neurology. Chandrakant Crews MD. Evaluate and treat Appointment date/timeframe: 6 Months ordered History Of Present Illness Encounter Date Complaint History Of Prese nt Illness left arm pain for a few weeks Le ft arm pain for a few weeksPain starts in left elbow and radiates to index and thumbDenies injuryHas been dx with carpal tunnel in the pastTakes tylenol with little relief hospital discharge The symptoms are reported as being mild. The symptoms occur . 37 y/o F w/ PMH HTN, migraine, and seizures who was discharged from hospital on 11/11/17 d/t Community acquired pneumonia and pulmonary embolism; she was dx on 11/07/17; pt was treated w/ vancomycin and zosyn for pneumonia; for PE she was bridged with lovenox and started on warfarin; she was found on CT scan of abdomen to have a large right retroperitoneal hemorrhage; Interventional radiology was consulted and recommended no intervention; she did get a blood transfusion during her hospital stay. GI was evaluated and EGD showed moderately erosive esophagitis w/ a small hernia and non obstructing schatziking ring. she was started on Protonix; she was told to f/u with hematology/oncology and dr ratliff; Instructions Date Instruction Additional Infor edson IbuprofenWrist suppo rtOrthopedics referralOT referralFollow up for any problems Related to Carpal tunnel syndrome on left given referral to get PT Related to Multiple joint pain wants to get roshan hahn Rel ated to Cough repeat CT showed no evidence of PEis not on coumadin Related to Other pulmonary embolism without acute cor pulmonale, unspecified chronicity BP stable Related to Essen tial (primary) hypertension see neurology Related to Intra ctable migraine without status migrainosus, unspecified migraine type see GI Related to Esoph agitis Assessments Type Assessment Date assessment Carpal tunnel syndrome on left J assessment Body mass index (BMI) 36.0-36.9, adult Mental Status Date Cognitive Assessment Orientation - Talpa ed to time, place, person, situation.
--- OUTSIDE RECORDS SUMMARY | 2023-12-21 04:45 | XMS_ITS | Continuity of Care Document ---
Author Organization [facility] Address [address] [place] [address] Phone Care Team Providers Care Cytotechnologist/Cytology Supervisor Name Role Phone Papito REEYS, JAY, JAE, Fish Unavailable U navailable Allergies, Adverse Reactions, Alerts Substance Reaction Status Criticality No Known Allergies Active No Inform ation Medications Medication Instructions Dosage Effective Dates (start - stop) Status Comments clonazepam 1 mg tablet - Act marta topiramate 50 mg tablet - Ac tive cyclobenzaprine 10 mg tablet - Active amlodipine 10 mg tablet - Ac tive hydroxyzine pamoate 50 mg capsule - Active zolpidem 10 mg tablet - Acti ve sucralfate 1 gram tablet - A ctive dicyclomine 20 mg tablet - A ctive ondansetron HCl 4 mg tablet - Active fluoxetine 20 mg capsule - A ctive tramadol 50 mg tablet - Acti ve neomycin 3.5 mg/g-polymyxin B 10,000 unit/g-dexameth 0.1 % eye oint - Active olanzapine 10 mg tablet - Ac tive Vitamin B-2 100 mg tablet - Active Wixela Inhub 250 mcg-50 mcg/dose powder for inhalation - Active olanzapine 7.5 mg tablet - A ctive pantoprazole 40 mg tablet,delayed release - Active sulfamethoxazole 800 mg-trimethoprim 160 mg tablet - Active losartan 100 mg tablet - Act marta Procedures Procedure Date Office/Outpt E&M Established 15 Mins- CT & [place] Duplex Scan-extrem Veins; Comp- CT & MA Duplex Scan-extrem Veins; Uni/ CT & MA M Inj Scleros Solut; Mx Veins 1- CT & MA M Ultrason Guidan Needle Bx-rad- CT & MA M Duplex Scan-extrem Veins; Uni/ CT & MA M Varithena, Single Truncal Vein Endovenous Laser, 1st Vein Endovenous laser vein addon Duplex Scan-extrem Veins; Uni/ Inj Scleros Solut; Mx Veins 1 4 Ultrason Guidan Needle Bx-rad 4 Duplex Scan-extrem Veins; Uni/ 24 Varithena, Single Truncal Vein 24 Endovenous Rf, 1st Vein Ultrason Guidan Needle Bx-rad 4 Inj Sclerosing Solution; Sngl 4 Office/Outpt E&M Established 25 Mins Aug Duplex Scan-extrem Veins; Comp Office/Outpt E&M Established 15 Mins May Duplex Scan-extrem Veins; Comp Duplex Scan-extrem Veins; Uni/ Inj Scleros Solut; Mx Veins 1 Duplex Scan-extrem Veins; Uni/ Endovenous Rf, 1st Vein Inj Scleros Solut; Mx Veins 1 Duplex Scan-extrem Veins; Uni/ Varithena, Single Truncal Vein Office/Oupt E&M New Pt 45 Mins Duplex Scan-extrem Veins; Comp Advance Directives Directive Yes / No Effective Date File Name No Information Encounters Encounter Description Practice Location Reason(s) For Visit Diagnoses Date Provider Providers Copied on Encounter Office/Outpt E&M Established 15 Mins- CT & [place] [facility], [address] [place] [address] Dr Allen [address]Jayme [place], [id number], [place] tel:[phone] [place] Venous insufficiency (chronic) (peripheral)Es sential (primary) hypertension 4 Papito REYES RVT, RPVI Robert. [address] [place] [address], [place], [place], [id number], [place]. tel:[phone] Referring Provider: Michelle Harris, [address] [place] [address], [address]. tel:[phone] [place] [facility], [address] [place] [address] Dr Allen [address] 1000Jayme [place], [id number], [place] tel:[phone] CV - [facility] Varicose veins of bilateral lower extremities with pain 4 Papito REYES RVT, JAE Whitten. [address] [place] [address], [place], [place], [id number], [place]. tel:[phone] Referring Provider: Michelle Harris, [address] [place] [address], [address]. tel:[phone] [place] [facility], [address] [place] [address] Dr Allen [address] 1000Jayme [place], [id number], [place] tel:[phone] [place] Encounter for follow-up examination after completed treatment for conditions other than malignant neChronic venous hypertension (idiopathic) with other complications of left lower extremity 4 Papito REYES RVT, RPVI Robert. [address] [place] [address], [place] [address], [place], [place], [id number], [place]. tel:[phone] Referring Provider: Fish Cobos MD, RVT, JAE, [address] [place] [address] [address], [place], [address] . tel:[phone] [facility], [address] [place] [address] [address]Suite Jayme Banegas [place], [id number], [place] tel:[phone] [place] Chronic venous hypertension (idiopathic) with inflammation of left lower extremity Oct- 4 Carol Mahmood. [address] [place] [address], [address], [place], [id number], [place]. tel:[phone] Referring Provider: Timoteo SMITH, [address] [place] [address] Suite [facility], [place], [address] . tel:[phone] [facility], [address] [place] [address] Dr Allen 1000Suite Jayme Banegas [place], [id number], [place] tel:[phone] CVR - [facility] Encounter for follow-up examination after completed treatment for conditions other than malignant ne Oct- 4 Papito REYES RVT, JAE Whitten. [facility], [place] [address], [place], [id number], [place]. tel:[phone] Referring Provider: Michelle Neumann MD A, [address] [place] [address], [address]. tel:[phone] [facility], [address] [place] [address] [address]Suite Jayme Banegas MD, [id number], [place] tel:[phone] CVR [facility] Varicose veins of left lower extremity with other complications Oct- 0 4 Papito REYES RVT, JAE Whitten. [address] [place] [address], [address], [place], [id number], [place]. tel:[phone] [facility], [address] [place] [address] Dr Allen 1000Suite Jayme Banegas MD, [id number], [place] tel:[phone] CVR - [facility] Chronic venous hypertension (idiopathic) with inflammation of left lower extremity 4 Papito REYES RVT, JAE Whitten. [address] [place] [address], [place], [id number], [place]. tel:[phone] Referring Provider: Michelle Harris, [address] [place], [address]. tel:[phone] [facility], [address] [place] [address] [address] 1000Jayme [place], [id number], [place] tel:[phone] [place] Encounter for follow-up examination after completed treatment for conditions other than malignant neChronic venous hypertension (idiopathic) with other complications of right lower extremity Oct-0 4 Papito REYES RVT, JAE Whitten. [address] [place] [address], [place], [id number], [place]. tel:[phone] Referring Provider: Fish Cobos MD, RVT, JAE, [address] [place] [address], [place], [address] . tel:[phone] [facility], [address] [place] [address] [address] 1000Jayme [place], [id number], [place] tel:[phone] [place] Varicose veins of right lower extremity with other complications 4 Carol Mahmood. [address] [place] [address], [address], [place], [id number], [place]. tel:[phone] Referring Provider: Timoteo SMITH, [address] [place] [address] 302, [place], [address] . tel:[phone] [facility], [address] [place] [address] [facility] 1000Suite 1000Jayme MD, [id number], [place] tel:[phone] [place] Encounter for follow-up examination after completed treatment for conditions other than malignant neVaricose veins of right lower extremity with pain Sep- 4 Papito REYES RVT, JAE Whitten. [address] [place] [address], [place], [id number], [place]. tel:[phone] Referring Provider: Fish Cobos MD, RVT, JAE, [address] [place] [address] Suite [facility], [place], [address] . tel:[phone] [facility], [address] [place] [address] Dr Allen 1000SuJayme mckeon MD, [id number], [place] tel:[phone] [place] Chronic venous hypertension (idiopathic) with inflammation of right lower extremity 4 Papito REYES RVT, RPVI Robert. [address] [place] [address], [place] [address], [place], [id number], [place]. tel:[phone] [place] [facility], [address] [place] [address] Dr Allen [facility] Jayme Banegas MD, [id number], [place] tel:[phone] [place] Varicose veins of right lower extremity with other complications 4 Papito REYES RVT, RPVI Robert. [address] [place] [address], [place], [id number], [place]. tel:[phone] Referring Provider: Fish Cobos MD, RVT, JAE, [address] [place] [address], [place], [address] . tel:[phone] Office/Outpt E&M Established 25 Mins [facility], [address] [place] [address] Dr Allen 1000Suite Jayme Banegas MD, [id number], [place] tel:[phone] [place] Cramp and spasmChronic venous hypertension (idiopathic) with other complications of bilateral lower extremityLocal ized edemaPain in right legPain in left legRestless legs syndromeEssent ial (primary) hypertensionVe nous insufficiency (chronic) (peripheral) 4 Papito REYES RVT, RPVI Robert. [address] [place] [address], [address], [place], [id number], [place]. tel:[phone] [facility], [address] [place] [address] Dr Allen 1000Suite Jayme Banegas MD, [id number], [place] tel:[phone] [place] Chronic venous hypertension (idiopathic) with other complications of bilateral lower extremity 4 Papito REYES, RVT, RPVI Fish. [address] [address], [place], [place], [id number], [place]. tel:[phone] Office/Outpt E&M Established 15 Mins [facility], [address] [place] [address] [facility] 1000[facility] 1000Jayme [place], [id number], [place] tel:[phone] [place] Chronic venous hypertension w/o comp of bilateral low extrm May-2 1 Jovanna La. [address] [place] [address], [id number], . tel:[phone] Referring Provider: Bessie Nugent, [address] [place] [address], [address] . tel:[phone] [facility], [address] [place] [address] [facility] [address] [address], [place], [id number], [place] tel:[phone] CVR - [facility] Chronic venous htn w oth comp of bilateral low extrm May- 1 Jovanna La. [address] [place] [address], [id number], [place]. tel:[phone] Referring Provider: Bessie Nugent, [address] [place] [address], [place], [address] . tel:[phone] [facility], [address] [place] [address] [facility] [address] [address]Jay[address] [place], [id number], [place] tel:[phone] [place] Chronic venous hypertension w oth comp of l low extrem 1 Jovanna La. [address] [place] [address], [id number], [place]. tel:[phone] Referring Provider: Bessie Nugent, [address] [place] [address], [place], [address] . tel:[phone] [facility], [address] [place] [address] Dr Allen [facility] Jayme Banegas [place], [id number], [place] tel:[phone] [place] Varicose veins of left lower extremities w oth complications 1 Jovanna La. [address] [place] [address], [address], [id number], . tel:[phone] Referring Provider: Bessie Nugent, [address] [place] [address], [address] . tel:[phone] [facility], [address] [place] [address] Dr Allen 1000[facility] Jayme Banegas MD, [id number], [place] tel:[phone] [place] Chronic venous hypertension w oth comp of r low extrem 1 Jovanna La. [address] [place] [address], [id number], . tel:[phone] Referring Provider: Bessie Nugent, [address] [place] [address], [place], [address] . tel:[phone] [facility], [address] [place] [address] Dr Allen 1000[facility] Jayme Banegas MD, [id number], tel:[phone] [place] Varicose veins of right low extrm w oth complications 1 Jovanna La. [address] [place] [address], [id number], [place]. tel:[phone] Referring Provider: Bessie Nugent, [address] [place] [address], [place], [address] . tel:[phone] [facility], [address] [place] [address] Dr Allen 1000[facility] Jayme Banegas MD, [id number], [place] tel:[phone] [place] Chronic venous hypertension w oth comp of l low extrem 1 Jovanna La. [address] [place] [address], [id number], [place]. tel:[phone] Referring Provider: Bessie Nugent, [address] [place] [address], [address] . tel:[phone] [facility], [address] [place] [address] Dr Allen [address] [address]Jay[address] [place], [id number], tel:[phone] [place] Varicose veins of left lower extremities w oth complications Jan- 1 Jovanna La. [address] [place] [address], [id number], [place]. tel:[phone] Referring Provider: Bessie Nugent, [address] [place] [address], [address] . tel:[phone] Office/Oupt E&M New Pt 45 Mins [facility], [address] [place] [address] Dr Allen [address] [address] [place], [id number], tel:[phone] [place] Body mass index (BMI) 36.0-36.9, adultChronic venous htn w oth comp of bilateral low extrm 1 Jovanna La. [address] [place] [address], [id number], . tel:[phone] Referring Provider: Bessie Nugent, [address] [place] [address], [address] . tel:[phone] [facility], [address] [place] [address] [facility] [address] [address]Jayme [place], [id number], [place] tel:[phone] [place] Chronic venous htn w oth comp of bilateral low extrm 1 Jovanna La. [address] [place] [address], [id number], . tel:[phone] Referring Provider: Bessie Nugent, [address] [place] [address], [place], [address] . tel:[phone] Family History Family Member Type Diagnosis Age At Onset No Information Payers Payer name Insurance type Covered alliance party ID Shayla mccormick(s) [facility] [id number] Medical Assistance [facility] [id number] Social History Type Description Quantity Date Captured Comments Alcohol Use Details Unknown Caffeine Use Details Unknown Tobacco Use Status Current non-smoker Smoking Status Never Smoker Non-Smoking Tobacco Use Details : No Details Available : No Details Available Sex Female Vital Signs Date / Time: Height Weight BMI Pulse Rate Blood Pressure Temperature Respiratory Rate Body Surface Area Head Circumference Head Circ. Percentile Wt./Zurdo. Percentile BMI percentile Pulse Ox Inhaled Ox 108.860 kg (240.00 lbs) 40.0 3 kg/m eter (2) 128/76 mm[Hg] Chief Complaint And Reason For Visit No Information Reason For Referral Reason For Referral No Information Plan Of Treatment Date Type Action Status Goal Diet education completed Goal Diet education completed Goal Diet education completed Referral Ordered: Weight management: Referral to physician timeframe: 3 Months (related to Body mass index (BMI) 40.0-44.9, adult) ordered Referral Ordered: Weight management: Referral to physician timeframe: 3 Months (related to Body mass index (BMI) 40.0-44.9, adult) ordered Referral Ordered: Duplex Scan-extrem Veins; Comp ordered History Of Present Illness Encounter Date Complaint History Of Prese nt Illness No Information Functional Status Date Functional Assessmen t No Information Instructions Date Instruction Additional Infor mation Compression stocking usage as conservative measure Related to Venous insufficiency (chronic) (peripheral) Diet education Related to Body mass index (BMI) 40.0-44.9, adult Giving Encouragement to exercise Related to Body mass index (BMI) 40.0-44.9, adult Lifestyle education Related to B hank mass index (BMI) 40.0-44.9, adult Patient education booklet given Related to Venous insufficiency (chronic) (peripheral) Pre and post instruc tions reviewed and provided Related to Chronic venous hypertension (idiopathic) without complications of bilateral lower extremity Patient education booklet given Related to Chronic venous hypertension (idiopathic) with other complications of bilateral lower extremity Pre and post instruc tions reviewed and provided Related to Chronic venous hypertension (idiopathic) with other complications of bilateral lower extremity Diet education Related to Body mass index (BMI) 40.0-44.9, adult Giving Encouragement to exercise Related to Body mass index (BMI) 40.0-44.9, adult Lifestyle education Related to B hank mass index (BMI) 40.0-44.9, adult Patient education booklet given Related to Chronic venous hypertension (idiopathic) without complications of bilateral lower extremity Patient education booklet given Related to Chrn Vns Hypertnsn w/o Compl; BILAT Continue compression stocking us e Related to Chrn Vns Hypertnsn w/o Compl; BILAT Giving Encouragement to Exercise Related to Body mass index [BMI] 36.0-36.9, adult Diet education Related to Body mass index [BMI] 36.0-36.9, adult Patient education booklet given Related to Chrn Vns Hyprtnsn w/Compl (Pain Edema Swelling); BILAT Pre and post instruc tions reviewed and provided Related to Chrn Vns Hyprtnsn w/Compl (Pain Edema Swelling); BILAT Assessments Type Assessment Date No Information Patient Care Teams Name Effective Dates (start - stop) Status Members No Information
[2025-07-17 13:09] LABS: CDiff Gene PCR NEGATIVE (Negative)
[2025-07-17 14:43] LABS: E. coli EAEC Not Detected (Not Detect.); E. coli EPEC Not Detected (Not Detect.); E. coli ETEC Not Detected (Not Detect.); E. coli STEC Not Detected (Not Detect.); Shigella sp./EIEC Not Detected (Not Detect.)
--- OUTSIDE RECORDS SUMMARY | 2025-07-17 16:18 | XMS_ITS | Encounter Summary ---
Author Organization [employer] Address [address] [facility] [address] [place] [address] Care Team Providers Care Ballet Master/Mistress Name Role Phone Michelle Young MD Primary Care Provide r Carter Wilson PharmD Unavailable [phone] Reason for Visit * Reason Onset Date Comments Med Refill 04/20/2023 Encounter Details Date Type Department Care Team (Late st Contact Info) Description 04/20/2023 Telephone [facility] [address] [place], [place] [phone] Michelle Young MD [address] [place], [place] [phone] Med Refill Social History Tobacco Use Types [...] 1:25 PM EDT Medication was sent to [facility][id number] on 03/19/23 with 3 refills. * Telephone Encounter - Cheryl Mcclelland - 04/20/2023 1:09 PM EDT Tc from pt requesting med refill for medication kmkzddgane-vmskdpxkefafn-cdipapbn (Fioricet) 50-300-40 MG capsule. documented in this encounter Plan of Treatment Upcoming Encounters Date Type Department Care Team (Late st Contact Info) Description 09/15/2025 11:00 AM EST Medication Management [address] [address] Carter Wilson, PharmCash [address] [place] [phone] 10/04/2025 10:00 AM EST Clinical Support [address] [address] Deena Araujo, SHARLENE documented as of this encounter Visit Diagnoses Not on filedocumented in this encounter Additional Health Concerns Assessment Noted Time PHQ-9 Depression Total Score: 0 02/24/20 11:15 AM EDT documented as of this encounter Care Teams Ballet Master/Mistress Relationship Specialty Start Date End Date Michelle Young MD [address] [place] [phone] PCP - General Family Medicine 06/03/18 Carter Wilson, PharmD [address] [place] [phone] Pharmacist Internal Medicine 11/22/24 documented as of this encounter
--- OUTSIDE RECORDS SUMMARY | 2025-07-17 16:18 | XMS_ITS | Encounter Summary ---
Author Organization [employer] Address [address] [facility] [address] [place] [address] Care Team Providers Care Community Liaison Officer Name Role Phone Michelle Young MD Primary Care Provide r Carter Wilson PharmD Unavailable [phone] Encounter Details Date Type Department Care Team (Late st Contact Info) Description 10/06/2024 Orders Only [facility] [address] [place], [place] [phone] Boyd Mares MD [address] [place] [address] Primary hypertension (Primary Dx); Hypokalemia Social History [...] as of this encounter Miscellaneous Notes * Result Encounter Note - Boyd Mares MD - 10/06/2024 4:40 PM EST FYI documented in this encounter Plan of Treatment Upcoming Encounters Date Type Department Care Team (Late st Contact Info) Description 09/15/2025 11:00 AM EST Medication Management [address] [address] Carter Wilson, OliviaD [address] [place] [id number] 10/04/2025 10:00 AM EST Clinical Support [address] [address] Deena Araujo, SHARLENE documented as of this encounter Procedures Procedure Name Priority Date/Time Associated Diagnosis Comments BASIC METABOLIC PANEL Routine 10/20/2024 9:04 AM EST Hypokalemia documented in this encounter Results * (ABNORMAL) Basic Metabolic Panel (10/20/2024 9:04 AM EST) Sodium 138 135 - 145 mmol/L [facility] Potassium 3.4 3.3 - 5.1 mmol/L [facility] Chloride 104 96 - 108 mmol/L [facility] Carbon Dioxide 24 22 - 29 mmol/L [facility] Anion Gap 13 12 - 20 [facility] Urea Nitrogen (BUN) 13 9 - 16 mg/dL [facility] Creatinine, Serum 1.23 0.5 - 1.4 mg/dL [facility] Estimated Glomerular Filt Rate 47 [facility] Comment:Chronic Kidney Disea se: Estimated GFR < 60 mL/min/1.93l1Zdireh Kidney Disease: Estimated GFR < 15 mL/min/1.73m2 Glucose 151(H) 60 - 115 mg/dL [facility] Calcium 9.4 8.4 - 10.2 mg/dL [facility] Blood Venous blood specimen / Unknown 10/20/2024 9:04 AM EST 10/20/2024 11:48 AM EST us Boyd Mares MD LAB BLOOD ORDERABLES Final Result Performing Organization Address City/State/[facility] Co de Phone Number [facility] [address] [place] [address] [phone] documented in this encounter Visit Diagnoses Diagnosis Primary hypertension- Primary Unspecified essential hypertension Hypokalemia Hypopotassemia documented in this encounter Additional Health Concerns Assessment Noted Time PHQ-9 Depression Total Score: 0 02/24/20 23 11:15 AM EDT documented as of this encounter Care Teams Community Liaison Officer Relationship Specialty Start Date End Date Michelle Young MD [address] [place] [address] PCP - General Family Medicine 06/03/18 Carter Wilson PharmD [address] [place] [address] Pharmacist Internal Medicine 11/22/24 documented as of this encounter
--- OUTSIDE RECORDS SUMMARY | 2025-07-17 16:18 | XMS_ITS | Encounter Summary ---
Author Organization [employer] Address [address] [facility] [address] [place] [address] Care Team Providers Care Layout Former Name Role Phone Michelle Young MD Primary Care Provide r Carter Wilson PharmD Unavailable [phone] Encounter Details Date Type Department Care Team (Latest Contact Info) Description 07/14/2025 Travel Social History Tobacco Use Types Packs/Day [...] Description 09/15/2025 11:00 AM EST Medication Management [address] [address] Carter Wilson, PharmD [address] [place] [address] 10/04/2025 10:00 AM EST Clinical Support [address] [address] Deena Araujo RN documented as of this encounter Goals Goal Patient Goal Type Associated Problems Recent Progress Patient-Stated? Author Help patients manage their type 2 diabetes Care Plan Help patients manage their type 2 diabetes No Pete, [place] Weekly blood pressure task Care Plan Weekly blood pressure task No Pete, [place] Help patients manage their type 2 diabetes Care Plan Help patients manage their type 2 diabetes No Pete, [place] Patient has chronic kidney disease Care Plan Patient has chronic kidney disease No Pete, [place] Weekly blood pressure task Care Plan Weekly blood pressure task No Pete, [place] Patient has chronic kidney disease Care Plan Patient has chronic kidney disease No Pete, [place] Weekly blood pressure task Care Plan Weekly blood pressure task No Deena Araujo RN Weekly blood pressure task Care Plan Weekly blood pressure task No Deena Araujo RN Patient has chronic kidney disease Care Plan Patient has chronic kidney disease No Deena Araujo RN Patient has chronic kidney disease Care Plan Patient has chronic kidney disease No Deena Araujo RN Weekly blood pressure task Care Plan Weekly blood pressure task No Deena Araujo RN Weekly blood pressure task Care Plan Weekly blood pressure task No Deena Araujo RN Patient has chronic kidney disease Care Plan Patient has chronic kidney disease No Deena Araujo RN Patient has chronic kidney disease Care Plan Patient has chronic kidney disease No Deena Araujo RN Weekly blood pressure task Care Plan Weekly blood pressure task No Silvia Wilson Weekly blood pressure task Care Plan Weekly blood pressure task No Steve Silvia Patient has chronic kidney disease Care Plan Patient has chronic kidney disease No Steve Silvia Patient has chronic kidney disease Care Plan Patient has chronic kidney disease No Silvia Wilson Weekly blood pressure task Care Plan Weekly blood pressure task No Deena Araujo RN Weekly blood pressure task Care Plan Weekly blood pressure task No Deena Araujo, RN Patient has chronic kidney disease Care Plan Patient has chronic kidney disease No Deena Araujo, RN Patient has chronic kidney disease Care Plan Patient has chronic kidney disease No Deena Araujo RN Weekly blood pressure task Care Plan Weekly blood pressure task No Carter Wilson PharmD Weekly blood pressure task Care Plan Weekly blood pressure task No Carter Wilson PharmD Patient has chronic kidney disease Care Plan Patient has chronic kidney disease No Carter Wilson PharmD Patient has chronic kidney disease Care Plan Patient has chronic kidney disease No Carter Wilson PharmD documented as of this encounter Visit Diagnoses Not on filedocumented in this encounter Additional Health Concerns Active Problems Noted Date Diagnosed Date Help patients manage their type 2 diabetes 07/10 Weekly blood pressure task 07/10/2025 Help patients manage their type 2 diabetes 07/10 Patient has chronic kidney disease 07/10/2025 Weekly blood pressure task 07/10/2025 Patient has chronic kidney disease 07/10/2025 Weekly blood pressure task 07/10/2025 Weekly blood pressure task 07/10/2025 Patient has chronic kidney disease 07/10/2025 Patient has chronic kidney disease 07/10/2025 Weekly blood pressure task 07/11/2025 Weekly blood pressure task 07/11/2025 Patient has chronic kidney disease 07/11/2025 Patient has chronic kidney disease 07/11/2025 Weekly blood pressure task 07/11/2025 Weekly blood pressure task 07/11/2025 Patient has chronic kidney disease 07/11/2025 Patient has chronic kidney disease 07/11/2025 Weekly blood pressure task 07/11/2025 Weekly blood pressure task 07/11/2025 Patient has chronic kidney disease 07/11/2025 Patient has chronic kidney disease 07/11/2025 Weekly blood pressure task 07/13/2025 Weekly blood pressure task 07/13/2025 Patient has chronic kidney disease 07/13/2025 Patient has chronic kidney disease 07/13/2025 Assessment Noted Time PHQ-9 Depression Total Score: 0 02/24/20 23 11:15 AM EDT documented as of this encounter Care Teams Layout Former Relationship Specialty Start Date End Date Michelle Young MD [address] [place] [address] PCP - General Family Medicine 06/03/18 Carter Wilson, OliviaD [address] [place] [address] Pharmacist Internal Medicine 11/22/24 documented as of this encounter
--- OUTSIDE RECORDS SUMMARY | 2025-07-17 16:18 | XMS_ITS | Encounter Summary ---
Author Organization [employer] Address [address] [facility] [address]t [place] [address] Care Team Providers Care Cook Chief Name Role Phone Michelle Young MD Primary Care Provide r Carter Wilson PharmD Unavailable [phone] Reason for Visit * Reason Onset Date Comments Med Refill 02/02/2024 Encounter Details Date Type Department Care Team (Late st Contact Info) Description 02/02/2024 Telephone [facility] [address] [place], [place] [phone] Michelle Young MD [address] [place], [place] [phone] Med Refill Social History Tobacco Use Types [...] 5 MG tablet To be sent to: [facility]/pharmacy #[id number] - [address] documented in this encounter Plan of Treatment Upcoming Encounters Date Type Department Care Team (Late st Contact Info) Description 09/15/2025 11:00 AM EST Medication Management [facility] [address] [place] [phone] Carter Wilson, OliviaD [address] [place] [address] 10/04/2025 10:00 AM EST Clinical Support [facility] [address] [place] [phone] Deena Araujo RN documented as of this encounter Visit Diagnoses Not on filedocumented in this encounter Additional Health Concerns Assessment Noted Time PHQ-9 Depression Total Score: 0 02/24/20 23 11:15 AM EDT documented as of this encounter Care Teams Cook Chief Relationship Specialty Start Date End Date Michelle Young MD [address] [place] [address] PCP - General Family Medicine 06/03/18 Carter Wilson, OliviaD [address] [place] [address] Pharmacist Internal Medicine 11/22/24 documented as of this encounter
--- OUTSIDE RECORDS SUMMARY | 2025-07-17 16:18 | XMS_ITS | Encounter Summary ---
Author Organization [employer] Address [address] [place] [address] Care Team Providers Care Housekeeper Nanny Name Role Phone Michelle Young MD Primary Care Provide r Carter Wilson PharmD Unavailable [phone] Reason for Visit * Reason Comments Med Refill Encounter Details Date Type Department Care Team ([facility] st Contact Info) Description 07/13/2025 Refill [facility] [address], [place] [id number] Michelle Young MD [address] [place], [place] [phone] Hypertension, unspecified type Social History Tobacco Use [...] Description 09/15/2025 11:00 AM EST Medication Management [address] [address] Carter Wilson, PharmD [address] [place] [id number] 10/04/2025 10:00 AM EST Clinical Support [address] [address] Deena Araujo, SHARLENE documented as of this encounter Goals Goal Patient Goal Type Associated Problems Recent Progress Patient-Stated? Author Help patients manage their type 2 diabetes Care Plan Help patients manage their type 2 diabetes No Pete, [place] Weekly blood pressure task Care Plan Weekly blood pressure task No Pete [place] Help patients manage their type 2 diabetes Care Plan Help patients manage their type 2 diabetes No Pete, [place] Patient has chronic kidney disease Care Plan Patient has chronic kidney disease No Pete, [place] Weekly blood pressure task Care Plan Weekly blood pressure task No Pete, [place] Patient has chronic kidney disease Care Plan Patient has chronic kidney disease No Pete [place] Weekly blood pressure task Care Plan Weekly blood pressure task No Deena Araujo RN Weekly blood pressure task Care Plan Weekly blood pressure task No Deena Araujo, SHARLENE Patient has chronic kidney disease Care Plan [...] Weekly blood pressure task No Steve Silvia Weekly blood pressure task Care Plan Weekly [...] Patient has chronic kidney disease No Carter Wilosn PharmD documented as of this encounter Visit Diagnoses Diagnosis Hypertension, unspecified type documented in this encounter Additional Health Concerns Active [...] documented as of this encounter Care Teams Housekeeper Nanny Relationship Specialty Start Date End Date Michelle Young MD [address] [place] [address] PCP - General Family Medicine 06/03/18 Carter Wilson, OliviaD [address] [place] [address] Pharmacist Internal Medicine 11/22/24 documented as of this encounter
--- OUTSIDE RECORDS SUMMARY | 2025-07-17 16:18 | XMS_ITS | Clinical Summary ---
Author Organization [employer] Address [address] [facility] [address] [place] [address] Care Team Providers Care Poultry Picker Name Role Phone Michelle Young MD Primary Care Provide r Carter Wilson PharmD Unavailable [phone] Allergies No known active allergies Medications * [...] 1 023 Active Blood Glucose Monitoring Suppl (GlobaliaTouch Verio) w/Device kit 1 each 2 times daily. TEST BLOOD SUGAR ONCE DAILY 1 kit 024 Active sucralfate (Carafate) 1 g tabletIndication s:Gastritis, presence of bleeding unspecified, unspecified chronicity, unspecified gastritis type TAKE 1 TABLET BY MOUTH BEFORE BREAKFAST, BEFORE LUNCH, BEFORE EVENING MEAL, AND AT BEDTIME. 360 tablet 1 024 Active Lancets (OneTouch Delica Plus [id number]) [facility] TEST BLOOD SUGAR ONCE DAILY 100 each 11 024 Active pantoprazole (ProtoNix) 40 MG EC tabletIndication s:Irritable bowel syndrome with both constipation and diarrhea TAKE 1 TABLET (40 MG) BY MOUTH BEFORE BREAKFAST. DO NOT CRUSH, CHEW, OR SPLIT. 90 tablet 3 024 Active Blood Pressure Monitor kitIndications:P rimary hypertension Use to monitor blood pressure at home 1 kit 05/13/2 024 Active Alcohol Swabs 70 % pads Use 1 pad tid as directed 300 each 3 Active Continuous Glucose Cable Ferry Operator (FreeStyle Sonny 2 Thousandsticks) deviceIndication s:Type 2 diabetes mellitus with hyperglycemia, without long-term current use of insulin ([facility]) Scan sensor every 8 hours 1 each 1 Active glucose blood (FreeStyle Precision Jame Test) test stripIndications :Type 2 diabetes mellitus with hyperglycemia, without long-term current use of insulin ([facility]) Use to test blood sugar 3 times daily 100 each 12 025 2025 Active clonazePAM (KlonoPIN) 0.5 MG tablet TOME 1 TABLETA POR V A ORAL TODOS LOS D CUANDO SEA NECESARIO PARA LA ANSIEDAD Active Linzess 290 MCG capsule Take by mouth in the morning. Active ipratropium (Atrovent) 0.03 % nasal spray USE 2 SPRAYS INTRANASALLY 2 TIMES A DAY Active Senna-Time 8.6 MG tablet TOME DOS TABLETAS POR V A ORAL TODOS LOS D AL ACOSTARSE FOR CONSTIPATION Active propranolol (Inderal) 20 MG tablet TAKE 1 TABLET BY MOUTH TWICE A DAY NEEDED POR ANSIEDAD 024 Active montelukast (Singulair) 10 MG tabletIndication s:Moderate persistent asthma, unspecified whether complicated Take 1 tablet (10 mg) by mouth Once per day. 30 tablet 025 2025 Active fluconazole (Diflucan) 150 MG tabletIndication s:Vaginal itching Take one tablet then after 72 hours take another tablet 2 tablet Active hydroCHLOROthiaz pamela 12.5 MG tabletIndication s:Primary hypertension Take 1 tablet (12.5 mg) by mouth Once per day. 30 tablet 025 2025 Active hydrOXYzine HCl (Atarax) 25 MG tablet TAKE 1-2 TABLET BY MOUTH THREE TIMES A DAY NEEDED FOR ANXIETY/INSOMNIA Active ziprasidone (Geodon) 60 MG capsule TOME 1 C PSULA POR V A ORAL DOS VECES AL D A CON ALIMENTO 025 Active valsartan (Diovan) 320 MG tabletIndication s:Hypertension, unspecified type TAKE 1 TABLET (320 MG) BY MOUTH ONCE PER DAY. 90 tablet 3 025 Active QUEtiapine (SEROquel) 300 MG tablet TOME 1 TABLETA POR V A ORAL TODOS LOS D AL ACOSTARSE 025 Active fluticasone (Flonase) 50 MCG/ACT nasal sprayIndications :Chronic rhinitis ADMINISTER 1-2 SPRAYS INTO EACH NOSTRIL ONCE PER DAY. SHAKE GENTLY. BEFORE FIRST USE, PRIME PUMP. AFTER USE, CLEAN TIP AND REPLACE CAP. 48 mL 025 Active topiramate (Topamax) 200 MG tabletIndication s:Seizure disorder (CMS/HCC) (HCC) TAKE 1 TABLET (200 MG) BY MOUTH ONCE PER DAY. 90 tablet 025 Active topiramate 50 MG tabletIndication s:Seizure disorder (CMS/HCC) (HCC) TAKE 1 TABLET (50 MG) BY MOUTH ONCE PER DAY. 90 tablet 025 Active Continuous Glucose Sensor (FreeStyle Sonyn 2 Plus Sensor) miscIndications: Type 2 diabetes mellitus with hyperglycemia, without long-term current use of insulin ([facility]) 1 each Once per day. 2 each 025 Active butalbital-aceta minophen-caffein e (Fioricet) 50-300-40 MG capsuleIndicatio ns:Migraine without aura and without status migrainosus, not intractable TAKE 1 CAPSULE FOR MIGRAINE, REPEAT IF NOT IMPROVED IN 4-6 HOURS (MAX 2 PER DAY AND 16 PER MONTH) 16 capsule 3 025 Active zolpidem (Ambien) 5 MG tabletIndication s:Primary insomnia TAKE 1 TABLET BY MOUTH AT BEDTIME NEEDED FOR SLEEP 28 tablet 025 Active cyclobenzaprine (Flexeril) 10 MG tabletIndication s:Muscle spasm Take 1 tablet (10 mg) by mouth if needed in the morning, at noon, and at bedtime for muscle spasms. 40 tablet 1 025 Active traMADol (Ultram) 50 MG tabletIndication s:Spondylosis without myelopathy or radiculopathy Take 1 tablet (50 mg) by mouth every 8 (eight) hours if needed for severe pain for up to 28 days. 84 tablet 025 2024 Active amLODIPine (Norvasc) 10 MG tabletIndication s:Hypertension, unspecified type TAKE 1 TABLET BY MOUTH EVERY DAY 90 tablet 1 Active Wixela Inhub 250-50 MCG/ACT aerosol powderIndication s:Uncomplicated asthma, unspecified asthma severity, unspecified whether persistent INHALE 1 INHALATION BY MOUTH EVERY 12 HOURS IN THE MORNING AND AT NIGHT 60 each 3 Active lamoTRIgine (LaMICtal) 100 MG tablet Take 100 mg by mouth 2 times daily. Active melatonin 5 MG tablet Take 2 tablets by mouth at bedtime. Active Creon 82823-34992 units capsule Take 1 capsule by mouth with breakfast, with lunch, and with evening meal. Active Dulaglutide (Trulicity) 0.75 MG/0.5ML solution auto-injectorInd ications:Type 2 diabetes mellitus with hyperglycemia, without long-term current use of insulin (HCC) Inject 0.75 mg under the skin 1 (one) time per week. 2 mL 5 Active atorvastatin (Lipitor) 40 MG tabletIndication s:Type 2 diabetes mellitus with hyperglycemia, without long-term current use of insulin (HCC) Take 1 tablet (40 mg) by mouth Once per day. 90 tablet 1 2025 Active lamoTRIgine (LaMICtal) 25 MG tablet TOME 1 TABLETA POR V A ORAL TODOS LOS D 2024 Discontinued(M ed list cleanup (will not trigger notification to Pharmacy)) ramelteon (Rozerem) 8 MG tablet TAKE 1 TABLET BY MOUTH EVERY NIGHT AT BEDTIME LEIDA 30 MINUTOS ANTES DE DORMIR POR INSOMNIA 2024 Discontinued(M ed list cleanup (will not trigger notification to Pharmacy)) DayVigo 5 MG tablet TAKE 1 TABLET BY MOUTH EVERY NIGHT AT BEDTIME FOR INSOMNIA STOP TAKING AMBIEN PRIOR TO STARTING THIS 2024 Discontinued(M ed list cleanup (will not trigger notification to Pharmacy)) amLODIPine (Norvasc) 10 MG tabletIndication s:Hypertension, unspecified type TAKE 1 TABLET BY MOUTH EVERY DAY 90 tablet 1 2024 Discontinued butalbital-aceta minophen-caffein e (Fioricet) 50-300-40 MG capsuleIndicatio ns:Migraine without aura and without status migrainosus, not intractable TAKE 1 CAPSULE FOR MIGRAINE, REPEAT IF NOT IMPROVED IN 4-6 HOURS (MAX 2 PER DAY AND 16 PER MONTH) 16 capsule 3 025 2024 Discontinued(R eorder (will not trigger notification to Pharmacy)) atorvastatin (Lipitor) 10 MG tabletIndication s:Type 2 diabetes mellitus with hyperglycemia, without long-term current use of insulin ([facility]) TAKE 1 TABLET (10 MG) BY MOUTH ONCE PER DAY. 90 tablet 3 2024 Discontinued(D ose adjustment) Wixela Inhub 250-50 MCG/ACT aerosol powderIndication s:Uncomplicated asthma, unspecified asthma severity, unspecified whether persistent INHALE 1 PUFF 2 TIMES DAILY. INHALE 1 INHALATION BY MOUTH EVERY 12 HOURS IN THE MORNING AND AT NIGHT 60 each 3 2024 Discontinued cyclobenzaprine (Flexeril) 10 MG tabletIndication s:Muscle spasm TAKE 1 TABLET BY MOUTH IF NEEDED IN THE MORNING, NOON,& BEDTIME FOR MUSCLE SPASMS FOR UP TO 27 DAYS. 40 tablet 1 2024 Discontinued(R eorder (will not trigger notification to Pharmacy)) Continuous Glucose Sensor (FreeStyle Sonny 2 Plus Sensor) miscIndications: Type 2 diabetes mellitus with hyperglycemia, without long-term current use of insulin ([facility]) USE 1 SENSOR EVERY 14 DAYS 1 each 1 2024 Discontinued(M ed list cleanup (will not trigger notification to Pharmacy)) Dulaglutide (Trulicity) 1.5 MG/0.5ML solution auto-injectorInd ications:Type 2 diabetes mellitus with hyperglycemia, without long-term current use of insulin (HCC) Inject 1.5 mg under the skin 1 (one) time per week. INJECT ONE PEN (=1.5 MG) SUBCUTANEOUSLY ONCE A WEEK 2 mL 1 025 2024 Discontinued(D ose adjustment) zolpidem (Ambien) 5 MG tabletIndication s:Primary insomnia Take 1 tablet (5 mg) by mouth if needed at bedtime for sleep. 28 tablet 025 2024 Discontinued(R eorder (will not trigger notification to Pharmacy)) traMADol (Ultram) 50 MG tabletIndication s:Spondylosis without myelopathy or radiculopathy Take 1 tablet (50 mg) by mouth every 8 (eight) hours if needed for severe pain. 21 tablet 025 2024 Discontinued(R eorder (will not trigger notification to Pharmacy)) Continuous Glucose Sensor (FreeStyle Sonny 2 Plus Sensor) miscIndications: Type 2 diabetes mellitus with hyperglycemia, without long-term current use of insulin ([facility]) 1 each 1 (one) time per week. 6 each 2024 Discontinued(M ed list cleanup (will not trigger notification to Pharmacy)) traMADol (Ultram) 50 MG tabletIndication s:Spondylosis without myelopathy or radiculopathy Take 1 tablet (50 mg) by mouth every 8 (eight) hours if needed for severe pain. 21 tablet 2024 Discontinued(R eorder (will not trigger notification to Pharmacy)) Active Problems Problem Noted Date Diagnosed Date Chronic maxillary sinusitis 10/03/2024 Vaginal itching 10/03/2024 Bipolar affective disorder, current episode depressed, current episode severity unspecified ([facility]) 09/08/2024 Assessment & Plan (10/03/2024 4:23 PM EST): Continue to follow-up with specialist Assessment & Plan (09/08/2024 1:21 PM EST): Continue to follow with psychiatrist and therapist Ischemic colitis 09/08/2024 Severe obesity (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 Love Tier: II (MACHINE DEBURRER visits every 3 months) Assessment & Plan (02/02/2025 3:32 PM EDT): Timeline: 09/06/24: Group visit - utox wnl, pill count 5 off 09/08/24 - Tramadol increase from BID to TID 10/04/24: Group visit - utox/pill count as expected 01/03/25: Group visit - utox/pill count as expected 01/31/25: Group visit - utox/pill count as expected Assessment & Plan (01/05/2025 12:40 PM EDT): Timeline: 09/06/24: Group visit - utox wnl, pill count 5 off 09/08/24 - Tramadol increase from BID to TID 10/04/24: Group visit - utox/pill count as expected 01/03/25: Group visit - utox/pill count as expected Assessment & Plan (10/06/2024 7:42 PM EST): [...] meds were done today, I advised to mushroom picker her Trulicity and inject as prescribed once a week Continue with her insulin as prescribed Continue with metformin Follow-up with [facility] pharmacy Assessment & Plan (09/08/2024 1:20 PM EST): - Lab Results Component Value Date HGBA1C 6.9 (A) 08/08/2024 HGBA1C 7.1 (A) 01/20/2024 HGBA1C 6.2 (H) 09/22/2023 - Lab Results Component Value Date CREATININE 0.84 09/22/2023 -Changes: I will start patient on trulicity, in light of erratic glucose levels I will prescribe also CGM for her and refer her to [facility] - Diabetic eye exam:pending - Diabetic [...] and close fu w PCP Referred to Obiee Report Developer and I gave her info re DM [...] current medications Patient will be refer to revenue analyst Spondylosis without myelopathy or radiculopathy 12/17/2022 Overview (09/06/2024): Following with [place] [facility] S/p bilateral L4-L5 facet steroid injections on 04/27/2024 Assessment & Plan (02/02/2025 3:32 PM EDT): -Good engagement and participation with Group Medical Visit model -Encouraged multifactorial approach to pain control including pharm and non- pharm modalities -Utox and pill count as expected Assessment & Plan (01/05/2025 12:39 PM EDT): -Good engagement and participation with Group Medical Visit model -Encouraged multifactorial approach to pain control including pharm and non- pharm modalities -Utox and pill count as expected Assessment & Plan (09/08/2024 1:18 PM EST): [...] wine, chocolate, cheese, strong perfumes Seizure disorder (CMS/HCC) 06/07/2018 Assessment & Plan (09/08/2024 1:16 PM EST): Has not had a seizure in 5-6 months, reports she run out of her medication and has not f/u with neurology, I will refill her medications, she will call for f/u appointment Encounters Date Type Department Care Team Description 07/17/2025 Orders Only [facility] [address] [place] [address] Michelle Young MD Type 2 diabetes mellitus with hyperglycemia, without long-term current use of insulin (HCC) (Primary Dx) 07/14/2025 Travel 07/14/[address] [facility] [address] [place] [address] Michelle Young MD Uncomplicated asthma, unspecified asthma severity, unspecified whether persistent 07/13/[address] [facility] [address] [place] [address] Michelle Young MD Hypertension, unspecified type 07/11/2025 9:30 AM EST Clinical Support [facility] [address] [place] [address] Deena Araujo, RN Long-term current use of opiate analgesic (Primary Dx) 07/11/2025 Orders Only GENERIC EXTERNAL DATA DEPARTMENT Provider, Generic External Data 07/11/[address] [facility] [address] [place] [address] Deena Araujo, RN Spondylosis without myelopathy or radiculopathy 07/11/[address] [facility] [address] [facility] [place] [address] Michelle Young MD Muscle spasm 07/11/2025 Travel 07/10/[address] [facility] [address] [facility] [place] [address] Michelle Young MD Telephone Call; Reschedule MACHINE DEBURRER RV 07/10/2025 Travel 06/28/[address] [facility] [address] [facility] [place] [address] Michelle Young MD Appointment Request 06/28/[address] [facility] [address] [facility] [place] [address] Michelle Young MD Spondylosis without myelopathy or radiculopathy 06/28/[address] [facility] [address] [facility] [place] [address] Michelle Young MD Migraine without aura and without status migrainosus, not intractable; Primary insomnia 06/16/[address] [facility] [address] [facility] [place] [address] Michelle Young MD Nurse Triage 06/01/[address] [facility] [address] [place] [address] Michelle Young MD telephone call 05/29/[address] [facility] [address] [place] [address] Michelle Young MD Type 2 diabetes mellitus with hyperglycemia, without long-term current use of insulin ([facility]) 05/25/[address] [facility] [address] [place] [address] Michelle Young MD Type 2 diabetes mellitus with hyperglycemia, without long-term current use of insulin ([facility]) 05/24/[address] [facility] [address] [place] [address] Michelle Young MD Type 2 diabetes mellitus with hyperglycemia, without long-term current use of insulin ([facility]) 05/22/[address] [facility] [address] [place] [address] Michelle Young MD 05/22/[address] [facility] [address] [place] [address] Michelle Young MD Type 2 diabetes mellitus with hyperglycemia, without long-term current use of insulin ([facility]) 05/19/[address] [facility] [address] [place] [address] Michelle Young MD Med Refill 05/19/[address] [facility] [address] [place] [address] Michelle Young MD Spondylosis without myelopathy or radiculopathy 05/19/[address] [facility] [address] [place] [address] Michelle Young MD Seizure disorder ([facility]); Type 2 diabetes mellitus with hyperglycemia, without long-term current use of insulin ([facility]); Primary insomnia 05/11/[address] [facility] [address] [place] [address] Michelle Young MD 05/05/[address] [facility] [address] [place] [address] Nevaeh Griggs RN Type 2 diabetes mellitus with hyperglycemia, without long-term current use of insulin ([facility]) 05/01/[address] [facility] [address] [place] [address] Michelle Young MD 04/28/[address] [facility] [address] [place] [address] Michelle Young MD Type 2 diabetes mellitus with hyperglycemia, without long-term current use of insulin ([facility]) 04/27/[address] [facility] [address] [place] [address] Michelle Young MD Type 2 diabetes mellitus with hyperglycemia, without long-term current use of insulin ([facility]) 04/27/[address] [facility] [address] [place] [address] Michelle Young MD from Last 3 Months Immunizations Immunization Administration Dates Next Due HepB-CpG 01/02/2025,11/21/2024 Influenza injectable quadriv alent preservative free 06/07/2023,05/22/2022,07/18/2019,10/07 Influenza, IIV3, injectable 08/25/2014 Pneumococcal Conjugate PCV 20 11/21/2024 Pneumococcal Polysaccharide PPSV23 12/20/2012 Tdap 07/08/2018,04/20/2013 Social [...] Sign Reading Time Taken Comments Blood Pressure 122/76 07/14/2025 11:28 AM EST Pulse 96 07/14/2025 11:28 AM EST Temperature 36 C (96.8 F) 10/03/2024 9:58 AM EST Respiratory Rate 18 [...] Description 09/15/2025 11:00 AM EST Medication Management [facility] [address] [place] [id number] Carter Wilson, PharmD [address] [place] [address] 10/04/2025 10:00 AM EST Clinical Support [facility] [address] [place] [address] Deena Araujo, RN Health Maintenance Due Date Last Done Comments CT Colonography 1978 FIT 1978 HIV Screening 1978 Sigmoidoscopy 1978 Diabetes: Foot Exam 1988 Eye Exam 1988 Alcohol/Substance Use Screening 1990 Family Planning (PISQ) 1993 Diabetes: Urine Protein Screening 1997 Pap Smear 1999 Cervical Cancer Screening 2008 HPV/Cotest 2008 Depression Screening 02/24/2024 02/23/2023, 02/24/20 FOBT 09/28/2024 09/28/2023 COVID-19 Vaccine ( season) 2025 06/07/2023, 02/13/2022 Influenza Vaccine (#1) 2025 , 05/22/2022, 07/18/2019, Additional history exists SDOH Screening 09/21/2025 09/21/2024 Tobacco Screening 10/03/2025 10/03/2024 Lipid Panel 10/20/2025 10/20/2024, 09/24, 09/22/2023, Additional history exists Diabetes: Hemoglobin A1C 01/11/2026 025, 01/02/2025, 10/04/2024, Additional history exists Mammogram 01/24/2026 01/24/2025, 11/22, 10/01/2021, Additional history exists Disability Screening 07/10/2026 07/10/2025 FIT DNA/Cologuard 09/28/2026 09/28/2023 Zoster Vaccines (1 of 2) 2028 DTaP/Tdap/Td Vaccines (3 - Td or Tdap) 07/08/2028 07/08/2018, 04/20/2013 Colonoscopy 05/19/2029 05/19/2024 Colorectal Cancer Screening 05/19/2029 RSV Patients and Patients Aged 60 years or older (1 - 1-dose 75+ series) 2053 Hepatitis C Screening Completed 10/20/2024 Pneumococcal Vaccine: Pediatrics (0 to 5 Years) and At-Risk Patients (6 to 49) Years Completed 11/21/2024, 12/20/2012 Hepatitis B Vaccines Completed 01/02/2025, 11/22/19 25 HIB Vaccines Aged Out No longer eligi [...] age to complete this topic Meningococcal B Vaccine Aged Out No l onger eligible based on patient's age to complete this topic Meningococcal Vaccine Aged Out No norman bradford eligible based on patient's age to complete this topic RSV under 20 months Aged Out No longe r eligible based on patient's age to complete this topic Rotavirus Vaccines Aged Out No longer eligible based on patient's age to complete this topic Goals Goal Patient Goal Type Associated Problems Recent Progress Patient-Stated? Author Help patients manage their type 2 diabetes Care Plan Help patients manage their type 2 diabetes No Pete Paola Weekly blood pressure task Care Plan Weekly blood pressure task No Pete Paola Help patients manage their type 2 diabetes Care Plan Help patients manage their type 2 diabetes No Pete Paola Patient has chronic kidney disease Care [...] Weekly blood pressure task No Silvia Wilson Patient has chronic kidney disease Care Plan Patient has chronic kidney disease No Silvia Wilson Patient has chronic kidney disease Care Plan [...] chronic kidney disease No Carter Wilson PharmD Weekly blood pressure task Care Plan Weekly blood pressure task No Michelle Young MD Weekly blood pressure task Care Plan Weekly blood pressure task No Michelle Young MD Patient has chronic kidney disease Care Plan Patient has chronic kidney disease No Michelle Young MD Patient has chronic kidney disease Care Plan Patient has chronic kidney disease No Michelle Young MD Procedures Procedure Name Priority Date/Time Associated Diagnosis Comments POCT GLYCATED HEMOGLOBIN, TOTAL Routine 07/14/2025 11:32 AM EST Type 2 diabetes mellitus with hyperglycemia, without long-term current use of insulin (HCC) C-REACTIVE PROTEIN Routine 07/11/2025 4: 36 PM EST COMPREHENSIVE METABOLIC PANEL Routine 07/11/2025 4:36 PM EST CBC WITH AUTO DIFFERENTIAL Routine 07/11/2025 4:36 PM EST POCT JOCY-14 URINE DRUG SCREEN Routine 07/11/2025 10:08 AM EST Long-term current use of opiate analgesic BI MAMMOGRAM SCREENING TOMOSYNTHESIS BILATERAL Routine 01/24/2025 1:05 PM EDT HEPATITIS PANEL, GENERAL Routine 10/20/2024 9:04 AM EST Elevated LFTs LIPID PANEL, STANDARD Routine 10/20/2024 9:04 AM EST HM COLONOSCOPY Routine 05/19/2024 LAB COLOGUARD COLON CANCER SCREEN Routine 09/28/2023 11:20 AM EST Colon cancer screening from Last 3 Months or Most Recently Relevant to Health Maintenance Results * (ABNORMAL) POCT Hgb A1c (07/14/2025 11:32 AM EST) Pathologist [facility] Hemoglobin A1C 6.2(A) 4.0 - 5.7 % QC Media Lot # [id number] Lot# Expiration Date [id number] Blood 07/14/2025 11:3 2 AM EST Michelle Neumann MD POINT OF CARE TEST EN TER/EDIT ORDERABLES Final Result * (ABNORMAL) CBC auto differential (07/11/2025 4:36 PM EST) Pathologist [facility] White Blood Count 13.2(H) 4.8 - 10.8 X10*3/uL [facility] Red Blood Count 4.20 4.20 - 5.50 X10*6/uL [facility] Hemoglobin 11.7(L) 12.0 - 16.0 g/dl [facility] Hematocrit 34.2(L) 37.0 - 47.0 % [facility] Mean Corpuscular Volume 81.4 80.0 - 98.0 fL [facility] Mean Corpuscular Hemoglobin 27.9 27.0 - 33.0 pg [facility] Mean Corpuscular HGB Conc 34.2 31.0 - 35.0 g/dl [facility] Red Cell Distribution Width 14.9 11.0 - 16.0 % [facility] Platelet Count 327 160 - 400 X10*3/uL [facility] Mean Platelet Volume 10.0 9.4 - 12.3 fL [facility] Neutrophils Percent Auto 59.0 45 - 73 % [facility] Imm Gran Pct Auto 0.4 0.0 - 0.4 % [facility] Lymphocytes Percent Auto 31.8 20 - 40 % [facility] Monocytes Percent Auto 5.6 2 - 11 % [facility] Eosinophils Percent Auto 2.7 0 - 4 % [facility] Basophils Percent Auto 0.5 0 - 2 % [facility] NRBC Pct Auto 0.0 0.0 - 0.2 /100WBC [facility] Neutrophils Absolute Auto 7.8 2.0 - 8.3 x10*3/uL [facility] Imm Gran Abs Auto 0.05(H) 0.00 - 0.03 X10*3/uL [facility] Lymphocytes Absolute Auto 4.2 1.2 - 4.9 X10*3/uL [facility] Monocytes Absolute Auto 0.7 0.1 - 1.2 X10*3/uL [facility] Eosinophils Absolute Auto 0.4 0.0 - 0.4 X10*3/uL [facility] Basophils Absolute Auto 0.1 0.0 - 0.2 X10*3/uL [facility] NRBC Abs Auto 0.000 0.0 - 0.012 X10*3/uL [facility] 07/11/2025 4:36 PM EST 07/11/2025 4:36 PM EST us Generic External Data Provider LAB BLOOD ORDERAB LES Final Result [facility] [address] [place] [phone] * (ABNORMAL) C-reactive Protein (07/11/2025 4:36 PM EST) C Reactive Protein 0.64(H) < or = 0.50 mg/dL [facility] 07/11/2025 4:36 PM EST 07/11/2025 4:36 PM EST us Generic External Data Provider LAB BLOOD ORDERAB LES Final Result Performing Organization Address [facility] [place]/ZIP Co de Phone Number [facility] [address] [place] [address] [phone] * (ABNORMAL) Comprehensive Metabolic Panel (07/11/2025 4:36 PM EST) Sodium 142 135 - 145 mmol/L [facility] Potassium 3.7 3.3 - 5.1 mmol/L [facility] Chloride 112(H) 96 - 108 mmol/L [facility] Carbon Dioxide 22 22 - 29 mmol/L [facility] Anion Gap 12 12 - 20 [facility] Urea Nitrogen (BUN) 8(L) 9 - 16 mg/dL [facility] Creatinine, Serum 0.94 0.5 - 1.4 mg/dL [facility] Estimated Glomerular Filt Rate >60 [facility] Comment:Chronic Kidney Disea se: Estimated GFR < 60 mL/min/1.75b8Hfuotp Kidney Disease: Estimated GFR < 15 mL/min/1.73m2 Glucose 83 60 - 115 mg/dL [facility] Calcium 9.1 8.4 - 10.2 mg/dL [facility] Bilirubin, Total 0.4 0.0 - 1.0 mg/dL [facility] Aspartate Amino Transferase 22 5 - 31 U/L [facility] Alanine Aminotransferase 33(H) 0 - 31 U/L [facility] Total Protein 7.1 6.5 - 8.0 g/dL [facility] Albumin Level 4.7 3.5 - 5.0 g/dL [facility] Alkaline Phosphatase 66 39 - 117 U/L [facility] 07/11/2025 4:36 PM EST 07/11/2025 4:36 PM EST us Generic External Data Provider LAB BLOOD ORDERAB LES Final Result Performing Organization Address [facility] [place]/ZIP Co de Phone Number [facility] [address] [place] [address] [phone] * (ABNORMAL) POCT JOCY-14 Urine Drug Screen (07/11/2025 10:08 AM EST) THC Negative Negative Cocaine Screen, Urine Negative Negative Opiate Screen, Urine Negative Negative Methamphetamine Screen Urine Negative Negative Amphetamine Screen, Urine Negative Negative Benzodiazepines Screen, Urine Negative Negative Barbiturate Screen, Urine Positive(A) Negative Comment:Took her Fioricet ye sterday for migraine Methadone Screen, Urine Negative Negative Buprenophine Screen, Urine Negative Negative TCA, Urine Positive(A) Negative MDMA Urine Negative Negative ng/mL Oxycodone Screen, Urine Negative Negative Phencyclidine (PCP), Urine Negative Negative Propoxyphene, Urine Negative Negative Fentanyl, Urine Negative Negative Urine Urine specimen obtained by clean catch procedure / Unknown 07/11/2025 10:08 AM EST Deena Blackmon RN - 07/11/2025 10:08 AM EST UTOX cup Lot#[id number] Exp. 07/24/26 Internal Pass Control Michelle Neumann MD POINT OF CARE TEST EN TER/EDIT ORDERABLES Final Result * BI Mammogram Screening Tomosynthesis Bilateral (01/24/2025 1:05 PM EDT) Anatomical Region Laterality Modality Breast Bilateral Mammography 01/24/2025 1:05 PM EDT Narrative 01/29/2025 1:34 PM EDT [facility] [address] [place], [place] [address] Mammography Report Signed Patient: Veronica Wilcox MR#: [id number] : 1980 Acct:[id number] Age/Sex: 44 / F ADM Date: 01/24/25 Loc: HO.MAMMO Attending Dr: Michelle Neumann MD Ordering Physician: Michelle Young MD Results: 1Negative Date of Service: 01/24/25 Follow Up: 1 Year From Orig inal Mammogram Procedure(s): MM tomosynthesis screening BI Accession Number(s): [id number] cc: Michelle Young MD EXAMINATION: MM SCREENING DIGITAL BREAST TOMOSYNTHESIS, BILATERAL CLINICAL INFORMATION: Screening. Asymptomatic. COMPARISON: Mammography: Comparison is made with available priors TECHNIQUE: Digital breast mammography with tomosynthesis is performed in both the craniocaudal and mediolateral oblique views along with computer-aided detection (CAD). FINDINGS: The breasts are heterogeneously dense, which may obscure small masses (ACR BI-RADS breast composition Category c). There are no significant masses, abnormal calcifications, or other abnormalities. MM/MM tomosynthesis screening BI IMPRESSION: No mammographic evidence of malignancy. ASSESSMENT: BI-RADS BI-RADS 1 - Negative RECOMMENDATION: Routine annual mammography screening. 1 year F/U This examination should not preclude the clinical evaluation of a suspicious palpable abnormality. This patient's information was entered into a reminder system with a target due date for their next mammogram. Electronically signed by: Sahra Gipson DO 01/29/2025 01:32 PM EDT RP Dictated By: Sahra Gipson DO Signed By: <Electronically signed by Sahra Gipson DO in OV> 01/29/25 1332 DD/ 1305 TD/TT: 01/24/25 1322 Associate Engineer: Procedure Note Donotuseinterpreter, Image - 01/29/2025 [facility] [address] [place] [address] Mammography Report Signed Patient: Veronica Wilcox#: M [id number] : 1980Acct:[id number] Age/Sex: 44 / FADM Date: 01/24/25 Loc: HO.MAMMO Attending Dr: Michelle Neumann MD Ordering Physician: Michelle Yonug MDResults: 1Negative Date of Service: 01/24/25Follow Up: 1 Year From Orig inal Mammogram Procedure(s): MM tomosynthesis screening BI Accession Number(s): [id number] cc: Michelle Young MD EXAMINATION: MM SCREENING DIGITAL BREAST TOMOSYNTHESIS, BILATERAL CLINICAL INFORMATION: Screening. Asymptomatic. COMPARISON: Mammography: Comparison is made with available priors TECHNIQUE: Digital breast mammography with tomosynthesis is performed in both the craniocaudal and mediolateral oblique views along with computer-aided detection (CAD). FINDINGS: The breasts are heterogeneously dense, which may obscure small masses (ACR BI-RADS breast composition Category c). There are no significant masses, abnormal calcifications, or other abnormalities. MM/MM tomosynthesis screening BI IMPRESSION: No mammographic evidence of malignancy. ASSESSMENT: BI-RADS BI-RADS 1 - Negative RECOMMENDATION: Routine annual mammography screening. 1 year F/U This examination should not preclude the clinical evaluation of a suspicious palpable abnormality. This patient's information was entered into a reminder system with a target due date for their next mammogram. Electronically signed by: Sahra Gipson DO 01/29/2025 01:32 PM EDT Dictated By: Sahra Gipson DO Signed By: <Electronically signed by Sahra Gipson DO in OV> 01/29/25 1332 DD/ 1305 TD/TT: 01/24/25 1322 Associate Engineer: us Michelle Neumann MD IMG BI PROCEDURES Bassem lilliam Result - Final * Hepatitis A,B,C Profile (10/20/2024 9:04 AM EST) Hepatitis A IgM Nonreactive Nonreactive [facility] Comment:IgM antibodies to WHITTAKER V not detected; does not exclude earlyacute or recovered HAV infection. ~Hepatitis B Surface Antibody REACTIVE Nonreactive [facility] Comment:REACTIVE: > 11.99 mI U/mL Hepatitis B Core Antibody Nonreactive Nonreactive [facility] Hepatitis C Antibody Nonreactive Nonreactive [facility] Comment:Antibodies to HCV no t detected; does not exclude early acuteHCV infection. Hepatitis B Surface Ag Negative Negative [facility] Blood Venous blood specimen / Unknown 10/20/2024 9:04 AM EST 10/20/2024 11:48 AM EST us Michelle Neumann MD LAB BLOOD ORDERABLES Final Result [facility] [address] [place] [address] [phone] * (ABNORMAL) Lipid Panel, Standard (10/20/2024 9:04 AM EST) Triglycerides 218(H) <150 mg/dL [facility] Comment:Desirable Triglyceri de: less than 150 mg/dLBorderline High Triglyceride 150-199 mg/dLHigh Triglyceride: 200-499 mg/dLVery High Triglyceride: greater than or equal to 5OO mg/dL Cholesterol 201(H) <200 mg/dL [facility] Comment:Desirable Cholestero l: less than 200 mg/dLBorderline High Cholesterol: 200-239 mg/dLHigh Cholesterol: greater than 239 mg/dL LDL Cholesterol Calculated 113(H) <100 mg/dL [facility] Comment:Desirable LDL: less than 100 mg/dLNear Optimal/Above Optimal LDL: 110- 129 mg/dLBorderline High LDL: 130-159 mg/dLHigh LDL: 160-189 mg/dLVery High LDL: greater than or equal to 190 mg/dL HDL Cholesterol 45 >40 mg/dL [facility] Comment:Desirable HDL: great er than 40 mg/dL Note: This HDL assay may give artificially low results in patients with liver disease. 10/20/2024 9:04 AM EST 10/20/2024 11:48 AM EST Michelle Neumann MD LAB BLOOD ORDERABLES Final Result [facility] [address] [place] [phone] * Hm Colonoscopy (05/19/2024) Colonoscopy Normal Normal us Historical Provider HEALTH MAINTENANCE Final Result * (ABNORMAL) Cologuard?? colon cancer screening (09/28/2023 11:20 AM EST) Cologuard Result Positive( A) Negative 10/08/2023 1:10 AM EST [facility] [employer] [facility] (CLIA #:[id number]) Comment: POSITIVE TEST RESULT. A positive Cologuard result should be followed with a colonoscopy or visual examination of the colon. The normal value (reference range) for this assay is negative. TEST DESCRIPTION: Composite algorithmic analysis of stool DNA-biomarkers with hemoglobin immunoassay. Quantitative values of individual biomarkers are not [...] (Nino Diego al, N Engl J Med 2014;370(14):8330-2503.) Cologuard may produce a false negative or false positive result (no colorectal cancer or precancerous polyp present at colonoscopy follow up). A negative Cologuard test result does not guarantee the absence of CRC or advanced adenoma (pre-cancer). The current Cologuard screening interval is every 3 years. ([place] [employer] and U.S. Multi-Society Task Force). Cologuard performance data in a 10,000 patient pivotal study using colonoscopy as the reference method can be accessed at the following location: www.[employer]/results. Additional description of the Cologuard test process, warnings and precautions can be found at www.[employer].com. Stool specimen (specimen) 09/28/2023 11:20 AM EST 09/29/2023 10:49 AM EST us Michelle Neumann MD LAB MOLECULAR DIAGNOS TICS ORDERABLES Final Result [facility] [employer] [facility] [employer] (CLIA #:[id number]) [place] [address], [place] [phone] from Last 3 Months or Most Recently Relevant to Health Maintenance Additional Health Concerns Active Problems Noted Date [...] 07/13/2025 Patient has chronic kidney disease 07/13/2025 Weekly blood pressure task 07/17/2025 Weekly blood pressure task 07/17/2025 Patient has chronic kidney disease 07/17/2025 Patient has chronic kidney disease 07/17/2025 Insurance [employer] CARE < 65 SARAH FARR [id number] Care Teams Poultry Picker Relationship Specialty Start Date End Date Michelle Young MD [address] [place] [address] PCP - General Family Medicine 06/03/18 Carter Wilson, PharmD [address] [place] [address] Pharmacist Internal Medicine 11/22/24
--- OUTSIDE RECORDS SUMMARY | 2025-07-17 16:18 | XMS_ITS | Encounter Summary ---
Author Organization [employer] [facility] Address [address] [place] [address] [address]t [place] [address] Care Team Providers Care Financial Legal Assistant Name Role Phone Michelle Young MD Primary Care Provide r Carter Wilson PharmD Unavailable [phone] Encounter Details Date Type Department Care Team (Late st Contact Info) Description 02/10/2023 Orders Only [address] [address] Diandra Siddiqui LPN Social History Tobacco Use [...] Description 09/15/2025 11:00 AM EST Medication Management [address] [address] Carter Wilson, PharmD [address] [place] [address] 10/04/2025 10:00 AM EST Clinical Support [address] [address] Deena Araujo RN documented as of this encounter Visit Diagnoses Not on filedocumented in this encounter Care Teams Financial Legal Assistant Relationship Specialty Start Date End Date Michelle Young MD [address] [place] [address] PCP - General Family Medicine 06/03/18 Carter Wilson, OliviaD [address] [place] [address] Pharmacist Internal Medicine 11/22/24 documented as of this encounter
--- OUTSIDE RECORDS SUMMARY | 2025-07-17 16:18 | XMS_ITS | Encounter Summary ---
Author Organization [employer] Address [address] [place] [address] 7t [place] [address] Care Team Providers Care Cook 3 Pastry Name Role Phone Michelle Young MD Primary Care Provide r Carter Wilson PharmD Unavailable [phone] Encounter Details Date Type Department Care Team (Late st Contact Info) Description 02/18/2023 Orders Only [facility] [address] [place], [place] [phone] Libby Cruz LPN Social History Tobacco Use [...] Description 09/15/2025 11:00 AM EST Medication Management [address] [address] Carter Wilson, PharmD [address] [place] [address] 10/04/2025 10:00 AM EST Clinical Support [address] [address] Deena Araujo RN documented as of this encounter Visit Diagnoses Not on filedocumented in this encounter Care Teams Cook 3 Pastry Relationship Specialty Start Date End Date Michelle Young MD [address] [place] [address] PCP - General Family Medicine 06/03/18 Carter Wilson, PharmD [address] [place] [address] Pharmacist Internal Medicine 11/22/24 documented as of this encounter
--- OUTSIDE RECORDS SUMMARY | 2025-07-17 16:18 | XMS_ITS | Encounter Summary ---
Author Organization [employer] Address [address] [facility] 7t [place] [address] Care Team Providers Care Deliverer Food Name Role Phone Michelle Young MD Primary Care Provide r Carter Wilson PharmD Unavailable [phone] Encounter Details Date Type Department Care Team (Late st Contact Info) Description 10/20/2024 Orders Only [facility] [address] [place] [address] Boyd Mares MD [address] [place], [place] [phone] Social History Tobacco Use Types Packs/Day Years [...] Description 09/15/2025 11:00 AM EST Medication Management [address] [address] Carter Wilson, Raquel [address] [place] [address] 10/04/2025 10:00 AM EST Clinical Support [address] [address] Deena Araujo, SHARLENE documented as of this encounter Visit Diagnoses Not on filedocumented in this encounter Additional Health Concerns Assessment Noted Time PHQ-9 Depression Total Score: 0 02/24/20 23 11:15 AM EDT documented as of this encounter Care Teams Deliverer Food Relationship Specialty Start Date End Date Michelle Young MD [address] [place] [address] PCP - General Family Medicine 06/03/18 Carter Wilson, PharmD [address] [place] [address] Pharmacist Internal Medicine 11/22/24 documented as of this encounter
--- OUTSIDE RECORDS SUMMARY | 2025-07-17 16:18 | XMS_ITS | Encounter Summary ---
Author Organization [employer] Address [address] [facility] 7t [place] [address] Care Team Providers Care Deburrer Machine Name Role Phone Michelle Young MD Primary Care Provide r Carter Wilson PharmD Unavailable [phone] Reason for Visit * Reason Comments Med Refill Encounter Details Date Type Department Care Team ([facility] st Contact Info) Description 07/14/2025 Refill [facility] [address] [place], [place] [phone] Michelle Young MD [address] [place] [address] Uncomplicated asthma, unspecified asthma severity, unspecified whether persistent Social History Tobacco Use Types Packs/Day Years [...] Description 09/15/2025 11:00 AM EST Medication Management [address] [address] Carter Wilson, PharmD [address] [place] [address] 10/04/2025 10:00 AM EST Clinical Support [address] [address] Deena Araujo, RN documented as of this encounter Goals [...] blood pressure task No Deena Araujo, RN Weekly blood pressure task Care Plan [...] as of this encounter Visit Diagnoses Diagnosis Uncomplicated asthma, unspecified asthma severity, unspecified whether persistent documented in this encounter Additional Health Concerns [...] documented as of this encounter Care Teams Deburrer Machine Relationship Specialty Start Date End Date Michelle Young MD [address] [place] [address] PCP - General Family Medicine 06/03/18 Carter Wilson, Raquel [address] [place] [address] Pharmacist Internal Medicine 11/22/24 documented as of this encounter
--- OUTSIDE RECORDS SUMMARY | 2025-07-17 16:18 | XMS_ITS | Encounter Summary ---
Author Organization [employer] Address [address] [facility] 7t [place] [address] Care Team Providers Care Loan Service Officer Name Role Phone Michelle Young MD Primary Care Provide r Carter Wilson PharmD Unavailable [phone] Reason for Visit * Reason Onset Date Comments Med Refill 07/24/2023 Encounter Details Date Type Department Care Team ([facility] st Contact Info) Description 07/24/2023 Telephone [facility] MED[facility]INE [address] [place], [place] [phone] Michelle Young MD [address], [place] [phone] Med Refill Social History Tobacco Use Types [...] t he electric, gas, oil or water [employer] threatened to shut off services in your [...] from patient requesting a medication refill for yabtokzpga-oabbzymnslbhy-zkgfysdg (Fioricet) 50-300-40 MG capsule and pantoprazole (Protonix) 40 MG EC tablet. documented in this encounter Plan of Treatment Upcoming Encounters Date Type Department Care Team (Late st Contact Info) Description 09/15/2025 11:00 AM EST Medication Management [address] [address] Carter Wilson, OliviaD [address] [place] [address] 10/04/2025 10:00 AM EST Clinical Support [address] [address] Deena Araujo RN documented as of this encounter Visit Diagnoses Not on filedocumented in this encounter Additional Health Concerns Assessment Noted Time PHQ-9 Depression Total Score: 0 02/24/20 11:15 AM EDT documented as of this encounter Care Teams Loan Service Officer Relationship Specialty Start Date End Date Michelle Young MD [address], [place] [phone] PCP - General Family Medicine 06/03/18 Carter Wilson, Raquel [address] [place] [address] Pharmacist Internal Medicine 11/22/24 documented as of this encounter
--- OUTSIDE RECORDS SUMMARY | 2025-07-17 16:18 | XMS_ITS | Encounter Summary ---
Author Organization [employer] Address [address] [facility] 7t [place] [address] Care Team Providers Care Combustion Engineer Name Role Phone Michelle Young MD Primary Care Provide r Carter Wilson PharmD Unavailable [phone] Reason for Visit * Reason Onset Date Comments Med Refill 01/01/2023 Encounter Details Date Type Department Care Team ([facility] st Contact Info) Description 01/01/2023 Telephone [facility] MEDICINE [address] [place], [place] [phone] Michelle Young MD [address] [place], [place] [phone] Med Refill Social History Tobacco Use Types [...] Description 09/15/2025 11:00 AM EST Medication Management [address] [address] Carter Wilson, OliviaD [address] [place] [address] 10/04/2025 10:00 AM EST Clinical Support [address] [address] Deena Araujo, SHARLENE documented as of this encounter Visit Diagnoses Not on filedocumented in this encounter Care Teams Combustion Engineer Relationship Specialty Start Date End Date Michelle Young MD [address] [place] [address] PCP - General Family Medicine 06/03/18 Carter Wilson, Raquel [address] [place] [address] Pharmacist Internal Medicine 11/22/24 documented as of this encounter
--- OUTSIDE RECORDS SUMMARY | 2025-07-17 16:18 | XMS_ITS | Encounter Summary ---
Author Organization [employer] Address [address] [facility] 7t [place] [address] Care Team Providers Care Corporate Development Officer Name Role Phone Michelle Young MD Primary Care Provide r Carter Wilson PharmD Unavailable [phone] Reason for Visit * Reason Onset Date Comments Med Refill 05/19/2025 Encounter Details Date Type Department Care Team ([facility] st Contact Info) Description 05/19/2025 Telephone [facility] MEDICINE [address] [place], [place] [phone] Michelle Young MD [address] [place], [place] [phone] Med Refill Social History Tobacco Use Types [...] encounter Miscellaneous Notes * Telephone Encounter - Ade Leo - 05/19/2025 3:45 PM EDT TC from pt requesting medication refill. Medications needing refill : zolpidem (Ambien) 5 MG tablet To be sent to: [facility]/pharmacy #[id number] documented in this encounter Plan of Treatment Upcoming Encounters Date Type Department Care Team (Late st Contact Info) Description 09/15/2025 11:00 AM EST Medication Management [address] [address] Carter Wilson, OliviaD [address] [place] [address] 10/04/2025 10:00 AM EST Clinical Support [address] [address] Deena Araujo RN documented as of this encounter Visit Diagnoses Not on filedocumented in this encounter Additional Health Concerns Assessment Noted Time PHQ-9 Depression Total Score: 0 02/24/20 23 11:15 AM EDT documented as of this encounter Care Teams Corporate Development Officer Relationship Specialty Start Date End Date Michelle Young MD [address] [place] [phone] PCP - General Family Medicine 06/03/18 Carter Wilson, OliviaD [address] [place] [address] Pharmacist Internal Medicine 11/22/24 documented as of this encounter
--- OUTSIDE RECORDS SUMMARY | 2025-07-17 16:18 | XMS_ITS | Encounter Summary ---
Author Organization [employer] Address [address] [place] [address] 7t [place] [address] Care Team Providers Care Clerk Funeral Detail Name Role Phone Michelle Young MD Primary Care Provide r Carter Wilson PharmD Unavailable [phone] Reason for Visit * Reason Onset Date Comments Med Refill 04/20/2023 Encounter Details Date Type Department Care Team ([facility] Contact Info) Description 04/20/2023 Telephone [facility] MEDICINE [address] [place], [place] [phone] Michelle Young MD 230 [place], [place] [phone] Med Refill Social History Tobacco Use Types [...] Upcoming Encounters Date Type Department Care Team ([facility] Contact Info) Description 09/15/2025 11:00 AM EST Medication Management [address] [address] Carter Wilson, PharmD [address] [place] [address] 10/04/2025 10:00 AM EST Clinical Support [address] [address] Deena Araujo, SHARLENE documented as of this encounter Visit Diagnoses Not on filedocumented in this encounter Additional Health Concerns Assessment Noted Time PHQ-9 Depression Total Score: 0 02/24/20 11:15 AM EDT documented as of this encounter Care Teams Clerk Funeral Detail Relationship Specialty Start Date End Date Michelle Young MD [address] [place] [address] PCP - General Family Medicine 06/03/18 Carter Wilson, PharmD [address] [place] [address] Pharmacist Internal Medicine 11/22/24 documented as of this encounter
--- OUTSIDE RECORDS SUMMARY | 2025-07-17 16:18 | XMS_ITS | Encounter Summary ---
Author Organization [employer] Address 75 [facility] 7t [place] [address] Care Team Providers Care Case Managers Name Role Phone Michelle Yonug MD Primary Care Provide r Carter Wilson PharmD Unavailable [phone] Reason for Visit * Reason Comments Med Refill Encounter Details Date Type Department Care Team ([facility] st Contact Info) Description 06/04/2024 Refill [facility] MEDICINE 230 [place], [place] [phone] Michelle Young MD 230 [place] [address] Hypertension, unspecified type; Chronic rhinitis; Severe episode [...] Description 09/15/2025 11:00 AM EST Medication Management [address] [address] Carter Wilson, Raquel [address] [place] [address] 10/04/2025 10:00 AM EST Clinical Support [address] [address] Deena Araujo, SHARLENE documented as of this encounter Visit Diagnoses Diagnosis Hypertension, unspecified type Chronic rhinitis Severe episode of recurrent major depressive disorder, without psychotic features (CMS/HCC) (HCC) documented in this encounter Additional Health Concerns Assessment Noted Time PHQ-9 Depression Total Score: 0 02/24/20 23 11:15 AM EDT documented as of this encounter Care Teams Case Managers Relationship Specialty Start Date End Date Michelle Young MD [address] [place] [address] PCP - General Family Medicine 06/03/18 Carter Wilson, PharmD [address] [place] [address] [phone] Pharmacist Internal Medicine 11/22/24 documented as of this encounter
--- OUTSIDE RECORDS SUMMARY | 2025-07-17 16:18 | XMS_ITS | Encounter Summary ---
Author Organization [employer] Address 75 [facility] 7t [place] [address] Care Team Providers Care Energy Efficiency Engineer Name Role Phone Michelle Young MD Primary Care Provide r Carter Wilson PharmD Unavailable [phone] Reason for Referral * Consultation (Routine) - Authorized Specialty Diagnoses / Procedures Referred By Contac t Referred To Contact Pharmacy Diagnoses Type 2 diabetes mellitus with hyperglycemia, without long-term current use of insulin (HCC) Michelle Young MD 230 [place] [address] Phone: tel: fax: Referral ID Status Reason Start Date Expiration Date Visits Requested Visits Authorized [id number] Authorized Consult and Treat 07/17/2025 07/17/2026 6 6 Encounter Details Date Type Department Care Team (Late st Contact Info) Description 07/17/2025 Orders Only [facility] MEDICINE 230 [place], [place] [phone] Michelle Young MD [address] [place], [place] [phone] Type 2 diabetes mellitus with hyperglycemia, without long-term current use of insulin (HCC) (Primary Dx) Social History Tobacco Use Types [...] Description 09/15/2025 11:00 AM EST Medication Management [address] [address] Carter Wilson, OliviaD [address] [place] [address] 10/04/2025 10:00 AM EST Clinical Support [address] [address] Deena Araujo RN Scheduled Referrals Name Type Priority Associated Diagnoses Orde r Schedule Referral to Pharmacy CDTM Outpatient Referral Routine Type 2 diabetes mellitus with hyperglycemia, without long-term current use of insulin (HCC) Ordered: 07/17/2025 documented as of this encounter Goals Goal [...] Plan Weekly blood pressure task No Carter Wilson, PharmCash Patient has chronic kidney disease Care Plan [...] chronic kidney disease No Michelle Young MD documented as of this encounter Visit Diagnoses Diagnosis Type 2 diabetes mellitus with hyperglycemia, without long-term current use of insulin (HCC)- Primary documented in this encounter Additional Health Concerns [...] 07/17/2025 Patient has chronic kidney disease 07/17/2025 Assessment Noted Time PHQ-9 Depression Total Score: 0 02/24/20 23 11:15 AM EDT documented as of this encounter Care Teams Energy Efficiency Engineer Relationship Specialty Start Date End Date Michelle Young MD 230 [place] [address] PCP - General Family Medicine 06/03/18 Carter Wilson, PharmD [address] [place] [address] Pharmacist Internal Medicine 11/22/24 documented as of this encounter
--- OUTSIDE RECORDS SUMMARY | 2025-07-17 16:18 | XMS_ITS | Encounter Summary ---
Author Organization [employer] Address 75 [facility] 7t [place] [address] Care Team Providers Care Web Services Professional Name Role Phone Michelle Young MD Primary Care Provide r Carter Wilson PharmD Unavailable [phone] Reason for Visit * Reason Comments Med Refill Encounter Details Date Type Department Care Team ([facility] st Contact Info) Description 09/23/2023 Refill [facility] MEDICINE 230 [place], [place] [phone] Michelle Young MD 230 [place], [place] [phone] Primary insomnia Social History Tobacco Use Types [...] Description 09/15/2025 11:00 AM EST Medication Management [address] [address] Carter Wilson, Raquel [address] [place] [address] 10/04/2025 10:00 AM EST Clinical Support [address] [address] Deena Araujo, SHARLENE documented as of this encounter Visit Diagnoses Diagnosis Primary insomnia Persistent disorder of initiating or maintaining sleep documented in this encounter Additional Health Concerns Assessment Noted Time PHQ-9 Depression Total Score: 0 02/24/20 23 11:15 AM EDT documented as of this encounter Care Teams Web Services Professional Relationship Specialty Start Date End Date Michelle Young MD [address] [place] [address] PCP - General Family Medicine 06/03/18 Carter Wilson, PharmD [address] [place] [address] Pharmacist Internal Medicine 11/22/24 documented as of this encounter
--- OUTSIDE RECORDS SUMMARY | 2025-07-17 16:18 | XMS_ITS | Encounter Summary ---
Author Organization [employer] Address [address] [place] [address] 7t [place] [address] Care Team Providers Care Email Deployment Specialist Name Role Phone Michelle Young MD Primary Care Provide r Carter Wilson PharmD Unavailable [phone] Reason for Visit * Reason Comments Med Refill Encounter Details Date Type Department Care Team (Late Contact Info) Description 05/08/2023 Refill [facility] 230 [place], [place] [phone] Michelle Young MD 230 [place], [place] [phone] Gastritis, presence of bleeding unspecified, unspecified chronicity, [...] Encounters Date Type Department Care Team (Late Contact Info) Description 09/15/2025 11:00 AM EST Medication Management [facility] MEDICINE 230 [place] [address] Carter Wilson, PharmD 230 [place] [address] 10/04/2025 10:00 AM EST Clinical Support [facility] MEDICINE 230 [place] [address] Deena Araujo, SHARLENE documented as of this encounter Visit Diagnoses Diagnosis Gastritis, presence of bleeding unspecified, unspecified chronicity, unspecified gastritis type documented in this encounter Additional Health Concerns Assessment Noted Time PHQ-9 Depression Total Score: 0 02/24/20 23 11:15 AM EDT documented as of this encounter Care Teams Email Deployment Specialist Relationship Specialty Start Date End Date Michelle Young MD [address] [place] [address] PCP - General Family Medicine 06/03/18 Carter Wilson, OliviaD [address] [place] [address] Pharmacist Internal Medicine 11/22/24 documented as of this encounter
--- OUTSIDE RECORDS SUMMARY | 2025-07-17 16:18 | XMS_ITS | Encounter Summary ---
Author Organization [employer] Address 75 [facility] 7t [place] [address] Care Team Providers Care Safety Manager Name Role Phone Michelle Young MD Primary Care Provide r Carter Wilson PharmD Unavailable [phone] Reason for Visit * Reason Comments Med Refill Encounter Details Date Type Department Care Team ([facility] st Contact Info) Description 10/27/2023 Refill [facility] CH[facility] MED & PEDS [address] [place], [place] [phone] Michelle Young MD 230 [place] [address] Social History Tobacco Use Types Packs/Day Years [...] Description 09/15/2025 11:00 AM EST Medication Management [address] [address] Carter Wilson, Raquel [address] [place] [address] 10/04/2025 10:00 AM EST Clinical Support [address] [address] Deena Araujo, SHARLENE documented as of this encounter Visit Diagnoses Not on filedocumented in this encounter Additional Health Concerns Assessment Noted Time PHQ-9 Depression Total Score: 0 02/24/20 23 11:15 AM EDT documented as of this encounter Care Teams Safety Manager Relationship Specialty Start Date End Date Michelle Young MD [address] [place] [address] PCP - General Family Medicine 06/03/18 Carter Wilson, PharmD [address] [place] [address] Pharmacist Internal Medicine 11/22/24 documented as of this encounter
--- OUTSIDE RECORDS SUMMARY | 2025-07-17 16:18 | XMS_ITS | Encounter Summary ---
Author Organization [employer] Address 75 [facility] 7t [place] [address] Care Team Providers Care District Plant Supervisor Name Role Phone Michelle Young MD Primary Care Provide r Carter Wilson PharmD Unavailable [phone] Encounter Details Date Type Department Care Team (Late st Contact Info) Description 10/24/2024 Orders Only [facility] MEDICINE 230 [place], [place] [phone] Michelle Young MD 230 [place], [place] [phone] Social History Tobacco Use Types Packs/Day Years [...] Description 09/15/2025 11:00 AM EST Medication Management [address] [address] Carter Wilson, Raquel [address] [place] [address] 10/04/2025 10:00 AM EST Clinical Support [address] [address] Deena Araujo, SHARLENE documented as of this encounter Visit Diagnoses Not on filedocumented in this encounter Additional Health Concerns Assessment Noted Time PHQ-9 Depression Total Score: 0 02/24/20 23 11:15 AM EDT documented as of this encounter Care Teams District Plant Supervisor Relationship Specialty Start Date End Date Michelle Young MD [address] [place] [address] PCP - General Family Medicine 06/03/18 Carter Wilson, PharmD [address] [place] [address] Pharmacist Internal Medicine 11/22/24 documented as of this encounter
--- OUTSIDE RECORDS SUMMARY | 2025-07-17 16:18 | XMS_ITS | Encounter Summary ---
Author Organization [employer] Address 75 [facility] 7t [place] [address] Care Team Providers Care Manager Of Enterprise Name Role Phone Michelle Young MD Primary Care Provide r Carter Wilson PharmD Unavailable [phone] Reason for Visit * Reason Comments Med Change Request Encounter Details Date Type Department Care Team ([facility] st Contact Info) Description 05/24/2025 Refill [facility] MEDICINE 230 [place], [place] [phone] Michelle Young MD 230 [place], [place] [phone] Type 2 diabetes mellitus with hyperglycemia, without long-term current use of insulin ([facility]) Social History Tobacco Use Types Packs/Day Years [...] Description 09/15/2025 11:00 AM EST Medication Management [address] [address] Carter Wilson, PharmD [address] [place] [address] 10/04/2025 10:00 AM EST Clinical Support [address] [address] Deena Araujo, RN documented as of this encounter Visit Diagnoses Diagnosis Type 2 diabetes mellitus with hyperglycemia, without long-term current use of insulin ([facility]) documented in this encounter Additional Health Concerns Assessment Noted Time PHQ-9 Depression Total Score: 0 02/24/20 23 11:15 AM EDT documented as of this encounter Care Teams Manager Of Enterprise Relationship Specialty Start Date End Date Michelle Young MD [address] [place] [address] [phone] PCP - General Family Medicine 06/03/18 Carter Wilson, PharmD [address] [place] [address] Pharmacist Internal Medicine 11/22/24 documented as of this encounter
--- OUTSIDE RECORDS SUMMARY | 2025-07-17 16:18 | XMS_ITS | Encounter Summary ---
Author Organization [employer] Address [address] [place] [address] 7t [place] [address] Care Team Providers Care Bending Press Operator Name Role Phone Michelle Young MD Primary Care Provide r Carter Wilson PharmD Unavailable [phone] Reason for Visit * Reason Comments Med Refill Encounter Details Date Type Department Care Team (Late st Contact Info) Description 02/18/[address] [facility] CHC MED & PEDS 505 [place] [address] Libby Ramirez DO 230 [place] [address] Hypertension, unspecified type Social History Tobacco Use [...] 09/15/2025 11:00 AM EST Medication Management [address] [address] Carter Wilson, PharmD 230 [place] [address] 10/04/2025 10:00 AM EST Clinical Support [address] [address] Deena Araujo, RN documented as of this encounter Visit Diagnoses Diagnosis Hypertension, unspecified type documented in this encounter Care Teams Bending Press Operator Relationship Specialty Start Date End Date Michelle Young MD 230 [place] [address] PCP - General Family Medicine 06/03/18 Carter Wilson, OliviaD 230 [place] [address] Pharmacist Internal Medicine 11/22/24 documented as of this encounter
--- OUTSIDE RECORDS SUMMARY | 2025-07-17 16:19 | XMS_ITS | Encounter Summary ---
Author Organization [employer] Address 75 [facility] 7t [place] [address] Care Team Providers Care Epidemiology Internship Name Role Phone Michelle Young MD Primary Care Provide r Carter Wilson PharmD Unavailable [phone] Reason for Visit * Reason Onset Date Comments Med Change Request Durable Medical Equipment 01/04/2024 Blood Pressure Monitor Encounter Details Date Type Department Care Team (Late st Contact Info) Description 01/04/2024 Refill [facility] MEDICINE 230 [place], [place] [phone] Michelle Young MD 230 [place], [place] [phone] Primary hypertension Social History Tobacco Use Types [...] for signature. Once signed will fax to [facility] and scaninto chart under media. documented in this encounter Plan of Treatment Upcoming Encounters Date Type Department Care Team (Late st Contact Info) Description 09/15/2025 11:00 AM EST Medication Management [address] [address] Carter Wilson PharmD [address] [place] [address] 10/04/2025 10:00 AM EST Clinical Support [address] [address] Deena Araujo RN documented as of this encounter Visit Diagnoses Diagnosis Primary hypertension Unspecified essential hypertension documented in this encounter Additional Health Concerns Assessment Noted Time PHQ-9 Depression Total Score: 0 02/24/20 11:15 AM EDT documented as of this encounter Care Teams Epidemiology Internship Relationship Specialty Start Date End Date Michelle Young MD [address] [place] [address] PCP - General Family Medicine 06/03/18 Carter Wilson, OliviaD [address] [place] [phone] Pharmacist Internal Medicine 11/22/24 documented as of this encounter
--- OUTSIDE RECORDS SUMMARY | 2025-07-17 16:19 | XMS_ITS | Encounter Summary ---
Author Organization [employer] Address 75 [facility] 7t [place] [address] Care Team Providers Care Dye Tub Tender Name Role Phone Michelle Young MD Primary Care Provide r Carter Wilson PharmD Unavailable Reason for Visit * Reason Onset Date Comments Med Refill 04/04/2025 Encounter Details Date Type Department Care Team ([facility] st Contact Info) Description 04/04/[address] [facility] MEDICINE 230 [place], [place] [phone] Michelle Young MD 230 [place], [place] [phone] Med Refill Social History Tobacco Use Types [...] Telephone Encounter - Libby Cruz LPN - 04/04/2025 11:00 AM EDT Medication not on active med list and no history of PCP prescribing. * Telephone Encounter - Adria Thornton - 04/04/2025 10:46 AM EDT TC from pt requesting medication refill. Medications needing refill : Jardiance 10 MG To be sent to: [facility]/pharmacy #[id number] - [address] documented in this encounter Plan of Treatment Upcoming Encounters Date Type Department Care Team (Late st Contact Info) Description 09/15/2025 11:00 AM EST Medication Management [facility] MEDICINE [address] [place] [phone] Carter Wilson, PharmD 230 [place] [address] 10/04/2025 10:00 AM EST Clinical Support [address] [address] Deena Araujo RN documented as of this encounter Visit Diagnoses Not on filedocumented in this encounter Additional Health Concerns Assessment Noted Time PHQ-9 Depression Total Score: 0 02/24/20 23 11:15 AM EDT documented as of this encounter Care Teams Dye Tub Tender Relationship Specialty Start Date End Date Michelle Young MD 230 [place] [address] PCP - General Family Medicine 06/03/18 Carter Wilson, OliviaD 230 [place] [address] Pharmacist Internal Medicine 11/22/24 documented as of this encounter
--- OUTSIDE RECORDS SUMMARY | 2025-07-17 16:19 | XMS_ITS | Encounter Summary ---
Author Organization [employer] Address 75 [facility] 7t [place] [address] Care Team Providers Care Pencil Inspector Name Role Phone Michelle Young MD Primary Care Provide r Carter Wilson PharmD Unavailable [phone] Encounter Details Date Type Department Care Team (Late st Contact Info) Description 03/08/2025 Orders Only [facility] MEDICINE 230 [place], [place] [phone] Michelle Young MD 230 [place], [place] [phone] Primary insomnia (Primary Dx) Social History Tobacco Use Types [...] Description 09/15/2025 11:00 AM EST Medication Management [address] [address] Carter Wilson, Raquel [address] [place] [address] 10/04/2025 10:00 AM EST Clinical Support [address] [address] Deena Araujo, SHARLENE documented as of this encounter Visit Diagnoses Diagnosis Primary insomnia- Primary Persistent disorder of initiating or maintaining sleep documented in this encounter Additional Health Concerns Assessment Noted Time PHQ-9 Depression Total Score: 0 02/24/20 23 11:15 AM EDT documented as of this encounter Care Teams Pencil Inspector Relationship Specialty Start Date End Date Michelle Young MD [address] [place] [address] PCP - General Family Medicine 06/03/18 Carter Wilson, PharmD [address] [place] [address] Pharmacist Internal Medicine 11/22/24 documented as of this encounter
--- OUTSIDE RECORDS SUMMARY | 2025-07-17 16:19 | XMS_ITS | Clinical Summary ---
Author Organization [facility] Address [address] [place] [address] Phone Care Team Providers Care Municipal Clerk Name Role Phone Michelle Young MD Primary [...] 77 06/26/2024 10:43 AM EST Temperature 36.5 C (97.7 F) 06/26/2024 10:43 AM EST Respiratory Rate 18 06/26/2024 10:43 AM EST [...] 5 Years) and At-Risk Patients (6 to 49 Years) (2 of 2 - PCV) 12/20/2013 12/20/2012 HIV Screening 08/02/2022 Hepatitis C Screening 08/02/2022 Medicare Annual Wellness Visit 08/02/2022 Social Influencers of Health Screening 08/02/2022 Diabetes: Annual Urine Albumin-Creatinine Ratio (uACR) 06/26/2024 Diabetes: Blood Sugar Control Test (HGBA1C) 07/22/2024 01/20/2024 Depression Screening 08/24/2024 COVID-19 Vaccine ( season) 2025 06/07/2023, 02/13/2022 Influenza Vaccine (#1) 2025 , 05/22/2022, 07/18/2019, Additional history exists Diabetes: Annual GFR (Glomerular Filtration Rate) 06/26/2025 06/26/2024 Hypertension/CHF/CAD Annual BMP Blood Test 06/26/2025 06/26/2024 Colorectal Cancer Screening: FIT-DNA (Cologuard) 09/28/2026 09/28/2023 DTaP,Tdap,and Td Vaccines (3 - Td or Tdap) 07/08/2028 07/08/2018, 04/20/2013 Cholesterol Screening (Lipid Panel) 09/22/2028 09/22/2023 RSV Immunization Adult Patients (1 - 1-dose 75+ series) 2053 HIB [...] mmol/L LAB CHEMISTRY METHOD 06/26/2024 8:11 AM [facility] Potassium 3.8 3.5 - 5.5 mmol/L LAB CHEMISTRY METHOD 06/26/2024 8:11 AM [facility] Chloride 109 96 - 110 mmol/L LAB CHEMISTRY METHOD 06/26/2024 8:11 AM [facility] CO2 23 21 - 32 mmol/L LAB CHEMISTRY METHOD 06/26/2024 8:11 AM [facility] Anion Gap 8 3 - 11 LAB CHEMISTRY METHOD 06/26/2024 8:11 AM [facility] Glucose 133(H) 70 - 100 mg/dL LAB CHEMISTRY METHOD 06/26/2024 8:11 AM [facility] BUN 8 5 - 25 mg/dL LAB CHEMISTRY METHOD 06/26/2024 8:11 AM [facility] Creatinine 1.06 0.50 - 1.10 mg/dL LAB CHEMISTRY METHOD 06/26/2024 8:11 AM [facility] eGFR 66 >=60 mL/min/1. 73m2 LAB CHEMISTRY METHOD 06/26/2024 8:11 AM [facility] Comment:Calculation based on the Chronic Kidney Disease Epidemiology Collaboration (CKD-EPI) equation refit without adjustment for race. BUN/Creatinine Ratio 7.5 LAB CHEMISTRY METHOD 06/26/2024 8:11 AM [facility] Calcium 9.6 8.5 - 10.5 mg/dL LAB CHEMISTRY METHOD 06/26/2024 8:11 AM [facility] AST (SGOT) 18 10 - 42 unit/L LAB CHEMISTRY METHOD 06/26/2024 8:11 AM [facility] ALT (SGPT) 39 10 - 60 unit/L LAB CHEMISTRY METHOD 06/26/2024 8:11 AM [facility] Alkaline Phosphatase 79 42 - 121 unit/L LAB CHEMISTRY METHOD 06/26/2024 8:11 AM [facility] Total Protein 7.2 6.0 - 8.0 g/dL LAB CHEMISTRY METHOD 06/26/2024 8:11 AM [facility] Albumin 4.2 3.2 - 5.0 g/dL LAB CHEMISTRY METHOD 06/26/2024 8:11 AM [facility] Total Bilirubin 0.4 0.0 - 1.4 mg/dL LAB CHEMISTRY METHOD 06/26/2024 8:11 AM [facility] Blood Venous blood specimen / Unknown Venipuncture / Unknown 06/26/2024 7:26 AM EST 06/26/2024 7:27 AM EST us Toby Reynoso MD LAB BLOOD ORDERABLES Final Resu lt [facility] [address] [place] [address], [place] [phone] from Last 3 Months or Most Recently Relevant to Health Maintenance Insurance MEDICAID - [place] [facility] Member Subscriber Plan / Payer (Ef fective 2024-Present) Name:Veronica Wilcox Relation to Subscriber:Self Name:Veronica Wilcox Payer ID:[id number] Group ID:Not on file Type:Not on file Address: [address] [place] [address] [employer] MEDICARE Member Subscriber Plan / Payer (Ef fective 2019-Present) Name:Veronica Wilcox Relation to Subscriber:Self Name:Veronica Wilcox Payer ID:[id number] Group ID:[id number] Type:Not on file Address: [address] [place] [phone] Care Teams Municipal Clerk Relationship Specialty Start Date End Date Michelle Young MD [address] [phone] PCP - General Internal Medicine 09/06/19
--- OUTSIDE RECORDS SUMMARY | 2025-07-17 16:19 | XMS_ITS | Encounter Summary ---
Author Organization [facility] Address [address] [place] [address] Care Team Providers Care Continuous Mining Operator Name Role Phone Michelle Young MD Primary Care Provide r Carter Wilson PharmD Unavailable [phone] Reason for Visit * Reason Comments Med Change Request Encounter Details Date Type Department Care Team ([facility] st Contact Info) Description 05/25/2025 Refill [facility] [address] [place], [place] [phone] Michelle Young MD [address] [place], [place] [phone] Type 2 diabetes mellitus with hyperglycemia, without long-term current use of insulin ([facility]) Social History Tobacco Use Types Packs/Day Years [...] Description 09/15/2025 11:00 AM EST Medication Management [address] [address] Carter Wilson, PharmD [address] [place] [phone] 10/04/2025 10:00 AM EST Clinical Support [address] [address] Deena Araujo, RN documented as of this encounter Visit Diagnoses Diagnosis Type 2 diabetes mellitus with hyperglycemia, without long-term current use of insulin ([facility]) documented in this encounter Additional Health Concerns Assessment Noted Time PHQ-9 Depression Total Score: 0 02/24/20 23 11:15 AM EDT documented as of this encounter Care Teams Continuous Mining Operator Relationship Specialty Start Date End Date Michelle Young MD [address] [place] [phone] PCP - General Family Medicine 06/03/18 Carter Wilson, PharmD [address] [place] [phone] Pharmacist Internal Medicine 11/22/24 documented as of this encounter
== END 2025-07-16 12:19 | disposition home or self-care (01) ==
LOC: HO.LNP 12:18
PROVIDERS: Visit Provider Nurse Practitioner
DX: K55.9 Vascular disorder of intestine, unspecified (principal); R19.7 Diarrhea, unspecified
CPT/HCPCS: 87493; 87507